=== PATIENT | female | born 1950 | race Caucasian/White ===

== ENCOUNTER 2017-04-27 08:47 | Day surgery (SDC) | payer MEDICARE, OTHER, SELFPAY ==
[2017-04-27 09:08] VITALS: BP 129/55; BP 145/68; BP 159/78; PULSE 62; PULSE 66; PULSE 69; RESP 18; RESP 20; TEMP 36.2; O2SAT 99
[2017-04-27 09:21] VITALS: BP 127/78; PULSE 70; RESP 20; TEMP 36.2; O2SAT 100
--- NOTE | 2017-04-27 10:10 | HMH.PMPROC ---
- Procedure Date: 04/27/17 Time: 10:10 Anesthesiologist:: Kvng Freed MD Complications:: None Pre-procedure Diagnosis:: Sacroiliitis Post-procedure Diagnosis:: Same Indications for Procedure:: This patient is a pleasant 66-year-old white female who we are treating for right hip pain. She is tender over her right SI joint. She does have a positive Randee's test. We will do a right SI joint injection under fluoroscopy today. Procedure Details:: Informed consent was obtained and the risk and benefits of the procedure was explained to the patient. Patient was taken to the procedure room. She was prepped in sterile fashion. C-arm fluoroscopy was used to view the lower right SI joint. The skin and subcutaneous tissues were anesthetized using lidocaine. A 22-gauge spinal needle was inserted and advanced into the inferior aspect of the right SI joint. Needle placement was confirmed with dye. After this we injected 5 mL bupivacaine 0.25% and Depo-Medrol 40 mg. Patient tolerated the procedure well without complications. Plan and Disposition:: We will follow-up with her in 2 weeks. We will reevaluate her symptoms at that time.
== END 2017-04-27 10:16 | disposition home or self-care (01) ==
LOC: SC.PAINP 08:50
PROVIDERS: Family Provider Internal Medicine Adolescent Medicine; PCP Internal Medicine Adolescent Medicine; Visit Provider Anesthesiology
DX: M46.1 Sacroiliitis, not elsewhere classified (principal)
CPT/HCPCS: G0260; 27096; J1040

== ENCOUNTER 2017-05-11 09:45 | Emergency (ER) | payer MEDICARE, OTHER, SELFPAY ==
[2017-05-11 09:46] VITALS: BP 147/98; PULSE 90; RESP 18; TEMP 36.9; O2SAT 97; BMI 26.2
--- NOTE | 2017-05-11 09:54 | XR_ITS ---
XR chest 2V HISTORY: ITS.REASON: heartburn going into lt neck and ear ORDERING PHYSICIAN: PATIENT AGE: 67 years COMPARISON: 03/20/2017 FINDINGS: Unremarkable heart size. Loop recorder device once again noted.. Chronic changes once again noted bilaterally with COPD. Vague opacity is once again noted in the left upper lobe and in the right mid upper lung zone similar to an older exam of 11/24/2010. The opacity however the right apex slightly more prominent than when compared to the previous exam. This could be related to progressive fibrotic changes. An active process however such as a scar carcinoma is an additional consideration. CT chest with contrast may be of further value. There are multiple old right-sided rib fractures. IMPRESSION: 1. COPD with chronic changes. 2. Increasing density right apex. Progressive fibrotic change or developing nodule is a consideration. Consider chest CT with contrast for further evaluation. Previous chest CT of 07/08/2016 also recommended follow-up chest CT in 6 months.
--- NOTE | 2017-05-11 10:01 | HMH.EDNVD ---
ED Disposition Clinical Impression: Nausea & vomiting Disposition: Home, Self-Care Condition on Discharge: Good Instructions: Nausea and Vomiting-Adult Additional Instructions: Commend that you eat foods foods that are rich in potassium such as orange juice and bananas as well as take Gatorade by mouth. Follow-up with Dr. Rivers in 1-3 days for recheck potassium and recheck general. Follow-up with hop sorter, call for appointment also in next few days. Prescriptions: Ondansetron [Zofran 4mg ODT] 4 mg PO TIDP PRN #10 tab.rapdis PRN Reason: nausea Referrals: Abdiel Angulo MD [Primary Care Provider] - - Critical Care Critical Care Time: No Attestation: On , the high probability of a clinically significant, sudden or life threatening deterioration of the following system(s) required my full and direct attention, intervention and personal management. The time I documented below is in addition to time spent performing reported procedures but includes the following listed in this critical care notation. Medical Decision Making Vital Signs: 05/11/17 09:46 Temperature 98.4 F Temperature Source Oral Pulse Rate [Right Brachial] 90 Respiratory Rate 18 Blood Pressure [Right Arm] 147/98 Blood Pressure Mean [Right Arm] 114 Blood Pressure Source [Right Arm] Automatic Cuff Blood Pressure Position [Right Arm] Sitting 02 Sat by Pulse Oximetry 97 Oxygen Delivery Method Room Air - Lab Data Lab Results 05/11/17 10:39: WBC 8.0, RBC 4.54, Hgb 13.5, Hct 41.3, MCV 90.9, MCH 29.7, MCHC 32.7, RDW 13.6, Plt Count 236, MPV 7.7, Neut % (Auto) 67.0, Lymph % (Auto) 27.3, [place] % (Auto) 4.3, Eos % (Auto) 1.1, Baso % (Auto) 0.2, Neut # (Auto) 5.4, Lymph # (Auto) 2.2, [place] # (Auto) 0.4, Eos # (Auto) 0.1, Baso # (Auto) 0.0 05/11/17 10:39: Sodium 139, Potassium 2.8 L*, Chloride 97 L, Carbon Dioxide 33 H, Anion Gap 11.8, BUN 15, Creatinine 0.95, Estimated Creat Clear 58, Estimated GFR 59, Est GFR ( Amer) 71, Glucose 91, Calcium 8.9, Total Bilirubin 0.5, AST 13 L, ALT 17, Alkaline Phosphatase 57, Total Creatine Kinase 46, CK-MB (CK-2) < 0.5, CK-MB (CK-2) Rel Index 1.1, Troponin I < 0.02, Total Protein 7.5, Albumin 3.7, Globulin 3.8 H, Albumin/Globulin Ratio 1.0 L Result diagrams: 05/11/17 10:39 05/11/17 10:39 Orders (Tests/Meds): ED MEDICATIONS Discontinued Medications Generic Name Dose Route Start Last Admin Trade Name Freq PRN Reason Stop Dose Admin Belladonna Alkaloids 60 ml 05/11/17 10:23 05/11/17 10:43 Gi Cocktail 60ml Udc PO 05/11/17 10:24 60 ml ONCE ONE Administration Ondansetron HCl 4 mg 05/11/17 10:23 05/11/17 10:43 Zofran 4mg/2ml Vial IV 05/11/17 10:24 4 mg ONCE ONE Administration Potassium Chloride 20 meq 05/11/17 11:15 05/11/17 11:18 Klor-Con 20meq Tablet PO 05/11/17 11:16 20 meq ONCE ONE Administration - Radiology Data #1 Image(s): Chest Image Reviewed: Yes I reviewed the patient's radiology results, Yes I have reviewed radiologist's interpretation Preliminary Findings: Abnormal, No Infiltrates Seen, Normal Lung Inflation Ramon, Normal Heart Size Possible nodule seen, with follow-up CT recommended. I have relayed this information to the patient and she agrees to do so. - ECG Data Tracing #1 Sinus rhythm. 10/27/2016. Old right bundle branch block, and old T-wave changes. Normal intervals and axis. No hypertrophy. No ectopy. - Tanner Inquiry Pt receiving controlled substance: No Medical Decision Making Narrative: Patient has had no discomfort since being given a GI cocktail and Zofran. Low potassium, PO given/ replaced prior to discharge. Nausea/Vomiting/Diarrhea HPI - General Chief complaint: Nausea/Vomiting/Diarrhea Stated complaint: heartburn,vomiting,lt ear burning Mode of Arrival: Wheelchair Limitations: No Limitations Description of Symptoms (Recalled from ER Triage Doc. by RN): c/o heartburn x1 week that is now going into
[2017-05-11 10:44] LABS: Basophils % 0.2 % (0.1-2.0); Eosinophils # 0.1 K/mm3 (0.0-0.4); Eosinophils % 1.1 % (0.1-12.0); Hematocrit 41.3 % (37.0-47.0); Hemoglobin 13.5 g/dL (12.2-16.2); Lymphocytes # 2.2 K/mm3 (0.7-4.5); Lymphocytes % 27.3 K/mm3 (10-50); Mean Corpuscular HGB Conc 32.7 g/dL (31.8-35.4); Mean Corpuscular Hemoglobin 29.7 pg (27.0-31.2); Mean Corpuscular Volume 90.9 fl (81-99); Mean Platelet Volume 7.7 fl (7.4-10.4); Monocytes # 0.4 K/mm3 (0.1-1.0); Monocytes % 4.3 % (1.7-9.3); Neutrophils # 5.4 K/mm3 (1.8-7.8); Platelet Count 236 K/mm3 (142-424); Red Blood Count 4.54 M/mm3 (4.20-5.40); Red Cell Distribution Width 13.6 % (11.5-17.5)
[2017-05-11 11:12] LABS: Alanine Aminotransferase 17 U/L (12-78); Albumin Level 3.7 gm/dL (3.4-5.0); Alkaline Phosphatase 57 U/L (46-116); Anion Gap 11.8 mEq/L (5-15); Aspartate Amino Transferase 13 U/L (15-37); Bilirubin,Total 0.5 mg/dL (0.2-1.0); Blood Urea Nitrogen 15 mg/dL (7-18); Calcium 8.9 mg/dL (8.5-10.1); Carbon Dioxide 33 mmol/L (21.0-32.0); Chloride 97 mmol/L (98-107); Creatine Kinase 46 U/L (26-192); Creatinine Clearance Estimated 58 mL/min (0-300); Creatinine,Serum 0.95 mg/dL (0.55-1.02); Estimated Glomerular Filt Rate 59 ml/min (>60); GFR (African American) 71 ML/MIN (>60); Globulin 3.8 gm/dl (1.3-3.2); Glucose 91 mg/dL (74-106); Sodium 139 mmol/L (136-145); Total Protein,Serum 7.5 gm/dL (6.4-8.2); Troponin I < 0.02 ng/ml (0.00-0.06)
[2017-05-11 11:13] LABS: CKMB Relative Index 1.1 U/L (0-4.0); Creatine Kinase MB < 0.5 mg/ml (0.0-3.6)
[2017-05-11 11:14] LABS: Potassium 2.8 mmoL/L (3.5-5.1)
--- NOTE | 2017-05-11 11:18 | PC.NURSE ---
LAB CALLED WITH CRITICALS POTTASSIUM OF 2.6 PER [facility] , DR MARCOS NOTIFIED
[2017-05-11 11:36] VITALS: BP 125/85; O2SAT 98
== END 2017-05-11 11:38 | disposition home or self-care (01) ==
PROVIDERS: Emergency Provider Emergency Medicine; Family Provider Internal Medicine Adolescent Medicine; PCP Internal Medicine Adolescent Medicine
DX: R11.2 Nausea with vomiting, unspecified (principal); I25.2 Old myocardial infarction; E78.5 Hyperlipidemia, unspecified; F17.210 Nicotine dependence, cigarettes, uncomplicated; Z87.11 Personal history of peptic ulcer disease; Z79.890 Hormone replacement therapy
CPT/HCPCS: 71046; 80053; 82550; 82553; 84484; 85025; 93005; 93041; 96374; 96375; 99284; J2405

== ENCOUNTER 2017-05-17 13:47 | Emergency (ER) | payer MEDICARE, OTHER, SELFPAY ==
[2017-05-17 13:48] VITALS: BP 160/85; PULSE 71; RESP 16; TEMP 36.9; O2SAT 100; BMI 28.3
--- NOTE | 2017-05-17 14:06 | CT_ITS ---
CT head/brain wo con HISTORY: ITS.REASON: Slurred speech, uncomprehensive sounds ORDERING PHYSICIAN: Henok Brunner MD PATIENT AGE: 67 years COMPARISON: 11/24/2010 TECHNIQUE: Axial images obtained without contrast. Brain and bone windows reviewed. FINDINGS: No midline shift, mass effect, intracranial hemorrhage, hydrocephalus, or extra-axial fluid collection is evident. There is some nonspecific areas of decreased attenuation in the periventricular and subcortical regions bilaterally microangiopathic gliotic changes. The calvarium has an unremarkable appearance. No mastoid effusion. No sinus air-fluid levels.. Mild mucosal thickening ethmoid sinuses. IMPRESSION: 1. No acute intracranial findings. 2. Subtle subcortical and periventricular decreased attenuation suggesting microangiopathic gliotic change. 3. There is no evidence of intracranial hemorrhage, focal mass, or acute territorial infarction. A negative CT does not exclude an acute CVA. A follow-up head CT or MRI is recommended if neurological symptoms persist .
--- NOTE | 2017-05-17 14:09 | XR_ITS ---
XR chest portable HISTORY: ITS.REASON: weakness, slurred speech ORDERING PHYSICIAN: Henok Brunner MD PATIENT AGE: 67 years COMPARISON: 05/11/2017 FINDINGS: Study is somewhat underpenetrated. Unremarkable heart size. No evidence of CHF. Right apical density once again noted. There is also increased density in the right suprahilar region which could reflect underlying atelectasis or infiltrate. There are multiple old right rib fractures. Left lung is clear. IMPRESSION: 1. New opacity in the right suprahilar region consistent with atelectasis or infiltrate. 2. Old right rib fractures with persistent opacity in the right apex
--- NOTE | 2017-05-17 14:14 | HMH.EDAMS ---
ED Disposition Clinical Impression: Generalized anxiety disorder Altered mental status Qualifiers: Altered mental status type: stupor Qualified Code(s): R40.1 - Stupor Disposition: Home, Self-Care Condition on Discharge: Fair Instructions: DI for Altered Mental Status Referrals: Abdiel Angulo MD [Primary Care Provider] - Time of Disposition: 18:38 - Critical Care Critical Care Time: No Attestation: On 05/17/17, the high probability of a clinically significant, sudden or life threatening deterioration of the following system(s) required my full and direct attention, intervention and personal management. The time I documented below is in addition to time spent performing reported procedures but includes the following listed in this critical care notation. Medical Decision Making - Medical Records Medical records reviewed: Yes: I reviewed the patient's medical records. Vital Signs: 05/17/17 13:48 Temperature 98.4 F Temperature Source Oral Pulse Rate [Right Brachial] 71 Respiratory Rate 16 Blood Pressure [Right Arm] 160/85 Blood Pressure Mean [Right Arm] 110 Blood Pressure Source [Right Arm] Automatic Cuff Blood Pressure Position [Right Arm] Supine 02 Sat by Pulse Oximetry 100 Oxygen Delivery Method Nasal Cannula Oxygen Flow Rate (LPM) 2 - Lab Data Lab results reviewed: Yes: I reviewed the patient's lab results. Lab Results 05/17/17 14:53: WBC 6.4, RBC 3.97 L, Hgb 12.0 L, Hct 37.3, MCV 93.9, MCH 30.3, MCHC 32.3, RDW 13.5, Plt Count 217, MPV 7.6, Neut % (Auto) 62.7, Lymph % (Auto) 31.7, [place] % (Auto) 3.4, Eos % (Auto) 1.9, Baso % (Auto) 0.2, Neut # (Auto) 4.0, Lymph # (Auto) 2.0, [place] # (Auto) 0.2, Eos # (Auto) 0.1, Baso # (Auto) 0.0 05/17/17 14:53: Sodium 140, Potassium 3.5, Chloride 102, Carbon Dioxide 30, Anion Gap 11.5, BUN 16, Creatinine 0.83, Estimated Creat Clear 65, Estimated GFR 69, Est GFR ( Amer) 83, Glucose 106, Calcium 8.8, Total Bilirubin 0.4, AST 13 L, ALT 18, Alkaline Phosphatase 49, Total Protein 6.7, Albumin 3.2 L, Globulin 3.5 H, Albumin/Globulin Ratio 0.9 L 05/17/17 14:53: Total Creatine Kinase 36, CK-MB (CK-2) < 0.5, CK-MB (CK-2) Rel Index 1.4, Troponin I < 0.02 05/17/17 15:45: Urine Color Yellow, Urine Appearance Clear, Urine pH 6.0, Ur Specific [place] 1.020, Urine Protein Negative, Urine Glucose (UA) Negative, Urine Ketones Negative, Urine Blood Negative, Urine Nitrate Negative, Urine Bilirubin Negative, Urine Urobilinogen 0.2, Ur Leukocyte Esterase Negative, Urine RBC Occasional, Urine WBC Occasional, Ur Squamous Epith Cells Occasional, Calcium Oxalate Crystal Trace, Amorphous Sediment 1+, Urine Bacteria Trace 05/17/17 15:45: Urine Opiates Screen Negative, Ur Barbituates Screen Positive H, Ur Phencyclidine Scrn Negative, Ur Amphetamines Screen Negative, U Methamphetamines Scrn Negative, U Benzodiazepines Scrn Negative, Urine Cocaine Screen Negative, U Marijuana (THC) Screen Negative Result diagrams: 05/17/17 14:53 05/17/17 14:53 Orders (Tests/Meds): ED MEDICATIONS Discontinued Medications Generic Name Dose Route Start Last Admin Trade Name Annabella PRN Reason Stop Dose Admin Iopamidol 75 ml 05/17/17 16:56 05/17/17 16:57 [id number]; 75ml Vial IV 05/17/17 16:57 75 ml ONCE ONE Administration Sodium Chloride 10 ml 05/17/17 16:56 05/17/17 16:57 Rad-Saline Flush 10ml Syringe IV 05/17/17 16:57 10 ml ONCE ONE Administration ORDERS Category Date Time Status CT chest w con Stat Cat Scan 05/17/17 16:[address] head/brain w con Stat Cat Scan 05/17/17 16:[address] soft tissue neck w con Stat Cat Scan 05/17/17 16:04 Taken - CT Data CT Scan: Head, C-Spine, Chest Time Received: 18:[address] Reviewed: Yes: I have reviewed the patient's CT results, I discussed the CT results w/the radiologist, I have viewed the radiologist's interpretation Preliminary Findings: Normal/NAD - Tanner Inquiry Pt receiving controlled substance: No Tanner
--- NOTE | 2017-05-17 14:19 | ED_ITS ---
ED Disposition Clinical Impression: Generalized anxiety disorder Altered mental status Qualifiers: Altered mental status type: stupor Qualified Code(s): R40.1 - Stupor Disposition: Home, Self-Care Condition on Discharge: Fair Instructions: DI for Altered Mental Status Referrals: Abdiel Angulo MD [Primary Care Provider] - Time of Disposition: 18:38 - Critical Care Critical Care Time: No Attestation: On 05/17/17, the high probability of a clinically significant, sudden or life threatening deterioration of the following system(s) required my full and direct attention, intervention and personal management. The time I documented below is in addition to time spent performing reported procedures but includes the following listed in this critical care notation. Medical Decision Making - Medical Records Medical records reviewed: Yes: I reviewed the patient's medical records. Vital Signs: 05/17/17 13:48 Temperature 98.4 F Temperature Source Oral Pulse Rate [Right Brachial] 71 Respiratory Rate 16 Blood Pressure [Right Arm] 160/85 Blood Pressure Mean [Right Arm] 110 Blood Pressure Source [Right Arm] Automatic Cuff Blood Pressure Position [Right Arm] Supine 02 Sat by Pulse Oximetry 100 Oxygen Delivery Method Nasal Cannula Oxygen Flow Rate (LPM) 2 - Lab Data Lab results reviewed: Yes: I reviewed the patient's lab results. Lab Results 05/17/17 14:53: WBC 6.4, RBC 3.97 L, Hgb 12.0 L, Hct 37.3, MCV 93.9, MCH 30.3, MCHC 32.3, RDW 13.5, Plt Count 217, MPV 7.6, Neut % (Auto) 62.7, Lymph % (Auto) 31.7, [place] % (Auto) 3.4, Eos % (Auto) 1.9, Baso % (Auto) 0.2, Neut # (Auto) 4.0 , Lymph # (Auto) 2.0, [place] # (Auto) 0.2, Eos # (Auto) 0.1, Baso # (Auto) 0.0 05/17/17 14:53: Sodium 140, Potassium 3.5, Chloride 102, Carbon Dioxide 30, Anion Gap 11.5, BUN 16, Creatinine 0.83, Estimated Creat Clear 65, Estimated GFR 69, Est GFR ( Amer) 83, Glucose 106, Calcium 8.8, Total Bilirubin 0.4 , AST 13 L, ALT 18, Alkaline Phosphatase 49, Total Protein 6.7, Albumin 3.2 L, Globulin 3.5 H, Albumin/Globulin Ratio 0.9 L 05/17/17 14:53: Total Creatine Kinase 36, CK-MB (CK-2) < 0.5, CK-MB (CK-2) Rel Index 1.4, Troponin I < 0.02 05/17/17 15:45: Urine Color Yellow, Urine Appearance Clear, Urine pH 6.0, Ur Specific Organ 1.020, Urine Protein Negative, Urine Glucose (UA) Negative, Urine Ketones Negative, Urine Blood Negative, Urine Nitrate Negative, Urine Bilirubin Negative, Urine Urobilinogen 0.2, Ur Leukocyte Esterase Negative, Urine RBC Occasional, Urine WBC Occasional, Ur Squamous Epith Cells Occasional, Calcium Oxalate Crystal Trace, Amorphous Sediment 1+, Urine Bacteria Trace 05/17/17 15:45: Urine Opiates Screen Negative, Ur Barbituates Screen Positive H , Ur Phencyclidine Scrn Negative, Ur Amphetamines Screen Negative, U Methamphetamines Scrn Negative, U Benzodiazepines Scrn Negative, Urine Cocaine Screen Negative, U Marijuana (THC) Screen Negative Result diagrams: 05/17/17 14:53 05/17/17 14:53 Orders (Tests/Meds): ED MEDICATIONS Discontinued Medications Generic Name Dose Route Start Last Admin Trade Name Annabella PRN Reason Stop Dose Admin Iopamidol 75 ml 05/17/17 16:56 05/17/17 16:57 [id number]; 75ml Vial IV 05/17/17 16:57 75 ml ONCE ONE Administration Sodium Chloride 10 ml 05/17/17 16:56 05/17/17 16:57 Rad-Saline Flush 10ml Syringe IV 05/17/17 16:57 10 ml ONCE ONE Administration
[2017-05-17 15:15] LABS: Basophils % 0.2 % (0.1-2.0); Eosinophils # 0.1 K/mm3 (0.0-0.4); Eosinophils % 1.9 % (0.1-12.0); Hematocrit 37.3 % (37.0-47.0); Lymphocytes % 31.7 K/mm3 (10-50); Mean Corpuscular HGB Conc 32.3 g/dL (31.8-35.4); Mean Corpuscular Hemoglobin 30.3 pg (27.0-31.2); Mean Corpuscular Volume 93.9 fl (81-99); Mean Platelet Volume 7.6 fl (7.4-10.4); Monocytes # 0.2 K/mm3 (0.1-1.0); Monocytes % 3.4 % (1.7-9.3); Neutrophils % 62.7 % (37.0-80.0); Platelet Count 217 K/mm3 (142-424); Red Blood Count 3.97 M/mm3 (4.20-5.40); Red Cell Distribution Width 13.5 % (11.5-17.5); White Blood Count 6.4 K/mm3 (4.8-10.8)
[2017-05-17 15:32] LABS: Alanine Aminotransferase 18 U/L (12-78); Albumin Level 3.2 gm/dL (3.4-5.0); Albumin/Globulin Ratio 0.9 (1.1-1.8); Alkaline Phosphatase 49 U/L (46-116); Anion Gap 11.5 mEq/L (5-15); Aspartate Amino Transferase 13 U/L (15-37); Bilirubin,Total 0.4 mg/dL (0.2-1.0); Blood Urea Nitrogen 16 mg/dL (7-18); Calcium 8.8 mg/dL (8.5-10.1); Carbon Dioxide 30 mmol/L (21.0-32.0); Chloride 102 mmol/L (98-107); Creatinine Clearance Estimated 65 mL/min (0-300); Creatinine,Serum 0.83 mg/dL (0.55-1.02); Estimated Glomerular Filt Rate 69 ml/min (>60); GFR (African American) 83 ML/MIN (>60); Globulin 3.5 gm/dl (1.3-3.2); Glucose 106 mg/dL (74-106); Potassium 3.5 mmoL/L (3.5-5.1); Sodium 140 mmol/L (136-145); Total Protein,Serum 6.7 gm/dL (6.4-8.2)
[2017-05-17 15:47] LABS: Creatine Kinase 36 U/L (26-192); Troponin I < 0.02 ng/ml (0.00-0.06)
[2017-05-17 15:48] LABS: CKMB Relative Index 1.4 U/L (0-4.0); Creatine Kinase MB < 0.5 mg/ml (0.0-3.6)
[2017-05-17 15:51] LABS: Microscopic, Urine URINE MICROSCOPIC (MICROSCOPIC)
[2017-05-17 15:54] LABS: Appearance,Urine CLEAR (Clear); Bilirubin,Urine Negative (Negative); Blood, Urine Negative (Negative); Color,Urine YELLOW (Yellow); Glucose,Urine (UA) Negative (Negative); Ketones,Urine Negative (Negative); Leukocyte Esterase,Urine Negative (Negative); Nitrate,Urine Negative (Negative); Protein,Urine Negative (Negative); Urobilinogen,Urine 0.2 EU/dl (0.2)
[2017-05-17 16:00] LABS: Amphetamine/Metha Screen,Urine Negative ng/mL (<1000); Barbiturates Screen,Urine Positive ng/mL (<200); Benzodiazepines Screen,Urine Negative ng/mL (200); Cannabinoid Screen,Urine Negative ng/mL (<50); Cocaine Screen,Urine Negative ng/g (<300); Methadone Screen,Urine Negative ng/mL (<300); Opiate Screen,Urine Negative ng/mL (<300); Phencyclidine Screen,Urine Negative ng/mL (<25)
--- NOTE | 2017-05-17 16:02 | CT_ITS ---
CT head/brain w con HISTORY: Unresponsive, slurred speech, noncomprehensive sound, strokelike symptoms ITS.REASON: ? Stroke like symptoms ORDERING PHYSICIAN: Henok Brunner MD PATIENT AGE: 67 years COMPARISON: Unenhanced exam from the same day TECHNIQUE: Axial images obtained with contrast. Brain and bone windows reviewed. FINDINGS: No midline shift, mass effect, intracranial hemorrhage, hydrocephalus, or extra-axial fluid collection is evident. No enhancing lesions evident. The calvarium has an unremarkable appearance. No mastoid effusion. No sinus air-fluid levels.. IMPRESSION: Negative CT head with contrast. No acute finding. Consider MRI for more thorough evaluation if symptoms persist
--- NOTE | 2017-05-17 16:03 | CT_ITS ---
CT chest w con HISTORY: Right upper lobe mass or infiltrate noted on chest x-ray. Unresponsive ITS.REASON: ? mass on CXR ORDERING PHYSICIAN: Henok Brunner MD PATIENT AGE: 67 years TECHNIQUE: Axial images obtained following the administration of 75 mL of Isovue 370 . Sagittal, and coronal reformatted images are also generated and reviewed. COMPARISON: Radiograph of the same day and previous CT of the chest of 07/08/2016 FINDINGS: No mediastinal mass or adenopathy. Small node is present in the right hilum 11 mm. There are coronary artery calcifications. No evidence of pericardial effusion. There are centrilobular emphysematous changes with biapical fibrosis. There is some minimal cavitation in the right apex age-indeterminate. The previous CT of the chest did not cover the apical region. Paraseptal emphysematous changes are also present. There is a subpleural 8 mm nodule right middle lobe laterally. Atelectatic or fibrotic changes are present in the lung bases. There are old right-sided rib fractures involving the right third through seventh ribs posterior laterally. There is a loop recorder device on the left. No evidence of aortic aneurysm or dissection. No evidence of central pulmonary embolus. Coronary artery calcifications are present. Upper abdominal images show some mild thickening of the splenic flexure of the colon nonspecific. IMPRESSION: 1. Centrilobular and paraseptal emphysematous changes with biapical fibrosis and mild cavitation in the right apex 2. Stable 8 mm nodule in the right middle lobe. 3. Coronary artery calcifications indicating coronary artery disease. 4. Multiple old right-sided rib fractures. 5. The radiographic abnormality likely corresponds to a combination of the fibrotic changes and overlying rib fractures PULMONARY ARTERIES:No pulmonary embolus evident. AORTA:No acute finding. No thoracic aortic aneurysm or dissection evident LUNGS:Unremarkable. No mass or consolidation. PLEURAL SPACES:No significant effusion. No evidence of pneumothorax. HEART:Unremarkable. Normal heart size. No significant pericardial effusion. MEDIASTINAL AND HILAR STRUCTURES:No mediastinal or hilar mass evident. No dominant adenopathy. BONY STRUCTURES:No acute bony abnormalities apparent LYMPH NODES:No enlarged lymph nodes evident UPPER ABDOMEN:Unremarkable IMPRESSION:
--- NOTE | 2017-05-17 16:04 | CT_ITS ---
CT soft tissue neck w con INDICATION: Unresponsive, altered mental status ITS.REASON: need CT of neck ORDERING PHYSICIAN: Henok Brunner MD PATIENT AGE: 67 years COMPARISON: None TECHNIQUE: Axial images are obtained with contrast. Sagittal and coronal reformatted images are reviewed as well. FINDINGS: No obvious nasopharyngeal mass. The parotid glands and submandibular glands are unremarkable. No mass, dominant adenopathy, or abscess. Right lobe of the thyroid gland is somewhat enlarged with a 6 mm hypodense nodule along the lower pole posteriorly. The epiglottis has an unremarkable appearance. IMPRESSION: 1. No acute finding. 2. Small right thyroid nodule
[2017-05-17 17:03] LABS: Amorphous Sediment,Urine 1+ /lpf; Bacteria,Urine Trace /lpf; Calcium Oxalate Crystals,Urine Trace /lpf; RBC,Urine Occasional #/hpf (0-3); Squamous Epithelial Cell,Urine Occasional #/hpf (0-5); WBC,Urine Occasional #/hpf (0-3)
[2017-05-17 19:30] VITALS: BP 135/83; PULSE 66; RESP 16; O2SAT 98
== END 2017-05-17 19:33 | disposition home or self-care (01) ==
PROVIDERS: Emergency Provider General Practice; Family Provider Internal Medicine Adolescent Medicine; PCP Internal Medicine Adolescent Medicine
DX: F41.1 Generalized anxiety disorder (principal); R40.1 Stupor; J44.9 Chronic obstructive pulmonary disease, unspecified; F17.210 Nicotine dependence, cigarettes, uncomplicated; Z86.73 Personal history of transient ischemic attack (TIA), and cerebral infarction without residual deficits; Z79.02 Long term (current) use of antithrombotics/antiplatelets; Z79.899 Other long term (current) drug therapy
CPT/HCPCS: 36415; 70450; 70460; 70491; 71045; 71260; 80053; 80305; 81001; 82550; 82553; 84484; 85025; 93005; 99283; Q9967

== ENCOUNTER 2017-05-31 08:31 | Day surgery (SDC) | payer MEDICARE, OTHER, SELFPAY ==
[2017-05-29 16:19] VITALS: BMI 25.8
[2017-05-31 08:49] VITALS: BP 118/66; PULSE 72; RESP 16; TEMP 36.3; O2SAT 97
--- NOTE | 2017-05-31 08:58 | P.PN_ITS ---
[facility] Anesthesia Checklist - Patient Identification Patient Identification: Arm Band, Verbal (Name & ) - Structural Data Admitted From: Home Planned Operative Procedure/s: egd, colon Consent for Planned Operative Procedure(s) Verified: Yes Verified Documents: Surgical Consent - NPO Status Verified Time NPO: 00:00 - Additional verifications Patient : No Anesthesia Reactions: No Hx Blood Transfusions: No Blood Transfusion Reaction: No Cephalosporin Allergy: No Previous Colonoscopy: No - Cardiovascular Assessment Heart Sounds: S1 & S2 Pulse Strength: Baseline Pulse Rhythm: Regular Peripheral Edema: Yes - Airway Assessment C-Spine Mobility Assessed: Yes TMJ Mobility Assessed: Yes Dentition: Edentulous - Neurological Assessment Level of Consciousness: Awake, Alert, Appropriate Hx Seizures: No Numbness or tingling in extremities: No - Anesthesia Plan Anesthesia Risk discussed: Yes Anesthesia Plan: Verified ASA Class: III Anesthesia Type: MAC [facility] Anesthesia HX I have reviewed the patient's past medical history: Yes Medical History: Reports:: Anxiety, Atherosclerotic Heart Disease, Congestive Heart Failure, Chronic Obstructive Pulmonary Disease (COPD), Coronary Artery Disease, Gastroesophageal Reflux Disease(GERD), Hyperlipidemia, Lung Disease ( COPD) Denies:: Cancer, Diabetes Mellitus Type 1, Diabetes Mellitus Type 2, Internal Pacemaker, MRSA, Seizures Other Medical History: Reports: Arthritis, Hormone Therapy, Other (Stroke,Heart Attack). Denies: Blood Transfusion Reaction Other Surgeries: Yes: Appendectomy, Colonoscopy, Coronary Stent (x1), EGD, Hysterectomy-Total, Tubal Ligation, Other (gallbladder,Loop Recorder,Heart Stent ). No: Pacemaker Amputation: No Fractures: No *Family Hx:: Coronary Artery Disease, Cancer, Hypertension
[2017-05-31 09:58] VITALS: O2SAT 99
--- NOTE | 2017-05-31 10:37 | HMH.SCOPE ---
- Procedure: Date: 05/31/17 Procedure Performed:: Esophagogastroduodenoscopy with biopsy Colonoscopy with polypectomy Indications:: This is a 67-year-old female with a history of colon polyps and with a history of fairly severe peptic ulcer disease leading to partial gastrectomy. Over the past few months she has had intermittent increased heartburn . Performing Provider:: Harsha Hawley MD Referring Provider:: Dr. Abdiel Angulo Sedation:: Monitored anesthesia care Procedure:: After informed consent was obtained, the patient was taken to the endoscopy suite. Monitored anesthesia care ensued after she was transferred to the left lateral decubitus position. The gastroscope was advanced. The gastroesophageal junction was at 40 cm. The stomach was entered. Moderate streaking gastritis was encountered. A biopsy of the distal gastric remnant was obtained. The duodenal mucosa appeared relatively normal. Retroflexion confirmed additional areas of inflammation, but no other significant abnormality. The gastroscope was carefully removed. Digital rectal exam revealed hemorrhoidal tags. The colonoscope was placed in position. The entire colon was evaluated. Bowel preparation was very poor and visualization was limited. Large volume irrigation and suctioning only slightly improved visualization. Scattered diverticulosis was noted. A splenic flexure polyp was excised way of snare. A lobulated sessile polyp at 40 cm was also excised by way of snare. No additional lesions were seen. The colonoscope was carefully removed and the patient was transferred to recovery. Findings:: Gastroesophageal junction at 40 cm Moderate streaking gastritis Mild hemorrhoidal tags Mild scattered diverticulosis Poor bowel preparation Splenic flexure polyp Lobulated sessile polyp at 40 cm Specimens:: Biopsy of distal gastric remnant Splenic flexure polyp Lobulated sessile polyp at 40 cm Recommendations:: Repeat colonoscopy is pending pathology but will likely be around 6-12 months secondary to limited bowel preparation. The patient possibly has bile reflux and discussions concerning medical therapy for this will be ongoing. Complications:: No immediate with the exception of poor bowel preparation for colonoscopy Estimated blood obtained (mL): 1
[2017-05-31 10:38] VITALS: BP 93/61; PULSE 64; RESP 18; TEMP 36.3; O2SAT 96
[2017-05-31 10:50] VITALS: BP 102/56; PULSE 67; RESP 18; O2SAT 95
[2017-05-31 13:37] VITALS: BP 104/60; PULSE 67; RESP 18; O2SAT 95
== END 2017-05-31 11:00 | disposition home or self-care (01) ==
PROVIDERS: Family Provider Internal Medicine Adolescent Medicine; PCP Internal Medicine Adolescent Medicine; Visit Provider Surgery
PROC: 0DJ08ZZ Inspection of Upper Intestinal Tract, Via Natural or Artificial Opening Endoscopic (ICD-10-PCS; CPT 43235; principal; 2017-05-31 09:30)
DX: Z86.010 Personal history of colon polyps (principal); K57.90 Diverticulosis of intestine, part unspecified, without perforation or abscess without bleeding; K63.5 Polyp of colon; K64.4 Residual hemorrhoidal skin tags; K29.70 Gastritis, unspecified, without bleeding
CPT/HCPCS: 43239; 45380; 88305

== ENCOUNTER → 2017-06-11 10:36 | Outpatient (POV) | payer MEDICARE, OTHER, SELFPAY ==
[2017-06-11 10:47] VITALS: BP 103/71; PULSE 67; RESP 16; O2SAT 99; BMI 25.8
--- NOTE | 2017-06-11 11:41 | HMH.PAINSOAP ---
[facility] Pain Management SOAP Note Subjective:: Patient is an extremely pleasant 67-year-old white female who presents today to discuss her lower back pain. She just recently had right sacroiliac joint injection. She has done really well after the injection and states that for up to 2 weeks she was essentially pain-free in this area. Today she is still having some improvement however her back pain is worsened. She is having axial back pain or lower back. Patient has had RFA of L3-L4 L4-L5 L5-S1 back in January with great relief. Patient rates her pain a 6 out of 10 today. Patient is unable to take anti-inflammatories due to cardiac conditions. Patient is taking Tylenol arthritis.. ROS General: no recent weight change, no fever, no sleep disturbances Respiratory: no cough, no shortness of air, no recurring pulmonary infections Cardiovascular/Peripheral Vascular: No chest pain, No palpitations, no edema, no shortness of breath. Gastrointestinal: no incontinence, normal bowel movements reported Genitourinary: no incontinence Musculoskeletal: Low back pain Psychiatric: normal mood/ affect Neurological: [denies weakness in extremities], [denies balance issues] Objective:: Physical Exam General: Alert and oriented x3, no acute distress, pleasant and cooperative, [on room air] Lungs: Resps E/U, Symmetrical chest expansion Musculoskeletal: Flexion and extension of lumbar spine somewhat guarded secondary to pain, deep tendon reflexes normal, strength in upper and lower extremities [5/5], normal gait noted Neurological: speech clear, surveillance dual rate officer equal, no gross sensory deficits Assessment:: Lumbar spondylosis, sacroiliitis, facet arthropathy Plan:: We will plan another bilateral medial branch of L3-L4 L4-L5 L5-S1. Patient has done well with RFA in the past and also doing very well with her medial branch blocks in the past. I believe that this will help with her functionality and her pain. Patient received 90% relief from her last medial branch blocks lasting 3-4 weeks. Patient is having difficulty standing and washing her dishes. Patient has tried and failed physical therapy. She is unable to take anti-inflammatories. We will seek approval for medial branch block of L3-S1. This note was dictated using voice recognition software may contain errors or omissions
--- NOTE | 2017-06-11 11:45 | P.CONS_ITS ---
[facility] Pain Management SOAP Note Subjective:: Patient is an extremely pleasant 67-year-old white female who presents today to discuss her lower back pain. She just recently had right sacroiliac joint injection. She has done really well after the injection and states that for up to 2 weeks she was essentially pain-free in this area. Today she is still having some improvement however her back pain is worsened. She is having axial back pain or lower back. Patient has had RFA of L3-L4 L4-L5 L5-S1 back in January with great relief. Patient rates her pain a 6 out of 10 today. Patient is unable to take anti-inflammatories due to cardiac conditions. Patient is taking Tylenol arthritis.. ROS General: no recent weight change, no fever, no sleep disturbances Respiratory: no cough, no shortness of air, no recurring pulmonary infections Cardiovascular/Peripheral Vascular: No chest pain, No palpitations, no edema, no shortness of breath. Gastrointestinal: no incontinence, normal bowel movements reported Genitourinary: no incontinence Musculoskeletal: Low back pain Psychiatric: normal mood/ affect Neurological: [denies weakness in extremities], [denies balance issues] Objective:: Physical Exam General: Alert and oriented x3, no acute distress, pleasant and cooperative, [ on room air] Lungs: Resps E/U, Symmetrical chest expansion Musculoskeletal: Flexion and extension of lumbar spine somewhat guarded secondary to pain, deep tendon reflexes normal, strength in upper and lower extremities [5/5], normal gait noted Neurological: speech clear, gang hemstitching machine operator equal, no gross sensory deficits Assessment:: Lumbar spondylosis, sacroiliitis, facet arthropathy Plan:: We will plan another bilateral medial branch of L3-L4 L4-L5 L5-S1. Patient has done well with RFA in the past and also doing very well with her medial branch blocks in the past. I believe that this will help with her functionality and her pain. Patient received 90% relief from her last medial branch blocks lasting 3-4 weeks. Patient is having difficulty standing and washing her dishes. Patient has tried and failed physical therapy. She is unable to take anti-inflammatories. We will seek approval for medial branch block of L3-S1. This note was dictated using voice recognition software may contain errors or omissions
== END ==
PROVIDERS: Family Provider Internal Medicine Adolescent Medicine; PCP Internal Medicine Adolescent Medicine; Visit Provider Clinical Nurse Specialist Family Health
DX: M47.9 Spondylosis, unspecified (principal)
CPT/HCPCS: 99212

== ENCOUNTER 2017-07-18 10:26 | Day surgery (SDC) | payer MEDICARE, OTHER, SELFPAY ==
[2017-07-18 12:57] VITALS: BP 144/83; PULSE 77; RESP 18; TEMP 36.7; O2SAT 97; BMI 26.0
[2017-07-18 13:05] VITALS: BP 188/99; PULSE 82; RESP 20
[2017-07-18 13:07] VITALS: BP 153/91; PULSE 77; RESP 20
--- NOTE | 2017-07-18 13:16 | P.PCN_ITS ---
- Procedure Date: 07/18/17 Time: 13:16 Anesthesiologist:: Kvng Freed MD Complications:: None Pre-procedure Diagnosis:: Degenerative disc disease of lumbar spine with facet arthropathy and lumbar spondylosis Post-procedure Diagnosis:: Same Indications for Procedure:: This patient is a pleasant 67-year-old white female who underwent RFA of L3-L4, L4-5 and L5-S1 in January with great relief of her pain symptoms. Her pain is just now starting to return. We will do repeat bilateral medial branch blocks of L3-L4, L4-5 and L5-S1 to see if this will give her additional relief. Most of her pain is in the low back increased with extension. She is tender over the facet joints bilaterally at L3-L4, L4-5 and L5-S1. Procedure Details:: Lumbar medial branch block Informed consent was obtained and the risks and benefits of the procedure was explained to the patient. The back was prepped using ChloraPrep. The skin and subcutaneous tissues were anesthetized using lidocaine. I placed 22-gauge spinal needles into the facet joint/medial branches of L3-L4, L4-L5 and L5-S1 bilaterally. Needle placement was confirmed with dye. After this we injected 3 mL bupivacaine 0.25% and Depo-Medrol 13 mg into each facet joint/medial branch of L3-L4, L5 and L5-S1 bilaterally. We used a total of 80 mg Depo- Medrol for all 3 levels bilaterally. The patient tolerated the procedure well with no complications. Plan and Disposition:: We will follow-up with her in 2 weeks. We will reevaluate her symptoms at that time.
[2017-07-18 17:00] VITALS: BP 112/71; PULSE 76; RESP 16; O2SAT 95
== END 2017-07-18 13:21 | disposition home or self-care (01) ==
LOC: SC.PAINP 10:28
PROVIDERS: Family Provider Internal Medicine Adolescent Medicine; PCP Internal Medicine Adolescent Medicine; Visit Provider Anesthesiology
DX: M51.36 Other intervertebral disc degeneration, lumbar region (principal); M47.896 Other spondylosis, lumbar region; M12.88 Other specific arthropathies, not elsewhere classified, other specified site
CPT/HCPCS: 64493; 64494; 64495; J1030; Q9966

== ENCOUNTER → 2017-07-19 14:26 | Outpatient (CLI) | payer MEDICARE, OTHER, SELFPAY ==
[2017-07-19 14:30] LABS: Microscopic, Urine URINE MICROSCOPIC (MICROSCOPIC)
[2017-07-19 14:51] LABS: Basophils % 0.2 % (0.1-2.0); Eosinophils # 0.1 K/mm3 (0.0-0.4); Eosinophils % 0.7 % (0.1-12.0); Hematocrit 38.9 % (37.0-47.0); Hemoglobin 12.4 g/dL (12.2-16.2); Lymphocytes # 1.7 K/mm3 (0.7-4.5); Lymphocytes % 19.6 K/mm3 (10-50); Mean Corpuscular HGB Conc 31.9 g/dL (31.8-35.4); Mean Corpuscular Hemoglobin 29.6 pg (27.0-31.2); Mean Corpuscular Volume 92.8 fl (81-99); Mean Platelet Volume 8.2 fl (7.4-10.4); Monocytes # 0.3 K/mm3 (0.1-1.0); Monocytes % 3.1 % (1.7-9.3); Neutrophils # 6.4 K/mm3 (1.8-7.8); Neutrophils % 76.4 % (37.0-80.0); Platelet Count 239 K/mm3 (142-424); Red Blood Count 4.19 M/mm3 (4.20-5.40); Red Cell Distribution Width 12.6 % (11.5-17.5); White Blood Count 8.4 K/mm3 (4.8-10.8)
[2017-07-19 14:55] LABS: Appearance,Urine SL CLOUDY (Clear); Bilirubin,Urine Negative (Negative); Blood, Urine Negative (Negative); Color,Urine YELLOW (Yellow); Glucose,Urine (UA) Negative (Negative); Ketones,Urine Negative (Negative); Leukocyte Esterase,Urine Negative (Negative); Nitrate,Urine Negative (Negative); PH,Urine 5.5 (5.0-8.5); Protein,Urine Negative (Negative); Specific Gravity, Urine 1.025 (1.005-1.030); Urobilinogen,Urine 0.2 EU/dl (0.2)
[2017-07-19 15:02] LABS: Bacteria,Urine Trace /lpf; Mucus,Urine 1+ /lpf
[2017-07-19 15:17] LABS: Alanine Aminotransferase 16 U/L (12-78); Albumin Level 3.5 gm/dL (3.4-5.0); Albumin/Globulin Ratio 0.9 (1.1-1.8); Alkaline Phosphatase 55 U/L (46-116); Amylase 53 U/L (25-125); Anion Gap 8.3 mEq/L (5-15); Aspartate Amino Transferase 13 U/L (15-37); Bilirubin,Total 0.3 mg/dL (0.2-1.0); Blood Urea Nitrogen 12 mg/dL (7-18); Calcium 9.3 mg/dL (8.5-10.1); Carbon Dioxide 32 mmol/L (21.0-32.0); Chloride 103 mmol/L (98-107); Creatinine,Serum 0.81 mg/dL (0.55-1.02); Estimated Glomerular Filt Rate 71 ml/min (>60); GFR (African American) 85 ML/MIN (>60); Globulin 3.7 gm/dl (1.3-3.2); Glucose 107 mg/dL (74-106); Lipase 188 u/L (73-393); Potassium 3.3 mmoL/L (3.5-5.1); Sodium 140 mmol/L (136-145); Total Protein,Serum 7.2 gm/dL (6.4-8.2)
== END ==
PROVIDERS: Visit Provider Surgery
DX: R10.9 Unspecified abdominal pain (principal)
CPT/HCPCS: 80053; 81001; 82150; 83690; 85025

== ENCOUNTER → 2017-07-23 10:29 | Outpatient (CLI) | payer MEDICARE, OTHER, SELFPAY ==
--- NOTE | 2017-07-23 10:44 | CT_ITS ---
CT abdomen pelvis w con COMPARISON: CT scan abdomen pelvis without and with IV contrast 11/21/2016 HISTORY: Abdominal pain nausea after eating previous history of gastric ulcer TECHNIQUE: Multiaxial scans obtained from hemidiaphragms to the pelvic floor and were performed with IV and oral contrast. Sagittal and coronal reformats were evaluated as well. FINDINGS: The lower lung burns are clear. There has been a previous cholecystectomy. The liver spleen stomach and pancreas appear grossly normal. There is a small ventral hernia upper abdomen couple centimeters above the umbilicus measuring 4.6 cm at its mouth containing some mesentery. And/or vascular structures but no bowel. The adrenal glands are normal. The kidneys are normal size and show symmetrical function both appearing normal. Small bowel is normal. There has been a previous appendectomy. There is a moderately large amount stool throughout the colon mixed with oral contrast. There is some elongation and redundancy of the sigmoid colon which contains a large amount stool. There is diffuse arteriosclerotic calcification of the abdominal aorta but is no aneurysm. There are stable moderate dextroscoliotic curvature of the thoracolumbar junction. IMPRESSION: 1. Small ventral hernia 2. No other acute abdominal or pelvic pathology identified
--- NOTE | 2017-07-23 12:40 | HMH.ITSHM ---
OMEGA 3 FATTY ACIDS, FISH OIL, SUCRALFATE, ATORVASTATIN, PANTOPRAZOLE, K Dur, escitalopram, losartan, hydroxyzine hydrochloride, fludrocortisone acetate, aspri, clopidogrel, buspirone hydrochloride
== END ==
PROVIDERS: Family Provider Internal Medicine Adolescent Medicine; PCP Internal Medicine Adolescent Medicine; Visit Provider Surgery
DX: R10.9 Unspecified abdominal pain (principal)
CPT/HCPCS: 74177; Q9967

== ENCOUNTER → 2017-08-07 08:49 | Outpatient (POV) | payer MEDICARE, OTHER, SELFPAY ==
[2017-08-07 09:35] VITALS: BP 113/66; PULSE 95; RESP 18; BMI 26.0
--- NOTE | 2017-08-07 12:56 | PC.PHONENOTE ---
called in RX for Gabapentin 300mg TID with 2 refills and cancelled pt's old RX for Gabapentin 100mg.
--- NOTE | 2017-08-07 12:57 | PC.PHONENOTE ---
called in Rx for Gabapentin 300mg TID with 2 refills to pt's pharmacy
--- NOTE | 2017-08-07 13:36 | HMH.PAINSOAP ---
[facility] Pain Management SOAP Note Subjective:: Patient is a pleasant 67-year-old white female who presents today for follow-up after medial branch block. Patient's back is doing well however her right SI joint pain has returned. Patient is having extreme point tenderness over her right SI she rates the pain a 7 out of 10. Patient is unable to take anti-inflammatories due to cardiac condition. Patient is taking Tylenol. Patient states that her back pain is 80% to 90% relieved after her injections but this is being overshadowed by the new pain in her right SI joint. ROS General: no recent weight change, no fever, no sleep disturbances Respiratory: no cough, no shortness of air, no recurring pulmonary infections Cardiovascular/Peripheral Vascular: No chest pain, No palpitations, no edema, no shortness of breath. Gastrointestinal: no incontinence, normal bowel movements reported Genitourinary: no incontinence Musculoskeletal: Low back pain, right SI joint pain Psychiatric: normal mood/ affect, [denies depression], [denies anxiety] Neurological: [denies weakness in extremities], [denies balance issues] Objective:: Physical Exam General: Alert and oriented x3, no acute distress, pleasant and cooperative, [on room air] Lungs: Resps E/U, Symmetrical chest expansion, Eyes: PERRL Musculoskeletal: Flexion and extension of lumbar spine somewhat guarded secondary to pain, deep tendon reflexes normal, strength in upper and lower extremities [5/5], [abnormal gait noted], positive Randee's test on the right side Neurological: speech clear, administrative personal assistant equal, no gross sensory deficits Assessment:: Sacroiliitis, lumbar spondylosis, lumbar facet arthropathy Plan:: We will schedule right SI joint injection for this patient. We will also start her on gabapentin 300 mg 1 p.o. 3 times daily. Patient will start by taking 1 tab at nighttime for a week and slowly titrating it to 3 times a day. I discussed possible side effects with the patient patient is to call the office if she experience any is any of these. Patient has tried and failed physical therapy, and is unable to take anti-inflammatories due to cardiac conditions, medications. I will follow-up with this patient after SI joint injection. Is on blood thinners however she does not have to come off of them for this procedure. This note was dictated using voice recognition software and may contain errors or omissions
--- NOTE | 2017-08-07 13:43 | P.CONS_ITS ---
[facility] Pain Management SOAP Note Subjective:: Patient is a pleasant 67-year-old white female who presents today for follow-up after medial branch block. Patient's back is doing well however her right SI joint pain has returned. Patient is having extreme point tenderness over her right SI she rates the pain a 7 out of 10. Patient is unable to take anti- inflammatories due to cardiac condition. Patient is taking Tylenol. Patient states that her back pain is 80% to 90% relieved after her injections but this is being overshadowed by the new pain in her right SI joint. ROS General: no recent weight change, no fever, no sleep disturbances Respiratory: no cough, no shortness of air, no recurring pulmonary infections Cardiovascular/Peripheral Vascular: No chest pain, No palpitations, no edema, no shortness of breath. Gastrointestinal: no incontinence, normal bowel movements reported Genitourinary: no incontinence Musculoskeletal: Low back pain, right SI joint pain Psychiatric: normal mood/ affect, [denies depression], [denies anxiety] Neurological: [denies weakness in extremities], [denies balance issues] Objective:: Physical Exam General: Alert and oriented x3, no acute distress, pleasant and cooperative, [ on room air] Lungs: Resps E/U, Symmetrical chest expansion, Eyes: PERRL Musculoskeletal: Flexion and extension of lumbar spine somewhat guarded secondary to pain, deep tendon reflexes normal, strength in upper and lower extremities [5/5], [abnormal gait noted], positive Randee's test on the right side Neurological: speech clear, supervisor vendor quality equal, no gross sensory deficits Assessment:: Sacroiliitis, lumbar spondylosis, lumbar facet arthropathy Plan:: We will schedule right SI joint injection for this patient. We will also start her on gabapentin 300 mg 1 p.o. 3 times daily. Patient will start by taking 1 tab at nighttime for a week and slowly titrating it to 3 times a day. I discussed possible side effects with the patient patient is to call the office if she experience any is any of these. Patient has tried and failed physical therapy, and is unable to take anti-inflammatories due to cardiac conditions, medications. I will follow-up with this patient after SI joint injection. Is on blood thinners however she does not have to come off of them for this procedure. This note was dictated using voice recognition software and may contain errors or omissions
== END ==
PROVIDERS: Family Provider Internal Medicine Adolescent Medicine; PCP Internal Medicine Adolescent Medicine; Visit Provider Clinical Nurse Specialist Family Health
DX: M46.1 Sacroiliitis, not elsewhere classified (principal); M47.816 Spondylosis without myelopathy or radiculopathy, lumbar region
CPT/HCPCS: 99212

== ENCOUNTER → 2017-08-23 12:08 | Outpatient (CLI) | payer MEDICARE, OTHER, SELFPAY ==
[2017-08-23 12:22] LABS: Microscopic, Urine URINE MICROSCOPIC (MICROSCOPIC)
[2017-08-23 12:41] LABS: Basophils % 0.3 % (0.1-2.0); Eosinophils # 0.1 K/mm3 (0.0-0.4); Eosinophils % 1.6 % (0.1-12.0); Hematocrit 37.7 % (37.0-47.0); Hemoglobin 12.5 g/dL (12.2-16.2); Lymphocytes % 33.5 K/mm3 (10-50); Mean Corpuscular HGB Conc 33.3 g/dL (31.8-35.4); Mean Corpuscular Hemoglobin 30.4 pg (27.0-31.2); Mean Corpuscular Volume 91.2 fl (81-99); Mean Platelet Volume 7.6 fl (7.4-10.4); Monocytes # 0.4 K/mm3 (0.1-1.0); Neutrophils # 5.5 K/mm3 (1.8-7.8); Neutrophils % 60.7 % (37.0-80.0); Platelet Count 268 K/mm3 (142-424); Red Blood Count 4.13 M/mm3 (4.20-5.40); Red Cell Distribution Width 12.6 % (11.5-17.5); White Blood Count 9.1 K/mm3 (4.8-10.8)
[2017-08-23 12:46] LABS: Appearance,Urine CLEAR (Clear); Bilirubin,Urine Negative (Negative); Blood, Urine Negative (Negative); Color,Urine YELLOW (Yellow); Glucose,Urine (UA) Negative (Negative); Ketones,Urine Negative (Negative); Leukocyte Esterase,Urine Negative (Negative); Nitrate,Urine Negative (Negative); PH,Urine 5.5 (5.0-8.5); Protein,Urine Negative (Negative); Urobilinogen,Urine 0.2 EU/dl (0.2)
[2017-08-23 13:16] LABS: Mucus,Urine Trace /lpf; Uric Acid Crystals,Urine 2+ /lpf
[2017-08-23 13:50] LABS: Anion Gap 13.4 mEq/L (5-15); Blood Urea Nitrogen 13 mg/dL (7-18); Carbon Dioxide 34 mmol/L (21.0-32.0); Chloride 100 mmol/L (98-107); Creatinine,Serum 1.15 mg/dL (0.55-1.02); Estimated Glomerular Filt Rate 47 ml/min (>60); GFR (African American) 57 ML/MIN (>60); Glucose 111 mg/dL (74-106); Potassium 3.4 mmoL/L (3.5-5.1); Sodium 144 mmol/L (136-145)
== END ==
PROVIDERS: Visit Provider Surgery
DX: Z01.818 Encounter for other preprocedural examination (principal); K46.9 Unspecified abdominal hernia without obstruction or gangrene
CPT/HCPCS: 36415; 80048; 81001; 85025

== ENCOUNTER → 2017-09-10 09:22 | Outpatient (POV) | payer MEDICARE, OTHER, SELFPAY ==
[2017-09-10 09:29] VITALS: BP 106/63; PULSE 90; RESP 18; O2SAT 98; BMI 26.4
--- NOTE | 2017-09-10 10:18 | HMH.PAINSOAP ---
[facility] Pain Management SOAP Note Subjective:: Patient is a pleasant 67-year-old white female who presents today with increase in pain. Patient had a right SI joint risotto me and did very well with it for 2 weeks. After that she underwent hernia surgery and had an increase in pain after this. I believe that this was due to laying on the surgical table for an extended period of time. Patient also had a fall postsurgically. Patient is unable to take oral steroids due to history of bleeding ulcers. Patient is unable to take anti-inflammatories for the same reason. I discussed with the patient potentially utilizing topical anti-inflammatories as well as potentially utilizing anti-inflammatories compounded with famotidine. Patient is going to return in 1 week to reassess her symptoms. Patient may need a intramuscular injection of steroids as well. ROS General: no recent weight change, no fever, no sleep disturbances Respiratory: no cough, no shortness of air, no recurring pulmonary infections Cardiovascular/Peripheral Vascular: No chest pain, No palpitations, no edema, no shortness of breath. Gastrointestinal: no incontinence, normal bowel movements reported Genitourinary: no incontinence Musculoskeletal: Right SI joint pain Psychiatric: normal mood/ affect Neurological: [denies weakness in extremities], [denies balance issues] Objective:: Physical Exam General: Alert and oriented x3, no acute distress, pleasant and cooperative, [on room air] Lungs: Resps E/U, Symmetrical chest expansion, Eyes: PERRL Musculoskeletal: Flexion and extension of lumbar spine somewhat guarded secondary to pain, deep tendon reflexes normal, strength in upper and lower extremities [5/5], slightly antalgic gait noted Neurological: speech clear, jewelry sales coordinator equal, no gross sensory deficits Assessment:: Sacroiliitis, facet arthropathy Plan:: I will see this patient back in 1 week. We will reassess her symptoms at that time. Patient might need intramuscular injection of steroids. Patient is to call us if her symptoms get worse. This note was dictated using voice recognition software and may contain errors or omissions
--- NOTE | 2017-09-10 10:22 | P.CONS_ITS ---
[facility] Pain Management SOAP Note Subjective:: Patient is a pleasant 67-year-old white female who presents today with increase in pain. Patient had a right SI joint risotto me and did very well with it for 2 weeks. After that she underwent hernia surgery and had an increase in pain after this. I believe that this was due to laying on the surgical table for an extended period of time. Patient also had a fall postsurgically. Patient is unable to take oral steroids due to history of bleeding ulcers. Patient is unable to take anti-inflammatories for the same reason. I discussed with the patient potentially utilizing topical anti-inflammatories as well as potentially utilizing anti-inflammatories compounded with famotidine. Patient is going to return in 1 week to reassess her symptoms. Patient may need a intramuscular injection of steroids as well. ROS General: no recent weight change, no fever, no sleep disturbances Respiratory: no cough, no shortness of air, no recurring pulmonary infections Cardiovascular/Peripheral Vascular: No chest pain, No palpitations, no edema, no shortness of breath. Gastrointestinal: no incontinence, normal bowel movements reported Genitourinary: no incontinence Musculoskeletal: Right SI joint pain Psychiatric: normal mood/ affect Neurological: [denies weakness in extremities], [denies balance issues] Objective:: Physical Exam General: Alert and oriented x3, no acute distress, pleasant and cooperative, [ on room air] Lungs: Resps E/U, Symmetrical chest expansion, Eyes: PERRL Musculoskeletal: Flexion and extension of lumbar spine somewhat guarded secondary to pain, deep tendon reflexes normal, strength in upper and lower extremities [5/5], slightly antalgic gait noted Neurological: speech clear, summer school coordinator equal, no gross sensory deficits Assessment:: Sacroiliitis, facet arthropathy Plan:: I will see this patient back in 1 week. We will reassess her symptoms at that time. Patient might need intramuscular injection of steroids. Patient is to call us if her symptoms get worse. This note was dictated using voice recognition software and may contain errors or omissions
== END ==
PROVIDERS: Family Provider Internal Medicine Adolescent Medicine; PCP Internal Medicine Adolescent Medicine; Visit Provider Clinical Nurse Specialist Family Health
DX: M46.1 Sacroiliitis, not elsewhere classified (principal)
CPT/HCPCS: 99212

== ENCOUNTER 2017-10-15 14:08 | Emergency (ER) | payer MEDICARE, OTHER, SELFPAY ==
[2017-10-15 14:19] VITALS: BP 137/89; PULSE 113; RESP 20; O2SAT 99; BMI 26.0
--- NOTE | 2017-10-15 14:26 | PC.NURSE ---
ANGLEDOZER OPERATOR CALLED REPORT TO ED RN AND , PT TAKEN TO ROOM 10 IN ED.
[2017-10-15 14:28] VITALS: BP 155/91; PULSE 108; RESP 20; TEMP 39.3; O2SAT 95; BMI 26.0
--- NOTE | 2017-10-15 14:32 | PC.NURSE ---
Addendum entered by Sherie Martin RN 10/15/17 14:37: Pt states she is unable to take motrin due to an ulcer Original Note: Pt states that she took tylenol at noon but unsure the strength
--- NOTE | 2017-10-15 14:36 | CT_ITS ---
CT abdomen pelvis wo con Ordering Physician: Jaycob Vann MD Patient Age: 67 years: Female HISTORY: ITS.REASON: Pain Ventral Hernia repair one month ago pain last 4 days TECHNIQUE: Helical CT scanning performed at of pelvis with no oral nor IV contrast utilized. Axial sagittal and coronal reconstructions performed on CT workstation. All CT scans at this facility used one or more dose reduction techniques , viz: automatic exposure control, ma/Kv adjustment per patient's size, (including targeted exam where dose matched to the indication; i.e. head); or iterative reconstruction technique COMPARISON : FINDINGS Lung bases clear. There is a small 5 mm pleural-based nodular density anterior aspect RML axial image 5. This is unchanged since previous studies dating back to July 2017. Can be followed Abdomen/pelvis. Lack of oral and IV contrast decreases sensitivity. The liver, spleen, pancreas, adrenals unremarkable. Kidneys no urinary tract calculi nor obstruction. When compared to 08/28/2017 there is been significant decreased inflammation at the midline of the upper abdomen, and the site of the previous ventral hernia repair and graft placement. Only some minimal linear scarring in the subcutaneous tissues remains here. The previously seen air in this region has resolved. The undulating mesh graft seen posteriorly at midline at the upper midline abdomen is a again observed and stable position. Old midline incision extending down from this area towards umbilicus again noted, and unchanged. No inflammation or new hernia I believe there are some postsurgical changes at the distal stomach Small bowel. Unremarkable. A large bowel. Minimal stool right colon.I suspect appendix is been removed as well noting postsurgical changes at the tip of cecum. Terminal ileum unremarkable.. Osseous. The dextroscoliosis lumbar spine with multiplanar degenerative disc changes IMPRESSION...... No acute findings abdomen or pelvis. No bowel dilatation or obstruction. No renal calculi. .Significant improvement at previous ventral hernia repair site. . Resolution of the inflammatory changes previously seen here associated with the ventral upper abdomen hernia repair. Only some linear scarring is seen here at this point. The mesh graft material appears stable. No significant nor new findings in this area.
[2017-10-15 14:43] LABS: Microscopic, Urine URINE MICROSCOPIC (MICROSCOPIC)
[2017-10-15 14:48] LABS: Appearance,Urine CLEAR (Clear); Bilirubin,Urine Negative (Negative); Blood, Urine TRACE-L (Negative); Color,Urine YELLOW (Yellow); Glucose,Urine (UA) Negative (Negative); Ketones,Urine Negative (Negative); Leukocyte Esterase,Urine Negative (Negative); Nitrate,Urine Negative (Negative); Protein,Urine Negative (Negative); Urobilinogen,Urine 0.2 EU/dl (0.2)
--- NOTE | 2017-10-15 14:55 | HMH.EDNVD ---
ED Disposition Clinical Impression: Hypokalemia, Vomiting, Viral syndrome, Peptic ulcer disease, History of peptic ulcer Disposition: Home, Self-Care Condition on Discharge: Fair Instructions: DI for Acute Abdomen Additional Instructions: 1- stop by [facility] tomorrow for BMP , Dr Angulo will fax the order. 2- zofran prn. 3- clear liquids and gotrade 16 oz q 4 4- observe 4-5 uop a day. 6- tylenol prn fever and body aches 7- to see Dr Angulo tomorrow in the [facility] offoce with prior labs at 2 PM. 8-continue potassium supplementation 40 mEq p.o. twice daily as instructed. 9- return if neede for any new sx or if not better. Prescriptions: Ondansetron [Zofran 4mg ODT] 4 mg PO Q8HP PRN #6 tab.rapdis PRN Reason: Nausea - Critical Care Critical Care Time: No Attestation: On , the high probability of a clinically significant, sudden or life threatening deterioration of the following system(s) required my full and direct attention, intervention and personal management. The time I documented below is in addition to time spent performing reported procedures but includes the following listed in this critical care notation. Medical Decision Making - Tanner Inquiry Pt receiving controlled substance: No Tanner was queried for this patient: No Vital Signs: 10/15/17 14:19 10/15/17 14:28 Temperature 102.8 F H Temperature Source Temporal Artery Scan Oral Pulse Rate [Brachial] 113 H 108 H Respiratory Rate 20 20 Blood Pressure [Right Arm] 137/89 155/91 Blood Pressure Mean [Right Arm] 105 112 Blood Pressure Source [Right Arm] Automatic Cuff Blood Pressure Position [Right Arm] Sitting Sitting 02 Sat by Pulse Oximetry 99 95 Oxygen Delivery Method Room Air Room Air - Lab Data Lab Results 10/15/17 14:40: Urine Color Yellow, Urine Appearance Clear, Urine pH 6.0, Ur Specific [place] 1.010, Urine Protein Negative, Urine Glucose (UA) Negative, Urine Ketones Negative, Urine Blood Trace-l, Urine Nitrate Negative, Urine Bilirubin Negative, Urine Urobilinogen 0.2, Ur Leukocyte Esterase Negative, Urine RBC Occasional, Urine WBC Occasional, Ur Squamous Epith Cells 5-10, Urine Bacteria Trace 10/15/17 14:45: Lactic Acid 0.9 10/15/17 14:45: Amylase 56, Lipase 235 10/15/17 14:45: WBC 8.9, RBC 4.44, Hgb 13.1, Hct 40.8, MCV 91.9, MCH 29.5, MCHC 32.1, RDW 13.1, Plt Count 251, MPV 7.8, Neut % (Auto) 84.7 H, Lymph % (Auto) 10.1, [place] % (Auto) 3.9, Eos % (Auto) 1.0, Baso % (Auto) 0.4, Neut # (Auto) 7.5, Lymph # (Auto) 0.9, [place] # (Auto) 0.4, Eos # (Auto) 0.1, Baso # (Auto) 0.0 10/15/17 14:45: Sodium 140, Potassium 2.8 L*, Chloride 99, Carbon Dioxide 32, Anion Gap 11.8, BUN 11, Creatinine 1.02, Estimated Creat Clear 56, Estimated GFR 54 L, Est GFR ( Amer) 65, Glucose 104, Calcium 9.1, Total Bilirubin 0.4, Direct Bilirubin 0.1, Indirect Bilirubin 0.3, AST 22, ALT 22, Alkaline Phosphatase 59, Total Protein 8.1, Albumin 3.8, Globulin 4.3 H, Albumin/Globulin Ratio 0.9 L 10/15/17 14:45: Troponin I < 0.02 Result diagrams: 10/15/17 14:45 10/15/17 14:45 Orders (Tests/Meds): ED MEDICATIONS Discontinued Medications Generic Name Dose Route Start Last Admin Trade Name Annabella PRN Reason Stop Dose Admin Acetaminophen 1,000 mg 10/15/17 15:06 10/15/17 15:17 Tylenol 500mg Tablet PO 10/15/17 15:07 1,000 mg ONCE ONE Administration Famotidine 20 mg 10/15/17 14:58 10/15/17 15:05 Pepcid 20mg/2ml Vial IV 10/15/17 14:59 20 mg ONCE ONE Administration Sodium Chloride 1,000 mls @ 999 mls/hr 10/15/17 15:00 10/15/17 15:05 Sod Chlor 0.9% 1000ml Bag IV 10/15/17 16:00 999 mls/hr .Q1H1M GABRIELA Administration Ondansetron HCl 4 mg 10/15/17 14:58 10/15/17 15:05 Zofran 4mg/2ml Vial IV 10/15/17 14:59 4 mg ONCE ONE Administration Potassium Chloride 40 meq 10/15/17 15:37 10/15/17 15:39
[2017-10-15 15:00] LABS: Basophils % 0.4 % (0.1-2.0); Eosinophils # 0.1 K/mm3 (0.0-0.4); Hematocrit 40.8 % (37.0-47.0); Hemoglobin 13.1 g/dL (12.2-16.2); Lymphocytes # 0.9 K/mm3 (0.7-4.5); Lymphocytes % 10.1 K/mm3 (10-50); Mean Corpuscular HGB Conc 32.1 g/dL (31.8-35.4); Mean Corpuscular Hemoglobin 29.5 pg (27.0-31.2); Mean Corpuscular Volume 91.9 fl (81-99); Mean Platelet Volume 7.8 fl (7.4-10.4); Monocytes # 0.4 K/mm3 (0.1-1.0); Monocytes % 3.9 % (1.7-9.3); Neutrophils # 7.5 K/mm3 (1.8-7.8); Neutrophils % 84.7 % (37.0-80.0); Platelet Count 251 K/mm3 (142-424); Red Blood Count 4.44 M/mm3 (4.20-5.40); Red Cell Distribution Width 13.1 % (11.5-17.5); White Blood Count 8.9 K/mm3 (4.8-10.8)
[2017-10-15 15:11] LABS: Amylase 56 U/L (25-125); Lipase 235 u/L (73-393)
[2017-10-15 15:15] LABS: Bacteria,Urine Trace /lpf; RBC,Urine Occasional #/hpf (0-3); WBC,Urine Occasional #/hpf (0-3)
[2017-10-15 15:16] LABS: Lactic Acid 0.9 mmol/L (0.4-2.0)
[2017-10-15 15:26] LABS: Alanine Aminotransferase 22 U/L (12-78); Albumin Level 3.8 gm/dL (3.4-5.0); Albumin/Globulin Ratio 0.9 (1.1-1.8); Alkaline Phosphatase 59 U/L (46-116); Anion Gap 11.8 mEq/L (5-15); Aspartate Amino Transferase 22 U/L (15-37); Bilirubin,Direct 0.1 mg/dL (0.0-0.2); Bilirubin,Indirect 0.3 mg/dL (0.0-0.9); Bilirubin,Total 0.4 mg/dL (0.2-1.0); Blood Urea Nitrogen 11 mg/dL (7-18); Calcium 9.1 mg/dL (8.5-10.1); Carbon Dioxide 32 mmol/L (21.0-32.0); Chloride 99 mmol/L (98-107); Creatinine Clearance Estimated 56 mL/min (0-300); Creatinine,Serum 1.02 mg/dL (0.55-1.02); Estimated Glomerular Filt Rate 54 ml/min (>60); GFR (African American) 65 ML/MIN (>60); Globulin 4.3 gm/dl (1.3-3.2); Glucose 104 mg/dL (74-106); Sodium 140 mmol/L (136-145); Total Protein,Serum 8.1 gm/dL (6.4-8.2)
[2017-10-15 15:33] LABS: Potassium 2.8 mmoL/L (3.5-5.1)
--- NOTE | 2017-10-15 15:33 | PC.NURSE ---
CRITICAL LAB VALUE RECEIVED FROM LAB. POTASSIUM 2.8. DR BACON INFORMED
[2017-10-15 15:34] LABS: Troponin I < 0.02 ng/ml (0.00-0.06)
[2017-10-15 16:09] VITALS: TEMP 37.6
[2017-10-15 16:42] VITALS: BP 106/69; PULSE 97; RESP 16; TEMP 37.5; O2SAT 97
== END 2017-10-15 16:42 | disposition home or self-care (01) ==
PROVIDERS: Emergency Provider Emergency Medicine; Family Provider Internal Medicine Adolescent Medicine; PCP Internal Medicine Adolescent Medicine
DX: B34.9 Viral infection, unspecified (principal); E87.6 Hypokalemia; K27.9 Peptic ulcer, site unspecified, unspecified as acute or chronic, without hemorrhage or perforation; K21.9 Gastro-esophageal reflux disease without esophagitis; E78.5 Hyperlipidemia, unspecified; F17.210 Nicotine dependence, cigarettes, uncomplicated
CPT/HCPCS: 74176; 80053; 80076; 81001; 82150; 83605; 83690; 84484; 85025; 87040; 96365; 96375; 99284; J2405

== ENCOUNTER → 2017-10-16 09:23 | Outpatient (CLI) | payer MEDICARE, OTHER, SELFPAY ==
[2017-10-16 14:16] LABS: Anion Gap 10.2 mEq/L (5-15); Blood Urea Nitrogen 10 mg/dL (7-18); Calcium 8.4 mg/dL (8.5-10.1); Carbon Dioxide 32 mmol/L (21.0-32.0); Chloride 101 mmol/L (98-107); Creatinine,Serum 1.08 mg/dL (0.55-1.02); Estimated Glomerular Filt Rate 51 ml/min (>60); GFR (African American) 61 ML/MIN (>60); Glucose 102 mg/dL (74-106); Potassium 3.2 mmoL/L (3.5-5.1); Sodium 140 mmol/L (136-145)
== END ==
PROVIDERS: Visit Provider Internal Medicine Adolescent Medicine
DX: E87.6 Hypokalemia (principal)
CPT/HCPCS: 36415; 80048

== ENCOUNTER → 2017-11-19 13:46 | Outpatient (POV) | payer MEDICARE, OTHER, SELFPAY ==
[2017-11-19 14:12] VITALS: BP 146/84; PULSE 87; RESP 18; O2SAT 98; BMI 26.2
--- NOTE | 2017-11-19 14:30 | HMH.PAINSOAP ---
[facility] Pain Management SOAP Note Subjective:: Patient is a pleasant 67-year-old white female who presents today for follow-up. Patient was seen back in August supposed to come for a one-week follow-up however she was unable to make her appointment. Patient states that she has been having increased back pain. Patient has had RFA's in the past along with injection she states that she is not getting the relief she is to get out of them. Patient rates her pain a 9 out of 10 today. Mostly in her low back and down her legs. Her left leg is worse than the right leg. Patient I had a discussion about neuro stimulation. She is interested in pursuing this. ROS General: no recent weight change, no fever, no sleep disturbances Respiratory: no cough, no shortness of air, no recurring pulmonary infections Cardiovascular/Peripheral Vascular: No chest pain, No palpitations, no edema, no shortness of breath. Gastrointestinal: no incontinence, normal bowel movements reported Genitourinary: no incontinence Musculoskeletal: Back pain, leg pain Psychiatric: normal mood/ affect Neurological: [denies weakness in extremities], [denies balance issues] Objective:: Physical Exam General: Alert and oriented x3, no acute distress, pleasant and cooperative, [on room air] Lungs: Resps E/U, Symmetrical chest expansion, Eyes: PERRL Musculoskeletal: Flexion and extension of lumbar spine somewhat guarded secondary to pain, deep tendon reflexes normal, strength in upper and lower extremities [5/5], [abnormal gait noted] Neurological: speech clear, shipping supervisor equal, no gross sensory deficits Assessment:: 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 Patient is on Plavix we will have to have permission for her to come off during the trial. Patient is requesting pain medication she states the gabapentin that she was on made her dizzy. We will give her a 2 week supply of tramadol to take as needed. 50 mg [address] Freed has reviewed this chart and agrees with this plan of care. This note was dictated using voice recognition software and may contain errors or omissions
--- NOTE | 2017-11-19 14:34 | P.CONS_ITS ---
[facility] Pain Management SOAP Note Subjective:: Patient is a pleasant 67-year-old white female who presents today for follow- up. Patient was seen back in August supposed to come for a one-week follow-up however she was unable to make her appointment. Patient states that she has been having increased back pain. Patient has had RFA's in the past along with injection she states that she is not getting the relief she is to get out of them. Patient rates her pain a 9 out of 10 today. Mostly in her low back and down her legs. Her left leg is worse than the right leg. Patient I had a discussion about neuro stimulation. She is interested in pursuing this. ROS General: no recent weight change, no fever, no sleep disturbances Respiratory: no cough, no shortness of air, no recurring pulmonary infections Cardiovascular/Peripheral Vascular: No chest pain, No palpitations, no edema, no shortness of breath. Gastrointestinal: no incontinence, normal bowel movements reported Genitourinary: no incontinence Musculoskeletal: Back pain, leg pain Psychiatric: normal mood/ affect Neurological: [denies weakness in extremities], [denies balance issues] Objective:: Physical Exam General: Alert and oriented x3, no acute distress, pleasant and cooperative, [ on room air] Lungs: Resps E/U, Symmetrical chest expansion, Eyes: PERRL Musculoskeletal: Flexion and extension of lumbar spine somewhat guarded secondary to pain, deep tendon reflexes normal, strength in upper and lower extremities [5/5], [abnormal gait noted] Neurological: speech clear, rear admiral equal, no gross sensory deficits Assessment:: 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 Patient is on Plavix we will have to have permission for her to come off during the trial. Patient is requesting pain medication she states the gabapentin that she was on made her dizzy. We will give her a 2 week supply of tramadol to take as needed. 50 mg [address] Freed has reviewed this chart and agrees with this plan of care. This note was dictated using voice recognition software and may contain errors or omissions
--- NOTE | 2017-11-20 09:50 | PC.NURSE ---
Approval obtained for pt to discontinue plavix 12 days prior to stimulator trial. Per Dr Angulo.
== END ==
PROVIDERS: Family Provider Internal Medicine Adolescent Medicine; PCP Internal Medicine Adolescent Medicine; Visit Provider Clinical Nurse Specialist Family Health
DX: M51.16 Intervertebral disc disorders with radiculopathy, lumbar region (principal); M47.896 Other spondylosis, lumbar region
CPT/HCPCS: 99212

== ENCOUNTER → 2018-01-04 10:03 | Outpatient (POV) | payer MEDICARE, OTHER, SELFPAY ==
--- NOTE | 2018-01-04 10:33 | PC.NURSE ---
patient to procedure waiting room 2. patient awaiting arrival of rep to pull leads, patient updated on delay in .
--- NOTE | 2018-01-04 12:38 | HMH.PAINSOAP ---
[facility] Pain Management SOAP Note Subjective:: This patient is a pleasant 67-year-old white female who underwent spinal cord stimulator trial for degenerative disease of lumbar spine with lumbar spondylosis and lumbar radiculopathy symptoms. 100% relief in her pain symptoms. She was much more functional. She did very well with significant pain reduction and increased function. This was a successful spinal cord stimulator trial. She wants to proceed with permanent placement. Objective:: Alert and oriented ?3 in no acute distress. Patient does have an antalgic gait. Motor strength of the lower extremities is 5/5. There is no gross sensory deficit. Leads were pulled intact without any signs of infection or complication. Assessment:: Degenerative disc disease of lumbar spine with lumbar radiculopathy symptoms with successful spinal cord stimulator trial. Plan:: We will plan on permanent placement of spinal cord stimulator with a InStitchut[employer] system. Lead placement will be at T7-T8-T9 on permanent placement.
== END ==
PROVIDERS: Family Provider Internal Medicine Adolescent Medicine; PCP Internal Medicine Adolescent Medicine; Visit Provider Anesthesiology
DX: M51.16 Intervertebral disc disorders with radiculopathy, lumbar region (principal)
CPT/HCPCS: 99212

== ENCOUNTER → 2018-02-04 12:19 | Outpatient (POV) | payer MEDICARE, OTHER, SELFPAY ==
[2018-02-04 13:25] VITALS: BP 128/78; PULSE 78; RESP 18; O2SAT 98; BMI 26.2
--- NOTE | 2018-02-04 13:41 | HMH.PAINSOAP ---
[facility] Pain Management SOAP Note Subjective:: Patient is a pleasant 67-year-old white female who presents today after her neurostimulator was implanted. Patient is doing extremely well. She rates her pain a 0 out of 10 she states she is able to walk for longer distances. Patient's stitches have been removed and the sites are clean dry and intact. Patient is healing well. ROS General: no recent weight change, no fever, no sleep disturbances Respiratory: no cough, no shortness of air, no recurring pulmonary infections Cardiovascular/Peripheral Vascular: No chest pain, No palpitations, no edema, no shortness of breath. Gastrointestinal: no incontinence, normal bowel movements reported Genitourinary: no incontinence Musculoskeletal: Back pain, leg pain at times Psychiatric: normal mood/ affect Neurological: [denies weakness in extremities], [denies balance issues] Objective:: Physical Exam General: Alert and oriented x3, no acute distress, pleasant and cooperative, [on room air] Lungs: Resps E/U, Symmetrical chest expansion, Eyes: PERRL Musculoskeletal: Flexion and extension of lumbar spine somewhat guarded secondary to pain, deep tendon reflexes normal, strength in upper and lower extremities [5/5], slightly antalgic gait noted Neurological: speech clear, information technology officer equal, no gross sensory deficits Assessment:: Degenerative disc disease lumbar spine with lumbar scoliosis and postlaminectomy syndrome of the lumbar spine. Plan:: We will follow-up with the patient in 1 month patient's been instructed to call the office she has any issues prior to her next appointment. This note was dictated using voice recognition software and may contain errors or omissions
--- NOTE | 2018-02-04 13:47 | P.CONS_ITS ---
[facility] Pain Management SOAP Note Subjective:: Patient is a pleasant 67-year-old white female who presents today after her neurostimulator was implanted. Patient is doing extremely well. She rates her pain a 0 out of 10 she states she is able to walk for longer distances. Patient's stitches have been removed and the sites are clean dry and intact. Patient is healing well. ROS General: no recent weight change, no fever, no sleep disturbances Respiratory: no cough, no shortness of air, no recurring pulmonary infections Cardiovascular/Peripheral Vascular: No chest pain, No palpitations, no edema, no shortness of breath. Gastrointestinal: no incontinence, normal bowel movements reported Genitourinary: no incontinence Musculoskeletal: Back pain, leg pain at times Psychiatric: normal mood/ affect Neurological: [denies weakness in extremities], [denies balance issues] Objective:: Physical Exam General: Alert and oriented x3, no acute distress, pleasant and cooperative, [on room air] Lungs: Resps E/U, Symmetrical chest expansion, Eyes: PERRL Musculoskeletal: Flexion and extension of lumbar spine somewhat guarded secondary to pain, deep tendon reflexes normal, strength in upper and lower extremities [5/5], slightly antalgic gait noted Neurological: speech clear, inventory control planner equal, no gross sensory deficits Assessment:: Degenerative disc disease lumbar spine with lumbar scoliosis and postlaminectomy syndrome of the lumbar spine. Plan:: We will follow-up with the patient in 1 month patient's been instructed to call the office she has any issues prior to her next appointment. This note was dictated using voice recognition software and may contain errors or omissions
== END ==
PROVIDERS: Family Provider Internal Medicine Adolescent Medicine; PCP Internal Medicine Adolescent Medicine; Visit Provider Clinical Nurse Specialist Family Health
DX: M51.36 Other intervertebral disc degeneration, lumbar region (principal); M96.1 Postlaminectomy syndrome, not elsewhere classified; M41.86 Other forms of scoliosis, lumbar region
CPT/HCPCS: 99213

== ENCOUNTER 2018-02-09 18:27 | Observation (INO) ==
[2018-02-09 18:59] LABS: Basophils % 0.3 % (0.1-2.0); Eosinophils # 0.1 K/mm3 (0.0-0.4); Hematocrit 37.3 % (37.0-47.0); Hemoglobin 12.5 g/dL (12.2-16.2); Lymphocytes # 2.7 K/mm3 (0.7-4.5); Lymphocytes % 41.8 K/mm3 (10-50); Mean Corpuscular HGB Conc 33.6 g/dL (31.8-35.4); Mean Corpuscular Hemoglobin 30.3 pg (27.0-31.2); Mean Corpuscular Volume 90.3 fl (81-99); Monocytes # 0.2 K/mm3 (0.1-1.0); Monocytes % 3.4 % (1.7-9.3); Neutrophils # 3.3 K/mm3 (1.8-7.8); Neutrophils % 52.5 % (37.0-80.0); Platelet Count 226 K/mm3 (142-424); Red Blood Count 4.12 M/mm3 (4.20-5.40); Red Cell Distribution Width 14.3 % (11.5-17.5); White Blood Count 6.4 K/mm3 (4.8-10.8)
[2018-02-09 19:15] LABS: Anion Gap 14.1 mEq/L (5-15); Blood Urea Nitrogen 18 mg/dL (7-18); Calcium 9.6 mg/dL (8.5-10.1); Carbon Dioxide 29 mmol/L (21.0-32.0); Chloride 99 mmol/L (98-107); Glucose 122 mg/dL (74-106); Potassium 3.1 mmoL/L (3.5-5.1); Sodium 139 mmol/L (136-145)
--- NOTE | 2018-02-09 20:20 | Emergency Department Note ---
ED Disposition Clinical Impression: Chest pain, Acute renal failure Disposition: Admitted as Observation Condition on Discharge: Fair - Critical Care Critical Care Time: No Attestation: On 02/09/18, the high probability of a clinically significant, sudden or life threatening deterioration of the following system(s) required my full and direct attention, intervention and personal management. The time I documented below is in addition to time spent performing reported procedures but includes the following listed in this critical care notation. Medical Decision Making - Medical Records Medical records reviewed: Yes: I reviewed the patient's medical records. MR Comment: Discussed case with her admitting physician phone triage specialist (Dr. Thompson). Patient admitted to his care for farther management and monitoring. Patient remained stable during her ED care. - Tanner Inquiry Pt receiving controlled substance: Yes Tanner was queried for this patient: No Reason not queried -: Emergent pt cond-no time Risks and benefits of using a controlled substance: were discussed with pt by me Vital Signs: 02/09/18 18:30 02/09/18 18:38 02/09/18 19:26 Temperature 99.1 F Temperature Source Oral Pulse Rate [Right Radial] 98 H 135 H 88 Respiratory Rate 20 18 Blood Pressure [Right Arm] 134/84 162/119 H 131/98 H Blood Pressure Mean [Right Arm] 100 133 109 Blood Pressure Source [Right Arm] Automatic Cuff Automatic Cuff Automatic Cuff Blood Pressure Position [Right Arm] Sitting Sitting Sitting 02 Sat by Pulse Oximetry 98 100 97 Oxygen Delivery Method Room Air Room Air - Lab Data Lab results reviewed: Yes: I reviewed the patient's lab results. Lab Results 02/09/18 18:36: WBC 6.4, RBC 4.12 L, Hgb 12.5, Hct 37.3, MCV 90.3, MCH 30.3, MCHC 33.6, RDW 14.3, Plt Count 226, MPV 7.0 L, Neut % (Auto) 52.5, Lymph % (Auto) 41.8, [place] % (Auto) 3.4, Eos % (Auto) 2.0, Baso % (Auto) 0.3, Neut # (Auto) 3.3, Lymph # (Auto) 2.7, [place] # (Auto) 0.2, Eos # (Auto) 0.1, Baso # (Auto) 0.0 02/09/18 18:36: Sodium 139, Potassium 3.1 L, Chloride 99, Carbon Dioxide 29, Anion Gap 14.1, BUN 18, Creatinine 1.46 H, Estimated Creat Clear 40, Estimated GFR 36 L, Est GFR ( Amer) 43 L, Glucose 122 H, Calcium 9.6, Troponin I < 0.02 Result diagrams: 02/09/18 18:36 02/09/18 18:36 Orders (Tests/Meds): ED MEDICATIONS Generic Name Dose Route Start Last Admin Trade Name Freq PRN Reason Stop Dose Admin Sodium Chloride 1,000 mls @ 125 mls/hr 02/09/18 19:45 02/09/18 20:00 Sod Chlor 0.9% 1000ml Bag IV 03/11/18 19:44 125 mls/hr .Q8H GABRIELA Administration Discontinued Medications Generic Name Dose Route Start Last Admin Trade Name Freq PRN Reason Stop Dose Admin Hydrocodone Bitart/Acetaminophen 1 tab 02/09/18 19:59 02/09/18 20:00 Arbon 5/325mg Tablet PO 02/09/18 20:00 1 tab ONCE ONE Administration Aspirin 243 mg 02/09/18 18:34 02/09/18 18:37 Aspirin 81mg Chewable Tablet PO 02/09/18 18:35 243 mg ONCE ONE Administration Potassium Chloride 40 meq 02/09/18 19:38 02/09/18 20:00 Klor-Con 10meq Tablet PO 02/09/18 19:39 40 meq ONCE ONE Administration ORDERS Category Date Time Status XR chest 2V Stat Exams 02/09/18 18:34 Taken ECG Request by [address]/Nse Stat Y 02/09/18 18:34 Ordered - Radiology Data #1 Image(s): Chest Image Reviewed: Yes I reviewed the patient's radiology results Preliminary Findings: Normal/NAD Chest Pain HPI - General Chief Complaint: Chest Pain Stated Complaint: Chest tightness and l arm pain Time Seen by Provider: 02/09/18 18:33 Mode of Arrival: Ambulatory Limitations: No Limitations Description of Symptoms (Recalled from ER Triage Doc. by RN): Pt states that two days ago she felt back pain and today she started with chest pain and left arm pain. - History of Present Illness HPI narrative: Comes to the ED with complain of intermittent chest central chest pain since last night. Describes her pain as pressure like pain. Releived by NTG taken prio r to presentation. Denies fever, chills, cough. Denies any other associated complains at this time. Reports chronic low back pain and GERD. Reports negative heart cath last year. Onset (ago): day(s) (1) Duration: intermittent Activity at onset: during rest Pain location: substernal Severity: mild Severity scale (1-10): 4 Quality: tightness Relieving factors: nitroglycerin Exacerbating factors: nothing Context: recent illness Risk Factors for CAD: Smoking - Related Data Home Medications Medication Instructions Recorded Confirmed calcium carbonate 600 mg calcium 500 mg PO BID tab 05/16/17 02/09/18 (1,500 mg) tablet escitalopram 20 mg tablet 10 mg PO QDAY 05/16/17 02/09/18 omega-3 fatty acids 1,000 mg 1,000 mg PO QDAY 05/16/17 02/09/[address] 40 mg granules 40 mg PO QAM 05/16/17 02/09/18 delayed-release for susp in packet potassium chloride ER 8 mEq 8 meq PO QDAY 05/16/17 02/09/18 capsule,extended release aspirin 81 mg tablet,delayed 81 mg PO DAILY tab 10/30/17 02/09/18 release clopidogrel 75 mg tablet 75 mg PO DAILY tab 10/30/17 02/09/18 Previous Rx's Medication Instructions Recorded Ondansetron [Zofran 4mg ODT] 4 mg PO Q8HP PRN #6 tab.rapdis 10/15/17 Allergies Allergy/AdvReac Type Severity Reaction Status Date / Time No Known Allergies Allergy Verified 01/16/18 08:30 [facility] History I have reviewed the patient's past medical history: Yes Medical History: Reports:: Anxiety, Chronic Obstructive Pulmonary Disease (COPD), Coronary Artery Disease, Gastroesophageal Reflux Disease(GERD), Hyperlipidemia, Lung Disease (COPD), Myocardial Infarction Denies:: Cancer, Diabetes Mellitus Type 1, Diabetes Mellitus Type 2, Internal Pacemaker, MRSA, Seizures Other Medical History: Reports: Arthritis, Hormone Therapy, Other (PUD, hx TIA x2, Hx hepatitis at age 12). Denies: Blood Transfusion Reaction Comment: Illnesses-depression, hyperlipidemia, GERD, hypertension, coronary artery disease, history of TIAs, COPD, history of hepatitis as a child, cigarette usage Other Surgeries: Yes: Appendectomy, Cardiac Catheterization, Colonoscopy, Coronary Stent, EGD, Hernia Repair (09/2017), Hysterectomy-Total, Tubal Ligation, Other (gallbladder,Loop Recorder,Heart Stent). No: Pacemaker Amputation: No Fractures: No Comment: Operations-partial gastrectomy for peptic ulcer disease, hysterectomy, bladder surgery, angioplasty with stents-off of her anticoagulants for 10 days - Social History Smoking Status: Current every day smoker Tobacco Type: cigarettes # Packs/Day (cigarettes): 3 #Yrs smoked (if former smoker): 30 Alcohol Intake: never Alcohol Intake Frequency:: other Substance Use Type: denies use Occupational Status: retired Housing: house Household Members: spouse - Psychiatric History Expresses thoughts of harming self/others: None Suicide Plan Description: No Plan Pschychiatric History:: Reports:: Anxiety Family Hx:: Cancer, Coronary Artery Disease, Heart Attack, Hypertension ROS Obtained: Yes All systems reviewed & no additional complaints - Cardiovascular Cardiovascular: Reports as per HPI Physical Exam - General General appearance: alert, in no apparent distress - Head Head exam: atraumatic, normocephalic, normal inspection - Eye Eye exam: Present: normal appearance, PERRL, EOMI - ENT ENT exam: Present: normal exam, normal oropharynx, mucous membranes moist, TM's normal bilaterally, normal external ear exam - Neck Neck exam: Present: normal inspection, full ROM, trachea midline. Absent: meningismus, lymphadenopathy - Chest Chest inspection: Present: normal inspection, symmetric chest wall rise. Absent: tenderness - Respiratory Respiratory exam: Present: normal lung sounds bilaterally. Absent: respiratory distress - Cardiovascular Cardiovascular exam: Present: regular rate, normal rhythm. Absent: JVD - Abdominal Exam Abdominal exam: Present: soft, normal bowel sounds. Absent: distention, tenderness, guarding - Extremities Exam Extremities exam: Present: normal inspection, full ROM, normal capillary refill. Absent: calf tenderness - Back Exam Back exam: Present: normal inspection. Absent: tenderness - Neurological Exam Neurological exam: Present: alert, oriented X3 - Psychiatric Psychiatric exam: Present: normal affect, normal mood - Skin Skin exam: Present: warm, dry, intact, normal color - Lymphatic Lymphatic Findings: no adenopathy
[2018-02-10 04:50] LABS: Microscopic, Urine URINE MICROSCOPIC (MICROSCOPIC)
[2018-02-10 04:53] LABS: Appearance,Urine CLEAR (Clear); Bilirubin,Urine Negative (Negative); Blood, Urine Negative (Negative); Color,Urine YELLOW (Yellow); Glucose,Urine (UA) Negative (Negative); Ketones,Urine Negative (Negative); Leukocyte Esterase,Urine Negative (Negative); PH,Urine 5.5 (5.0-8.5); Protein,Urine Negative (Negative); Specific Gravity, Urine >= 1.030 (1.005-1.030); Urobilinogen,Urine 0.2 EU/dl (0.2)
[2018-02-10 06:28] LABS: Basophils % 0.6 % (0.1-2.0); Eosinophils # 0.1 K/mm3 (0.0-0.4); Eosinophils % 3.1 % (0.1-12.0); Hematocrit 30.9 % (37.0-47.0); Lymphocytes # 1.6 K/mm3 (0.7-4.5); Lymphocytes % 47.5 K/mm3 (10-50); Mean Corpuscular HGB Conc 32.3 g/dL (31.8-35.4); Mean Corpuscular Hemoglobin 29.5 pg (27.0-31.2); Mean Corpuscular Volume 91.5 fl (81-99); Mean Platelet Volume 7.5 fl (7.4-10.4); Monocytes # 0.1 K/mm3 (0.1-1.0); Monocytes % 4.2 % (1.7-9.3); Neutrophils # 1.5 K/mm3 (1.8-7.8); Neutrophils % 44.6 % (37.0-80.0); Platelet Count 179 K/mm3 (142-424); Red Blood Count 3.37 M/mm3 (4.20-5.40); Red Cell Distribution Width 14.1 % (11.5-17.5); White Blood Count 3.4 K/mm3 (4.8-10.8)
[2018-02-10 06:41] LABS: Anion Gap 10.7 mEq/L (5-15); Potassium 3.7 mmoL/L (3.5-5.1)
[2018-02-10 06:46] LABS: Calcium 8.5 mg/dL (8.5-10.1)
--- NOTE | 2018-02-10 09:22 | Pharmacy Consult Notes ---
[facility] Pharmacy VTE Monitoring - Patient Demographics Admission date: 02/10/18 Report Date: 02/10/18 Time: 09:22 Allergies/Adverse Reactions: Patient Allergies No Known Allergies Allergy (Verified 01/16/18 08:30) Height: 1.6 m Weight: 69.309 kg Patient Problems: Current Active Problems Chest pain (Acute) Acute renal failure (Acute) - VTE Risk Labs: VTE Related Lab Results Hgb 10.0 g/dL (12.2-16.2) L D 02/10/18 06:26 Hct 30.9 % (37.0-47.0) L 02/10/18 06:26 Plt Count 179 K/mm3 (142-424) 02/10/18 06:26 BUN 17 mg/dL (7-18) 02/10/18 06:26 Creatinine 0.94 mg/dL (0.55-1.02) D 02/10/18 06:26 Estimated Creat Clear 58 mL/min (0-300) 02/10/18 06:26 Was VTE Risk Assessment Performed: Yes VTE Score: 8 VTE Risk Level: Moderate Risk - Prophylaxis Types of VTE Prophylaxis: Pharmacological Location of Applied Device: Refused Pharmacologic Type: Warfarin (WARFARIN WAS RESTARTED. INR WAS >2 ON ADMISSION)
--- NOTE | 2018-02-10 09:34 | History & Physical Report ---
*Admission Date: 02/10/18 *Chief complaint: Chest tightness *History of present illness: Ms. Jha is a 67-year-old female with history of coronary artery disease status post stent placement 9 years ago, chronic back pain, GERD, who presents with 2-3 days of back pain between her shoulder blades and onset of chest and left arm pain yesterday. She initially presented to the ER due to this chest pain after taking nitroglycerin 3 times with minimal benefit. EKG was obtained with no abnormalities and troponins were found to be negative. Patient admitted to medicine for further observation and possible cardiology consult. On reexamination this morning and further history, patient had a pain stimulator placed [address] Freed with the battery pack in her lumbar region. Review of chest x-ray shows that leads run all the way up to upper thoracic spine. Patient continues to report of back pain between her shoulder blades and some mild chest tightness but no left arm pain today. Nitroglycerin overnight had minimal benefit however she responded well to hydrocodone given in the ER with resolution of her pain for a period of time. She denies any shortness of breath, dyspnea on exertion, orthopnea, lower extremity edema, vomiting, diarrhea, constipation, fever, chills, cough she does have abdominal pain today with concern for peritoneal signs. Back pain and chest pain reproducible on exam. [facility] History I have reviewed the patient's past medical history: Yes Medical History: Reports:: Anxiety, Congestive Heart Failure, Chronic Obstructive Pulmonary Disease (COPD), Coronary Artery Disease, Gastroesophageal Reflux Disease(GERD), Hyperlipidemia, Lung Disease (COPD), Myocardial Infarction Denies:: Cancer, Diabetes Mellitus Type 1, Diabetes Mellitus Type 2, Internal Pacemaker, MRSA, Seizures Other Medical History: Reports: Arthritis, Cataracts, Hormone Therapy, Liver Disease, Other (PUD, hx TIA x2, Hx hepatitis at age 12). Denies: Blood Transfusion Reaction Other Surgeries: Yes: Appendectomy, Cardiac Catheterization, Cholecystectomy, Colonoscopy, Coronary Stent, EGD, Hernia Repair (09/2017), Hysterectomy-Total, Tubal Ligation, Other (gallbladder,Loop Recorder,Heart Stent). No: Pacemaker Amputation: No Fractures: No - *Social History Educational Level: Attended High School Smoking Status: Current every day smoker Tobacco Type: cigarettes # Packs/Day (cigarettes): 1 #Yrs smoked (if former smoker): 30 Alcohol Intake: never Alcohol Intake Frequency:: other Substance Use Type: denies use Occupational Status: retired Housing: house Household Members: spouse - Psychiatric History Expresses thoughts of harming self/others: None Suicide Plan Description: No Plan Pschychiatric History:: Reports:: Anxiety *Family Hx:: Anemia, Cancer, Coronary Artery Disease, Diabetes, Heart Attack, Hyperlipidemia, Hypertension, Kidney Disease, Stroke Review of Systems - Review of Systems Review of systems:: pertinent systems reviewed and negative unless documented below Meds Home Medications Medication Instructions Recorded Confirmed Type escitalopram 20 mg tablet 10 mg PO DAILY 05/16/17 02/10/18 History omega-3 fatty acids 1,000 mg 1,000 mg PO BID 05/16/17 02/09/18 History capsule aspirin 81 mg tablet,delayed 81 mg PO DAILY tab 10/30/17 02/09/18 History release clopidogrel 75 mg tablet 75 mg PO DAILY tab 10/30/17 02/09/18 History Pantoprazole Sodium [Protonix 40mg 40 mg PO HS 02/10/18 02/10/18 History tablet] Potassium Chloride [Klor-con 20 20 meq PO DAILY 02/10/18 02/10/18 History mEq tablet] Allergies Allergy/AdvReac Type Severity Reaction Status Date / Time No Known Allergies Allergy Verified 01/16/18 08:30 Exam Vital signs and Labs for Last 24 Hours: Temp Pulse Resp BP Pulse Ox 97.8 F 72 18 125/74 98 02/10/18 07:53 02/10/18 07:53 02/10/18 07:53 02/10/18 07:53 02/10/18 07:53 Laboratory Results - last 24 hr 02/09/18 18:36: WBC 6.4, RBC 4.12 L, Hgb 12.5, Hct 37.3, MCV 90.3, MCH 30.3, MCHC 33.6, RDW 14.3, Plt Count 226, MPV 7.0 L, Neut % (Auto) 52.5, Lymph % (Auto) 41.8, [place] % (Auto) 3.4, Eos % (Auto) 2.0, Baso % (Auto) 0.3, Neut # (Auto) 3.3, Lymph # (Auto) 2.7, [place] # (Auto) 0.2, Eos # (Auto) 0.1, Baso # (Auto) 0.0 02/09/18 18:36: Sodium 139, Potassium 3.1 L, Chloride 99, Carbon Dioxide 29, Anion Gap 14.1, BUN 18, Creatinine 1.46 H, Estimated Creat Clear 40, Estimated GFR 36 L, Est GFR ( Amer) 43 L, Glucose 122 H, Calcium 9.6, Troponin I < 0.02 02/09/18 23:00: Troponin I < 0.02 02/10/18 02:50: Troponin I < 0.02 02/10/18 04:40: Urine Color Yellow, Urine Appearance Clear, Urine pH 5.5, Ur Specific [place] >= 1.030, Urine Protein Negative, Urine Glucose (UA) Negative, Urine Ketones Negative, Urine Blood Negative, Urine Nitrate Negative, Urine Bilirubin Negative, Urine Urobilinogen 0.2, Ur Leukocyte Esterase Negative, Urine WBC 3-5, Ur Squamous Epith Cells 3-5 02/10/18 06:26: WBC 3.4 L D, RBC 3.37 L, Hgb 10.0 L D, Hct 30.9 L, MCV 91.5, MCH 29.5, MCHC 32.3, RDW 14.1, Plt Count 179, MPV 7.5, Neut % (Auto) 44.6, Lymph % (Auto) 47.5, [place] % (Auto) 4.2, Eos % (Auto) 3.1, Baso % (Auto) 0.6, Neut # (Auto) 1.5 L, Lymph # (Auto) 1.6, [place] # (Auto) 0.1, Eos # (Auto) 0.1, Baso # (Auto) 0.0 02/10/18 06:26: Sodium 140, Potassium 3.7, Chloride 107, Carbon Dioxide 26, Anion Gap 10.7, BUN 17, Creatinine 0.94 D, Estimated Creat Clear 58, Estimated GFR 59, Est GFR ( Amer) 72 D, Glucose 91 D, Calcium 8.5 D, Phosphorus 4.0, Magnesium 1.8, Triglycerides 182, Cholesterol 175, LDL Cholesterol 104, VLDL Cholesterol 36, HDL Cholesterol 35, Cholesterol/HDL Ratio 5.0 H I & O for Last 24 hours: Intake & Output 02/07/18 02/08/18 02/09/18/21/18 23:59 23:59 23:59 23:59 Intake Total 1280 / 1280 Output Total 300 / 300 Balance 980 / 980 Weight 67.642 kg 69.309 kg - *Routine HEENT Exam Head: Present: normocephalic, atraumatic Eye: Present: EOMI, PERRL ENT: Present: mucous membranes moist - *Routine Neck Exam Present: supple, full ROM. Absent: JVD - Routine Chest/Breast/Axilla Exam Chest wall: Present: tenderness Comments: TTP along sternum - *Routine Respiratory Exam Present: CTA bilaterally. Absent: prolonged expiratory phase, wheezes, crackles - *Routine Cardiovascular Exam Present: RRR, Normal S1, Normal S2. Absent: murmur - *Routine Abdominal Exam Present: soft, normoactive bowel sounds, tenderness (Diffuse and non focal, guarding present) - *Routine Rectal Exam Patient deferred: visual exam - *Routine Exam Patient deferred: external exam - *Routine Extremities Exam Absent: cyanosis, clubbing, edema - Routine Back/Spine/Pelvis Exam Comments: TTP along left Trap distribution - *Routine Skin Exam Present: intact. Absent: cyanosis, erythema - *Routine Neurological Exam Present: alert, oriented X3, CN II-XII intact. Absent: altered mental status Assessment and Plan (1) Abdominal pain Current visit: Yes Status: Acute Category: Medical Code(s): R10.9 - Unspecified abdominal pain CT abdomen due to concern for peritonitis - No intra-abdominal pathology found, however significant stool burden - INitiate bowel regimen - hold on Surgical Consult at this time. - has been chronic due to opioid use in past (2) Constipation Current visit: Yes Status: Chronic Qualifiers: Constipation type: drug induced constipation Qualified Code(s): K59.03 - Drug induced constipation Category: Medical Code(s): K59.00 - Constipation, unspecified likely due to opioid use - initiate aggressive bowel regimen - Senna, Miralax, Enema (3) Acute renal failure Current visit: Yes Status: Resolved Category: Medical Code(s): N17.9 - Acute kidney failure, unspecified Noted on admission, resolved with FLuid resuscitation. - monitor with AM labs (4) Chest pain Current visit: Yes Status: Acute Category: Medical Code(s): R07.9 - Chest pain, unspecified Musculoskeletal in origin, negative troponins and EKG. - no concern for cardiac in etiology at this time - reproducible on exam. - relieved by Hydrocodone (5) HTN (hypertension) Current visit: No Status: Chronic Qualifiers: Hypertension type: essential hypertension Qualified Code(s): I10 - Essential (primary) hypertension Category: Medical Code(s): I10 - Essential (primary) hypertension continue home regimen - Assessment and plan all Dx Assessment and Plan for all problems:: If improvement in abdominal pain in AM , plan for DC tomorrow.
--- NOTE | 2018-02-11 08:43 | Discharge Summary ---
General - General Admission date:: 02/09/18 Discharge date: 02/11/18 HPI HPI: Ms. Jha is a 67-year-old female with history of coronary artery disease status post stent placement 9 years ago, chronic back pain, GERD, who presents with 2-3 days of back pain between her shoulder blades and onset of chest and left arm pain yesterday. She initially presented to the ER due to this chest pain after taking nitroglycerin 3 times with minimal benefit. EKG was obtained with no abnormalities and troponins were found to be negative. Patient admitted to medicine for further observation and possible cardiology consult. On reexamination this morning and further history, patient had a pain stimulator placed [address] Freed with the battery pack in her lumbar region. Review of chest x-ray shows that leads run all the way up to upper thoracic sp ine. Patient continues to report of back pain between her shoulder blades and some mild chest tightness but no left arm pain today. Nitroglycerin overnight had minimal benefit however she responded well to hydrocodone given in the ER with resolution of her pain for a period of time. She denies any shortness of breath, dyspnea on exertion, orthopnea, lower extremity edema, vomiting, diarrhea, constipation, fever, chills, cough she does have abdominal pain today with concern for peritoneal signs. Back pain and chest pain reproducible on exam. Hospital Course Hospital Course: Patient was admitted, ruled out for myocardial infarction, and physical exam revealed that the source of her pain with some trapezius pain. Her abdominal pain was found to be significant constipation with fecal penetration into the small bowel. This was relieved by cathartics, and she felt much for. This morning she had improved. Had mild nausea but had good, soft bowel movements, and her abdominal exam had improved nicely. She will be discharged home with the cessation of her tramadol, continuing Tylenol as needed for pain, and Linzess daily for ongoing chronic constipation issues. We will follow her up in 2 days for exam in the [place] office. Objective Vital signs: Temp Pulse Resp BP Pulse Ox 98.3 F 70 20 153/80 H 97 02/11/18 08:00 02/11/18 08:00 02/11/18 08:00 02/11/18 08:00 02/11/18 08:00 Narrative: Patient is pleasant, alert, oriented to place and person. A little fuzzy about the date. Lungs clear, heart rate regular. Oropharynx clear, no JVD. Abdomen is soft, nondistended, no tenderness. Vastly improved exam. No peripheral edema. DS: Diagnosis - Discharge Diagnosis (1) Abdominal pain Status: Resolved (2) Constipation Status: Chronic (3) Acute renal failure Status: Resolved (4) Chest pain Status: Resolved (5) HTN (hypertension) Status: Chronic Discharge Plan - Patient Discharge Instructions ACTIVITY: Continue current activity DIET: continue same diet - Follow up Plan Follow up with: Doreen Hong APRN [Nurse Practitioner] - 2 days Disposition: Home, Self-Skilled Nursing Medications: Home Medications Medication Instructions Recorded Confirmed Type escitalopram 20 mg tablet 10 mg PO DAILY 05/16/17 02/10/18 History omega-3 fatty acids 1,000 mg 1,000 mg PO BID 05/16/17 02/09/18 History capsule aspirin 81 mg tablet,delayed 81 mg PO DAILY tab 10/30/17 02/09/18 History release clopidogrel 75 mg tablet 75 mg PO DAILY tab 10/30/17 02/09/18 History Pantoprazole Sodium [Protonix 40mg 40 mg PO HS 02/10/18 02/10/18 History tablet] Potassium Chloride [Klor-con 20 20 meq PO DAILY 02/10/18 02/10/18 History mEq tablet] Prescriptions/Medication Reconciliation: New Linaclotide [Linzess] 145 mcg PO DAILY #30 capsule Continue omega-3 fatty acids 1,000 mg capsule 1,000 mg PO BID escitalopram 20 mg tablet 10 mg PO DAILY clopidogrel 75 mg tablet 75 mg PO DAILY tab aspirin 81 mg tablet,delayed release 81 mg PO DAILY tab Potassium Chloride [Klor-con 20 mEq tablet] 20 meq PO DAILY Ondansetron [Zofran 4mg ODT] 4 mg PO Q8HP PRN #6 tab.rapdis PRN Reason: Nausea Pantoprazole Sodium [Protonix 40mg tablet] 40 mg PO HS
== END 2018-02-11 10:30 | disposition home or self-care (01) ==
LOC: ER 18:27 → 2ND 18:27
PROVIDERS: ADMIT Internal Medicine Adolescent Medicine; ATTEND Internal Medicine Adolescent Medicine

== ENCOUNTER → 2018-03-11 09:05 | Outpatient (POV) | payer SELFPAY ==
[2018-03-11 09:32] VITALS: BP 109/83; PULSE 107; RESP 18; O2SAT 98; BMI 25.8
--- NOTE | 2018-03-11 09:37 | HMH.PAINSOAP ---
[facility] Pain Management SOAP Note Subjective:: Patient is a pleasant 67-year-old white female who presents today for follow-up after her neurostimulator implant. Patient states she is doing extremely well and rates her pain a 0 out of 10. Patient states that spent the whole day [place] shopping and had no pain. Patient states she is much more functional. Patient is completely healed. ROS General: no recent weight change, no fever, no sleep disturbances Respiratory: no cough, no shortness of air, no recurring pulmonary infections Cardiovascular/Peripheral Vascular: No chest pain, No palpitations, no edema, no shortness of breath. Gastrointestinal: no incontinence, normal bowel movements reported Genitourinary: no incontinence Musculoskeletal: Back pain, leg pain at times Psychiatric: normal mood/ affect Neurological: [denies weakness in extremities], [denies balance issues] Objective:: Physical Exam General: Alert and oriented x3, no acute distress, pleasant and cooperative, [on room air] Lungs: Resps E/U, Symmetrical chest expansion, Eyes: PERRL Musculoskeletal: Flexion and extension of lumbar spine somewhat guarded secondary to pain, deep tendon reflexes normal, strength in upper and lower extremities [5/5], normal gait noted Neurological: speech clear, jigmaker equal, no gross sensory deficits Assessment:: Degenerative disc disease lumbar spine with lumbar scoliosis and post laminectomy syndrome of the lumbar spine Plan:: We will follow-up with the patient in 6 months. Patient has been instructed to call the office if she has any issues prior to her next appointment. This note was dictated using voice recognition software and may contain errors or omissions
== END ==
PROVIDERS: PCP Internal Medicine Adolescent Medicine; Visit Provider Clinical Nurse Specialist Family Health
DX: M51.36 Other intervertebral disc degeneration, lumbar region (principal); M96.1 Postlaminectomy syndrome, not elsewhere classified; M41.86 Other forms of scoliosis, lumbar region
CPT/HCPCS: 99213

== ENCOUNTER → 2018-06-06 12:40 | Outpatient (CLI) | payer MEDICARE, OTHER, SELFPAY ==
--- NOTE | 2018-06-06 14:30 | MM_ITS ---
MM Dig mamm BI DX w/CAD, US breast LT complete INDICATION: Breast pain ORDERING PHYSICIAN: Stephan Burch MD PATIENT AGE: 68 years COMPARISON: 12/15/2016, 09/07/2015 TECHNIQUE: Standard images performed along with spot compression views of the right breast and left breast ultrasound FINDINGS: There is average retroareolar fibroglandular tissue. No malignant appearing mass or malignant appearing microcalcification is evident. There is some asymmetric density in the right retroareolar region. Spot compression view showed this area of asymmetric density appears to compress out as fibroglandular tissue. There is a 4 mm nodular opacity overlying the inferior aspect of the left breast seen on the MLO view only. This may be due to a skin lesion. Suggest that the patient return for additional images and markers placed on the skin lesions. No other significant anomalies are evident. Left breast ultrasound: No cystic or solid mass is evident within the left breast. Small nodes are present in the axillae IMPRESSION: 4 mm nodule in the lower inner aspect of the left breast possibly due to skin lesion. Suggest patient return at no additional charge and additional images performed with markers placed on any skin lesions. The right breast is an unremarkable appearance. BI-RADS Category: 0 Need Additional Imaging Evaluation RECOMMENDED FOLLOW-UP: IMM - IMMEDIATE FOLLOW-UP RECOMMENDED (A letter has been sent to the patient regarding results of the study.)
== END ==
PROVIDERS: PCP Internal Medicine Adolescent Medicine; Visit Provider Internal Medicine Adolescent Medicine
DX: N64.4 Mastodynia (principal)
CPT/HCPCS: 76641; 77066

== ENCOUNTER → 2018-06-24 12:24 | Outpatient (CLI) | payer MEDICARE, OTHER, SELFPAY | PROVIDERS: PCP Internal Medicine Adolescent Medicine; Visit Provider Internal Medicine Adolescent Medicine | DX: N63.24 Unspecified lump in the left breast, lower inner quadrant ==

== ENCOUNTER 2018-07-28 15:09 | Observation (INO) ==
--- NOTE | 2018-07-28 15:28 | Emergency Department Note ---
ED Disposition Clinical Impression: Chest pain, precordial Disposition: Admitted as Observation Condition on Discharge: Good Referrals: Abdiel Angulo MD [Primary Care Provider] - - Critical Care Critical Care Time: No Attestation: On 07/28/18, the high probability of a clinically significant, sudden or life threatening deterioration of the following system(s) required my full and direct attention, intervention and personal management. The time I documented below is in addition to time spent performing reported procedures but includes the following listed in this critical care notation. Medical Decision Making - Medical Records Medical records reviewed: Yes: I reviewed the patient's medical records. - [place] Inquiry Pt receiving controlled substance: No Vital Signs: 07/28/18 15:18 07/28/18 15:40 07/28/18 16:10 Temperature 97.8 F Temperature Source Temporal Artery Scan Pulse Rate [Right Brachial] 96 H 84 67 Respiratory Rate 15 16 18 Blood Pressure [Right Arm] 123/77 100/60 L 103/61 L Blood Pressure Mean [Right Arm] 92 73 75 Blood Pressure Source [Right Arm] Automatic Cuff Automatic Cuff Manual Cuff/ Auscultation Blood Pressure Position [Right Arm] Sitting 02 Sat by Pulse Oximetry 97 93 L 97 Oxygen Delivery Method Room Air Room Air Room Air 07/28/18 16:30 07/28/18 17:00 07/28/18 18:00 Temperature 98.1 F Temperature Source Temporal Artery Scan Pulse Rate [Right Brachial] 74 77 69 Respiratory Rate 15 Blood Pressure [Right Arm] 115/62 107/71 L 120/74 Blood Pressure Mean [Right Arm] 79 83 89 Blood Pressure Source [Right Arm] Automatic Cuff Blood Pressure Position [Right Arm] Sitting 02 Sat by Pulse Oximetry 95 99 94 L Oxygen Delivery Method Room Air 07/28/18 18:30 Temperature Temperature Source Pulse Rate [Right Brachial] 69 Respiratory Rate Blood Pressure [Right Arm] 128/77 Blood Pressure Mean [Right Arm] 94 Blood Pressure Source [Right Arm] Blood Pressure Position [Right Arm] 02 Sat by Pulse Oximetry 95 Oxygen Delivery Method - Lab Data Lab results reviewed: Yes: I reviewed the patient's lab results. Lab Results 07/28/18 15:25: WBC 9.6, RBC 4.19 L, Hgb 12.2, Hct 36.0 L, MCV 85.9, MCH 29.1, MCHC 33.8, RDW 13.4, Plt Count 258, MPV 7.6, Neut % (Auto) 74.2, Lymph % (Auto) 20.7, [place] % (Auto) 3.6, Eos % (Auto) 1.2, Baso % (Auto) 0.2, Neut # (Auto) 7.1, Lymph # (Auto) 2.0, [place] # (Auto) 0.4, Eos # (Auto) 0.1, Baso # (Auto) 0.0 07/28/18 15:25: Sodium 141, Potassium 3.4 L, Chloride 101, Carbon Dioxide 29, Anion Gap 14.4, BUN 17, Creatinine 1.42 H, Estimated Creat Clear 40, Estimated GFR 37 L, Est GFR ( Amer) 45 L, Glucose 102, Calcium 9.0, Total Bilirubin 0.4, AST 16, ALT 17, Alkaline Phosphatase 51, Troponin I < 0.02, Total Protein 7.4, Albumin 3.5, Globulin 3.9 H, Albumin/Globulin Ratio 0.9 L, Lipase 233 07/28/18 15:25: D-Dimer 214 07/28/18 18:15: Troponin I < 0.02 Result diagrams: 07/28/18 15:25 07/28/18 15:25 Orders (Tests/Meds): ED MEDICATIONS Generic Name Dose Route Start Last Admin Trade Name Freq PRN Reason Stop Dose Admin Sodium Chloride 1,000 mls @ 999 mls/hr 07/28/18 16:00 07/28/18 16:03 Sod Chlor 0.9% 1000ml Bag IV 07/28/18 17:00 999 mls/hr .Q1H1M GABRIELA Administration Discontinued Medications Generic Name Dose Route Start Last Admin Trade Name Freq PRN Reason Stop Dose Admin Aspirin 324 mg 07/28/18 15:25 07/28/18 15:29 Aspirin 81mg Chewable Tablet PO 07/28/18 15:26 243 mg ONCE ONE Administration Ondansetron HCl 4 mg 07/28/18 16:02 07/28/18 16:03 Zofran 4mg/2ml Vial IV 07/28/18 16:03 4 mg ONCE ONE Administration ORDERS Category Date Time Status ECG Request by /Cass Stat Y 07/28/18 15:24 Ordered - Radiology Data #1 Image(s): Chest Image Reviewed: Yes I have reviewed radiologist's interpretation - ECG Data Tracing #1 I reviewed this ECG and interpreted as documented below: Normal Sinus Rhythm: Yes (rbbb, no stemi, similar to 01/2018) Medical Decision Narrative: treatment and disposition d/w Dr Tellez regarding pt risk factors for cad and 2017 cardiac cath report, admit d/w Dr Osuna General Adult HPI - General Stated complaint: SOA, irregular heart beat Time Seen by Provider: 07/28/18 15:26 Source of Information: Patient - History of Present Illness HPI narrative: mild to mod palpitations and anterior chest pain tight constant for 2 days, worse today, +short of breath, no fever, no injury, hx cardiac stent - Related Data Home Medications Medication Instructions Recorded Confirmed escitalopram 20 mg tablet 10 mg PO DAILY 05/16/17 06/18/18 omega-3 fatty acids 1,000 mg 1,000 mg PO BID 05/16/17 06/18/18 capsule aspirin 81 mg tablet,delayed 81 mg PO DAILY tab 10/30/17 06/18/18 release clopidogrel 75 mg tablet 75 mg PO DAILY tab 10/30/17 06/18/18 Pantoprazole Sodium [Protonix 40mg 40 mg PO HS 02/10/18 06/18/18 tablet] Potassium Chloride [Klor-con 20 20 meq PO DAILY 02/10/18 06/18/18 mEq tablet] Previous Rx's Medication Instructions Recorded Ondansetron [Zofran 4mg ODT] 4 mg PO Q8HP PRN #6 tab.rapdis 10/15/17 Linaclotide [Linzess] 145 mcg PO DAILY #30 cap 02/11/18 metoprolol succinate ER 25 mg 25 mg PO DAILY #30 tab 06/18/18 tablet,extended release 24 hr Allergies Allergy/AdvReac Type Severity Reaction Status Date / Time No Known Allergies Allergy Verified 06/18/18 11:[address] [facility] History - Hepatitis A Screen Attestation statement:: This patient has been screened for Hepatitis A risk factors. Medical History: Reports:: Anxiety, Congestive Heart Failure, Chronic Obstructive Pulmonary Disease (COPD), Coronary Artery Disease, Gastroesophageal Reflux Disease(GERD), Hyperlipidemia, Lung Disease, Myocardial Infarction Denies:: Cancer, Diabetes Mellitus Type 1, Diabetes Mellitus Type 2, Internal Pacemaker, MRSA, Seizures Other Medical History: Reports: Arthritis, Cataracts, Hormone Therapy, Liver Disease, Other. Denies: Blood Transfusion Reaction Comment: Illnesses-depression, hyperlipidemia, GERD, hypertension, coronary artery disease, history of TIAs, COPD, history of hepatitis as a child, cigarette usage Other Surgeries: Yes: Appendectomy, Cardiac Catheterization, Cholecystectomy, Colonoscopy, Coronary Stent, EGD, Hernia Repair (09/2017), Hysterectomy-Total, Tubal Ligation, Other (gallbladder,Loop Recorder,Heart Stent). No: Pacemaker Amputation: No Fractures: No Comment: Operations-partial gastrectomy for peptic ulcer disease, hysterectomy, bladder surgery, angioplasty with stents-off of her anticoagulants for 10 days - Social History Smoking Status: Current every day smoker Tobacco Type: cigarettes # Packs/Day (cigarettes): 1 #Yrs smoked (if former smoker): 30 Alcohol Intake: never Alcohol Intake Frequency:: other Substance Use Type: denies use Occupational Status: retired Housing: house Household Members: spouse - Psychiatric History Pschychiatric History:: Reports:: Anxiety Family Hx:: Anemia, Cancer, Coronary Artery Disease, Diabetes, Heart Attack, Hyperlipidemia, Hypertension, Kidney Disease, Stroke ROS Obtained: Yes Systems reviewed as appropriate & no additional complaints - Constitutional Constitutional: Denies fever(s) - Eyes Eyes: Denies change in vision - ENT Ears, Nose, Mouth, and Throat: Denies hoarseness - Cardiovascular Cardiovascular: Reports chest pain, Reports palpitations - Respiratory Respiratory: Yes dyspnea - Gastrointestinal Gastrointestingal: Denies: abdominal pain - Musculoskeletal Musculoskeletal: Denies neck pain - Integumentary/Breasts Skin/Breast: Denies rash - Neurologic Neurologic: Denies dizziness Physical Exam - General General appearance: alert, in no apparent distress - Head Head exam: atraumatic - Eye Eye exam: Present: normal appearance - ENT ENT exam: Present: normal exam - Neck Neck exam: Present: normal inspection - Chest Chest inspection: Present: normal inspection - Respiratory Respiratory exam: Present: normal lung sounds bilaterally. Absent: respiratory distress - Cardiovascular Cardiovascular exam: Present: regular rate, normal rhythm - Abdominal Exam Abdominal exam: Present: soft. Absent: tenderness - Extremities Exam Extremities exam: Present: full ROM. Absent: tenderness, pedal edema - Back Exam Back exam: Present: normal inspection - Neurological Exam Neurological exam: Present: alert, oriented X3 - Psychiatric Psychiatric exam: Present: normal affect, normal mood - Skin Skin exam: Present: warm, dry
[2018-07-28 15:36] LABS: Basophils % 0.2 % (0.1-2.0); Eosinophils # 0.1 K/mm3 (0.0-0.4); Eosinophils % 1.2 % (0.1-12.0); Hemoglobin 12.2 g/dL (12.2-16.2); Lymphocytes % 20.7 % (10-50); Mean Corpuscular HGB Conc 33.8 g/dL (31.8-35.4); Mean Corpuscular Hemoglobin 29.1 pg (27.0-31.2); Mean Corpuscular Volume 85.9 fl (81-99); Mean Platelet Volume 7.6 fl (7.4-10.4); Monocytes # 0.4 K/mm3 (0.1-1.0); Monocytes % 3.6 % (1.7-9.3); Neutrophils # 7.1 K/mm3 (1.8-7.8); Neutrophils % 74.2 % (37.0-80.0); Platelet Count 258 K/mm3 (142-424); Red Blood Count 4.19 M/mm3 (4.20-5.40); Red Cell Distribution Width 13.4 % (11.5-17.5); White Blood Count 9.6 K/mm3 (4.8-10.8)
[2018-07-28 15:49] LABS: Alanine Aminotransferase 17 U/L (12-78); Albumin Level 3.5 gm/dL (3.4-5.0); Albumin/Globulin Ratio 0.9 (1.1-1.8); Alkaline Phosphatase 51 U/L (46-116); Anion Gap 14.4 mEq/L (5-15); Aspartate Amino Transferase 16 U/L (15-37); Bilirubin,Total 0.4 mg/dL (0.2-1.0); Blood Urea Nitrogen 17 mg/dL (7-18); Carbon Dioxide 29 mmol/L (21.0-32.0); Chloride 101 mmol/L (98-107); Globulin 3.9 gm/dl (1.3-3.2); Glucose 102 mg/dL (74-106); Lipase 233 u/L (73-393); Potassium 3.4 mmoL/L (3.5-5.1); Sodium 141 mmol/L (136-145); Total Protein,Serum 7.4 gm/dL (6.4-8.2)
--- NOTE | 2018-07-29 07:22 | Pharmacy Consult Notes ---
[facility] Pharmacy VTE Monitoring - Patient Demographics Admission date: 07/28/18 Report Date: 07/29/18 Time: 07:22 Allergies/Adverse Reactions: Patient Allergies No Known Allergies Allergy (Verified 06/18/18 11:11) Height: 1.6 m Weight: 68.719 kg Patient Problems: Current Active Problems Chest pain, precordial (Acute) - VTE Risk Labs: VTE Related Lab Results Hgb 12.2 g/dL (12.2-16.2) 07/28/18 15:25 Hct 36.0 % (37.0-47.0) L 07/28/18 15:25 Plt Count 258 K/mm3 (142-424) 07/28/18 15:25 BUN 17 mg/dL (7-18) 07/28/18 15:25 Creatinine 1.42 mg/dL (0.55-1.02) H 07/28/18 15:25 Estimated Creat Clear 40 mL/min (50-200) 07/28/18 15:25 VTE Score: 10 VTE Risk Level: Moderate Risk - Prophylaxis VTE Prophylaxis Ordered?: Yes Types of VTE Prophylaxis: TEDS Knee High Location of Applied Device: Bilateral Lower Extremeties - VTE Diagnosis Confirmed Treatment or plan recommended: Continue Current Treatment
--- NOTE | 2018-07-29 08:34 | H&P/Discharge Summary ---
General - General Admission date:: 07/28/18 Discharge date: 07/29/18 *Admission Date: 07/28/18 *Chief complaint: Shortness of air/palpitations *History of present illness: 68-year-old white female with history of coronary disease and recurrent palpitations of uncertain etiology, currently with implanted loop recorder and with very close cardiology follow-up who came to the emergency department with a chief complaint of shortness of air and somewhat faster heart rates when she exercised. To me this morning she denied any type of chest pains. ER admitted overnight for rule out IA and further diagnostic testing as needed. [facility] History I have reviewed the patient's past medical history: Yes Medical History: Reports:: Anxiety, Congestive Heart Failure, Chronic Obstructive Pulmonary Disease (COPD), Coronary Artery Disease, Gastroesophageal Reflux Disease(GERD), Hyperlipidemia, Lung Disease, Myocardial Infarction Denies:: Cancer, Diabetes Mellitus Type 1, Diabetes Mellitus Type 2, Internal Pacemaker, MRSA, Seizures *Have you ever received a pneumonia vaccine?: Yes *Have you received a flu vaccine this season?: Yes Other Medical History: Reports: Arthritis, Cataracts, Hormone Therapy, Liver Disease, Other. Denies: Blood Transfusion Reaction Laterality Cases: Bilateral: Tonsillectomy Other Surgeries: Yes: Appendectomy, Cardiac Catheterization, Cholecystectomy, Colonoscopy, Coronary Stent, EGD, Hernia Repair (09/2017), Hysterectomy-Total, Tubal Ligation, Other (gallbladder,Loop Recorder,Heart Stent). No: Pacemaker Amputation: No Fractures: No - *Social History Educational Level: Attended High School Smoking Status: Current every day smoker Tobacco Type: cigarettes # Packs/Day (cigarettes): 1 #Yrs smoked (if former smoker): 30 Alcohol Intake: never Alcohol Intake Frequency:: other Substance Use Type: denies use *Occupational Status:: retired Housing: house Household Members: spouse *Travel in the last 8 weeks: None - Psychiatric History Expresses thoughts of harming self/others: None Suicide Plan Description: No Plan Pschychiatric History:: Reports:: Anxiety Family Hx:: Anemia, Cancer, Coronary Artery Disease, Diabetes, Heart Attack, Hyperlipidemia, Hypertension, Kidney Disease, Stroke Review of Systems - Review of Systems Review of systems:: pertinent systems reviewed and negative unless documented below - Constitutional Denies anorexia, Denies body ache(s), Denies chills - Eyes Denies blind spots, Denies blurry vision - ENT Denies abnormal hearing, Denies bleeding gums - *Respiratory Reports shortness of breath with activity, Denies change in phlegm color, Denies chest congestion, Denies cough, Denies shortness of breath - *Gastrointestinal Denies abdominal pain, Denies belching, Denies bloating - *Musculoskeletal Denies abnormal walking, Denies joint pain, Denies decreased muscle mass - Integumentary/Breasts Denies acne, Denies hair loss, Denies bleeding lesions - *Neurologic Denies abnormal walking, Denies abnormal hearing, Denies dizziness - Endocrine Denies cold intolerance, Denies excessive sweating Exam Vital signs and Labs for Last 24 Hours: Temp Pulse Resp BP Pulse Ox 97.9 F 68 18 114/65 97 07/29/18 08:00 07/29/18 08:00 07/29/18 08:00 07/29/18 08:00 07/29/18 08:00 Laboratory Results - last 24 hr 07/28/18 15:25: WBC 9.6, RBC 4.19 L, Hgb 12.2, Hct 36.0 L, MCV 85.9, MCH 29.1, MCHC 33.8, RDW 13.4, Plt Count 258, MPV 7.6, Neut % (Auto) 74.2, Lymph % (Auto) 20.7, [place] % (Auto) 3.6, Eos % (Auto) 1.2, Baso % (Auto) 0.2, Neut # (Auto) 7.1, Lymph # (Auto) 2.0, [place] # (Auto) 0.4, Eos # (Auto) 0.1, Baso # (Auto) 0.0 07/28/18 15:25: Sodium 141, Potassium 3.4 L, Chloride 101, Carbon Dioxide 29, Anion Gap 14.4, BUN 17, Creatinine 1.42 H, Estimated Creat Clear 40, Estimated GFR 37 L, Est GFR ( Amer) 45 L, Glucose 102, Calcium 9.0, Total Bilirubin 0.4, AST 16, ALT 17, Alkaline Phosphatase 51, Troponin I < 0.02, Total Protein 7.4, Albumin 3.5, Globulin 3.9 H, Albumin/Globulin Ratio 0.9 L, Lipase 233 07/28/18 15:25: D-Dimer 214 07/28/18 18:15: Troponin I < 0.02 07/28/18 22:15: Troponin I < 0.02 07/29/18 04:30: Troponin I < 0.02 I & O for Last 24 hours: Intake & Output 07/26/18 07/27/18 07/28/18 07/29/18 11:59 11:59 11:59 11:59 Intake Total 1822 / 1822 Output Total 300 / 300 Balance 1522 / 1522 Weight 151 lb 8 oz - Constitutional no acute distress, average body habitus - *Routine HEENT Exam Head: Present: normocephalic, atraumatic Eye: Present: EOMI, PERRL, normal accommodation - *Routine Neck Exam Present: supple, full ROM. Absent: JVD, carotid bruit - Routine Chest/Breast/Axilla Exam Chest wall: Absent: tenderness Breast: Absent: tenderness - *Routine Respiratory Exam Present: CTA bilaterally. Absent: accessory muscle use, rales, respiratory distress, rhonchi - *Routine Cardiovascular Exam Present: RRR, Normal S1, Normal S2. Absent: murmur - *Routine Abdominal Exam Present: soft, normoactive bowel sounds - *Routine Extremities Exam Present: cyanosis, clubbing, edema Hospital Course Hospital Course: Patient was admitted, ruled out for IA with for serial negative troponins. This morning she feels fine except for mild nausea. I reviewed her records showing recent cardiac catheterization showing nonsignificant coronary disease and her loop recorder download in May which is unremarkable. Plan will be to touch base with cardiology, she has an appointment next month, and I feel comfortable sending her home with implantable loop recorder and follow-up in our office and with cardiology. Results Labs on day of discharge: Labs from last 24 hours 07/29/18 07/28/18 07/28/18 04:30 22:15 18:15 WBC RBC Hgb Hct MCV MCH MCHC RDW Plt Count MPV Neut % (Auto) Lymph % (Auto) [place] % (Auto) Eos % (Auto) Baso % (Auto) Neut # (Auto) Lymph # (Auto) [place] # (Auto) Eos # (Auto) Baso # (Auto) D-Dimer Sodium Potassium Chloride Carbon Dioxide Anion Gap BUN Creatinine Estimated Creat Clear Estimated GFR Est GFR ( Amer) Glucose Calcium Total Bilirubin AST ALT Alkaline Phosphatase Troponin I < 0.02 < 0.02 < 0.02 Total Protein Albumin Globulin Albumin/Globulin Ratio Lipase 07/28/18 07/28/18 07/28/18 15:25 15:25 15:25 WBC 9.6 RBC 4.19 L Hgb 12.2 Hct 36.0 L MCV 85.9 MCH 29.1 MCHC 33.8 RDW 13.4 Plt Count 258 MPV 7.6 Neut % (Auto) 74.2 Lymph % (Auto) 20.7 [place] % (Auto) 3.6 Eos % (Auto) 1.2 Baso % (Auto) 0.2 Neut # (Auto) 7.1 Lymph # (Auto) 2.0 [place] # (Auto) 0.4 Eos # (Auto) 0.1 Baso # (Auto) 0.0 D-Dimer 214 Sodium 141 Potassium 3.4 L Chloride 101 Carbon Dioxide 29 Anion Gap 14.4 BUN 17 Creatinine 1.42 H Estimated Creat Clear 40 Estimated GFR 37 L Est GFR ( Amer) 45 L Glucose 102 Calcium 9.0 Total Bilirubin 0.4 AST 16 ALT 17 Alkaline Phosphatase 51 Troponin I < 0.02 Total Protein 7.4 Albumin 3.5 Globulin 3.9 H Albumin/Globulin Ratio 0.9 L Lipase 233 DS: Diagnosis - Discharge Diagnosis (1) Palpitations Status: Chronic (2) Dyspnea Status: Chronic Discharge Medications - Medications for Discharge Home Medication List at Discharge: No Action omega-3 fatty acids 1,000 mg capsule 1,000 mg PO BID escitalopram 20 mg tablet 10 mg PO DAILY clopidogrel 75 mg tablet 75 mg PO DAILY tab aspirin 81 mg tablet,delayed release 81 mg PO DAILY tab Potassium Chloride [Klor-con 20 mEq tablet] 20 meq PO DAILY Ondansetron [Zofran 4mg ODT] 4 mg PO Q8HP PRN #6 tab.rapdis PRN Reason: Nausea Pantoprazole Sodium [Protonix 40mg tablet] 40 mg PO HS Metoprolol Succinate 25 mg PO DAILY
== END 2018-07-29 09:13 | disposition home or self-care (01) ==
LOC: 2ND 15:09 → ER 15:09 → 2ND 20:40
PROVIDERS: ADMIT Family Medicine; ATTEND Internal Medicine Adolescent Medicine
CPT/HCPCS: 36415; 71010; 71045; 80053; 83690; 84484; 85025; 85378; 93005; 96365; 96375; 99285; G0378; J2405; S0119

== ENCOUNTER 2018-08-06 15:07 | Observation (INO) ==
[2018-08-06 17:42] LABS: Anion Gap 11.9 mEq/L (5-15); Calcium 8.7 mg/dL (8.5-10.1); Potassium 3.9 mmoL/L (3.5-5.1)
[2018-08-06 19:22] LABS: Basophils % 0.3 % (0.1-2.0); Eosinophils # 0.1 K/mm3 (0.0-0.4); Eosinophils % 1.8 % (0.1-12.0); Hematocrit 35.4 % (37.0-47.0); Hemoglobin 11.4 g/dL (12.2-16.2); Lymphocytes # 2.1 K/mm3 (0.7-4.5); Lymphocytes % 26.3 % (10-50); Mean Corpuscular HGB Conc 32.2 g/dL (31.8-35.4); Mean Corpuscular Hemoglobin 28.7 pg (27.0-31.2); Mean Corpuscular Volume 89.2 fl (81-99); Mean Platelet Volume 7.3 fl (7.4-10.4); Monocytes # 0.2 K/mm3 (0.1-1.0); Neutrophils # 5.5 K/mm3 (1.8-7.8); Neutrophils % 68.7 % (37.0-80.0); Platelet Count 248 K/mm3 (142-424); Red Blood Count 3.97 M/mm3 (4.20-5.40); Red Cell Distribution Width 13.7 % (11.5-17.5)
--- NOTE | 2018-08-07 07:36 | Pharmacy Consult Notes ---
[facility] Pharmacy VTE Monitoring - Patient Demographics Admission date: 08/06/18 Report Date: 08/07/18 Time: 07:35 Allergies/Adverse Reactions: Patient Allergies No Known Allergies Allergy (Verified 08/05/18 09:46) Height: 1.6 m Weight: 69.882 kg - VTE Risk Labs: VTE Related Lab Results Hgb 11.4 g/dL (12.2-16.2) L 08/06/18 17:09 Hct 35.4 % (37.0-47.0) L 08/06/18 17:09 Plt Count 248 K/mm3 (142-424) 08/06/18 17:09 BUN 21 mg/dL (7-18) H 08/06/18 17:09 Creatinine 1.24 mg/dL (0.55-1.02) H 08/06/18 17:09 Estimated Creat Clear 47 mL/min (50-200) 08/06/18 17:09 Was VTE Risk Assessment Performed: Yes VTE Score: 1 VTE Risk Level: Very Low Risk - Prophylaxis VTE Prophylaxis Ordered?: Yes Types of VTE Prophylaxis: TEDS Knee High Location of Applied Device: Bilateral Lower Extremeties - VTE Diagnosis Confirmed Treatment or plan recommended: Continue Current Treatment
--- NOTE | 2018-08-07 08:23 | H&P/Discharge Summary ---
General - General Admission date:: 08/06/18 Discharge date: 08/07/18 *Admission Date: 08/06/18 *Chief complaint: Dizziness and weakness *History of present illness: 68-year-old white female with long history of hypertension, currently on no treatment but also with significant episodes of orthostatic hypotension in the past that it responded to IV fluids. These have been evaluated with laboratory studies, cardiac studies, etc. and no significant/clear etiology has been found. She came to my office on 08/06/2018 with dizziness and weakness, although this was actually a post hospitalization visit from her visit for chest pain a week ago. In the office she was found to have blood pressure of 70/40, verified by me personally on a manual cuff of the appropriate size. Her symptoms went along with this and she was brought to the hospital for observation admission. [facility] History I have reviewed the patient's past medical history: Yes Medical History: Reports:: Anxiety, Congestive Heart Failure, Chronic Obstructive Pulmonary Disease (COPD), Coronary Artery Disease, Gastroesophageal Reflux Disease(GERD), Hyperlipidemia, Lung Disease, Myocardial Infarction Denies:: Cancer, Diabetes Mellitus Type 1, Diabetes Mellitus Type 2, Internal Pacemaker, MRSA, Seizures *Have you ever received a pneumonia vaccine?: Yes *Have you received a flu vaccine this season?: Yes Other Medical History: Reports: Arthritis, Cataracts, Hormone Therapy, Liver Disease, Other. Denies: Blood Transfusion Reaction Laterality Cases: Bilateral: Tonsillectomy Other Surgeries: Yes: Appendectomy, Cardiac Catheterization, Cholecystectomy, Colonoscopy, Coronary Stent, EGD, Hernia Repair (09/2017), Hysterectomy-Total, Tubal Ligation, Other (gallbladder,Loop Recorder,Heart Stent). No: Pacemaker Amputation: No Fractures: No - *Social History Educational Level: Attended High School Smoking Status: Current every day smoker Tobacco Type: cigarettes # Packs/Day (cigarettes): 1 #Yrs smoked (if former smoker): 30 Alcohol Intake: never Alcohol Intake Frequency:: other Substance Use Type: denies use *Occupational Status:: retired Housing: house Household Members: spouse *Travel in the last 8 weeks: None - Psychiatric History Expresses thoughts of harming self/others: None Suicide Plan Description: No Plan Pschychiatric History:: Reports:: Anxiety Family Hx:: Anemia, Cancer, Coronary Artery Disease, Diabetes, Heart Attack, Hyperlipidemia, Hypertension, Kidney Disease, Stroke Review of Systems - Review of Systems Review of systems:: pertinent systems reviewed and negative unless documented below - Constitutional Denies anorexia, Denies body ache(s) - Eyes Denies blind spots - ENT Denies abnormal hearing, Denies bleeding gums - *Cardiovascular Denies chest pain, Denies chest pain at rest, Denies generalized swelling - *Respiratory Denies change in phlegm color, Denies chest congestion - *Gastrointestinal Denies abdominal pain, Denies incontinent of stools, Denies heartburn, Denies vomiting blood - *Musculoskeletal Reports abnormal walking - *Neurologic Reports abnormal walking, Reports unsteadiness, Reports dizziness - Psychiatric Denies abnormal sleep pattern Exam Vital signs and Labs for Last 24 Hours: Temp Pulse Resp BP Pulse Ox 97.5 F L 74 20 142/88 H 96 08/07/18 08:00 08/07/18 08:00 08/07/18 08:00 08/07/18 08:00 08/07/18 08:00 Laboratory Results - last 24 hr 08/06/18 17:09: WBC 8.0, RBC 3.97 L, Hgb 11.4 L, Hct 35.4 L, MCV 89.2, MCH 28.7, MCHC 32.2, RDW 13.7, Plt Count 248, MPV 7.3 L, Neut % (Auto) 68.7, Lymph % (Auto) 26.3, [place] % (Auto) 3.0, Eos % (Auto) 1.8, Baso % (Auto) 0.3, Neut # (Auto) 5.5, Lymph # (Auto) 2.1, [place] # (Auto) 0.2, Eos # (Auto) 0.1, Baso # (Auto) 0.0 08/06/18 17:09: Sodium 143, Potassium 3.9, Chloride 105, Carbon Dioxide 30, Anion Gap 11.9, BUN 21 H, Creatinine 1.24 H, Estimated Creat Clear 47, Estimated GFR 43 L, Est GFR ( Amer) 52 L, Glucose 109 H, Calcium 8.7 08/06/18 20:01: Troponin I < 0.02 08/06/18 23:17: Troponin I < 0.02 I & O for Last 24 hours: Intake & Output 08/04/18 08/05/18 08/06/18 08/07/18 11:59 11:59 11:59 11:59 Intake Total 2480 / 2480 Output Total 400 / 400 Balance 2079 / 2079 Weight 154 lb 1 oz Narrative: Patient's exam admission showed a regular heart rate, blood pressure of 70/40, pulse oximetry unremarkable. Patient was alert but very dizzy and weak. Lungs clear, heart rate regular. Abdomen soft, no edema or clubbing. Cranial nerves intact, good strength in all 4 extremities Hospital Course Hospital Course: Patient was admitted overnight, given IV fluids and her blood pressure responded nicely. Labs were nondiagnostic. She felt much better this morning and was able to get up out of bed without dizziness. Plan will be to discharge home today. She has follow-up with cardiology next week for stress testing and echocardiogram. I continue to advise her to drink salt-containing beverages such as Gatorade instead of water to help her intrava scular volume. In the office she informed me that she was not taking blood pressure medicine. The hospital reconciliation list shows metoprolol. I have asked her to completely stop this. I will schedule an appointment for her on Sunday to recheck blood pressure Results Labs on day of discharge: Labs from last 24 hours 08/06/18 08/06/18 08/06/18 23:17 20:01 17:09 WBC RBC Hgb Hct MCV MCH MCHC RDW Plt Count MPV Neut % (Auto) Lymph % (Auto) [place] % (Auto) Eos % (Auto) Baso % (Auto) Neut # (Auto) Lymph # (Auto) [place] # (Auto) Eos # (Auto) Baso # (Auto) Sodium 143 Potassium 3.9 Chloride 105 Carbon Dioxide 30 Anion Gap 11.9 BUN 21 H Creatinine 1.24 H Estimated Creat Clear 47 Estimated GFR 43 L Est GFR ( Amer) 52 L Glucose 109 H Calcium 8.7 Troponin I < 0.02 < 0.02 08/06/18 17:09 WBC 8.0 RBC 3.97 L Hgb 11.4 L Hct 35.4 L MCV 89.2 MCH 28.7 MCHC 32.2 RDW 13.7 Plt Count 248 MPV 7.3 L Neut % (Auto) 68.7 Lymph % (Auto) 26.3 [place] % (Auto) 3.0 Eos % (Auto) 1.8 Baso % (Auto) 0.3 Neut # (Auto) 5.5 Lymph # (Auto) 2.1 [place] # (Auto) 0.2 Eos # (Auto) 0.1 Baso # (Auto) 0.0 Sodium Potassium Chloride Carbon Dioxide Anion Gap BUN Creatinine Estimated Creat Clear Estimated GFR Est GFR ( Amer) Glucose Calcium Troponin I DS: Diagnosis - Discharge Diagnosis (1) Orthostatic hypotension Status: Resolved Discharge Medications - Medications for Discharge Home Medication List at Discharge: Continue omega-3 fatty acids 1,000 mg capsule 1,000 mg PO BID escitalopram 20 mg tablet 10 mg PO DAILY clopidogrel 75 mg tablet 75 mg PO DAILY tab aspirin 81 mg tablet,delayed release 81 mg PO DAILY tab Potassium Chloride [Klor-con 20 mEq tablet] 20 meq PO DAILY Ondansetron [Zofran 4mg ODT] 4 mg PO Q8HP PRN #6 tab.rapdis PRN Reason: Nausea Pantoprazole Sodium [Protonix 40mg tablet] 40 mg PO HS Discontinued Metoprolol Succinate 25 mg PO DAILY Disposition Disposition: Home, Self-Care
[2018-08-07 09:19] LABS: Anion Gap 10.6 mEq/L (5-15); Calcium 8.1 mg/dL (8.5-10.1); Potassium 3.6 mmoL/L (3.5-5.1)
== END 2018-08-07 09:09 | disposition home or self-care (01) ==
LOC: 2ND
PROVIDERS: ADMIT Internal Medicine Adolescent Medicine; ATTEND Internal Medicine Adolescent Medicine
CPT/HCPCS: 36415; 80048; 84484; 85025; 93005; G0378

== ENCOUNTER 2018-08-09 11:30 | Outpatient (CLI) | payer MEDICARE, OTHER, SELFPAY ==
[2018-08-09] VITALS (7 sets, daily range): BP systolic 87–115; BP diastolic 55–73; PULSE 63–70; RESP 16–18; O2SAT 95; BMI 26.4
[2018-08-09 12:40] LABS: Microscopic, Urine URINE MICROSCOPIC (MICROSCOPIC)
[2018-08-09 12:44] LABS: Basophils % 0.4 % (0.1-2.0); Eosinophils # 0.2 K/mm3 (0.0-0.4); Eosinophils % 1.6 % (0.1-12.0); Hematocrit 36.9 % (37.0-47.0); Hemoglobin 12.2 g/dL (12.2-16.2); Lymphocytes # 2.2 K/mm3 (0.7-4.5); Mean Corpuscular Hemoglobin 28.8 pg (27.0-31.2); Mean Corpuscular Volume 87.2 fl (81-99); Mean Platelet Volume 7.4 fl (7.4-10.4); Monocytes # 0.3 K/mm3 (0.1-1.0); Monocytes % 3.3 % (1.7-9.3); Neutrophils # 7.3 K/mm3 (1.8-7.8); Neutrophils % 72.7 % (37.0-80.0); Platelet Count 302 K/mm3 (142-424); Red Blood Count 4.23 M/mm3 (4.20-5.40); Red Cell Distribution Width 13.5 % (11.5-17.5)
[2018-08-09 12:47] LABS: Appearance,Urine CLEAR (Clear); Bilirubin,Urine Negative (Negative); Blood, Urine Negative (Negative); Color,Urine YELLOW (Yellow); Glucose,Urine (UA) Negative (Negative); Ketones,Urine Negative (Negative); Leukocyte Esterase,Urine Negative (Negative); Nitrate,Urine Negative (Negative); Protein,Urine Negative (Negative); Urobilinogen,Urine 0.2 EU/dl (0.2)
[2018-08-09 12:53] LABS: Blood Urea Nitrogen 21 mg/dL (7-18); Carbon Dioxide 31 mmol/L (21.0-32.0); Chloride 100 mmol/L (98-107); Creatinine Clearance Estimated 42 mL/min (50-200); Creatinine,Serum 1.36 mg/dL (0.55-1.02); Estimated Glomerular Filt Rate 39 ml/min (>60); GFR (African American) 47 ML/MIN (>60); Glucose 99 mg/dL (74-106); Sodium 139 mmol/L (136-145)
[2018-08-09 12:56] LABS: Bacteria,Urine 1+ /lpf; RBC,Urine Occasional #/hpf (0-3); WBC,Urine Occasional #/hpf (0-3)
[2018-08-09 13:11] LABS: Calcium 9.4 mg/dL (8.5-10.1)
[2018-08-10 19:10] LABS: Sodium, Urine 38 mmol/L (Not Estab.)
== END 2018-08-09 15:30 | disposition home or self-care (01) ==
PROVIDERS: PCP Internal Medicine Adolescent Medicine; Visit Provider Nurse Practitioner Family
DX: I95.1 Orthostatic hypotension (principal)
CPT/HCPCS: 80048; 81001; 84300; 85025; 96360; 96361

== ENCOUNTER → 2018-08-13 06:10 | Outpatient (CLI) | payer MEDICARE, OTHER, SELFPAY ==
--- NOTE | 2018-08-13 06:12 | CA_ITS ---
PROCEDURE: 2-D M-mode and color Doppler study INDICATIONS FOR THE TEST: Chest painX COPDX Heart Murmur Tobacco SmokingX PalpitationsX Fatigue Syncope Edema HypertensionXDiabetes Mellitus Rheumatic Fever SOB DOEXObesity HyperlipidemiaX Family History HD Additional History CAD,CHF PATIENT INFORMATION HEIGHT: 63 WEIGHT:148 GENDER: Female B/P:113/80 2-D/M-MODE INTERPRETATION: 2-D MEASUREMENTS OBSERVED VALUES IN CMS Right Ventricular Dimension (RVDd) 2.3 Interventricular Septum (Thickness)(IVsd) 1.2 Left Ventricular Internal Dimensions(LVIDd) 4.9 Left Ventricular Posterior Wall (Thickness)(LVPWd) .8 Aortic Root 3.4 Aortic Cusp Separation 2.0 Left Atrial Dimensions (LAD) 2.7 2D 1. Left atrium is mildly enlarged, left ventricle is normal size, mild concentric left ventricular hypertrophy, visually estimated ejection fraction 55% with no regional wall motion abnormality. 2. The right atrium and right ventricle are mildly enlarged with normal contractility. 3. The aortic valve is minimally thickened and fibrosed. 4. The mitral and tricuspid valve is grossly normal. 5. The pulmonic valve is poorly present. 6. No significant pericardial effusion noted. DOPPLER INTERROGATION: Doppler interrogation of the aortic, mitral and tricuspid presence of mild aortic, mild mitral and tricuspid regurgitation, calculated right ventricular systolic pressure is 33 mmHg, grade 1 diastolic dysfunction seen with tissue Doppler evidence of raised left atrial pressure, inferior vena cava is normal size with normal inspiratory collapse. CONCLUSION: 1. Mildly enlarged left atrium, normal left ventricular size, mild concentric left ventricular hypertrophy, visually estimated ejection fraction 55% with no regional wall motion abnormality, grade 1 diastolic dysfunction seen with tissue Doppler evidence of raised left atrial pressure. 2. Mildly enlarged right ventricle with normal contractility. 3. Mild aortic, mild mitral and tricuspid regurgitation, calculated right ventricular systolic pressure is 33 mmHg consistent with mild pulmonary hypertension. Inferior vena cava is normal size with normal is likely collapse. 4. No significant pericardial effusion noted.
--- NOTE | 2018-08-13 06:16 | NM_ITS ---
CARDIOLITE SPECT MYOCARDIAL PERFUSION LEXISCAN, REST AND STRESS: [facility] REVIEW QGS EF AND WALL MOTION EVALUATION: QPS - PERFUSION EVALUATION HISTORY: Chest pain, SOB, CAD, Hx of CT, Syncope, Fatigue, Tobacco use, Family History DOSE: 10.06 mCi technetium 99m mibi intravenously at rest followed by 32.0 mCi technetium 99m mibi following the intravenous ministration of 0.4 mg of Lexiscan. Resting blood pressure is 119/73. Stress blood pressure 111/53. FINDINGS: Ejection fraction is calculated to be 77%. Stress images reveal mildly decreased activity in the apex while rest images reveal worsening activity in the apex and anterior wall IMPRESSION: Clinical correlation is advised. This test suggests the possibility of reverse redistribution along the mid anterior apical wall. Normal ejection fraction normal wall motion
--- NOTE | 2018-08-13 07:18 | HMH.ITSHM ---
Current Home Medications as stated by this patient Maggie Jha or technical sales representatives. []OMEGA 3 FISH OIL SUCRALFATE ATORVASTATIN PANTOPRAZOLE FLUDROCORTISONE ESCITALOPRAM ASA CLOPIDOGREL PROBIOTIC ONDANSETRON
== END ==
PROVIDERS: PCP Internal Medicine Adolescent Medicine; Visit Provider Urology
DX: I10 Essential (primary) hypertension; I25.10 Atherosclerotic heart disease of native coronary artery without angina pectoris; J44.9 Chronic obstructive pulmonary disease, unspecified; R06.09 Other forms of dyspnea; R07.89 Other chest pain; R42 Dizziness and giddiness; E78.49 Other hyperlipidemia
CPT/HCPCS: 78452; 93017; 93306; A9502; J2785

== ENCOUNTER → 2018-09-09 07:20 | Day surgery (SDC) | payer MEDICARE, OTHER, SELFPAY ==
[2018-09-09 07:58] VITALS: BMI 26.7
[2018-09-09 08:15] VITALS: BP 117/77; PULSE 69; PULSE 70; RESP 20; O2SAT 98
[2018-09-09 08:19] LABS: Basophils % 0.4 % (0.1-2.0); Eosinophils # 0.1 K/mm3 (0.0-0.4); Eosinophils % 1.5 % (0.1-12.0); Hematocrit 33.8 % (37.0-47.0); Hemoglobin 11.2 g/dL (12.2-16.2); Lymphocytes # 1.3 K/mm3 (0.7-4.5); Lymphocytes % 16.6 % (10-50); Mean Corpuscular HGB Conc 33.3 g/dL (31.8-35.4); Mean Corpuscular Hemoglobin 28.6 pg (27.0-31.2); Mean Platelet Volume 7.8 fl (7.4-10.4); Monocytes # 0.3 K/mm3 (0.1-1.0); Monocytes % 3.9 % (1.7-9.3); Neutrophils # 5.8 K/mm3 (1.8-7.8); Neutrophils % 77.6 % (37.0-80.0); Platelet Count 225 K/mm3 (142-424); Red Blood Count 3.93 M/mm3 (4.20-5.40); Red Cell Distribution Width 13.8 % (11.5-17.5); White Blood Count 7.5 K/mm3 (4.8-10.8)
[2018-09-09 08:26] LABS: Anion Gap 13.8 mEq/L (5-15); Blood Urea Nitrogen 22 mg/dL (7-18); Calcium 8.9 mg/dL (8.5-10.1); Carbon Dioxide 29 mmol/L (21.0-32.0); Chloride 98 mmol/L (98-107); Creatinine Clearance Estimated 20 mL/min (50-200); Creatinine,Serum 2.85 mg/dL (0.55-1.02); Estimated Glomerular Filt Rate 16 ml/min (>60); GFR (African American) 20 ML/MIN (>60); Glucose 95 mg/dL (74-106); Sodium 138 mmol/L (136-145)
[2018-09-09 08:29] LABS: Potassium 2.8 mmoL/L (3.5-5.1)
[2018-09-09] MEDS: POTASSIUM CHLORIDE 20MEQ TAB 40 MEQ PO (09:08)
--- NOTE | 2018-09-09 09:49 | SUR.PREOP ---
due to abnormal labwork requests for pt procedure to be canceled at this time, and for pt to be seen in cardiology office after receiving 1000 ns ivfs. pt understands all information and agrees.
[2018-09-12 12:33] LABS: Renin Activity, Plasma 2.387 ng/mL/hr (0.167-5.380)
== END ==
LOC: RT 07:24 → CATHLAB 07:29
PROVIDERS: Internal Medicine; PCP Internal Medicine Adolescent Medicine; Visit Provider Urology
DX: I73.9 Peripheral vascular disease, unspecified (principal); M79.604 Pain in right leg; M79.605 Pain in left leg
CPT/HCPCS: 36415; 80048; 82088; 84244; 85025

== ENCOUNTER 2018-09-09 12:27 | Observation (INO) | payer MEDICARE, OTHER, SELFPAY ==
[2018-09-09] VITALS (8 sets, daily range): BP systolic 100–152; BP diastolic 58–80; PULSE 60–70; RESP 16–20; TEMP 36.4–37; O2SAT 97–100; BMI 26.9; BMI 27.3
--- NOTE | 2018-09-09 12:46 | XR_ITS ---
XR chest portable HISTORY: ITS.REASON: syncope ORDERING PHYSICIAN: Denver Chase MD PATIENT AGE: 68 years COMPARISON: Portable upright chest 07/28/2018 FINDINGS: The cardiomediastinal silhouette and pulmonary vascularity are within normal limits. The lungs are clear without infiltrates, suspicious nodules, or pleural effusions. Again noted is the loop recorder device projecting over the left heart border. There is an epidural electrodes seen in the mid and upper thoracic spinal canal. Again noted are old healed rib fractures right side. No acute bony abnormalities. IMPRESSION: Negative chest, no acute finding
[2018-09-09 12:59] LABS: Basophils % 0.4 % (0.1-2.0); Eosinophils # 0.1 K/mm3 (0.0-0.4); Eosinophils % 1.3 % (0.1-12.0); Hematocrit 32.7 % (37.0-47.0); Hemoglobin 10.9 g/dL (12.2-16.2); Lymphocytes # 2.3 K/mm3 (0.7-4.5); Lymphocytes % 27.9 % (10-50); Mean Corpuscular HGB Conc 33.3 g/dL (31.8-35.4); Mean Corpuscular Hemoglobin 28.9 pg (27.0-31.2); Mean Corpuscular Volume 86.8 fl (81-99); Mean Platelet Volume 7.1 fl (7.4-10.4); Monocytes # 0.3 K/mm3 (0.1-1.0); Monocytes % 3.9 % (1.7-9.3); Neutrophils # 5.5 K/mm3 (1.8-7.8); Neutrophils % 66.4 % (37.0-80.0); Platelet Count 230 K/mm3 (142-424); Red Blood Count 3.77 M/mm3 (4.20-5.40); Red Cell Distribution Width 13.8 % (11.5-17.5); White Blood Count 8.3 K/mm3 (4.8-10.8)
--- NOTE | 2018-09-09 13:03 | HMH.EDSYNC ---
ED Disposition Clinical Impression: Syncope and collapse, CAD (coronary artery disease) of artery bypass graft Disposition: Admitted as Observation Condition on Discharge: Good Instructions: DI for Syncope in Adults (Fainting), DI for Syncope in Children (Fainting) Referrals: Abdiel Dai MD [Primary Care Provider] - Time of Disposition: 13:47 - Critical Care Critical Care Time: No Attestation: On 09/09/18, the high probability of a clinically significant, sudden or life threatening deterioration of the following system(s) required my full and direct attention, intervention and personal management. The time I documented below is in addition to time spent performing reported procedures but includes the following listed in this critical care notation. Medical Decision Making - Medical Records Medical records reviewed: Yes: I reviewed the patient's medical records. - Tanner Inquiry Pt receiving controlled substance: No Tanner was queried for this patient: No Vital Signs: 09/09/18 12:29 09/09/18 13:02 Pulse Rate [Left Radial] 65 65 Respiratory Rate 16 Blood Pressure [Right Arm] 152/80 H 145/70 H Blood Pressure Mean [Right Arm] 104 95 Blood Pressure Source [Right Arm] Automatic Cuff Automatic Cuff Blood Pressure Position [Right Arm] Sitting Sitting 02 Sat by Pulse Oximetry 98 Oxygen Delivery Method Room Air - Lab Data Lab results reviewed: Yes: I reviewed the patient's lab results. Lab Results 09/09/18 12:30: WBC 8.3, RBC 3.77 L, Hgb 10.9 L, Hct 32.7 L, MCV 86.8, MCH 28.9, MCHC 33.3, RDW 13.8, Plt Count 230, MPV 7.1 L, Neut % (Auto) 66.4, Lymph % (Auto) 27.9, [place] % (Auto) 3.9, Eos % (Auto) 1.3, Baso % (Auto) 0.4, Neut # (Auto) 5.5, Lymph # (Auto) 2.3, [place] # (Auto) 0.3, Eos # (Auto) 0.1, Baso # (Auto) 0.0 09/09/18 12:30: Sodium 140, Potassium 2.9 L*, Chloride 101, Carbon Dioxide 29, Anion Gap 12.9, BUN 23 H, Creatinine 3.18 H, Estimated Creat Clear 18, Estimated GFR 15 L*, Est GFR ( Amer) 18 L*, Glucose 110 H, Calcium 8.5, Troponin I < 0.02 Result diagrams: 09/09/18 12:30 09/09/18 12:30 Orders (Tests/Meds): ED MEDICATIONS Generic Name Dose Route Start Last Admin Trade Name Freq PRN Reason Stop Dose Admin Sodium Chloride 1,000 mls @ 75 mls/hr 09/09/18 12:45 09/09/18 13:46 Sod Chlor 0.9% 1000ml Bag IV 10/09/18 12:44 75 mls/hr .[id number] GABRIELA Administration Discontinued Medications Generic Name Dose Route Start Last Admin Trade Name Freq PRN Reason Stop Dose Admin Ondansetron HCl 4 mg 09/09/18 13:34 09/09/18 13:46 Zofran 4mg/2ml Vial IV 09/09/18 13:35 4 mg ONCE ONE Administration Potassium Chloride 40 meq 09/09/18 13:29 09/09/18 13:46 Klor-Con 20meq Tablet PO 09/09/18 13:30 40 meq ONCE ONE Administration ORDERS Category Date Time Status Chest XR -- portable [XR chest portable] Stat Exams 09/09/18 12:46 Taken Syncope HPI - General Chief Complaint: Syncope Stated Complaint: syncope Time Seen by Provider: 09/09/18 13:03 Mode of Arrival: Wheelchair Source of Information: Patient Limitations: No Limitations Description of Symptoms (Recalled from ER Triage Doc. by RN): pt sent from dr buchanan office due to syncopal episode. pt was to have a cardiac cath to day but KFTs elevated so procedure was cancelled. pt admits alert and oriented x 4 dr henriquez at bedside states she had a vasovagal episode states pt to be admitted to dr dai. - History of Present Illness HPI narrative: syncope without injuries, witnessed, Dr. Henriquez's office. Cath cancelled secondary to renal failure. One prior stent per Dr. Mckeon of [facility]. - Related Data Home Medications Medication Instructions Recorded Confirmed escitalopram 20 mg tablet 10 mg PO DAILY 05/16/17 09/09/18 omega-3 fatty acids 1,000 mg 1,000 mg PO BID 05/16/17 09/09/18 capsule aspirin 81 mg tablet,delayed 81 mg PO DAILY tab 10/30/17 09/09/18 release clopidogre
[2018-09-09 13:16] LABS: Anion Gap 12.9 mEq/L (5-15); Blood Urea Nitrogen 23 mg/dL (7-18); Calcium 8.5 mg/dL (8.5-10.1); Carbon Dioxide 29 mmol/L (21.0-32.0); Chloride 101 mmol/L (98-107); Creatinine Clearance Estimated 18 mL/min (50-200); Creatinine,Serum 3.18 mg/dL (0.55-1.02); Estimated Glomerular Filt Rate 15 ml/min (>60); GFR (African American) 18 ML/MIN (>60); Glucose 110 mg/dL (74-106); Sodium 140 mmol/L (136-145); Troponin I < 0.02 ng/ml (0.00-0.06)
--- NOTE | 2018-09-09 13:17 | PC.NURSE ---
notified ER of potassium 2.9 called by lab at this time
[2018-09-09 13:18] LABS: Potassium 2.9 mmoL/L (3.5-5.1)
--- NOTE | 2018-09-09 13:40 | PC.NURSE ---
EVELINA MIJARES spoke with Dr. Angulo
--- NOTE | 2018-09-09 13:57 | PC.NURSE ---
family at bedside
--- NOTE | 2018-09-09 14:06 | PC.NURSE ---
report called to ayo lin
--- NOTE | 2018-09-09 17:52 | HMH.HP ---
*Admission Date: 09/09/18 *Chief complaint: Acute renal insufficiency/kidney injury *History of present illness: 68-year-old white female with recent diagnosis of recurrent syncope/hypokalemia and dehydration with multiple episodes of prerenal azotemia. She has been followed by cardiology closely and was scheduled to have heart cath today because of her abnormal stress test and recurrent syncope but preoperative labs revealed that her creatinine had increased above 3 and the procedure was canceled. She has been noticed to have increasing creatinine and low potassium levels over the past couple of months. Interestingly last month she had a similar episode of hypokalemia, dehydration and hypotension, we had ordered a urine diuretic screen which returned to 3 days ago positive for furosemide. The patient was told last summer to go off her furosemide, but pharmacy records record that the [place] mail order pharmacy has filled a 3-month prescription for her in December 2017 and a local drugstore in [place] had also filled a prescription for Lasix for her in November 2017. Also of note, her takes Lasix on a daily basis. [place] medicines from [place]. The patient is adamant that she does not take Lasix and that she understands that I told her to stop it. When I discussed with her the possibility that her and her 's medication could be confused at home she does note that he has severe Alzheimer's disease and I do not know sometimes when he is doing. [facility] History I have reviewed the patient's past medical history: Yes Medical History: Reports:: Anxiety, Atherosclerotic Heart Disease, Congestive Heart Failure, Chronic Obstructive Pulmonary Disease (COPD), Coronary Artery Disease, Gastroesophageal Reflux Disease(GERD), Hyperlipidemia, Hypertension, Lung Disease, Myocardial Infarction Denies:: Cancer, Diabetes Mellitus Type 1, Diabetes Mellitus Type 2, Internal Pacemaker, MRSA, Seizures *Have you ever received a pneumonia vaccine?: Yes *Have you received a flu vaccine this season?: Yes Other Medical History: Reports: Arthritis, Cataracts, Hormone Therapy, Liver Disease, Other. Denies: Blood Transfusion Reaction Laterality Cases: Bilateral: Tonsillectomy Other Surgeries: Yes: Appendectomy, Cardiac Catheterization, Cholecystectomy, Colonoscopy, Coronary Stent, EGD, Hernia Repair (09/2017), Hysterectomy-Total, Tubal Ligation, Other (gallbladder,Loop Recorder,Heart Stent). No: Pacemaker Amputation: No Fractures: No - *Social History Educational Level: Attended Grade School Smoking Status: Current every day smoker Tobacco Type: cigarettes # Packs/Day (cigarettes): 1 #Yrs smoked (if former smoker): 30 Alcohol Intake: never Alcohol Intake Frequency:: other Substance Use Type: denies use *Occupational Status:: retired Housing: house Household Members: spouse *Travel in the last 8 weeks: None - Psychiatric History Expresses thoughts of harming self/others: None Suicide Plan Description: No Plan Pschychiatric History:: Reports:: Anxiety Family Hx:: Anemia, Cancer, Coronary Artery Disease, Diabetes, Heart Attack, Hyperlipidemia, Hypertension, Kidney Disease, Stroke Review of Systems - Review of Systems Review of systems:: pertinent systems reviewed and negative unless documented below - Constitutional Reports anorexia, Reports body ache(s), Reports fatigue, Denies fever(s), Denies headache(s) - Eyes Denies blind spots, Denies blurry vision, Denies change in vision - ENT Denies abnormal hearing, Denies bleeding gums - *Cardiovascular Denies chest pain, Denies chest pain at rest, Denies excessive sweating, Denies shortness of breath - *Respiratory Denies change in phlegm color, Denies chest congestion - *Gastrointestinal Denies abdominal pain, Denies belching - *Musculoskeletal Denies abnormal walking, Denies joint pain - Integumentary/Breasts Denies hair loss, Denies bleeding lesions - *Neurologic Reports dizziness, Re
--- NOTE | 2018-09-09 17:55 | P.HP_ITS ---
*Admission Date: 09/09/18 *Chief complaint: Acute renal insufficiency/kidney injury *History of present illness: 68-year-old white female with recent diagnosis of recurrent syncope/hypokalemia and dehydration with multiple episodes of prerenal azotemia. She has been followed by cardiology closely and was scheduled to have heart cath today because of her abnormal stress test and recurrent syncope but preoperative labs revealed that her creatinine had increased above 3 and the procedure was canceled. She has been noticed to have increasing creatinine and low potassium levels over the past couple of months. Interestingly last month she had a similar episode of hypokalemia, dehydration and hypotension, we had ordered a urine diuretic screen which returned to 3 days ago positive for furosemide. The patient was told last summer to go off her furosemide, but pharmacy records record that the [place] mail order pharmacy has filled a 3-month prescription for her in December 2017 and a local drugstore in [place] had also filled a prescription for Lasix for her in November 2017. Also of note, her takes Lasix on a daily basis. He receives these medicines from the [place]. The patient is adamant that she does not take Lasix and that she understands that I told her to stop it. When I discussed with her the possibility that her and her 's medication could be confused at home she does note that he has severe Alzheimer's disease and I do not know sometimes when he is doing. [facility] History I have reviewed the patient's past medical history: Yes Medical History: Reports:: Anxiety, Atherosclerotic Heart Disease, Congestive Heart Failure, Chronic Obstructive Pulmonary Disease (COPD), Coronary Artery Disease, Gastroesophageal Reflux Disease(GERD), Hyperlipidemia, Hypertension, Lung Disease, Myocardial Infarction Denies:: Cancer, Diabetes Mellitus Type 1, Diabetes Mellitus Type 2, Internal Pacemaker, MRSA, Seizures *Have you ever received a pneumonia vaccine?: Yes *Have you received a flu vaccine this season?: Yes Other Medical History: Reports: Arthritis, Cataracts, Hormone Therapy, Liver Disease, Other. Denies: Blood Transfusion Reaction Laterality Cases: Bilateral: Tonsillectomy Other Surgeries: Yes: Appendectomy, Cardiac Catheterization, Cholecystectomy, Colonoscopy, Coronary Stent, EGD, Hernia Repair (09/2017), Hysterectomy-Total, Tubal Ligation, Other (gallbladder,Loop Recorder,Heart Stent). No: Pacemaker Amputation: No Fractures: No - *Social History Educational Level: Attended Grade School Smoking Status: Current every day smoker Tobacco Type: cigarettes # Packs/Day (cigarettes): 1 #Yrs smoked (if former smoker): 30 Alcohol Intake: never Alcohol Intake Frequency:: other Substance Use Type: denies use *Occupational Status:: retired Housing: house Household Members: spouse *Travel in the last 8 weeks: None - Psychiatric History Expresses thoughts of harming self/others: None Suicide Plan Description: No Plan Pschychiatric History:: Reports:: Anxiety Family Hx:: Anemia, Cancer, Coronary Artery Disease, Diabetes, Heart Attack, Hyperlipidemia, Hypertension, Kidney Disease, Stroke Review of Systems - Review of Systems Review of systems:: pertinent systems reviewed and negative unless documented below - Constitutional Reports anorexia, Reports body ache(s), Reports fatigue, Denies fever(s), Denies headache(s) - Eyes Denies blind spots, Denies blurry vision, Denies change in vision - ENT Denies abnormal hearing, Denies bleeding gums - *Cardiovascular Denies chest pain, Denies chest pain at rest, Denies excessiv
[2018-09-09 18:05] LABS: Troponin I < 0.02 ng/ml (0.00-0.06)
--- NOTE | 2018-09-09 19:20 | PC.NURSE ---
report given to denita
[2018-09-09 20:27] LABS: Troponin I < 0.02 ng/ml (0.00-0.06)
[2018-09-10] VITALS (14 sets, daily range): BP systolic 112–148; BP diastolic 57–91; PULSE 62–80; RESP 17–20; TEMP 36.5–37.2; O2SAT 92–100; BMI 27.3
[2018-09-10 00:16] LABS: Microscopic, Urine URINE MICROSCOPIC (MICROSCOPIC)
[2018-09-10 00:27] LABS: Appearance,Urine Clear (Clear); Bilirubin,Urine Negative (Negative); Blood, Urine Negative (Negative); Color,Urine Yellow (Yellow); Glucose,Urine (UA) Negative (Negative); Ketones,Urine Negative (Negative); Leukocyte Esterase,Urine Negative (Negative); Nitrate,Urine Negative (Negative); PH,Urine 6.5 (5.0-8.5); Protein,Urine Negative (Negative); Specific Gravity, Urine 1.015 (1.005-1.030); Urobilinogen,Urine 0.2 EU/dl (0.2)
[2018-09-10 00:29] LABS: WBC,Urine Occasional #/hpf (0-3)
[2018-09-10 00:30] LABS: Bacteria,Urine Trace /lpf; Squamous Epithelial Cell,Urine Occasional #/hpf (0-5)
--- NOTE | 2018-09-10 05:16 | PC.NURSE ---
Pt awake most of shift. No complaints voiced. Remains on room air. NSR on teley w/ HR 70's. Ambulates independently in room w/ no safety concerns. Refuses SCDS. #20 RAC w/ NS @ 200 mls/hr. VSS. Will continue to monitor.
--- NOTE | 2018-09-10 06:00 | PC.NURSE ---
0600 courtesy check; pt up to bathroom, no other needs voiced
--- NOTE | 2018-09-10 07:09 | HMH.ACPN2 ---
Internal Medicine - PN: Subj *Date: 09/10/18 *Time: 08:48 Interval history: Patient upright in bed this morning on interview. Denies any fever, nausea vomiting, shortness of breath. Ambulating independently to bathroom. Tolerating regular diet. No complaints this morning aside from some chest wall pain. Exam Vital signs and Labs for Last 24 Hours: Temp Pulse Resp BP Pulse Ox 97.7 F 69 18 125/65 96 09/10/18 04:00 09/10/18 04:00 09/10/18 04:00 09/10/18 04:00 09/10/18 04:00 Laboratory Results - last 24 hr 09/09/18 00:00: Urine Color Yellow, Urine Appearance Clear, Urine pH 6.5, Ur Specific [place] 1.015, Urine Protein Negative, Urine Glucose (UA) Negative, Urine Ketones Negative, Urine Blood Negative, Urine Nitrate Negative, Urine Bilirubin Negative, Urine Urobilinogen 0.2, Ur Leukocyte Esterase Negative, Urine WBC Occasional, Ur Squamous Epith Cells Occasional, Urine Bacteria Trace 09/09/18 12:30: WBC 8.3, RBC 3.77 L, Hgb 10.9 L, Hct 32.7 L, MCV 86.8, MCH 28.9, MCHC 33.3, RDW 13.8, Plt Count 230, MPV 7.1 L, Neut % (Auto) 66.4, Lymph % (Auto) 27.9, [place] % (Auto) 3.9, Eos % (Auto) 1.3, Baso % (Auto) 0.4, Neut # (Auto) 5.5, Lymph # (Auto) 2.3, [place] # (Auto) 0.3, Eos # (Auto) 0.1, Baso # (Auto) 0.0 09/09/18 12:30: Sodium 140, Potassium 2.9 L*, Chloride 101, Carbon Dioxide 29, Anion Gap 12.9, BUN 23 H, Creatinine 3.18 H, Estimated Creat Clear 18, Estimated GFR 15 L*, Est GFR ( Amer) 18 L*, Glucose 110 H, Calcium 8.5, Troponin I < 0.02 09/09/18 17:39: Troponin I < 0.02 09/09/18 20:01: Troponin I < 0.02 I & O for Last 24 hours: Intake & Output 09/07/18 09/08/18 09/09/18 09/10/18 23:59 23:59 23:59 23:59 Intake Total 360 / 360 2506 / 2506 Output Total 400 / 400 800 / 800 Balance -40 / -40 1706 / 1706 Weight 69.853 kg 69.853 kg Narrative: Patient is pleasant, alert. Oriented x3. Oral mucosa moist, no JVD, otherwise ENT exam clear. Lungs clear, heart rate regular. Abdomen soft. No edema or clubbing. No evidence of trauma. No evidence of skin rash. Chest wall tender to palpation parasternal border bilaterally. Assessment and Plan (1) Hypokalemia Current visit: Yes Status: Acute Category: Medical Code(s): E87.6 - Hypokalemia (2) CAD (coronary artery disease) of artery bypass graft Current visit: Yes Status: Acute Category: Medical Code(s): I25.810 - Atherosclerosis of coronary artery bypass graft(s) without angina pectoris (3) Acute renal failure Current visit: No Status: Acute Qualifiers: Acute renal failure type: unspecified Qualified Code(s): N17.9 - Acute kidney failure, unspecified Category: Medical Code(s): N17.9 - Acute kidney failure, unspecified - Assessment and plan all Dx Assessment and Plan for all problems:: Ms. Jha continues to deny surreptitious diuretic use. Pending diuretic labs to confirm or refute as patient's lab work suggestive of loop diuretic abuse. Continues to require IV fluid resuscitation. Improving on labs this morning. Continues to require inpatient management.
[2018-09-10 07:24] LABS: Anion Gap 13.3 mEq/L (5-15); Blood Urea Nitrogen 24 mg/dL (7-18); Carbon Dioxide 25 mmol/L (21.0-32.0); Chloride 108 mmol/L (98-107); Creatinine Clearance Estimated 24 mL/min (50-200); Creatinine,Serum 2.52 mg/dL (0.55-1.02); Estimated Glomerular Filt Rate 19 ml/min (>60); GFR (African American) 23 ML/MIN (>60); Glucose 92 mg/dL (74-106); Potassium 3.3 mmoL/L (3.5-5.1); Sodium 143 mmol/L (136-145)
--- NOTE | 2018-09-10 07:30 | P.CONPHA_ITS ---
[facility] Pharmacy VTE Monitoring - Patient Demographics Admission date: 09/10/18 Report Date: 09/10/18 Time: 07:29 Allergies/Adverse Reactions: Patient Allergies No Known Allergies Allergy (Verified 09/09/18 10:32) Height: 1.6 m Weight: 69.853 kg Patient Problems: Current Active Problems (Updated 09/09/18 @ 17:57 by Abdiel Angulo MD) CAD (coronary artery disease) of artery bypass graft (Acute) Syncope and collapse (Acute) Hypokalemia (Acute) - VTE Risk Labs: VTE Related Lab Results Hgb 10.9 g/dL (12.2-16.2) L 09/09/18 12:30 Hct 32.7 % (37.0-47.0) L 09/09/18 12:30 Plt Count 230 K/mm3 (142-424) 09/09/18 12:30 BUN 24 mg/dL (7-18) H 09/10/18 06:34 Creatinine 2.52 mg/dL (0.55-1.02) H D 09/10/18 06:34 Estimated Creat Clear 24 mL/min (50-200) 09/10/18 06:34 Was VTE Risk Assessment Performed: Yes VTE Score: 7 VTE Risk Level: Moderate Risk Clinical Trial Participant: No - Prophylaxis VTE Prophylaxis Ordered?: Yes Types of VTE Prophylaxis: TEDS Knee High
[2018-09-10 07:32] LABS: Basophils % 0.7 % (0.1-2.0); Eosinophils # 0.1 K/mm3 (0.0-0.4); Eosinophils % 2.5 % (0.1-12.0); Hematocrit 29.5 % (37.0-47.0); Hemoglobin 9.9 g/dL (12.2-16.2); Lymphocytes # 1.5 K/mm3 (0.7-4.5); Lymphocytes % 32.2 % (10-50); Mean Corpuscular HGB Conc 33.6 g/dL (31.8-35.4); Mean Corpuscular Hemoglobin 29.4 pg (27.0-31.2); Mean Corpuscular Volume 87.4 fl (81-99); Mean Platelet Volume 7.2 fl (7.4-10.4); Monocytes # 0.2 K/mm3 (0.1-1.0); Monocytes % 4.5 % (1.7-9.3); Neutrophils # 2.7 K/mm3 (1.8-7.8); Neutrophils % 60.1 % (37.0-80.0); Platelet Count 182 K/mm3 (142-424); Red Blood Count 3.37 M/mm3 (4.20-5.40); Red Cell Distribution Width 13.8 % (11.5-17.5); White Blood Count 4.6 K/mm3 (4.8-10.8)
[2018-09-10 08:09] LABS: Calcium 7.5 mg/dL (8.5-10.1)
--- NOTE | 2018-09-10 08:28 | HMH.PHAINT ---
MED REC--PATIENT HOME MEDICATION LIST AND RX BOTTLES COMPARED AND CORRECTED.
--- NOTE | 2018-09-10 17:28 | PC.NURSE ---
PATIENT A&OX4, LUNGS CLEAR, PULSES EQUAL, ROSTER CLERK EQUAL, PATIENT AMBULATES IN ROOM, GAIT STEADY. PATIENT LEFT ARM HAS LARGE BRUISING ALONG WITH EDEMA, PATIENT STATED IT IS FROM LAB TAKING HER BLOOD. PATIENT HAS HAD TO HAVE 3 NEW IVS DURING THIS SHIFT. EACH IV HAS INFILTRATED, 3RD ONE WAS PLACED IN HER RIGHT FOOT, NO ISSUES THUS FAR. PATIENT TOLERATED IV INSERTION WELL. NO OTHER NEEDS OR CONCERNS AT THIS TIME.
--- NOTE | 2018-09-10 17:57 | US_ITS ---
US Kidney CLINICAL INDICATION: Acute renal failure ITS.REASON: EMERALD ORDERING PHYSICIAN: Abdiel Angulo MD PATIENT AGE: 68 years Comparison: None FINDINGS: Kidneys are of normal size shape and position. No hydronephrosis cortical thinning or renal mass evident IMPRESSION: Negative bilateral renal ultrasound
--- NOTE | 2018-09-10 20:25 | PC.NURSE ---
nurse is aware of BP of 140/91.
[2018-09-10 20:35] LABS: Troponin I < 0.02 ng/ml (0.00-0.06)
--- NOTE | 2018-09-10 21:28 | PC.NURSE ---
2100 courtesy check, pt supine awake, no needs voiced
[2018-09-10 23:30] LABS: Troponin I < 0.02 ng/ml (0.00-0.06)
[2018-09-11] VITALS (11 sets, daily range): BP systolic 110–153; BP diastolic 60–98; PULSE 60–73; RESP 16–20; TEMP 36.5–36.8; O2SAT 93–96; BMI 27.3
--- NOTE | 2018-09-11 04:54 | PC.NURSE ---
At bedside report pt was found to be experiencing l anterior chest pain under left breast and radiating to her back. Pt stated she started to have a small amount of pain shortly before this RN & Mario Alberto Lugo RN., then became acutely nauseous and vomited 1x. Pt states is was ylw/grn bile contents. Pt rates pain 8/10 on PUBLIC BATH ATTENDANT, VS obtained & BP noted to be elevated, NSR is noted on heart monitor. Pt then stated she was SOB. Chest pain protocol started. EKG obtained, pt placed on 2L NC, Dr. Angulo was paged and this RN took EKG down to ER to be read. There was not another EKG in pt's chart to compare this EKG to, Dr. Vann reviewed and stated no acute findings. Pt medicated per JUN for nausea with zofran. Dr. Angulo requested EKG to be transferred to heart station by RT so that he may view it, SL Nitro, and troponin mary. Post nitro, VS reassessed and BP decreased slightly and pt states pain decreased to 6 or 7 out of 10 on PUBLIC BATH ATTENDANT, pt given 2nd dose of SL Nitro. Dr. Angulo paged again, alerted that pt was still having CP, and to verify MD had reviewed EKG. MD noted BBB on EKG which pt has a history of per MD. New order for Tylenol PO, continue SL nitro protocol, 2nd troponin in 3 hr (2314), and NPO after midnight for possibly proceeding with heart cath. Pt medicated per JUN. Pt reassessed & VS obtained, BP continues to slowly decrease, pt rates pain 4/10 on PUBLIC BATH ATTENDANT. @ 2214 pt was reassessed again and stated CP was increasing again, rates 7/10, BP also stating to increase, 138/84. Dr. Angulo paged again, new order for Metoprolo tartrate 25mg 1x dose and Nitro paste 1 topically 1x dose now. Pt medicated per JUN. On next reassessment pt found to be asleep but easily arousable and states pain is much better, rates 4/10, BP is 126/68 & HR 63. Both troponin levels were <0.02. Pt was able to sleep t/o most of the night wo further complaint of CP. Lungs CTA. 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 Pt was removed from supplemental o2 and sat's were 93-100%. VSS, call light within reach, will continue to monitor.
--- NOTE | 2018-09-11 06:35 | PC.NURSE ---
0600 courtesy check, pt on left side asleep
--- NOTE | 2018-09-11 07:20 | PC.NURSE ---
REPORT GIVEN TO Gio WANG
[2018-09-11 08:30] LABS: Basophils % 0.2 % (0.1-2.0); Eosinophils # 0.1 K/mm3 (0.0-0.4); Eosinophils % 1.8 % (0.1-12.0); Hematocrit 28.4 % (37.0-47.0); Hemoglobin 9.1 g/dL (12.2-16.2); Lymphocytes # 1.1 K/mm3 (0.7-4.5); Lymphocytes % 21.5 % (10-50); Mean Corpuscular Hemoglobin 28.4 pg (27.0-31.2); Mean Corpuscular Volume 88.8 fl (81-99); Mean Platelet Volume 8.8 fl (7.4-10.4); Monocytes # 0.2 K/mm3 (0.1-1.0); Monocytes % 3.6 % (1.7-9.3); Neutrophils # 3.7 K/mm3 (1.8-7.8); Neutrophils % 72.9 % (37.0-80.0); Platelet Count 169 K/mm3 (142-424); Red Cell Distribution Width 13.9 % (11.5-17.5); White Blood Count 5.1 K/mm3 (4.8-10.8)
[2018-09-11 08:38] LABS: Blood Urea Nitrogen 16 mg/dL (7-18); Calcium 7.6 mg/dL (8.5-10.1); Carbon Dioxide 24 mmol/L (21.0-32.0); Chloride 111 mmol/L (98-107); Creatinine Clearance Estimated 44 mL/min (50-200); Creatinine,Serum 1.35 mg/dL (0.55-1.02); Estimated Glomerular Filt Rate 39 ml/min (>60); GFR (African American) 47 ML/MIN (>60); Glucose 92 mg/dL (74-106); Sodium 143 mmol/L (136-145)
--- NOTE | 2018-09-11 08:39 | HMH.ACPN2 ---
Internal Medicine - PN: Subj *Date: 09/11/18 *Time: 08:39 Interval history: Patient had some significant chest pain through the night last night. Relieved with nitroglycerin and then 1 inch of Nitropaste. This morning she feels good, serial troponin levels were unremarkable. Other labs this morning are pending. She has had good urine output and does not feel orthostatic when she gets up and walks around. Exam Vital signs and Labs for Last 24 Hours: Temp Pulse Resp BP Pulse Ox 97.7 F 73 18 112/63 94 L 09/11/18 07:50 09/11/18 07:50 09/11/18 07:50 09/11/18 07:50 09/11/18 07:50 Laboratory Results - last 24 hr 09/10/18 20:14: Troponin I < 0.02 09/10/18 23:09: Troponin I < 0.02 09/11/18 08:23: WBC 5.1, RBC 3.20 L, Hgb 9.1 L, Hct 28.4 L, MCV 88.8, MCH 28.4, MCHC 32.0, RDW 13.9, Plt Count 169, MPV 8.8, Neut % (Auto) 72.9, Lymph % (Auto) 21.5, [place] % (Auto) 3.6, Eos % (Auto) 1.8, Baso % (Auto) 0.2, Neut # (Auto) 3.7, Lymph # (Auto) 1.1, [place] # (Auto) 0.2, Eos # (Auto) 0.1, Baso # (Auto) 0.0 I & O for Last 24 hours: Intake & Output 09/08/18 09/09/18 09/10/18 09/11/18 11:59 11:59 11:59 11:59 Intake Total 3346 / 3346 6266 / 6266 Output Total 1200 / 1200 700 / 700 Balance 2146 / 2146 5566 / 5566 Weight 153 lb 15.992 oz 154 lb 4 oz Narrative: Patient is awake, alert. Oriented x3. Lungs are clear, heart rate regular. No JVD. Hydration status seems vastly improved. Assessment and Plan (1) Hypokalemia Current visit: Yes Status: Acute Category: Medical Code(s): E87.6 - Hypokalemia Improving. Continue current IV infusions. Check labs tomorrow (2) CAD (coronary artery disease) of artery bypass graft Current visit: Yes Status: Acute Category: Medical Code(s): I25.810 - Atherosclerosis of coronary artery bypass graft(s) without angina pectoris Given chest pain through the night patient does need left heart cath. Given the fact she presented for outpatient left heart cath before admission it would be prudent to do this before discharge. (3) Acute renal failure Current visit: No Status: Acute Qualifiers: Acute renal failure type: unspecified Qualified Code(s): N17.9 - Acute kidney failure, unspecified Category: Medical Code(s): N17.9 - Acute kidney failure, unspecified Improving. See prior notes about surreptitious/inadvertent Lasix dosing. Urine screen for diuretics is pending. This will take a couple of weeks. Pharmacy service has gone through her medications and confirmed that none of the pills in her home bottles are Lasix but I think there is a high likelihood that her -who suffers from dementia and psychiatric disease and [facility]-is somehow getting medications mixed up.
--- NOTE | 2018-09-11 08:53 | HMH.CNCARD ---
History of Present Illness Consult date: 09/11/18 Requesting physician: Abdiel Angulo Consult reason: chest pain Chief complaint: chest pain Additional Medical History:: 1. Coronary artery disease A. History of myocardial infarction with subsequent coronary artery stenting to the -maker per patient approximately 2009 at [facility] by Dr. Collin Lorenz [facility], 01/2017, Non-flow limiting CAD by cardiac cath with widely patent stent in RCA. Elevated LVEDP at 20 mm Hg. C. Abnormal stress test, 07/2018, Ejection fraction is calculated to be 77%. Stress images reveal mildly decreased activity in the apex while rest images reveal worsening activity in the apex and anterior wall D. Recurrent chest pain, 08/2018 2. Hypertension A. Echo, 07/2018, 1. Mildly enlarged left atrium, normal left ventricular size, mild concentric left ventricular hypertrophy, visually estimated ejection fraction 55% with no regional wall motion abnormality, grade 1 diastolic dysfunction seen with tissue Doppler evidence of raised left atrial pressure. 2. Mildly enlarged right ventricle with normal contractility. 3. Mild aortic, mild mitral and tricuspid regurgitation, calculated right ventricular systolic pressure is 33 mmHg consistent with mild pulmonary hypertension. Inferior vena cava is normal size with normal is likely collapse. 4. No significant pericardial effusion noted 3. Hyperlipidemia 4. Tobacco use, one pack per day ?35 years A. Chronic obstructive pulmonary disease 5. History of CVA with residual left-sided weakness, 2014 6. CKD, acute on chronic A. Cr 3.18 down to 1.3 in 08/2018 History of present illness: 68-year-old white female with recent diagnosis of recurrent syncope/hypokalemia and dehydration with multiple episodes of prerenal azotemia. She has been followed by cardiology closely and was scheduled to have heart cath today because of her abnormal stress test and recurrent syncope but preoperative labs revealed that her creatinine had increased above 3 and the procedure was canceled. She has been noticed to have increasing creatinine and low potassium levels over the past couple of months. Interestingly last month she had a similar episode of hypokalemia, dehydration and hypotension, we had ordered a urine diuretic screen which returned to 3 days ago positive for furosemide. The patient was told last summer to go off her furosemide, but pharmacy records record that the [place] mail order pharmacy has filled a 3-month prescription for her in December 2017 and a local drugstore in [place] had also filled a prescription for Lasix for her in November 2017. Also of note, her takes Lasix on a daily basis. [facility] The patient is adamant that she does not take Lasix and that she understands that I told her to stop it. When I discussed with her the possibility that her and her 's medication could be confused at home she does note that he has severe Alzheimer's disease and I do not know sometimes when he is doing. The above per Dr. Angulo Cardiology consulted for recurrent chest pain (left sided pressure and heaviness at rest last night) and consideration of cardiac cath. Creatinine has improved since admission and monitoring of meds, including exclusion of lasix. [facility] History Medical History: Reports:: Anxiety, Atherosclerotic Heart Disease, Congestive Heart Failure, Chronic Obstructive Pulmonary Disease (COPD), Coronary Artery Disease, Gastroesophageal Reflux Disease(GERD), Hyperlipidemia, Hypertension, Lung Disease, Myocardial Infarction Denies:: Cancer, Diabetes Mellitus Type 1, Diabetes Mellitus Type 2, Internal Pacemaker, MRSA, Seizures *Have you ever received a pneumonia vaccine?: Yes *Have you received a flu vaccine this season?: Yes Other Medical History: Reports: Arthritis, Cataracts, Hormone Therapy, Liver Disease, Other. Denies: Blood Transfusion Reaction Laterality Cases: Bilateral: Ton
--- NOTE | 2018-09-11 09:45 | IR_ITS ---
CARDIAC CATHETERIZATION DATE OF CATHETERIZATION:09/11/2018 1:01 PM PROCEDURES: 1. Left heart catheterization 2. Left ventriculogram 3. Selective coronary angiogram INDICATION FOR TEST: 1. Abnormal Myoview 2. Known coronary artery disease 3. Acceleration in anginal symptoms Informed consent was obtained prior to the procedure. COMPLICATIONS: None ESTIMATED BLOOD LOSS: Less than 10 ml. TECHNIQUE: One percent lidocaine was used to anesthetize the right groin. The right femoral artery was accessed via the Seldinger technique. A 4-German sheath was placed in the right femoral artery. The JL-4 and JR-4 catheter was also used to perform left heart catheterization left ventriculogram and selective coronary angiogram. At the end of the procedure the patient was transferred to the post-op holding area in stable condition for arterial sheath removal. ANGIOGRAPHIC RESULTS: 1. The left main artery normal 2. The left anterior descending artery has proximal tendon 20% stenoses and mid vessel tendon 20% stenoses 3. The circumflex artery nondominant with mid vessel tendon 20% stenoses 4. The right coronary artery is a large dominant vessel with a stent in the proximal segment followed by mid vessel 30-40% nonflow limiting concentric stenosis 5. The MANUEL ventriculogram reveals hyperdynamic 70-75% 6. The left ventricular end-diastolic pressure is severely elevated at 25 to 30 mmHg IMPRESSION: 1. Widely patent stent in the proximal dominant right coronary artery with mild to moderate nonflow limiting coronary artery disease 2. Hyperdynamic ventricle with severely elevated end-diastolic pressure consistent with severe diastolic dysfunction PLAN: 1. Patient will require diuretics in order to decrease LVEDP. She does have early advanced diastolic dysfunction and her symptoms are almost certainly functional due to this elevated pressure 2. Standard therapy for ischemic heart disease
--- NOTE | 2018-09-11 10:45 | PC.NURSE ---
Patient off floor for heart cath.
--- NOTE | 2018-09-11 13:58 | PC.NURSE ---
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 Patient transferred to bed by staff. Patient currently lying flat, right groin drsg c/d/i. Will continue to monitor.
--- NOTE | 2018-09-11 14:53 | PC.NURSE ---
Patient has tolerated well since arrival back to room from procedure. Pt continues to lye flat, drsg remains c/d/i. Hand off report given to BRENNEN Ding
--- NOTE | 2018-09-11 15:52 | HMH.DCSUM ---
General - General Admission date:: 09/09/18 Discharge date: 09/11/18 HPI HPI: 68-year-old white female with recent diagnosis of recurrent syncope/hypokalemia and dehydration with multiple episodes of prerenal azotemia. She has been followed by cardiology closely and was scheduled to have heart cath today because of her abnormal stress test and recurrent syncope but preoperative labs revealed that her creatinine had increased above 3 and the procedure was canceled. She has been noticed to have increasing creatinine and low potassium levels over the past couple of months. Interestingly last month she had a similar episode of hypokalemia, dehydration and hypotension, we had ordered a urine diuretic screen which returned to 3 days ago positive for furosemide. The patient was told last summer to go off her furosemide, but pharmacy records record that the [place] mail order pharmacy has filled a 3-month prescription for her in December 2017 and a local drugstore in [place] had also filled a prescription for Lasix for her in November 2017. Also of note, her takes Lasix on a daily basis. He receives these medicines from the [place]. The patient is adamant that she does not take Lasix and that she understands that I told her to stop it. When I discussed with her the possibility that her and her 's medication could be confused at home she does note that he has severe Alzheimer's disease and I do not know sometimes when he is doing. Hospital Course Hospital Course: Patient was admitted, hydrated over the next 48 hours with resulting improvement in her prerenal azotemia/acute kidney injury and essential normalization of her creatinine. At that point she was subjected to left heart catheterization with the results as noted below: ANGIOGRAPHIC RESULTS: 1. The left main artery normal 2. The left anterior descending artery has proximal tendon 20% stenoses and mid vessel tendon 20% stenoses 3. The circumflex artery nondominant with mid vessel tendon 20% stenoses 4. The right coronary artery is a large dominant vessel with a stent in the proximal segment followed by mid vessel 30-40% nonflow limiting concentric stenosis 5. The MANUEL ventriculogram reveals hyperdynamic 70-75% 6. The left ventricular end-diastolic pressure is severely elevated at 25 to 30 mmHg IMPRESSION: 1. Widely patent stent in the proximal dominant right coronary artery with mild to moderate nonflow limiting coronary artery disease 2. Hyperdynamic ventricle with severely elevated end-diastolic pressure consistent with severe diastolic dysfunction PLAN: 1. Patient will require diuretics in order to decrease LVEDP. She does have early advanced diastolic dysfunction and her symptoms are almost certainly functional due to this elevated pressure 2. Standard therapy for ischemic heart disease Dictated By: Robert Tellez MD Signed By: <Electronically signed by Robert Tellez MD in [place]> After these results returned patient was able to be discharged home. Obviously, there is a treatment dilemma and the fact that she would benefit from diuretics for her elevated LVEDP, but her recent recurrent acute kidney injury mitigates against ongoing furosemide therapy. Therefore, my plan is to continue aggressive blood pressure control and not add diuretics. We will discharge her home today. She was instructed on fluid administration orally at home, we will redo her labs on 09/17/2018, and follow her up in our office in [place] the next morning. Objective Vital signs: Temp Pulse Resp BP Pulse Ox 97.9 F 69 16 141/79 H 94 L 09/11/18 14:25 09/11/18 14:25 09/11/18 14:25 09/11/18 14:25 09/11/18 14:25 Narrative: Pleasant, alert, heart catheterization site looks good. Lungs clear, heart rate regular. Abdomen soft and nontender. No edema. No clubbing. Neurologically intact. Results Labs on day of discharge: L
--- NOTE | 2018-09-11 15:57 | P.DS_ITS ---
General - General Admission date:: 09/09/18 Discharge date: 09/11/18 HPI HPI: 68-year-old white female with recent diagnosis of recurrent syncope/hypokalemia and dehydration with multiple episodes of prerenal azotemia. She has been followed by cardiology closely and was scheduled to have heart cath today because of her abnormal stress test and recurrent syncope but preoperative labs revealed that her creatinine had increased above 3 and the procedure was canceled. She has been noticed to have increasing creatinine and low potassium levels over the past couple of months. Interestingly last month she had a similar episode of hypokalemia, dehydration and hypotension, we had ordered a urine diuretic screen which returned to 3 days ago positive for furosemide. The patient was told last summer to go off her furosemide, but pharmacy records record that the [place] mail order pharmacy has filled a 3-month prescription for her in December 2017 and a local drugstore in [place] had also filled a prescription for Lasix for her in November 2017. Also of note, her takes Lasix on a daily basis. He receives these medicines from the [place]. The patient is adamant that she does not take Lasix and that she understands that I told her to stop it. When I discussed with her the possibility that her and her 's medication could be confused at home she does note that he has severe Alzheimer's disease and I do not know sometimes when he is doing. Hospital Course Hospital Course: Patient was admitted, hydrated over the next 48 hours with resulting improvement in her prerenal azotemia/acute kidney injury and essential normalization of her creatinine. At that point she was subjected to left heart catheterization with the results as noted below: ANGIOGRAPHIC RESULTS: 1. The left main artery normal 2. The left anterior descending artery has proximal tendon 20% stenoses and mid vessel tendon 20% stenoses 3. The circumflex artery nondominant with mid vessel tendon 20% stenoses 4. The right coronary artery is a large dominant vessel with a stent in the proximal segment followed by mid vessel 30-40% nonflow limiting concentric stenosis 5. The MANUEL ventriculogram reveals hyperdynamic 70-75% 6. The left ventricular end-diastolic pressure is severely elevated at 25 to 30 mmHg IMPRESSION: 1. Widely patent stent in the proximal dominant right coronary artery with mild to moderate nonflow limiting coronary artery disease 2. Hyperdynamic ventricle with severely elevated end-diastolic pressure consistent with severe diastolic dysfunction PLAN: 1. Patient will require diuretics in order to decrease LVEDP. She does have early advanced diastolic dysfunction and her symptoms are almost certainly functional due to this elevated pressure 2. Standard therapy for ischemic heart disease Dictated By: Robert Tellez MD Signed By: <Electronically signed by Robert Tellez MD in [place]> After these results returned patient was able to be discharged home. Obviously, there is a treatment dilemma and the fact that she would benefit from diuretics for her elevated LVEDP, but her recent recurrent acute kidney injury mitigates against ongoing furosemide therapy. Therefore, my plan is to continue aggressive blood pressure control and not add diuretics. We will discharge her home today. She was instructed on fluid administration orally at home, we will redo her labs on 09/17/2018, and follow her up in our office in [place] the next morn
== END 2018-09-11 16:30 | disposition home or self-care (01) ==
LOC: ER 13:49 → 2ND 13:59
PROVIDERS: Internal Medicine; Admitting Provider Internal Medicine Adolescent Medicine; Emergency Provider Emergency Medicine; PCP Internal Medicine Adolescent Medicine; Visit Provider Internal Medicine Adolescent Medicine
DX: E87.6 Hypokalemia (principal); I25.810 Atherosclerosis of coronary artery bypass graft(s) without angina pectoris; N17.9 Acute kidney failure, unspecified; I20.0 Unstable angina; R39.2 Extrarenal uremia; R94.39 Abnormal result of other cardiovascular function study; E78.5 Hyperlipidemia, unspecified; R55 Syncope and collapse; E86.0 Dehydration; R79.89 Other specified abnormal findings of blood chemistry; Z72.0 Tobacco use; R07.9 Chest pain, unspecified; Z79.82 Long term (current) use of aspirin; Z79.899 Other long term (current) drug therapy; Z86.79 Personal history of other diseases of the circulatory system; I25.2 Old myocardial infarction; I10 Essential (primary) hypertension; K21.9 Gastro-esophageal reflux disease without esophagitis; J44.9 Chronic obstructive pulmonary disease, unspecified
CPT/HCPCS: 36415; 71045; 76770; 80048; 81001; 82088; 84244; 84484; 85025; 93005; 93458; 96365; 96375; 99152; 99284; C1725; C1769; G0378; J1644; J2405; Q9967

== ENCOUNTER → 2018-09-17 07:57 | Outpatient (CLI) | payer MEDICARE, OTHER, SELFPAY ==
[2018-09-17 14:24] LABS: Anion Gap 13.4 mEq/L (5-15); Blood Urea Nitrogen 12 mg/dL (7-18); Calcium 8.6 mg/dL (8.5-10.1); Carbon Dioxide 27 mmol/L (21.0-32.0); Chloride 106 mmol/L (98-107); Creatinine,Serum 0.92 mg/dL (0.55-1.02); Estimated Glomerular Filt Rate 61 ml/min (>60); GFR (African American) 73 ML/MIN (>60); Glucose 100 mg/dL (74-106); Potassium 3.4 mmoL/L (3.5-5.1); Sodium 143 mmol/L (136-145)
== END ==
PROVIDERS: PCP Internal Medicine Adolescent Medicine; Visit Provider Internal Medicine Adolescent Medicine
DX: E78.5 Hyperlipidemia, unspecified (principal); R07.2 Precordial pain
CPT/HCPCS: 36415; 80048

== ENCOUNTER → 2018-10-18 09:51 | Outpatient (CLI) | payer MEDICARE, OTHER, SELFPAY ==
--- NOTE | 2018-10-18 09:57 | US_ITS ---
US thyroid HISTORY: ITS.REASON: THYROID NODULE ORDERING PHYSICIAN: Doreen Hong APRN PATIENT AGE: 68 years Comparison: 10/19/2016. FINDINGS: The thickness of the isthmus is 2.0 mm. Right lobe is 1.2 x 3.9 x 1.8 cm. Left lobe is 1.3 x 3.4 x 1.9 cm. The echogenic appearance of the thyroid parenchyma is normal. When considering some difference in measuring technique the small left thyroid lobe hypoechoic nodules are stable. The anterior right upper lobe nodule which is hypoechoic is 7.6 mm which is stable. There is another smaller upper lobe hypoechoic focus measuring 2.9 mm. There is another hypoechoic upper lobe nodule measuring 4.8 mm. The largest right lobe nodule which is at the mid posterior aspect is also hypoechoic measuring 1.4 cm in the sagittal plane. The measurement in the sagittal plane on the prior study was 1.29 cm. Impression: Bilateral hypoechoic nodules which are probably stable in the left side. The largest on the right side posteriorly is slightly larger measuring 1.47 cm compared to 1.29 cm on the prior study. Therefore considering the mild interval change, I would consider another follow-up of the right lobe nodule at 6 months to one year.
== END ==
PROVIDERS: PCP Internal Medicine Adolescent Medicine; Visit Provider Nurse Practitioner Family
DX: E04.1 Nontoxic single thyroid nodule (principal)
CPT/HCPCS: 76536

== ENCOUNTER → 2018-11-21 13:26 | Outpatient (CLI) | payer MEDICARE, OTHER, SELFPAY ==
[2018-11-21 14:35] LABS: Basophils % 0.4 % (0.1-2.0); Eosinophils # 0.2 K/mm3 (0.0-0.4); Eosinophils % 1.6 % (0.1-12.0); Hematocrit 37.3 % (37.0-47.0); Hemoglobin 11.4 g/dL (12.2-16.2); Lymphocytes # 2.5 K/mm3 (0.7-4.5); Mean Corpuscular HGB Conc 30.6 g/dL (31.8-35.4); Mean Corpuscular Volume 91.5 fl (81-99); Monocytes # 0.3 K/mm3 (0.1-1.0); Monocytes % 3.5 % (1.7-9.3); Neutrophils # 5.9 K/mm3 (1.8-7.8); Neutrophils % 66.3 % (37.0-80.0); Platelet Count 260 K/mm3 (142-424); Red Blood Count 4.08 M/mm3 (4.20-5.40)
== END ==
PROVIDERS: Visit Provider Surgery
DX: R55 Syncope and collapse (principal)
CPT/HCPCS: 36415; 85025

== ENCOUNTER → 2018-11-26 08:59 | Outpatient (POV) | payer MEDICARE, OTHER, SELFPAY | PROVIDERS: Visit Provider Otolaryngology | DX: Z00.00 Encounter for general adult medical examination without abnormal findings (principal) ==

== ENCOUNTER → 2019-02-03 08:51 | Outpatient (CLI) | payer MEDICARE, OTHER, SELFPAY ==
--- NOTE | 2019-02-03 08:52 | FL_ITS ---
PROCEDURE: FL UPPER GI SMALL BOWEL CLINICAL INDICATION: anemia COMPARISON: ABDPELW CT abdomen pelvis w con from 02/10/2018 TECHNIQUE: FLUOROSCOPY TIME : 1 minutes 55 seconds FINDINGS: There is an epidural stimulator device present overlying the mid and upper thoracic spine. There appears to been a prior partial gastric resection.There is no evidence of hiatal hernia. No ulcer or mass evident. No mucosal abnormalities apparent. There is normal peristalsis. The duodenal C-loop is nondisplaced. The small bowel has an unremarkable appearance. No dilatation mass or mucosal abnormalities evident. Spot views of the terminal ileum are unremarkable. IMPRESSION: Status post prior partial gastric resection otherwise negative upper GI and small-bowel follow-through Dictated by: Albino Rider MD 02/03/2019 13:16 Electronically signed by Albino Rider MD in [place] 02/03/2019 13:16
== END ==
PROVIDERS: PCP Internal Medicine Adolescent Medicine; Visit Provider Surgery
DX: R13.10 Dysphagia, unspecified (principal)
CPT/HCPCS: 74245

== ENCOUNTER → 2019-02-07 13:38 | Outpatient (CLI) | payer MEDICARE, OTHER, SELFPAY ==
--- NOTE | 2019-02-07 13:41 | MM_ITS ---
PROCEDURE: MM DIG MAMM DX UNILAT LT CAD CLINICAL INDICATION: LT BREAST LUMP COMPARISON: DXBI MM Dig mamm BI DX w/CAD from 06/06/2018 US BREAST LT COMPLETE from 02/07/2019 TECHNIQUE: Standard images performed along with spot compression views and left breast ultrasound FINDINGS: Patient reports a palpable nodule in the upper central aspect of the left breast. A marker is placed at this region. There is average fibroglandular tissue. No discrete mass is evident. There is a loop recorder device in the lower inner aspect of the left breast. No malignant appearing mass or malignant-appearing microcalcification. Left breast ultrasound: No discrete mass evident. No cystic or solid lesions apparent. Small nodes are present in the axilla. IMPRESSION: Negative left mammogram and ultrasound. A negative mammogram and negative ultrasound does not exclude the possibility of malignancy. Any palpable nodule should be managed on a clinical basis. Negative mammogram and negative ultrasound should not deter performing a biopsy is if there is indeed a palpable nodule. Recommend resume screening mammogram May 2019 BI-RAD Category: 1 Negative FOLLOW-UP: 6M 6Month Follow-up (A letter has been sent to the patient regarding results of the study.) Dictated by: Albino Rider MD 02/14/2019 10:13 Electronically signed by Albino Ridre MD in [place] 02/14/2019 10:13
== END ==
PROVIDERS: PCP Internal Medicine Adolescent Medicine; Visit Provider Nurse Practitioner Family
DX: N63.22 Unspecified lump in the left breast, upper inner quadrant; R92.8 Other abnormal and inconclusive findings on diagnostic imaging of breast
CPT/HCPCS: 76641; 77065

== ENCOUNTER → 2019-03-03 08:39 | Outpatient (POV) | payer MEDICARE, OTHER, SELFPAY ==
[2019-03-03 09:18] VITALS: BP 102/66; PULSE 68; RESP 18; O2SAT 98; BMI 25.8
--- NOTE | 2019-03-03 09:28 | HMH.PAINSOAP ---
[facility] Pain Management SOAP Note Subjective:: Patient is a pleasant 68-year-old white female who presents today for follow-up. Patient had a successful neurostimulator implant and is doing extremely well with this. She is having no back pain her only pain is in her right buttock and down her leg. She has extreme tenderness on the right piriformis muscle. Patient states she is had this pain for about 3 months since getting aggressively worse. It starting to affect her ADLs. ROS General: no recent weight change, no fever, no sleep disturbances Respiratory: no cough, no shortness of air, no recurring pulmonary infections Cardiovascular/Peripheral Vascular: No chest pain, No palpitations, no edema, no shortness of breath. Gastrointestinal: no new onset incontinence, normal bowel movements reported Genitourinary: no new onset incontinence Musculoskeletal: Right piriformis pain Psychiatric: normal mood/ affect Neurological: [denies new onset weakness in extremities], [denies new onset balance issues] Objective:: Physical Exam General: Alert and oriented x3, no acute distress, pleasant and cooperative, [on room air] Lungs: Resps E/U, Symmetrical chest expansion, Eyes: PERRL Musculoskeletal: Flexion and extension of lumbar spine somewhat guarded secondary to pain, deep tendon reflexes normal, strength in upper and lower extremities [5/5], [abnormal gait noted] Neurological: speech clear, learning and development officer equal, no gross sensory deficits Assessment:: Myofascial pain syndrome, piriformis pain Plan:: We will set her up for right piriformis injection given her symptomology I believe it would be beneficial. I will follow-up with the patient after reassess her symptoms at that time she is been instructed to call the office if she has any issues prior to her next appointment. Dr. Freed has reviewed this note and agrees with this plan of care. This note was dictated using voice recognition software and may contain errors or omissions [facility] History I have reviewed the patient's past medical history: Yes Medical History: Reports:: Anxiety, Atherosclerotic Heart Disease, Congestive Heart Failure, Chronic Obstructive Pulmonary Disease (COPD), Coronary Artery Disease, Gastroesophageal Reflux Disease(GERD), Hyperlipidemia, Hypertension, Lung Disease, Myocardial Infarction Denies:: Cancer, Diabetes Mellitus Type 1, Diabetes Mellitus Type 2, Internal Pacemaker, MRSA, Seizures *Have you ever received a pneumonia vaccine?: No *Have you received a flu vaccine this season?: No Other Medical History: Reports: Arthritis, Cataracts, Hormone Therapy, Liver Disease, Other. Denies: Blood Transfusion Reaction Laterality Cases: Other Surgeries: Yes: Appendectomy, Cardiac Catheterization, Cholecystectomy, Colonoscopy, Coronary Stent, EGD, Hernia Repair (09/2017), Hysterectomy-Total, Tubal Ligation, Other. No: Pacemaker Amputation: No Fractures: No - *Social History Smoking Status: Current every day smoker Tobacco Type: cigarettes # Packs/Day (cigarettes): 1 #Yrs smoked (if former smoker): 30 Alcohol Intake: never Alcohol Intake Frequency:: other Substance Use Type: denies use *Occupational Status:: retired Housing: house Household Members: spouse *Travel in the last 8 weeks: None - Psychiatric History Pschychiatric History:: Reports:: Anxiety Family Hx:: Anemia, Cancer, Coronary Artery Disease, Diabetes, Heart Attack, Hyperlipidemia, Hypertension, Kidney Disease, Stroke
== END ==
PROVIDERS: PCP Internal Medicine Adolescent Medicine; Visit Provider Clinical Nurse Specialist Family Health
DX: M79.18 Myalgia, other site (principal); G57.00 Lesion of sciatic nerve, unspecified lower limb
CPT/HCPCS: 99212

== ENCOUNTER → 2019-03-13 10:19 | Outpatient (CLI) | payer MEDICARE, OTHER, SELFPAY ==
--- NOTE | 2019-03-13 11:32 | XR_ITS ---
PROCEDURE: XR KUB CLINICAL INDICATION: TORTUOUS AND SPASTIC COLON COMPARISON: No exams were available for comparison FINDINGS: Patient was scheduled for barium enema. Radio Script Writer exam however showed a moderate amount of residual feces within the right colon. Lumbar scoliosis convex right with epidural stimulator device present. Facet arthritic changes are present on the right at L4-5 IMPRESSION: Residual colonic feces pre clipping the performance of an adequate barium enema. Patient is asked to repeat the prep and return at additional date for the exam Dictated by: Albino Rider MD 03/13/2019 14:59 Electronically signed by Albino Rider MD in [place] 03/13/2019 14:59
== END ==
PROVIDERS: PCP Internal Medicine Adolescent Medicine; Visit Provider Surgery
DX: Q43.8 Other specified congenital malformations of intestine (principal)
CPT/HCPCS: 74018

== ENCOUNTER → 2019-03-18 10:19 | Outpatient (CLI) | payer MEDICARE, OTHER, SELFPAY ==
--- NOTE | 2019-03-18 10:20 | FL_ITS ---
PROCEDURE: FL BARIUM ENEMA W AIR CONTRAST CLINICAL INDICATION: repeat BE due to cleanout Tortuous spastic colon COMPARISON: No exams were available for comparison FINDINGS: Fluoroscopy time: 4 minutes and 9 seconds Drawing Hand exam shows lumbar scoliosis convex right with an epidural stimulator device present. The colon is visualized from rectum to cecum. There was residual fecal a material adherent to the wall of the colon. Feces was present despite the fact that this was the 2nd attempt for this exam following a 2nd bowel cleansing prep. This makes diagnosis seen small polyps extremely difficult. No annular constricting lesion or large fixed polypoid filling defects are evident. There are few diverticula. IMPRESSION: No annular constricting lesions. Moderate amount of residual colonic feces. Small polyps cannot be excluded based on this exam. There are scattered diverticula. Please correlate with recent colonoscopy. Consider short-term follow-up Dictated by: Albino Rider MD 03/18/2019 15:59 Electronically signed by Albino Rider MD in [place] 03/19/2019 05:47
== END ==
PROVIDERS: PCP Internal Medicine Adolescent Medicine; Visit Provider Surgery
DX: Q43.8 Other specified congenital malformations of intestine (principal); K58.9 Irritable bowel syndrome, unspecified
CPT/HCPCS: 74280

== ENCOUNTER → 2019-04-01 08:34 | Outpatient (POV) | payer MEDICARE, OTHER, SELFPAY ==
--- NOTE | 2019-04-01 09:04 | HMH.PAINSOAP ---
[facility] Pain Management SOAP Note Subjective:: Patient is a very pleasant 68-year-old white female who presents today for follow-up after piriformis injection. Patient is pain-free at this time she is 0 out of 10 pain. Patient does have a neurostimulator and is doing well with this. Patient would like to follow-up on as-needed basis. ROS General: no recent weight change, no fever, no sleep disturbances Respiratory: no cough, no shortness of air, no recurring pulmonary infections Cardiovascular/Peripheral Vascular: No chest pain, No palpitations, no edema, no shortness of breath. Gastrointestinal: no new onset incontinence, normal bowel movements reported Genitourinary: no new onset incontinence Musculoskeletal: Piriformis pain at times Psychiatric: normal mood/ affect Neurological: [denies new onset weakness in extremities], [denies new onset balance issues] Objective:: Physical Exam General: Alert and oriented x3, no acute distress, pleasant and cooperative, [on room air] Lungs: Resps E/U, Symmetrical chest expansion, Eyes: PERRL Musculoskeletal: Flexion and extension of lumbar spine somewhat guarded secondary to pain, deep tendon reflexes normal, strength in upper and lower extremities [5/5], normal gait noted Neurological: speech clear, senior benefits manager equal, no gross sensory deficits Assessment:: Myofascial pain syndrome Plan:: Patient can follow-up on an as-needed basis. She has been instructed to call the office if she has any issues prior to her next appointment. Dr. Freed has reviewed this note and agrees with this plan of care. This note was dictated using voice recognition software and may contain errors or omissions [facility] History I have reviewed the patient's past medical history: Yes Medical History: Reports:: Anxiety, Atherosclerotic Heart Disease, Congestive Heart Failure, Chronic Obstructive Pulmonary Disease (COPD), Coronary Artery Disease, Gastroesophageal Reflux Disease(GERD), Hyperlipidemia, Hypertension, Lung Disease, Myocardial Infarction Denies:: Cancer, Diabetes Mellitus Type 1, Diabetes Mellitus Type 2, Internal Pacemaker, MRSA, Seizures *Have you ever received a pneumonia vaccine?: No *Have you received a flu vaccine this season?: No Other Medical History: Reports: Arthritis, Cataracts, Hormone Therapy, Liver Disease, Other. Denies: Blood Transfusion Reaction Laterality Cases: Bilateral: Tonsillectomy Other Surgeries: Yes: Appendectomy, Cardiac Catheterization, Cholecystectomy, Colonoscopy, Coronary Stent, EGD, Hernia Repair (09/2017), Hysterectomy-Total, Tubal Ligation, Other. No: Pacemaker Amputation: No Fractures: No - *Social History Smoking Status: Current every day smoker Tobacco Type: cigarettes # Packs/Day (cigarettes): 1 #Yrs smoked (if former smoker): 30 Alcohol Intake: never Alcohol Intake Frequency:: other Substance Use Type: denies use *Occupational Status:: other Housing: house Household Members: spouse *Travel in the last 8 weeks: None - Psychiatric History Pschychiatric History:: Reports:: Anxiety Family Hx:: Anemia, Cancer, Coronary Artery Disease, Diabetes, Heart Attack, Hyperlipidemia, Hypertension, Kidney Disease, Stroke
[2019-04-01 10:09] VITALS: BP 163/85; PULSE 72; RESP 18; O2SAT 99; BMI 26.2
== END ==
PROVIDERS: PCP Internal Medicine Adolescent Medicine; Visit Provider Clinical Nurse Specialist Family Health
DX: M79.18 Myalgia, other site (principal)
CPT/HCPCS: 99212

== ENCOUNTER → 2019-06-16 09:52 | Outpatient (POV) | payer MEDICARE, OTHER, SELFPAY ==
--- NOTE | 2019-06-16 10:17 | HMH.PAINSOAP ---
[facility] Pain Management SOAP Note Subjective:: Patient is a pleasant 69-year-old white female who presents today for follow-up. Patient had a piriformis injection back in early March and her pain is begun to return bilaterally. She has extreme point tenderness over bilateral piriformis muscles. She rates her pain today a 6 out of 10. ROS General: no recent weight change, no fever, no sleep disturbances Respiratory: no cough, no shortness of air, no recurring pulmonary infections Cardiovascular/Peripheral Vascular: No chest pain, No palpitations, no edema, no shortness of breath. Gastrointestinal: no new onset incontinence, normal bowel movements reported Genitourinary: no new onset incontinence Musculoskeletal: Bilateral piriformis pain Psychiatric: normal mood/ affect Neurological: [denies new onset weakness in extremities], [denies new onset balance issues] Objective:: Physical Exam General: Alert and oriented x3, no acute distress, pleasant and cooperative, [on room air] Lungs: Resps E/U, Symmetrical chest expansion Eyes: PERRL Musculoskeletal: deep tendon reflexes normal, strength in upper and lower extremities [5/5], slightly antalgic gait noted Neurological: speech clear, consultant dietitian equal, no gross sensory deficits Assessment:: Piriformis syndrome, myofascial pain syndrome Plan:: We will schedule patient for bilateral piriformis injections patient's been instructed call the office if he has any issues prior to her next appointment. Dr. Freed has reviewed this note and agrees with this plan of care. This note was dictated using voice recognition software and may contain errors or omissions [facility] History I have reviewed the patient's past medical history: Yes Medical History: Reports:: Anxiety, Atherosclerotic Heart Disease, Congestive Heart Failure, Chronic Obstructive Pulmonary Disease (COPD), Coronary Artery Disease, Gastroesophageal Reflux Disease(GERD), Hyperlipidemia, Hypertension, Lung Disease, Myocardial Infarction, Transient Ischemic Attacks (TIA) Denies:: Cancer, Diabetes Mellitus Type 1, Diabetes Mellitus Type 2, Internal Pacemaker, MRSA, Seizures *Have you ever received a pneumonia vaccine?: No *Have you received a flu vaccine this season?: Yes Other Medical History: Reports: Arthritis, Cataracts, Hormone Therapy, Liver Disease, Other. Denies: Blood Transfusion Reaction Laterality Cases: Bilateral: Tonsillectomy Other Surgeries: Yes: Appendectomy, Cardiac Catheterization, Cholecystectomy, Colonoscopy, Coronary Stent, EGD, Hernia Repair (09/2017), Hysterectomy-Total, Tubal Ligation, Other. No: Pacemaker Amputation: No Fractures: No - *Social History Smoking Status: Current every day smoker Tobacco Type: cigarettes # Packs/Day (cigarettes): 1 #Yrs smoked (if former smoker): 30 Alcohol Intake: never Alcohol Intake Frequency:: other Substance Use Type: denies use *Occupational Status:: other Housing: house Household Members: spouse *Travel in the last 8 weeks: None - Psychiatric History Pschychiatric History:: Reports:: Anxiety Family Hx:: Anemia, Cancer, Coronary Artery Disease, Diabetes, Heart Attack, Hyperlipidemia, Hypertension, Kidney Disease, Stroke
[2019-06-16 10:41] VITALS: BP 91/85; PULSE 66; RESP 18; O2SAT 99; BMI 26.2
== END ==
PROVIDERS: PCP Internal Medicine Adolescent Medicine; Visit Provider Clinical Nurse Specialist Family Health
DX: G57.03 Lesion of sciatic nerve, bilateral lower limbs; M79.18 Myalgia, other site
CPT/HCPCS: 99212

== ENCOUNTER → 2019-07-14 09:09 | Outpatient (POV) | payer MEDICARE, OTHER, SELFPAY ==
[2019-07-14 09:15] VITALS: BP 165/97; PULSE 96; RESP 18; O2SAT 99; BMI 26.2
--- NOTE | 2019-07-14 09:25 | P.CONS_ITS ---
[facility] Pain Management SOAP Note Subjective:: Patient is a pleasant 69-year-old white female who presents today for follow-up after bilateral piriformis injections and she is doing extremely well. Overall she rates her pain a 5 out of 10. Mostly in her flank. We discussed potential kidney stone. Patient will follow-up on an as-needed basis. ROS General: no recent weight change, no fever, no sleep disturbances Respiratory: no cough, no shortness of air, no recurring pulmonary infections Cardiovascular/Peripheral Vascular: No chest pain, No palpitations, no edema, no shortness of breath. Gastrointestinal: no new onset incontinence, normal bowel movements reported Genitourinary: no new onset incontinence Musculoskeletal: Back pain intermittently Psychiatric: normal mood/ affect Neurological: [denies new onset weakness in extremities], [denies new onset balance issues] Objective:: Physical Exam General: Alert and oriented x3, no acute distress, pleasant and cooperative, [on room air] Lungs: Resps E/U, Symmetrical chest expansion, Eyes: PERRL Musculoskeletal: Flexion and extension of lumbar spine somewhat guarded secondary to pain, deep tendon reflexes normal, strength in upper and lower extremities [5/5], normal gait noted Neurological: speech clear, sap bpc developer equal, no gross sensory deficits Assessment:: Degenerative disc disease lumbar spine lumbar radiculopathy bilateral sciatica and piriformis syndrome Plan:: We will follow-up with the patient on an as-needed basis. She is been instructed to call the office if any other issues arise. Dr. Freed has reviewed this note and agrees with this plan of care. This note was dictated using voice recognition software and may contain errors or omissions [facility] History I have reviewed the patient's past medical history: Yes Medical History: Reports:: Anxiety, Atherosclerotic Heart Disease, Congestive Heart Failure, Chronic Obstructive Pulmonary Disease (COPD), Coronary Artery Disease, Gastroesophageal Reflux Disease(GERD), Hyperlipidemia, Hypertension, Lung Disease, Myocardial Infarction, Transient Ischemic Attacks (TIA) Denies:: Cancer, Diabetes Mellitus Type 1, Diabetes Mellitus Type 2, Internal Pacemaker, MRSA, Seizures *Have you ever received a pneumonia vaccine?: No *Have you received a flu vaccine this season?: No Other Medical History: Reports: Arthritis, Cataracts, Hormone Therapy, Liver Disease, Other. Denies: Blood Transfusion Reaction Laterality Cases: Bilateral: Tonsillectomy Other Surgeries: Yes: Appendectomy, Cardiac Catheterization, Cholecystectomy, Colonoscopy, Coronary Stent, EGD, Hernia Repair (09/2017), Hysterectomy-Total, Tubal Ligation, Other. No: Pacemaker Amputation: No Fractures: No - *Social History Smoking Status: Current every day smoker Tobacco Type: cigarettes # Packs/Day (cigarettes): 1 #Yrs smoked (if former smoker): 30 Alcohol Intake: never Alcohol Intake Frequency:: other Substance Use Type: denies use *Occupational Status:: retired Housing: house Household Members: spouse *Travel in the last 8 weeks: None - Psychiatric History Pschychiatric History:: Reports:: Anxiety Family Hx:: Anemia, Cancer, Coronary Artery Disease, Diabetes, Heart Attack, Hyperlipidemia, Hypertension, Kidney Disease, Stroke
== END ==
PROVIDERS: PCP Internal Medicine Adolescent Medicine; Visit Provider Clinical Nurse Specialist Family Health
DX: M51.16 Intervertebral disc disorders with radiculopathy, lumbar region (principal); M51.17 Intervertebral disc disorders with radiculopathy, lumbosacral region; G57.00 Lesion of sciatic nerve, unspecified lower limb
CPT/HCPCS: 99212

== ENCOUNTER → 2019-08-25 14:24 | Outpatient (POV) | payer MEDICARE, OTHER, SELFPAY ==
[2019-08-25 14:46] VITALS: BP 104/62; PULSE 78; RESP 18; TEMP 36.4; O2SAT 98; BMI 21.8
--- NOTE | 2019-08-26 08:10 | HMH.PAINSOAP ---
[facility] Pain Management SOAP Note Subjective:: Patient is a pleasant 69-year-old white female who presents today for follow-up. She is having extreme low back and right leg pain. She rates it a 9 out of 10. This is not her typical pain. Patient deny discussed multiple potential causes for this pain. Patient has an MRI showing degenerative changes in her low back along with bulging disks. Patient may need a new MRI however I would like to get her out of pain. We discussed a diagnostic epidural steroid injection and she would like to move forward with this. She is on Plavix however she can come off of it for injective therapy. Patient does have a neurostimulator which she states is beneficial however it is not covering this current pain. Patient is visibly uncomfortable ROS General: no recent weight change, no fever, no sleep disturbances Respiratory: no cough, no shortness of air, no recurring pulmonary infections Cardiovascular/Peripheral Vascular: No chest pain, No palpitations, no edema, no shortness of breath. Gastrointestinal: no new onset incontinence, normal bowel movements reported Genitourinary: no new onset incontinence Musculoskeletal: Back pain, leg pain Psychiatric: normal mood/ affect Neurological: [denies new onset weakness in extremities], [denies new onset balance issues] Objective:: Physical Exam General: Alert and oriented x3, no acute distress, pleasant and cooperative, [on room air] Lungs: Resps E/U, Symmetrical chest expansion, Eyes: PERRL Musculoskeletal: Flexion and extension of lumbar spine somewhat guarded secondary to pain, deep tendon reflexes normal, strength in upper and lower extremities [5/5], antalgic gait noted Neurological: speech clear, parquetry layer equal, no gross sensory deficits Assessment:: Degenerative disc disease lumbar spine with lumbar radiculopathy Plan:: We will move forward with an L4-L5 lumbar epidural steroid injection given her symptomology. If she does not have improvement with this we will move forward with a updated MRI. Patient is on Plavix however she is able to come off of it prior to injective therapy. I will follow-up with the patient after her injection reassess her symptoms at that time she has been instructed to call the office if she has any issues prior to her next appointment. Dr. Freed has reviewed this note and agrees with this plan of care. This note was dictated using voice recognition software and may contain errors or omissions [facility] History I have reviewed the patient's past medical history: Yes Medical History: Reports:: Anxiety, Atherosclerotic Heart Disease, Congestive Heart Failure, Chronic Obstructive Pulmonary Disease (COPD), Coronary Artery Disease, Gastroesophageal Reflux Disease(GERD), Hyperlipidemia, Hypertension, Lung Disease, Myocardial Infarction, Transient Ischemic Attacks (TIA) Denies:: Cancer, Diabetes Mellitus Type 1, Diabetes Mellitus Type 2, Internal Pacemaker, MRSA, Seizures *Have you ever received a pneumonia vaccine?: Yes *Have you received a flu vaccine this season?: Yes Other Medical History: Reports: Arthritis, Cataracts, Hormone Therapy, Liver Disease, Other. Denies: Blood Transfusion Reaction Laterality Cases: Bilateral: Tonsillectomy Other Surgeries: Yes: Appendectomy, Cardiac Catheterization, Cholecystectomy, Colonoscopy, Coronary Stent, EGD, Hernia Repair (09/2017), Hysterectomy-Total, Tubal Ligation, Other. No: Pacemaker Amputation: No Fractures: No - *Social History Smoking Status: Current every day smoker Tobacco Type: cigarettes # Packs/Day (cigarettes): 1 #Yrs smoked (if former smoker): 30 Alcohol Intake: never Alcohol Intake Frequency:: other Substance Use Type: denies use *Occupational Status:: other Housing: house Household Members: spouse *Travel in the last 8 weeks: None - Psychiatric History Pschychiatric History:: Reports:: Anxiety Family Hx:: Anemia, Cancer, Coronary Artery Disease, Diabetes, Hear
== END ==
PROVIDERS: PCP Internal Medicine Adolescent Medicine; Visit Provider Clinical Nurse Specialist Family Health
DX: M51.16 Intervertebral disc disorders with radiculopathy, lumbar region (principal)
CPT/HCPCS: 99212

== ENCOUNTER 2019-09-12 09:25 | Day surgery (SDC) | payer MEDICARE, OTHER, SELFPAY ==
[2019-09-12 09:33] VITALS: BP 138/85; PULSE 72; RESP 18; TEMP 36.6; O2SAT 99; BMI 26.2
[2019-09-12 10:25] VITALS: BP 154/82; BP 154/83; PULSE 72; RESP 18; TEMP 36.6; O2SAT 99
--- NOTE | 2019-09-12 10:35 | HMH.PMPROC ---
- Procedure Date: 09/12/19 Time: 10:35 Anesthesiologist:: Kvng Freed MD Complications:: None Pre-procedure Diagnosis:: Degenerative disc disease of lumbar spine with lumbar radiculopathy symptoms Post-procedure Diagnosis:: Same Indications for Procedure:: This patient is a pleasant 69-year-old white female who we are treating for low back pain and right leg pain. She does have an MRI showed and degenerative disc disease of lumbar spine with bulging disc. She has been off her Plavix for 7 days. We will do a lumbar epidural steroid injection today to see if this will help with her pain symptoms. Procedure Details:: Lumbar epidural steroid injection under fluoroscopy Informed consent was obtained and the risk and benefits of the procedure was explained to the patient. The patient was taken to the procedure room. The patient was placed prone on the procedure table. The patient was prepped and draped in sterile fashion. C-arm fluoroscopy was used to view the lumbar spine. Skin and subcutaneous tissues were anesthetized using lidocaine. I placed an 18-gauge epidural needle and advanced into the L4-L5 interspace using fluoroscopic guidance and [id number] to air. After confirmation of needle placement in the epidural space with dye I injected 2 mL of lidocaine 1.5% with Depo-Medrol 80 mg. Patient tolerated the procedure well with no complications. Plan and Disposition:: We will follow-up with her in 2 weeks. Will reevaluate symptoms at that time.
[2019-09-12 10:40] VITALS: BP 166/87; PULSE 68; RESP 20; O2SAT 99
== END 2019-09-12 10:40 | disposition home or self-care (01) ==
LOC: SC.PAINP 09:26
PROVIDERS: PCP Internal Medicine Adolescent Medicine; Visit Provider Anesthesiology
DX: M51.16 Intervertebral disc disorders with radiculopathy, lumbar region (principal); I10 Essential (primary) hypertension; I25.10 Atherosclerotic heart disease of native coronary artery without angina pectoris; E78.5 Hyperlipidemia, unspecified; J44.9 Chronic obstructive pulmonary disease, unspecified; Z86.79 Personal history of other diseases of the circulatory system; Z87.11 Personal history of peptic ulcer disease
CPT/HCPCS: 62323; J1040; Q9966

== ENCOUNTER → 2019-09-29 10:40 | Outpatient (POV) | payer MEDICARE, OTHER, SELFPAY ==
[2019-09-29 10:55] VITALS: BP 105/74; PULSE 86; RESP 18; TEMP 36.8; O2SAT 99; BMI 25.1
--- NOTE | 2019-09-29 12:48 | PC.NURSE ---
gabapentin 300mg po bid with 2 refills called into clinic pharmacy per provider order
--- NOTE | 2019-09-29 12:51 | HMH.PAINSOAP ---
[facility] Pain Management SOAP Note Subjective:: Patient is a pleasant 69-year-old white female who we are treating for low back pain. Patient is not having back pain only right leg pain down her right leg and into her foot. She has numbness and tingling. We discussed a transforaminal epidural steroid injection. She had a standard lumbar epidural steroid injection with not much relief. Patient has not had any new imaging of her lower back. We will get a CT scan of her lumbar spine. She has a new Vect[employer] stimulator and is unable to have an MRI at this time. ROS General: no recent weight change, no fever, no sleep disturbances Respiratory: no cough, no shortness of air, no recurring pulmonary infections Cardiovascular/Peripheral Vascular: No chest pain, No palpitations, no edema, no shortness of breath. Gastrointestinal: no new onset incontinence, normal bowel movements reported Genitourinary: no new onset incontinence Musculoskeletal: Back pain, leg right leg pain Psychiatric: normal mood/ affect, Neurological: [denies new onset weakness in extremities], [denies new onset balance issues] Objective:: Physical Exam General: Alert and oriented x3, no acute distress, pleasant and cooperative, [on room air] Lungs: Resps E/U, Symmetrical chest expansion, Eyes: PERRL Musculoskeletal: Flexion and extension of lumbar spine somewhat guarded secondary to pain, deep tendon reflexes normal, strength in upper and lower extremities [5/5], [abnormal gait noted] Neurological: speech clear, starch cooker equal, no gross sensory deficits Assessment:: Degenerative disc disease lumbar spine with lumbar radiculopathy Plan:: We will schedule the patient for right transforaminal epidural steroid injection at L4-L5. We will also continue her gabapentin 300 mg 1 p.o. twice daily. And will also get a CT scan of her lumbar spine to determine pathology. Dr. Freed has reviewed this note and agrees with this plan of care. This note was dictated using voice recognition software and may contain errors or omissions [facility] History I have reviewed the patient's past medical history: Yes Medical History: Reports:: Anxiety, Atherosclerotic Heart Disease, Congestive Heart Failure, Chronic Obstructive Pulmonary Disease (COPD), Coronary Artery Disease, Gastroesophageal Reflux Disease(GERD), Hyperlipidemia, Hypertension, Lung Disease, Myocardial Infarction, Transient Ischemic Attacks (TIA) Denies:: Cancer, Diabetes Mellitus Type 1, Diabetes Mellitus Type 2, Internal Pacemaker, MRSA, Seizures *Have you ever received a pneumonia vaccine?: Yes *Have you received a flu vaccine this season?: Yes Other Medical History: Reports: Arthritis, Cataracts, Hormone Therapy, Liver Disease, Other. Denies: Blood Transfusion Reaction Laterality Cases: Bilateral: Tonsillectomy Other Surgeries: Yes: Appendectomy, Cardiac Catheterization, Cholecystectomy, Colonoscopy, Coronary Stent, EGD, Hernia Repair (09/2017), Hysterectomy-Total, Tubal Ligation, Other. No: Pacemaker Amputation: No Fractures: No - *Social History Smoking Status: Current every day smoker Tobacco Type: cigarettes # Packs/Day (cigarettes): 1 #Yrs smoked (if former smoker): 30 Alcohol Intake: never Alcohol Intake Frequency:: other Substance Use Type: denies use *Occupational Status:: other Housing: house Household Members: spouse *Travel in the last 8 weeks: None - Psychiatric History Pschychiatric History:: Reports:: Anxiety Family Hx:: Anemia, Cancer, Coronary Artery Disease, Diabetes, Heart Attack, Hyperlipidemia, Hypertension, Kidney Disease, Stroke
== END ==
PROVIDERS: PCP Internal Medicine Adolescent Medicine; Visit Provider Clinical Nurse Specialist Family Health
DX: M51.16 Intervertebral disc disorders with radiculopathy, lumbar region (principal)
CPT/HCPCS: 99212

== ENCOUNTER → 2019-10-10 12:00 | Outpatient (CLI) | payer MEDICARE, OTHER, SELFPAY ==
--- NOTE | 2019-10-10 12:09 | CT_ITS ---
PROCEDURE: CT LUMBAR SPINE WO CON CLINICAL HISTORY: LOW BACK PAIN, no injury COMPARISON: [id number] CT abdomen pelvis w con from 02/10/2018 TECHNIQUE: Axial images obtained with sagittal and coronal reformats. All CT scans at the facility use one or more dose reduction, viz: automated exposure control, ma/kV adjustment per patient size (including targeted exams where dose is matched to indication, i.e. head), or iterative reconstruction technique. FINDINGS: There is prominent generalized osteopenia. There is mild diffuse dextroscoliotic curvature of the lower thoracic and upper lumbar spine. The apex of the curvature is at the L1-2 level with prominent osteophytic spurring left side at this level. There is mild disc space narrowing at the L1-2 and L2-3 levels. There is more prominent disc space narrowing at the L4-5 level with a vacuum phenomenon of the disc and sclerosis of the inferior endplate of L4 and superior endplate of L5 with anterior and posterior osteophytic spurring. There are moderate hypertrophic facet changes at the L4-5 level. A neurostimulator electrode enters the spinal canal at the T11-12 level. There is a vacuum phenomena of the L4-5 disc with a small central disc protrusion. The remaining disc appear normal. There is sclerosis of the sacral side right inferior SI joint. There is prominent arteriosclerotic calcification of the abdominal aorta there is no aneurysm. IMPRESSION: Generalized osteopenia, multilevel degenerate disc disease most pronounced at the L4-5 level with small central disc protrusion L4-5. and hypertrophic facet changes Dictated by: Dr. Bakari Khan MD 10/10/2019 13:[address] Bakari Khan MD in [place] 10/10/2019 13:34
== END ==
PROVIDERS: PCP Internal Medicine Adolescent Medicine; Visit Provider Clinical Nurse Specialist Family Health
DX: M54.5 Low back pain (principal)
CPT/HCPCS: 72131

== ENCOUNTER → 2019-10-17 09:51 | Day surgery (SDC) | payer MEDICARE, OTHER, SELFPAY ==
[2019-10-17 10:35] VITALS: BP 100/52; PULSE 62; RESP 16; TEMP 36.3; O2SAT 98; BMI 26.2
[2019-10-17 11:09] VITALS: BP 118/62; PULSE 60; RESP 18
[2019-10-17 11:10] VITALS: BP 120/65; PULSE 62; RESP 18; O2SAT 98
[2019-10-17 11:15] VITALS: BP 100/52; PULSE 62; RESP 16; TEMP 36.3; O2SAT 98
--- NOTE | 2019-10-17 11:20 | HMH.PMPROC ---
- Procedure Date: 10/17/19 Time: 11:20 Anesthesiologist:: Kvng Freed MD Complications:: None Pre-procedure Diagnosis:: Disease of lumbar spine with lumbar radiculopathy symptoms with increasing right leg pain Post-procedure Diagnosis:: Same Indications for Procedure:: Patient is a pleasant 69-year-old white female who we are treating for low back pain and right leg pain. She did have a lumbar epidural steroid injection without much relief of her pain symptoms. Most of her pain is down her right leg. She does have a [employer] SL core stimulator in place. She is doing well with her stimulator. This company has final chapter 11 bankruptcy so we cannot reprogram the stimulator. We will do a right transforaminal epidural steroid injection of L4-5 and L5-S1 today to help her with her right leg symptomology. Procedure Details:: Transforaminal epidural steroid injection under fluoroscopy Form consent was obtained risk and benefits of the procedure were explained to the patient. Patient was taken the procedure room. Back was prepped using ChloraPrep. A 22-gauge spinal needle was inserted into the intervertebral foramen of L4-5 and L5-S1 on the right side. Needle placement was confirmed with dye. After this we injected 5 mL bupivacaine 0.25% and Depo-Medrol 20 mg into the right transforaminal epidural space of L4-L5 and L5-S1. We used a total of 40 mg Depo-Medrol for both levels. The patient tolerated the procedure well with no complications. Plan and Disposition:: We will follow-up with her in 2 weeks. Will reevaluate symptoms at that time. If she does not get any long-term significant relief from this injection she may be candidate for right SI joint injection under fluoroscopy. This may also be the etiology of her pain symptoms.
== END ==
PROVIDERS: PCP Internal Medicine Adolescent Medicine; Visit Provider Anesthesiology
DX: M51.16 Intervertebral disc disorders with radiculopathy, lumbar region (principal); I11.0 Hypertensive heart disease with heart failure; F41.9 Anxiety disorder, unspecified; I25.10 Atherosclerotic heart disease of native coronary artery without angina pectoris; J44.9 Chronic obstructive pulmonary disease, unspecified; K21.9 Gastro-esophageal reflux disease without esophagitis; E78.5 Hyperlipidemia, unspecified; I25.2 Old myocardial infarction; M19.90 Unspecified osteoarthritis, unspecified site; Z72.0 Tobacco use; Z79.890 Hormone replacement therapy; Z79.899 Other long term (current) drug therapy
CPT/HCPCS: 64483; 64484; J1040; Q9966

== ENCOUNTER → 2019-11-26 10:57 | Outpatient (CLI) | payer MEDICARE, OTHER, SELFPAY ==
--- NOTE | 2019-11-26 | XR_ITS ---
PROCEDURE: XR KNEE RT 3V CLINICAL INDICATION: Pain COMPARISON: No exams were available for comparison FINDINGS: No fracture or dislocation. No lytic or blastic change. There is normal mineralization. The joint spaces are well-preserved. No significant degenerative/arthritic changes. No erosive changes evident. Other findings:There is mild chondrocalcinosis of the medial and lateral meniscus. Small area of sclerosis is present at the head of the fibula and in the proximal tibia and distal femur nonspecific. IMPRESSION: Chondrocalcinosis of the menisci, no acute finding Dictated b Albino Rider MD 11/26/2019 13:55 Albino Rider MD in [facility] 11/26/2019 13:55
--- NOTE | 2019-11-26 | XR_ITS ---
PROCEDURE: XR HIP RT 2-3V W/PELVIS CLINICAL INDICATION: R HIP AND KNEE PAIN COMPARISON: CR PEL1V XR pelvis 1-2V from 08/28/2017 FINDINGS: AP view of the pelvis shows mild osteoarthritic changes of both hips with decrease in the joint space and osteophyte formation. This is slightly more prominent on the right compared to the left. No obvious fracture or dislocation. No lytic or blastic change. There is some capsular calcification along the inferior aspect of the hip joint on both sides. There are degenerative changes in the lower lumbar spine. Degenerative changes also noted in the SI joints. IMPRESSION: Osteoarthritic changes of the hips, SI joints, and degenerative changes lumbar spine. Dictated b Albino Rider MD 11/26/2019 13:49 Albino Rider MD in [place] 11/26/2019 13:49
== END ==
PROVIDERS: PCP Internal Medicine Adolescent Medicine; Visit Provider Internal Medicine Adolescent Medicine
DX: M25.551 Pain in right hip (principal); M25.561 Pain in right knee
CPT/HCPCS: 73502; 73562

== ENCOUNTER 2019-11-28 08:27 | Day surgery (SDC) | payer MEDICARE, OTHER, SELFPAY ==
[2019-11-28] VITALS (17 sets, daily range): BP systolic 110–150; BP diastolic 74–92; PULSE 67–83; RESP 16; TEMP 36.5; O2SAT 92–97; BMI 25.8
--- NOTE | 2019-11-28 | IR_ITS ---
APPROVED REPORT Patient Location: Outpatient PROCEDURES Left heart catheterization Left ventriculogram Selective coronary angiogram INDICATION Abnormal Myoview, Angina pectoris Informed consent was obtained prior to the procedure. COMPLICATIONS none Estimated Blood Loss: less than 10 mls TECHNIQUE One percent lidocaine used to anesthetize the right anterior aspect of the wrist. The right radial artery was accessed via the Seldinger technique. A 6 Palau[place] sheath was placed in the right radial artery. 2.5 mg of verapamil, 800 mcg of nitroglycerin, 1mg Lidocaine and 5000 U Heparin were given through the arterial sheath. The trap catheter was also used to perform left heart catheterization, left ventriculogram and selective coronary angiogram. At the end of the procedure the sheath was removed good hemostasis was achieved using Traclet band, patient was transferred to the postop holding area in stable condition. ANGIOGRAPHIC RESULTS The left main artery Normal The left anterior descending artery Has proximal and mid vessel 10 to 20% stenoses The circumflex artery Nondominant normal The right coronary artery Is a dominant vessel and has a stent in the ostial proximal segment which is widely patent with minimal in-stent restenosis. Distally the vessel is widely patent The MANUEL ventriculogram reveals Normal 65% The left ventricular end-diastolic pressure 10 mmHg IMPRESSION Patent stents with coronary artery disease as described above Normal ejection fraction Normal left ventricular end-diastolic pressure PLAN 1. Medical management Electronically signed by : Robert Tellez, 11/28/2019 15:02:00
[2019-11-28 08:50] LABS: Basophils % 0.4 % (0.1-2.0); Eosinophils # 0.1 K/mm3 (0.0-0.4); Eosinophils % 2.2 % (0.1-12.0); Hematocrit 35.8 % (37.0-47.0); Hemoglobin 12.1 g/dL (12.2-16.2); Lymphocytes # 1.6 K/mm3 (0.7-4.5); Lymphocytes % 24.8 % (10-50); Mean Corpuscular HGB Conc 33.7 g/dL (31.8-35.4); Mean Corpuscular Hemoglobin 31.7 pg (27.0-31.2); Mean Platelet Volume 7.7 fl (7.4-10.4); Monocytes # 0.2 K/mm3 (0.1-1.0); Monocytes % 3.5 % (1.7-9.3); Neutrophils # 4.5 K/mm3 (1.8-7.8); Neutrophils % 69.1 % (37.0-80.0); Platelet Count 208 K/mm3 (142-424); Red Blood Count 3.81 M/mm3 (4.20-5.40); Red Cell Distribution Width 13.8 % (11.5-17.5); White Blood Count 6.5 K/mm3 (4.8-10.8)
[2019-11-28 08:53] LABS: Chloride 101 mmol/L (98-107); Sodium 141 mmol/L (136-145)
[2019-11-28 08:56] LABS: Blood Urea Nitrogen 9 mg/dl (7-17); Calcium 9.6 mg/dl (8.4-10.2); Carbon Dioxide 33 mmol/L (22.0-30.0); Creatinine Clearance Estimated 56 mL/min (50-200); Estimated Glomerular Filt Rate 71 ml/min (>60); GFR (African American) 86 ML/MIN (>60); Glucose 89 mg/dl (74-100)
== END 2019-11-28 14:25 | disposition home or self-care (01) ==
LOC: CATHLAB 08:28
PROVIDERS: PCP Internal Medicine Adolescent Medicine; Visit Provider Internal Medicine
DX: I25.118 Atherosclerotic heart disease of native coronary artery with other forms of angina pectoris (principal); I11.0 Hypertensive heart disease with heart failure; I50.30 Unspecified diastolic (congestive) heart failure; I45.10 Unspecified right bundle-branch block; J44.9 Chronic obstructive pulmonary disease, unspecified; T82.855A Stenosis of coronary artery stent, initial encounter; Z79.02 Long term (current) use of antithrombotics/antiplatelets; Z72.0 Tobacco use; Z79.82 Long term (current) use of aspirin; Z79.899 Other long term (current) drug therapy
CPT/HCPCS: 80048; 85025; 93458; 99152; C1725; C1769; J1644; Q9967

== ENCOUNTER → 2019-12-15 11:54 | Outpatient (CLI) | payer MEDICARE, OTHER, SELFPAY ==
--- NOTE | 2019-12-15 11:59 | XR_ITS ---
PROCEDURE: XR HIP LT 2-3V W/PELVIS CLINICAL INDICATION: left hip pain COMPARISON: CR XR HIP RT 2-3V W/PELVIS from 11/26/2019 FINDINGS: There are mild osteoarthritic changes of both hips as seen on the AP view of the pelvis with degenerative disc disease at L4-5. Mild osteoarthritic changes are also present at the SI joints with minimal hypertrophic change. No fracture or dislocation. No lytic or blastic change. IMPRESSION: Mild osteoarthritis otherwise negative with no significant change Dictated by: Albino Rider MD 12/15/2019 13:04 Albino Rider MD in [place] 12/15/2019 13:04
== END ==
PROVIDERS: PCP Internal Medicine Adolescent Medicine; Visit Provider Orthopaedic Surgery
DX: M25.551 Pain in right hip (principal); M25.552 Pain in left hip
CPT/HCPCS: 73502

== ENCOUNTER → 2019-12-24 08:24 | Outpatient (CLI) | payer MEDICARE, OTHER, SELFPAY ==
--- NOTE | 2019-12-24 08:32 | IR_ITS ---
PROCEDURE: IR FLUORO GUIDED NEEDLE PLACE CLINICAL INDICATION: hip pain COMPARISON: No exams were available for comparison FINDINGS: Fluoroscopy time: 7 seconds. The procedure is performed by Dr. Shelton. A single image submitted shows a needle in place overlying the lower aspect of the femoral neck with contrast injection some of which infiltrates within the soft tissues around the femoral neck and some of which appears to be in the joint space. Please correlate with fluoroscopic findings and with operative note. IMPRESSION: Status post joint injection as described above Dictated by: Albino Rider MD 12/24/2019 17:59 Albino Rider MD in [place] 12/24/2019 17:59
--- NOTE | 2019-12-24 14:01 | HMH.PROC ---
[facility] Procedure Note Procedure Note:: Date of Procedure: December 24, 2019 Pre-procedure diagnosis: degenerative joint disease R hip Post-procedure diagnosis: same Procedure: intraarticular corticosteroid injection R hip Performed by: Chika Shelton MD Adult High School Instructor/s: none Anesthesia: local; 5cc 1% lidocaine w/o epinephrine Estimated Blood Loss: none Procedure Note: The patient presented to the radiology department and changed into a gown, exposing the affected R hip. Consent was reviewed and signed by both myself and the patient, all questions were answered. The patient was placed supine on the fluoroscopy table and the R hip exposed. The anterior groin/hip and proximal thigh were prepped with chlorhexidine. Timeout was performed. Next, the fluoro machine was brought in over the patient?s hip and a picture taken to confirm adequate visualization of the joint. I donned a pair of sterile surgical gloves; the remainder of the procedure was performed in a sterile fashion. A 20G spinal needle was held over the hip to approximate my desired entry point on the skin. Once this was established, a 25G needle was used to infiltrate injection site and estimated needle track with 5cc 1% lidocaine w/o epinephrine. Once the injection site was anesthetized, the spinal needle was advanced through the same puncture site and deeper towards the hip joint. Using fluoro, it was confirmed that the needle was advanced until it was at the level of the femoral neck. The stylus was removed from the spinal needle and 2cc of iodinated contrast solution was injected through the spinal needle. Fluoro was taken again, and the dye confirmed intra-capsular placement of the spinal needle, indicating a successful intraarticular injection. The syringe with contrast was removed, keeping the spinal needle in place, and 40mg Kenalog with 2cc 1% lidocaine w/o epinephrine was injected through the needle into the hip joint. A final fluoro picture was taken, confirming successful intraarticular injection. The spinal needle was removed from the hip and a band-aid was placed over the injection site. Specimens: none Condition/Disposition: good / home Complications: none Triamcinolone Acetonide 40mg/1mL Lot #[id number] Exp: 06/2021
== END ==
PROVIDERS: PCP Internal Medicine Adolescent Medicine; Visit Provider Orthopaedic Surgery
DX: M25.551 Pain in right hip; M16.11 Unilateral primary osteoarthritis, right hip
CPT/HCPCS: 20610; 77002; Q9967

== ENCOUNTER 2020-02-21 15:03 | Emergency (ER) | payer MEDICARE, OTHER, SELFPAY ==
[2020-02-21 15:15] VITALS: BP 143/87; PULSE 92; RESP 17; TEMP 36.6; O2SAT 98; BMI 25.8
--- NOTE | 2020-02-21 15:31 | HMH.EDUTC ---
[facility] [place] Clinical Impression: URI (upper respiratory infection) Qualifiers: URI type: unspecified URI Qualified Code(s): J06.9 - Acute upper respiratory infection, unspecified Disposition: Home, Self-Care Condition on Discharge: Good Instructions: Sinusitis, DI for Sinusitis, Preventing the Spread of Coronavirus Discharge Instructions Additional Instructions: *Monitor Temp, Over the counter Motrin or Tylenol as directed/as needed Tylenol every 4 hours and Motrin every 6 hours (as long as your family doctor has told you that you can take it) for fever or pain. and straight to ER if unable to lower temp less than 101.0 after medication given *Warm salt water gargles may help to soothe the throat *Throat Lozenges *Warm fluids like tea with honey may help to soothe the throat *Sleep elevated *Humidifier/Vaporizer *Flonase 2 sprays in each nostril daily but be aware that it may take 2-3 days before you notice improvement Follow up IMMEDIATELY for new or worsening symptoms or no Noticeable improvement over the next 48-72 hours. 911 for difficulty breathing or swallowing Continue antibiotics and steroids as prescribed by your Family Doctor You was tested for today for COVID19 your test result should be back later this evening, you may call back later this evening to see if your test results are back and the result You was given a handout with instructions for Self Quarantine and Self isolation for while you wait on test results and what to do if they are positive Referrals: Abdiel Angulo MD [Primary Care Provider] - As needed Time of Disposition: 15:48 Medical Decision Making - Tanner Inquiry Pt receiving controlled substance: No Tanner was queried for this patient: No Vital Signs: 02/21/20 15:15 02/21/20 16:00 Temperature 97.8 F 97.8 F Temperature Source Oral Oral Pulse Rate 92 H Pulse Rate [Radial] 92 H Respiratory Rate 17 17 Blood Pressure 143/87 H Blood Pressure [Right Arm] 143/87 H Blood Pressure Mean [Right Arm] 105 Blood Pressure Source Automatic Cuff Blood Pressure Source [Right Arm] Automatic Cuff Blood Pressure Position Sitting Blood Pressure Position [Right Arm] Sitting 02 Sat by Pulse Oximetry 98 Oxygen Delivery Method Room Air Room Air - Lab Data Lab Results 02/21/20 15:14: Influenza Type A Ag Negative, Influenza Type B Ag Negative 02/21/20 15:14: Strep Scn Rapid Clinic Negative Orders (Tests/Meds): ED MEDICATIONS Discontinued Medications Generic Name Dose Route Start Last Admin Trade Name Annabella PRN Reason Stop Dose Admin Ceftriaxone Sodium 1 gm 02/21/20 15:45 02/21/20 15:52 Ceftriaxone 1gm Vial IM 02/21/20 15:46 1 gm ONCE ONE Administration Protocol Lidocaine HCl 0 ml 02/21/20 15:45 02/21/20 15:52 Lidocaine 1% 5ml Pf Vial IM 02/21/20 15:46 2.1 ml ONCE ONE Administration ORDERS Category Date Time Status Strep Screen Confirmation Stat Micro 02/21/20 15:14 Received Medical Decision Narrative: Discussed with patient that COVID test would be back later this evening or tomorrow morning discussed Rocephin injection with patient to help with sinusitis and she agreed to take injection. and continue prescribed medication from her PCP and call back later this evening or in the morning for test results [facility] [place] - General Stated complaint: body aches, fever, sore throat Time Seen by Provider: 02/21/20 15:32 Mode of Arrival: Ambulatory Source of Information: Patient Limitations: No Limitations Description of Symptoms (Recalled from Triage Doc. by RN): was treated for sinus infection sunday at Dr. Angulo's office and is now feeling worse. HEENT Symptoms (Recalled from RN notes): Yes Resp Symptoms (Recalled from RN notes): No Skin Symptoms (Recalled from RN notes): No MS Symptoms (Recalled from RN notes): No Functional Status (Recalled from RN notes): wnl - History of Present Illness Provider Complaint: Patient states that she was
[2020-02-21 15:32] LABS: UTC Influenza A Antigen Negative (Negative); UTC Influenza B Antigen Negative (Negative); UTC Strep Screen (Rapid) Negative (Negative)
[2020-02-21 16:00] VITALS: BP 143/87; PULSE 92; RESP 17; TEMP 36.6; O2SAT 98
== END 2020-02-21 16:02 | disposition home or self-care (01) ==
PROVIDERS: Emergency Provider Nurse Practitioner; PCP Internal Medicine Adolescent Medicine
DX: J06.9 Acute upper respiratory infection, unspecified (principal); J44.9 Chronic obstructive pulmonary disease, unspecified; K21.9 Gastro-esophageal reflux disease without esophagitis; I25.10 Atherosclerotic heart disease of native coronary artery without angina pectoris; E78.5 Hyperlipidemia, unspecified; I10 Essential (primary) hypertension; I25.2 Old myocardial infarction
CPT/HCPCS: G0463; 87804; 87880; 96372; 99202

== ENCOUNTER 2020-04-16 13:57 | Emergency (ER) | payer MEDICARE, OTHER, SELFPAY ==
--- NOTE | 2020-04-16 14:02 | HMH.EDUPEXT ---
ED Disposition Clinical Impression: Wrist pain, right Fall Qualifiers: Encounter type: initial encounter Qualified Code(s): W19.XXXA - Unspecified fall, initial encounter Disposition: Home, Self-Care Condition on Discharge: Good Referrals: Abdiel Angulo MD [Primary Care Provider] - 3 days - Critical Care Critical Care Time: No Attestation: On 04/16/20, the high probability of a clinically significant, sudden or life threatening deterioration of the following system(s) required my full and direct attention, intervention and personal management. The time I documented below is in addition to time spent performing reported procedures but includes the following listed in this critical care notation. Medical Decision Making - Tanner Inquiry Pt receiving controlled substance: No Vital Signs: 04/16/20 14:03 Pulse Rate [Radial] 99 H Respiratory Rate 18 Blood Pressure [Right Arm] 173/84 H Blood Pressure Mean [Right Arm] 113 Blood Pressure Source [Right Arm] Automatic Cuff Blood Pressure Position [Right Arm] Sitting 02 Sat by Pulse Oximetry 97 Oxygen Delivery Method Room Air Orders (Tests/Meds): ORDERS Category Date Time Status Wrist XR right 2 views [XR wrist RT 2V] Stat Exams 04/16/20 14:07 Taken - Radiology Data #1 Image(s): Wrist Image Reviewed: Yes I reviewed the patient's radiology image Preliminary Findings: Normal/NAD Cute distal radius fracture, scaphoid fracture. Possible ulnar styloid fracture. Medical Decision Narrative: 69yo F evaluated after FOOSH with injury to the right wrist. Physical exam is otherwise unremarkable. X-rays have been ordered of the wrist. No clear fracture visualized on x-ray per my wet read. Patient placed in a wrist splint for comfort. Encouraged to wear the splint at all time. Encouraged to follow-up with her PCP middle of next week. Informed the patient that fractures do not always appear immediately after the injury and repeat imaging may be warranted. Upper Extremity HPI - General Stated Complaint: Ao 04/16/20 fall, rt wrist pain Time Seen by Provider: 04/16/20 14:02 Mode of Arrival: Ambulatory Source of Information: Patient - History of Present Illness HPI narrative: 69yo F evaluated emergency department secondary to FOOSH with pain to right wrist. Patient denies other injury. Patient denies loss of consciousness or head strike. She has pain with range of motion of her right wrist and pain with right hand ii cutter. complaint: injury to: right - Related Data Home Medications Medication Instructions Recorded Confirmed escitalopram oxalate 20 mg tablet 20 mg PO DAILY 05/16/17 12/15/19 omega-3 fatty acids 1,000 mg 1,000 mg PO BID 05/16/17 12/15/19 capsule clopidogrel 75 mg tablet 75 mg PO DAILY tab 10/30/17 12/15/19 Potassium Chloride [Klor-con 20 20 meq PO DAILY 02/10/18 12/15/19 mEq tablet] Calcium Carbonate/Vitamin D3 1 each PO DAILY 09/09/18 12/15/19 [Calcium 600 + Vit D Tablet] Multivit-Min/Folic Acid/Biotin 1 each PO DAILY 09/09/18 12/15/19 [Women Multivit W-Biotin Gummy] Pantoprazole Sodium [Pantoprazole 40 mg PO BID 09/09/18 12/15/19 20mg Tab] Aspirin [Aspirin 81mg chewable 81 mg PO DAILY 09/10/18 12/15/19 tab] Atorvastatin Calcium [Lipitor 80mg 80 mg PO HS 09/10/18 12/15/19 Tab] Losartan Potassium 50 mg PO DAILY 10/31/18 12/15/19 Metoprolol Succinate 50 mg PO DAILY 10/31/18 12/15/19 Sucralfate [Sucralfate 1gm 1 g PO QACHS 10/31/18 12/15/19 Tab] methocarbamol 750 mg tablet 1,500 mg PO DAILY tab 05/14/19 12/15/19 gabapentin 300 mg capsule 300 mg PO BID cap 11/14/19 12/15/19 linaclotide 145 mcg capsule 145 mcg PO DAILY cap 11/14/19 12/15/19 Previous Rx's Medication Instructions Recorded Ondansetron [Zofran 4mg ODT] 4 mg PO Q8HP PRN #6 tab.rapdis 10/15/17 ranolazine 500 mg tablet,extended 500 mg PO BID #60 tab 11/14/19 release,12 hr Allergies Allergy/AdvReac Type Severity
[2020-04-16 14:03] VITALS: BP 173/84; PULSE 99; RESP 18; O2SAT 97; BMI 25.7
--- NOTE | 2020-04-16 14:07 | XR_ITS ---
PROCEDURE: XR WRIST RT 2V CLINICAL INDICATION: fall COMPARISON: No exams were available for comparison FINDINGS: There is a radiolucent fracture line seen through the ulnar styloid. This likely is an acute nondisplaced fracture. An old incompletely fused fracture is a possibility as well and suggest clinical correlation for tenderness at this site. The distal radius and radial styloid appear intact. There may be faint calcification of the triangular cartilage in the wrist joint. The carpal bones appear intact. There is slight blurring of the pronator quadratus fat pad suggesting at this could represent an acute fracture with soft tissue swelling and or possibly some some fluid within the wrist joint. IMPRESSION: Probable acute nondisplaced chip fracture ulnar styloid Dictated by: Dr. Bakari Khan MD 04/17/2020 07:44 Dr. Bakari Khan MD in [place] 04/17/2020 07:44
[2020-04-16 14:42] VITALS: BP 173/84; PULSE 99; RESP 18; TEMP 36.6; O2SAT 97
== END 2020-04-16 14:44 | disposition home or self-care (01) ==
PROVIDERS: Emergency Provider Family Medicine; PCP Internal Medicine Adolescent Medicine
DX: S52.614A Nondisplaced fracture of right ulna styloid process, initial encounter for closed fracture (principal); W01.0XXA Fall on same level from slipping, tripping and stumbling without subsequent striking against object, initial encounter; Y92.89 Other specified places as the place of occurrence of the external cause; J44.9 Chronic obstructive pulmonary disease, unspecified; K21.9 Gastro-esophageal reflux disease without esophagitis; E78.5 Hyperlipidemia, unspecified; I10 Essential (primary) hypertension; I25.2 Old myocardial infarction; F41.9 Anxiety disorder, unspecified; F17.210 Nicotine dependence, cigarettes, uncomplicated
CPT/HCPCS: 29125; 73100; 99283

== ENCOUNTER → 2020-05-14 12:15 | Outpatient (CLI) | payer MEDICARE, OTHER, SELFPAY ==
--- NOTE | 2020-05-14 12:24 | XR_ITS ---
PROCEDURE: XR WRIST RT MIN 3V CLINICAL INDICATION: s/p fall R ulnar styloid fracture COMPARISON: CR XR WRIST RT 2V from 04/16/2020 FINDINGS: Nondisplaced fracture noted involving the tip of the ulnar styloid overall not significantly changed. There is chondrocalcinosis of the triangular fibrocartilage and there are mild osteoarthritic changes of the radiocarpal joint. There is now a faint area of sclerosis involving the distal shaft of the radius suggesting a healing fracture with suggestion of minimal cortical disruption involving the medial aspect of the distal radius. IMPRESSION: 1. No change nondisplaced ulnar styloid process fracture. 2. There is now area of sclerosis transverse in nature involving the distal radius at the metaphyseal diaphyseal junction suggesting a healing fracture Dictated by: Albino Rider MD 05/14/2020 13:45 Albino Rider MD in [place] 05/14/2020 13:45
== END ==
PROVIDERS: PCP Internal Medicine Adolescent Medicine; Visit Provider Orthopaedic Surgery
DX: S52.611A Displaced fracture of right ulna styloid process, initial encounter for closed fracture (principal)
CPT/HCPCS: 73110

== ENCOUNTER → 2020-05-21 10:30 | Outpatient (CLI) | payer MEDICARE, OTHER, SELFPAY ==
--- NOTE | 2020-05-21 10:31 | IR_ITS ---
PROCEDURE: IR FLUORO GUIDED NEEDLE PLACE CLINICAL INDICATION: RT hip injection COMPARISON: No exams were available for comparison FINDINGS: Fluoroscopy time: 4 seconds Two images are submitted 1 with a needle in place and 1 without needle both showing contrast injected into the right hip joint. . IMPRESSION: Fluoroscopic guided intra-articular right hip injection Dictated by: Albino Rider MD 05/21/2020 17:17 Albino Rider MD in [place] 05/21/2020 17:17
--- NOTE | 2020-05-23 14:34 | HMH.PROC ---
[facility] Procedure Note Procedure Note:: Procedure Note: Date of Procedure: May 21, 2020 Pre-procedure diagnosis: degenerative joint disease R hip Post-procedure diagnosis: same Procedure: intraarticular corticosteroid injection R hip Performed by: Chika Shelton MD Direct Marketing Representative/s: none Anesthesia: local; 5cc 1% lidocaine w/o epinephrine Estimated Blood Loss: none History of present illness: 70yo F with R hip DJD, who wishes to avoid arthroplasty in this hip if possible. She underwent intraarticular corticosteroid injection in December 2019, which significantly decreased her pain for several months. She would like to have another injection if possible. I discussed the risks of the procedure with her, including bleeding, neurovascular damage, bruising or swelling at the injection site, injection site infection, failure to alleviate her pain, increased pain, and possible allergic reactions to the medications. The patient vocalized understanding and provided informed consent for the procedure. Procedure Note: The patient presented to the radiology department and changed into a gown, exposing the affected R hip. Consent was reviewed and signed by both myself and the patient, all questions were answered. The patient was placed supine on the fluoroscopy table and the R hip exposed. The anterior groin/hip and proximal thigh were prepped with chlorhexidine. Timeout was performed. Next, the fluoro machine was brought in over the patient?s hip and a picture taken to confirm adequate visualization of the joint. I donned a pair of sterile surgical gloves; the remainder of the procedure was performed in a sterile fashion. A 20G spinal needle was held over the hip to approximate my desired entry point on the skin, on a line between the ASIS and the greater trochanter. Once this was established, a 25G needle was used to infiltrate injection site and estimated needle track with 5cc 1% lidocaine w/o epinephrine. Once the injection site was anesthetized, the spinal needle was advanced through the same puncture site and deeper towards the hip joint, aimed medially at a 30 degree angle. Using fluoro, it was confirmed that the needle was advanced until it was at the level of the femoral neck. The stylus was removed from the spinal needle and 2cc of iodinated contrast solution was injected through the spinal needle. Fluoro was taken again, and the dye confirmed intra-capsular placement of the spinal needle, indicating a successful intraarticular injection. The syringe with contrast was removed, keeping the spinal needle in place, and 40mg Kenalog with 2cc 1% lidocaine w/o epinephrine was injected through the needle into the hip joint. A final fluoro picture was taken, confirming successful intraarticular injection. The spinal needle was removed from the hip and a band-aid was placed over the injection site. Specimens: none Condition/Disposition: good / home Complications: none
== END ==
PROVIDERS: PCP Internal Medicine Adolescent Medicine; Visit Provider Orthopaedic Surgery
DX: M25.551 Pain in right hip (principal); M16.11 Unilateral primary osteoarthritis, right hip
CPT/HCPCS: 20610; 77002; Q9967

== ENCOUNTER 2020-06-21 12:43 | Inpatient (IN) | payer MEDICARE, OTHER, SELFPAY ==
[2020-06-21] VITALS (11 sets, daily range): BP systolic 102–140; BP diastolic 65–82; PULSE 71–93; RESP 14–18; TEMP 36.6–36.8; O2SAT 96–98; BMI 25.8
--- NOTE | 2020-06-21 13:32 | XR_ITS ---
PROCEDURE: XR WRIST LT 2V CLINICAL INDICATION: FALL Pain and swelling COMPARISON: CR XR WRIST RT 2V from 04/16/2020 CR XR WRIST RT MIN 3V from 05/14/2020 FINDINGS: There is a nondisplaced transverse fracture involving the distal aspect of the radius with minimal impaction and minimal dorsal angulation of the distal fracture fragment. Also noted is a nondisplaced avulsion involving the tip of the ulnar styloid. Chondrocalcinosis is present at the radiocarpal joint IMPRESSION: Mildly impacted nondisplaced fracture distal radius with associated ulnar styloid avulsion Dictated by: Albino Rider MD 06/21/2020 14:25 Albino Rider MD in [place] 06/21/2020 14:25
--- NOTE | 2020-06-21 13:38 | CT_ITS ---
PROCEDURE: CT HEAD/BRAIN WO CON CLINICAL INDICATION: FALL Head injury with headache/pain, contusion, abrasion or hematoma, loss of consciousness COMPARISON: CT HEADWO CT head/brain wo con from 11/24/2017 TECHNIQUE: Axial images obtained. All CT scans at the facility use one or more dose reduction, viz: automated exposure control, ma/kV adjustment per patient size (including targeted exams where dose is matched to indication, i.e. head), or iterative reconstruction technique. FINDINGS: No midline shift, mass effect, intracranial hemorrhage, hydrocephalus, or extra-axial fluid collection is evident. There is generalized atrophy with hypoattenuation of the periventricular white matter consistent with microangiopathic changes. The calvarium has an unremarkable appearance. No mastoid effusion. Mild mucosal thickening involves the ethmoid sinuses. IMPRESSION: No acute intracranial finding Dictated by: Albino Rider MD 06/21/2020 14:19 Albino Rider MD in [place] 06/21/2020 14:19
--- NOTE | 2020-06-21 13:42 | PC.NURSE ---
PATIENT SOILED UPON ARRIVAL TO ED . PT CLEANED AND PLACED IN CLEAN GOWN
[2020-06-21 14:04] LABS: Chloride 90 mmol/L (98-107)
[2020-06-21 14:05] LABS: Sodium 135 mmol/L (136-145)
[2020-06-21 14:07] LABS: Alanine Aminotransferase 22 U/L (12-78); Alkaline Phosphatase 58 U/L (38-126); Anion Gap 18.1 mEq/L (5-15); Aspartate Amino Transferase 34 U/L (14-36); Bilirubin,Total 0.9 mg/dl (0.2-1.3); Blood Urea Nitrogen 18 mg/dl (7-17); Carbon Dioxide 29 mmol/L (22.0-30.0); Creatinine Clearance Estimated 39 mL/min (50-200); Estimated Glomerular Filt Rate 37 ml/min (>60); GFR (African American) 45 ML/MIN (>60)
[2020-06-21 14:08] LABS: Albumin Level 4.3 g/dl (3.5-5.0); Albumin/Globulin Ratio 1.4 (1.1-1.8); Calcium 9.4 mg/dl (8.4-10.2); Glucose 169 mg/dl (74-100); Total Protein,Serum 7.3 g/dl (6.3-8.2)
[2020-06-21 14:16] LABS: Potassium 2.1 mmoL/L (3.5-5.1)
[2020-06-21 14:18] LABS: Basophils % 0.2 % (0.1-2.0); Eosinophils # 0.1 K/mm3 (0.0-0.4); Eosinophils % 0.4 % (0.1-12.0); Hematocrit 40.7 % (37.0-47.0); Hemoglobin 13.7 g/dL (12.2-16.2); Lymphocytes # 2.5 K/mm3 (0.7-4.5); Lymphocytes % 17.3 % (10-50); Mean Corpuscular HGB Conc 33.5 g/dL (31.8-35.4); Mean Corpuscular Hemoglobin 31.1 pg (27.0-31.2); Mean Corpuscular Volume 92.6 fl (81-99); Mean Platelet Volume 7.5 fl (7.4-10.4); Monocytes # 0.5 K/mm3 (0.1-1.0); Monocytes % 3.5 % (1.7-9.3); Neutrophils # 11.1 K/mm3 (1.8-7.8); Neutrophils % 78.6 % (37.0-80.0); Platelet Count 287 K/mm3 (142-424); Red Cell Distribution Width 13.7 % (11.5-17.5); White Blood Count 14.1 K/mm3 (4.8-10.8)
--- NOTE | 2020-06-21 14:20 | PC.NURSE ---
NOTIFIED MD OF CRITICAL POTASSIUM
--- NOTE | 2020-06-21 14:42 | PC.NURSE ---
MARIA ALEJANDRA RN ASKED PATIENT FOR MEDICATION LIST. PATIENT STATED, NOTHING IS DIFFERENT FROM THE LAST TIME I WAS HERE. I DO NOT HAVE A MASK.
--- NOTE | 2020-06-21 14:50 | XR_ITS ---
PROCEDURE: XR CHEST PORTABLE CLINICAL HISTORY: leukocytosis Chilling COMPARISON: CT CHESTW CT chest w con from 05/17/2017 CR CXR2V XR chest 2V from 02/09/2018 CR CXR1VP XR chest portable from 07/28/2018 CR XR CHEST 2V from 03/31/2019 FINDINGS: Unremarkable cardiovascular. A loop recorder device present the heart. Epidural stimulator devices are 1 of which ends superiorly at the thoracic region 1 in the midthoracic region. COPD changes. No lobar consolidation or collapse. There old rib fractures. IMPRESSION: COPD. No change with no acute finding. Dictated by: Albino Rider MD 06/21/2020 15:24 Albino Rider MD in [place] 06/21/2020 15:24
[2020-06-21 15:19] LABS: Microscopic, Urine URINE MICROSCOPIC (MICROSCOPIC)
[2020-06-21 15:25] LABS: Appearance,Urine CLEAR (Clear); Bilirubin,Urine Negative (Negative); Blood, Urine 2+ (Negative); Color,Urine YELLOW (Yellow); Glucose,Urine (UA) Negative (Negative); Ketones,Urine Negative (Negative); Leukocyte Esterase,Urine Negative (Negative); Nitrate,Urine Negative (Negative); Protein,Urine Negative (Negative); Specific Gravity, Urine 1.025 (1.005-1.030); Urobilinogen,Urine 0.2 EU/dl (0.2)
[2020-06-21 15:57] LABS: Bacteria,Urine 3+ /lpf; RBC,Urine Occasional #/hpf (0-3)
--- NOTE | 2020-06-21 16:17 | ECG_ITS ---
APPROVED REPORT Exam: Resting ECG HR:84 bpm ECG Measurements Heart Rate 84 AXES NM 198 P 69 QRSd 120 QRS 21 QT 466 T 9 QTc 550 Conclusion Normal sinus rhythm Low voltage QRS Right bundle branch block T wave abnormality, consider inferior ischemia Abnormal ECG Electronically signed by : Abdiel Angulo, 06/22/2020 17:19:46
--- NOTE | 2020-06-21 16:44 | HMH.EDGENADL ---
ED Disposition Clinical Impression: Syncope Qualifiers: Syncope type: unspecified Qualified Code(s): R55 - Syncope and collapse Wrist fracture, closed Qualifiers: Encounter type: initial encounter Laterality: left Qualified Code(s): S62.102A - Fracture of unspecified carpal bone, left wrist, initial encounter for closed fracture Disposition: Admitted As Inpatient Condition on Discharge: Good Instructions: DI for Syncope in Adults (Fainting), DI for Syncope in Children (Fainting) Referrals: Abdiel Angulo MD [Primary Care Provider] - Time of Disposition: 16:54 - Critical Care Critical Care Time: No Attestation: On 06/21/20, the high probability of a clinically significant, sudden or life threatening deterioration of the following system(s) required my full and direct attention, intervention and personal management. The time I documented below is in addition to time spent performing reported procedures but includes the following listed in this critical care notation. Medical Decision Making - Medical Records Medical records reviewed: Yes: I reviewed the patient's medical records. - [place]anner Inquiry Pt receiving controlled substance: No Vital Signs: 06/21/20 12:44 06/21/20 13:44 06/21/20 14:00 Temperature 98.3 F Temperature Source Oral Pulse Rate [Orthostatic Lying Right] Pulse Rate [Right Radial] 93 H 92 H 77 Respiratory Rate 18 16 Blood Pressure [Orthostatic Lying Right Arm] Blood Pressure [Orthostatic Sitting Right Arm] Blood Pressure [Orthostatic Standing Right Arm] Blood Pressure [Right Arm] 109/69 L 109/74 L 116/71 Blood Pressure Mean [Right Arm] 82 85 86 Blood Pressure Source [Right Arm] Automatic Cuff Automatic Cuff Automatic Cuff Blood Pressure Position [Right Arm] Supine Sitting Supine 02 Sat by Pulse Oximetry 97 96 98 Oxygen Delivery Method Room Air Room Air Room Air 06/21/20 14:30 06/21/20 14:38 06/21/20 15:03 Temperature 97.8 F Temperature Source Oral Pulse Rate [Orthostatic Lying Right] 89 Pulse Rate [Right Radial] 90 77 Respiratory Rate 16 Blood Pressure [Orthostatic Lying Right Arm] 123/71 Blood Pressure [Orthostatic Sitting Right Arm] 110/67 Blood Pressure [Orthostatic Standing Right Arm] 102/65 L Blood Pressure [Right Arm] 102/65 L 109/66 L Blood Pressure Mean [Right Arm] 77 80 Blood Pressure Source [Right Arm] Automatic Cuff Automatic Cuff Blood Pressure Position [Right Arm] Standing Sitting 02 Sat by Pulse Oximetry 97 Oxygen Delivery Method Room Air 06/21/20 15:30 Temperature Temperature Source Pulse Rate [Orthostatic Lying Right] Pulse Rate [Right Radial] 71 Respiratory Rate 18 Blood Pressure [Orthostatic Lying Right Arm] Blood Pressure [Orthostatic Sitting Right Arm] Blood Pressure [Orthostatic Standing Right Arm] Blood Pressure [Right Arm] 118/71 Blood Pressure Mean [Right Arm] 86 Blood Pressure Source [Right Arm] Automatic Cuff Blood Pressure Position [Right Arm] Supine 02 Sat by Pulse Oximetry 98 Oxygen Delivery Method Room Air - Lab Data Lab results reviewed: Yes: I reviewed the patient's lab results. Lab Results 06/21/20 13:30: WBC 14.1 H, RBC 4.40, Hgb 13.7, Hct 40.7, MCV 92.6, MCH 31.1, MCHC 33.5, RDW 13.7, Plt Count 287, MPV 7.5, Neut % (Auto) 78.6, Lymph % (Auto) 17.3, Power % (Auto) 3.5, Eos % (Auto) 0.4, Baso % (Auto) 0.2, Neut # (Auto) 11.1 H, Lymph # (Auto) 2.5, Power # (Auto) 0.5, Eos # (Auto) 0.1, Baso # (Auto) 0.0 06/21/20 13:30: Sodium 135 L, Potassium 2.1 L*, Chloride 90 L, Carbon Dioxide 29, Anion Gap 18.1 H, BUN 18 H, Creatinine 1.40 H, Estimated Creat Clear 39, Estimated GFR 37 L, Est GFR ( Amer) 45 L, Glucose 169 H, Calcium 9.4, Total Bilirubin 0.9, AST 34, ALT 22, Alkaline Phosphatase 58, Total Protein 7.3, Albumin 4.3, Globulin 3.0, Albumin/Globulin Ratio 1.4 06/21/20 15:10: Urine Color Yellow, Urine Appearance Clear, Urine pH 6.0, Ur Specific [place] 1.025, Urine Protein Negative, Urine Glucose (
--- NOTE | 2020-06-21 16:44 | PC.NURSE ---
speaking with Dr Tellez
--- NOTE | 2020-06-21 17:01 | PC.NURSE ---
EVELINA MIJARES speaking with Dr. Andrew
--- NOTE | 2020-06-21 17:10 | PC.NURSE ---
orthoglass splint applied to LUE per ER MD order, ER evaluated splint after placement.
--- NOTE | 2020-06-21 17:14 | PC.NURSE ---
pt sitting up on side of bed eating supper tray
--- NOTE | 2020-06-21 17:50 | PC.NURSE ---
CALLED ABOUT COVID TEST , SWAB HAS NOT GONE ON YET WILL STILL BE 3+ HOURS
--- NOTE | 2020-06-21 20:29 | PC.NURSE ---
call placed to lab to check on covid test per delia oropeza. was informed per mauro that nothing was running at this time and that it was gonna be 2 more hours. informed her that we were told it had been put on at 6. she denied. notified feed house supervisor and nurse manager casino of ed.
--- NOTE | 2020-06-21 20:43 | PC.NURSE ---
2031 WAS NOTIFIED THAT COVID SWAB FOR THIS PT HAD NOT BEEN RAN EARLIER WAS THOUGHT. I SPOKE WITH AMBROCIO IN LAB AND SHE STATED THAT SHE WAS NOT MADE AWARE OF SWABS WAITING TO BE RAN DUE TO HER BEING IN DIFFERENT PART OF LAB AND WAS NOT MADE AWARE OF THE SWABS UNTIL FEW MINUTES AGO.SHE WAS STARTING TO RUN SWABS WE SPOKE
--- NOTE | 2020-06-21 20:49 | PC.NURSE ---
pt medicated for pain. pt placed in recliner with lt arm elevated. pt's family brought in pt supper. pt vocied no complaints at this time. call light within reach
--- NOTE | 2020-06-21 21:49 | PC.NURSE ---
pt resting in recliner voiced no complaints at this time. call light within reach
--- NOTE | 2020-06-21 22:54 | PC.NURSE ---
patient up floor via wheelchair
[2020-06-22] VITALS (21 sets, daily range): BP systolic 85–136; BP diastolic 48–86; PULSE 62–81; RESP 16–20; TEMP 36.4–36.8; O2SAT 90–100; BMI 27.0; BMI 26.9
--- NOTE | 2020-06-22 | IR_ITS ---
APPROVED REPORT Patient Location: Inpatient [facility] Attendant: MAGALY Beebe RT (R) PROCEDURES Left heart catheterization Left ventriculogram Selective coronary angiogram INDICATION Known coronary disease, Admission for unstable angina, Informed consent was obtained prior to the procedure. COMPLICATIONS None Estimated Blood Loss: Less than 10 mls TECHNIQUE One percent lidocaine was used to anesthetize the right groin. The right femoral artery was accessed via the Seldinger technique. A 4-Chilean sheath was placed in the right femoral artery. The JL-4 and JR-4 catheter was also used to perform left heart catheterization left ventriculogram and selective coronary angiogram. At the end of the procedure the patient was transferred to the post-op holding area in stable condition for arterial sheath removal. ANGIOGRAPHIC RESULTS The left main artery Normal The left anterior descending artery Has an ostial smooth 10 to 20% stenosis with mild mid vessel 10 to 20% stenosis The circumflex artery Nondominant normal The right coronary artery Is a large dominant vessel with a stent from the ostial proximal mid segment. The ostial proximal segment is widely patent with mid vessel concentric 30% in-stent restenosis The MANUEL ventriculogram reveals Preserved at 55 to 60% The left ventricular end-diastolic pressure 10 mmHg IMPRESSION Coronary artery disease as described above Preserved ejection fraction Normal left ventricular end-diastolic pressure PLAN 1. Continue medical management Electronically signed by : Robert Tellez, 06/22/2020 11:42:04
--- NOTE | 2020-06-22 01:59 | PC.WOUNDNOTE ---
Wound Location: r side of forehead and bridge of nose Length: R side of forehead (3 cm in length); bridge of nose (4 cm in length) Dried blood; no active bleeding or drainage Surrounding redness noted Color: Red Amount: None
--- NOTE | 2020-06-22 04:14 | PC.NURSE ---
A&ox 4. Pt. c/o dizziness upon getting up. No episodes of vomiting this shift. LUE elevated on pillows, pt. has movement and feeling in fingers.
--- NOTE | 2020-06-22 06:49 | HMH.HP ---
*Admission Date: 06/21/20 *Chief complaint: syncope, dizziness *History of present illness: Mrs. Jha is a 70yo F presents to the emergency department after a syncopal event yesterday. Patient reports she was dizzy yesterday morning and was feeling okay until she got up, felt a little dizzy, next thing she knows she is on the floor and her son is assisting her. She does not recall passing out, falling, or how she ended up on the floor. Had pain in her face as well as pain in her left wrist. She recalls feeling her heartbeat elevate, it was going to jump out of my chest , prior to the event. On presentation to the ER noticed to have abrasion to her face, left wrist fracture, acute kidney injury, electrolyte disturbances. Admitted for syncopal event and further management. On interview this morning, she still feels tired and nauseous. Denies any confusion, chest pain, shortness of breath. Is n.p.o. due to cardiology consult. Of note was due for stress test today. Hemodynamically stable overnight. Still has some mild electrolyte disturbances on labs this morning. Cardiac history significant for the following: CAD-Medical mgt NOV 2019. Medical management 08/2018 HX of JABIER. DAPT Plavix and Aspirin. We have recorder in place, last interrogation in April it revealed no events [facility] History I have reviewed the patient's past medical history: Yes Medical History: Reports:: Anxiety, Atherosclerotic Heart Disease, Congestive Heart Failure, Chronic Obstructive Pulmonary Disease (COPD), Coronary Artery Disease, Gastroesophageal Reflux Disease(GERD), Hyperlipidemia, Hypertension, Lung Disease, Myocardial Infarction, Transient Ischemic Attacks (TIA) Denies:: Cancer, Diabetes Mellitus Type 1, Diabetes Mellitus Type 2, Internal Pacemaker, MRSA, Seizures *Have you ever received a pneumonia vaccine?: Yes *Have you received a flu vaccine this season?: Yes Other Medical History: Reports: Arthritis, Cataracts, Hormone Therapy, Liver Disease, Other. Denies: Blood Transfusion Reaction Laterality Cases: Bilateral: Tonsillectomy Other Surgeries: Yes: Appendectomy, Cardiac Catheterization, Cholecystectomy, Colonoscopy, Coronary Stent, EGD, Hernia Repair (09/2017), Hysterectomy-Total, Tubal Ligation, Other. No: Pacemaker Amputation: No Fractures: Yes - *Social History Last grade of school completed: 9th or 10th Smoking Status: Current every day smoker Tobacco Type: cigarettes # Packs/Day (cigarettes): 1 #Yrs smoked (if former smoker): 30 Alcohol Intake: never Alcohol Intake Frequency:: other Substance Use Type: denies use *Occupational Status:: retired Housing: house Household Members: spouse, children *Travel in the last 8 weeks: None - Psychiatric History Pschychiatric History:: Reports:: Anxiety Family Hx:: Cancer, Heart Attack, Thyroid Disorder Review of Systems - Review of Systems Review of systems:: pertinent systems reviewed and negative unless documented below (14 point review of systems performed, pertinent positives and negatives as per HPI) Meds Home Medications Medication Instructions Recorded Confirmed Type omega-3 fatty acids 1,000 mg 1,000 mg PO DAILY 05/16/17 06/22/20 History capsule clopidogrel 75 mg tablet 75 mg PO DAILY tab 10/30/17 06/21/20 History Multivit-Min/Folic Acid/Biotin 1 each PO DAILY 09/09/18 06/21/20 History [Women Multivit W-Biotin Gummy] Aspirin [Aspirin 81mg chewable 81 mg PO DAILY 09/10/18 06/21/20 History tab] Atorvastatin Calcium [Lipitor 80mg 80 mg PO HS 09/10/18 06/21/20 History Tab] Losartan Potassium 50 mg PO DAILY 10/31/18 06/21/20 History Sucralfate [Sucralfate 1gm 1 g PO ACHS 10/31/18 06/22/20 History Tab] gabapentin 300 mg capsule 300 mg PO BID cap 11/14/19 06/21/20 History linaclotide 145 mcg capsule 145 mcg PO DAILY cap 11/14/19 06/21/20 History Nitroglycerin 0.4 mg SUBLINGUAL Q5MINP PRN 06/21/20 06/22/20 History Calcium Carbonate/Vitamin D3 1 each PO DAILY 03
--- NOTE | 2020-06-22 07:31 | HMH.PHAVTE ---
[facility] Pharmacy VTE Monitoring - Patient Demographics Admission date: 06/21/20 Report Date: 06/22/20 Time: 07:31 Allergies/Adverse Reactions: Patient Allergies No Known Allergies Allergy (Verified 06/14/20 10:25) Height: 1.6 m Weight: 68.946 kg Patient Problems: Current Active Problems Wrist fracture, closed (Acute) Syncope (Acute) - VTE Risk Labs: VTE Related Lab Results Hgb 13.7 g/dL (12.2-16.2) 06/21/20 13:30 Hct 40.7 % (37.0-47.0) 06/21/20 13:30 Plt Count 287 K/mm3 (142-424) 06/21/20 13:30 BUN 18 mg/dl (7-17) H 06/21/20 13:30 Creatinine 1.40 mg/dl (0.52-1.04) H 06/21/20 13:30 Estimated Creat Clear 39 mL/min (50-200) 06/21/20 13:30 Was VTE Risk Assessment Performed: Yes VTE Score: 4 VTE Risk Level: Low Risk Clinical Trial Participant: No - Prophylaxis VTE Prophylaxis Ordered?: Yes Types of VTE Prophylaxis: IPCS Knee High, Pharmacological Pharmacologic Type: Enoxaparin
[2020-06-22 07:40] LABS: Anion Gap 3.6 mEq/L (5-15); Blood Urea Nitrogen 14 mg/dl (7-17); Carbon Dioxide 38 mmol/L (22.0-30.0); Chloride 96 mmol/L (98-107); Creatinine Clearance Estimated 52 mL/min (50-200); Estimated Glomerular Filt Rate 49 ml/min (>60); GFR (African American) 59 ML/MIN (>60); Glucose 102 mg/dl (74-100); Magnesium 1.5 mg/dl (1.6-2.3); Phosphorous 3.1 mg/dl (2.5-4.5); Sodium 135 mmol/L (136-145)
[2020-06-22 07:51] LABS: Eosinophils # 0.1 K/mm3 (0.0-0.4); Lymphocytes # 1.7 K/mm3 (0.7-4.5); Mean Corpuscular Hemoglobin 31.7 pg (27.0-31.2)
[2020-06-22 08:03] LABS: Basophils % 0.3 % (0.1-2.0); Eosinophils % 0.8 % (0.1-12.0); Hematocrit 33.4 % (37.0-47.0); Lymphocytes % 24.9 % (10-50); Mean Corpuscular Volume 93.3 fl (81-99); Monocytes # 0.3 K/mm3 (0.1-1.0); Monocytes % 4.9 % (1.7-9.3); Neutrophils # 4.6 K/mm3 (1.8-7.8); Neutrophils % 69.2 % (37.0-80.0); Platelet Count 198 K/mm3 (142-424); Red Blood Count 3.58 M/mm3 (4.20-5.40); Red Cell Distribution Width 13.7 % (11.5-17.5); White Blood Count 6.7 K/mm3 (4.8-10.8)
[2020-06-22 08:06] LABS: Hemoglobin 11.3 g/dL (12.2-16.2)
[2020-06-22 08:23] LABS: Potassium 2.6 mmoL/L (3.5-5.1)
--- NOTE | 2020-06-22 09:12 | HMH.PHAINT ---
MEDICATION RECONCILIATION COMPLETED ON PATIENT USING EXTERNAL FILL HISTORY FROM PHARMACY, LIST FROM [facility], AND LIST FROM CARDIOLOGY. -ROCK HAWLEYD
--- NOTE | 2020-06-22 09:19 | HMH.CNCARD ---
History of Present Illness Consult date: 06/22/20 Requesting physician: Stephan Burch Chief complaint: Syncope Additional Medical History:: 1. Syncopal episode (06/22/20) a. Loop recorder in place. Interrogation revealed no events noted. 2. Fracture of the left wrist (06/22/20) a. Management of Ortho. 3. Coronary artery disease a. Hx of JABIER in 2019. b. Medical management 12/10 4. Atypical chest pain (06/22/20) a. Worsening chest pain 5. Mild pulmonary hypertension 6. Hyperlipidemia a. Statin therapy 7. Essential hypertension 8. Diastolic dysfunction History of present illness: 78-year-old female presented to [facility] after syncopal episode. Patient states while walking into her bedroom she became dizzy and then blacked out. Patient states unknown how long she was passed out. Patient stated when she woke up she had arrived at the emergency room. Patient has in the past had episodes of syncopal experiences. Patient does have a loop recorder in place. Loop recorder was interrogated which revealed no events were noted. Patient states she has been having some midsternal nonradiating chest pain. States this midsternal chest pain has been occurring for the past month and is becoming worse. Patient does complain of shortness of breath with minimal exertion. Patient is a non-smoker. Patient was due to have Myoview stress test and echocardiogram performed on an outpatient basis. Due to the status of a syncopal episode and midsternal chest pain, will proceed with left heart catheterization today. Patient does have history of coronary artery disease. Medical management was noted in 11/2019. Last echocardiogram revealed EF 55% with no wall motion abnormality grade 1 diastolic dysfunction with mild AR and mild MR and TR. Pulmonary hypertension was also noted. During the syncopal episode, patient hit her head and nose on a counter. Abrasions noted on forehead and nose. Patient did fracture her right wrist. Right wrist is noted in cast. This is managed by Ortho. Patient denies dizziness or palpitations at this time. Initial EKG revealed normal sinus with right bundle branch block, T wave abnormality and abnormal EKG with a heart rate of 84 bpm. No troponins were obtained. Discussed plan of care with Dr. Tellez. Patient will be set up for left heart catheterization today due to syncopal episode. Loop recorder was interrogated which revealed no events. Patient noted to be hypokalemia. This is referred to PCP. Discussed benefits and risk of undergoing left heart catheterization. Patient verbalized understanding and is agreeable to procedure. Echocardiogram will also be obtained today to evaluate LV function and assess valve status. Pending on the results of the echocardiogram and left heart catheterization, medication and therapy changes may be recommended. Thank you for allowing cardiology to participate in the care of this patient. [facility] History I have reviewed the patient's past medical history: Yes Medical History: Reports:: Anxiety, Atherosclerotic Heart Disease, Congestive Heart Failure, Chronic Obstructive Pulmonary Disease (COPD), Coronary Artery Disease, Gastroesophageal Reflux Disease(GERD), Hyperlipidemia, Hypertension, Lung Disease, Myocardial Infarction, Transient Ischemic Attacks (TIA) Denies:: Cancer, Diabetes Mellitus Type 1, Diabetes Mellitus Type 2, Internal Pacemaker, MRSA, Seizures *Have you ever received a pneumonia vaccine?: Yes *Have you received a flu vaccine this season?: Yes Other Medical History: Reports: Arthritis, Cataracts, Hormone Therapy, Liver Disease, Other. Denies: Blood Transfusion Reaction Laterality Cases: Bilateral: Tonsillectomy Other Surgeries: Yes: Appendectomy, Cardiac Catheterization, Cholecystectomy, Colonoscopy, Coronary Stent, EGD, Hernia Repair (09/2017), Hysterectomy-Total, Tubal Ligation, Other. No: Pacemaker Amputation: No Fr
--- NOTE | 2020-06-22 15:08 | HMH.ORTHOCON ---
*Admission Date: 06/21/20 *Reason for consult:: L distal radius fracture *History of present illness: Mrs. Jha is a 70yo F known to me, whom I've had the pleasure of treating recently for both hip arthritis and a recent fracture to the R wrist. The wrist has been healing well and has not been recently immobilized. She was admitted overnight after a syncopal episode at home. She recalls dizziness, after which she woke up on the floor with her family over her. She does not recall passing out or falling. Afterwards she had L wrist pain and several abrasions to the face. A left distal radius/ulna fracture was identified in the ER and splinted. This morning she underwent echocardiogram and cardiac catheterization, which has been reported to be largely within normal limits. She is currently hypotensive and receiving a 1L crystalloid bolus. She reports soreness in the L wrist but no open wounds around the wrist, no numbness or tingling in the fingers. [facility] History I have reviewed the patient's past medical history: Yes Medical History: Reports:: Anxiety, Atherosclerotic Heart Disease, Congestive Heart Failure, Chronic Obstructive Pulmonary Disease (COPD), Coronary Artery Disease, Gastroesophageal Reflux Disease(GERD), Hyperlipidemia, Hypertension, Lung Disease, Myocardial Infarction, Transient Ischemic Attacks (TIA) Denies:: Cancer, Diabetes Mellitus Type 1, Diabetes Mellitus Type 2, Internal Pacemaker, MRSA, Seizures *Have you ever received a pneumonia vaccine?: Yes *Have you received a flu vaccine this season?: Yes Other Medical History: Reports: Arthritis, Cataracts, Hormone Therapy, Liver Disease, Other. Denies: Blood Transfusion Reaction Laterality Cases: Bilateral: Tonsillectomy Other Surgeries: Yes: Appendectomy, Cardiac Catheterization, Cholecystectomy, Colonoscopy, Coronary Stent, EGD, Hernia Repair (09/2017), Hysterectomy-Total, Tubal Ligation, Other. No: Pacemaker Amputation: No Fractures: Yes - *Social History Last grade of school completed: 9th or 10th Smoking Status: Current every day smoker Tobacco Type: cigarettes # Packs/Day (cigarettes): 1 #Yrs smoked (if former smoker): 30 Alcohol Intake: never Alcohol Intake Frequency:: other Substance Use Type: denies use *Occupational Status:: retired Housing: house Household Members: spouse, children *Travel in the last 8 weeks: None - Psychiatric History Pschychiatric History:: Reports:: Anxiety Family Hx:: Cancer, Heart Attack, Thyroid Disorder Review of Systems - Review of Systems Review of systems:: pertinent systems reviewed and negative unless documented below - *Neurologic Reports abnormal walking, Reports frequent falls, Reports dizziness Meds Home Medications Medication Instructions Recorded Confirmed Type omega-3 fatty acids 1,000 mg 1,000 mg PO DAILY 05/16/17 06/22/20 History capsule clopidogrel 75 mg tablet 75 mg PO DAILY tab 10/30/17 06/21/20 History Multivit-Min/Folic Acid/Biotin 1 each PO DAILY 09/09/18 06/21/20 History [Women Multivit W-Biotin Gummy] Aspirin [Aspirin 81mg chewable 81 mg PO DAILY 09/10/18 06/21/20 History tab] Atorvastatin Calcium [Lipitor 80mg 80 mg PO HS 09/10/18 06/21/20 History Tab] Losartan Potassium 50 mg PO DAILY 10/31/18 06/21/20 History Sucralfate [Sucralfate 1gm 1 g PO ACHS 10/31/18 06/22/20 History Tab] gabapentin 300 mg capsule 300 mg PO BID cap 11/14/19 06/21/20 History linaclotide 145 mcg capsule 145 mcg PO DAILY cap 11/14/19 06/21/20 History Nitroglycerin 0.4 mg SUBLINGUAL Q5MINP PRN 06/21/20 06/22/20 History Calcium Carbonate/Vitamin D3 1 each PO DAILY 06/22/20 06/22/20 History [Calcium 600+D Softgel] Escitalopram Oxalate 20 mg PO DAILY 06/22/20 06/22/20 History Metoprolol Succinate [Metoprolol 50 mg PO DAILY 06/22/20 06/22/20 History Succinate 50mg Tablet*] Pantoprazole Sodium [Protonix 40mg 40 mg PO BID 06/22/20 06/22/20 History tablet] Ranolazine [Ranexa] 500 mg PO BID 06/22/20 0
--- NOTE | 2020-06-22 20:14 | PC.NURSE ---
pt has rested well since returning from heart cath. dsg cdi. bp has remained low, but pt is asymptomatic.florence pérez
--- NOTE | 2020-06-22 22:55 | PC.NURSE ---
report received from javier antonio rn
--- NOTE | 2020-06-22 22:58 | PC.NURSE ---
pt transferred to room 279 per wheelchair at this time, pt oriented to staff and room. no needs at this time
[2020-06-23 04:00] VITALS: BP 94/56; PULSE 70; RESP 18; TEMP 36.9; O2SAT 95
--- NOTE | 2020-06-23 05:05 | PC.NURSE ---
PT HAS RESTED WELL THIS SHIFT. A&O X 4. VITAL SIGNS STABLE, HYPOTENSTIVE, ASYMPTOMATIC. NO DIZZINESS UPON STANDING. IV PATENT. LUE ELEVATED. PT ABLE TO FEEL AND MOVE ALL FINGERS. NO PAIN REPORTED. CALL LIGHT WITHIN REACH. WILL CONTINUE TO MONITOR.
[2020-06-23 07:14] LABS: Anion Gap 4.9 mEq/L (5-15); Basophils % 0.2 % (0.1-2.0); Blood Urea Nitrogen 9 mg/dl (7-17); Calcium 8.1 mg/dl (8.4-10.2); Carbon Dioxide 33 mmol/L (22.0-30.0); Chloride 102 mmol/L (98-107); Creatinine Clearance Estimated 57 mL/min (50-200); Eosinophils % 0.5 % (0.1-12.0); Estimated Glomerular Filt Rate 71 ml/min (>60); GFR (African American) 86 ML/MIN (>60); Glucose 101 mg/dl (74-100); Hematocrit 34.6 % (37.0-47.0); Hemoglobin 11.4 g/dL (12.2-16.2); Lymphocytes # 1.5 K/mm3 (0.7-4.5); Mean Corpuscular Hemoglobin 31.6 pg (27.0-31.2); Mean Corpuscular Volume 95.7 fl (81-99); Mean Platelet Volume 7.4 fl (7.4-10.4); Monocytes # 0.4 K/mm3 (0.1-1.0); Neutrophils # 5.4 K/mm3 (1.8-7.8); Neutrophils % 74.3 % (37.0-80.0); Platelet Count 179 K/mm3 (142-424); Red Blood Count 3.62 M/mm3 (4.20-5.40); Red Cell Distribution Width 13.8 % (11.5-17.5); Sodium 137 mmol/L (136-145); White Blood Count 7.3 K/mm3 (4.8-10.8)
[2020-06-23 07:21] LABS: Potassium 2.9 mmoL/L (3.5-5.1)
--- NOTE | 2020-06-23 07:25 | PC.NURSE ---
07:22 Notified by Renate (LAB) K+ = 2.9
[2020-06-23 07:39] VITALS: BP 98/58; PULSE 70; RESP 17; TEMP 37; O2SAT 95
[2020-06-23 07:41] VITALS: O2SAT 95
--- NOTE | 2020-06-23 08:10 | PC.NURSE ---
IV saline locked in #20 rt AC, flushes well. IV #20 rt wrist infusing normal saline at 75m/hr.
--- NOTE | 2020-06-23 08:30 | PC.NURSE ---
DR. Angulo here for morning rounds.
--- NOTE | 2020-06-23 08:39 | HMH.DCSUM ---
General - General Admission date:: 06/21/20 Discharge date: 06/23/20 HPI HPI: Mrs. Jha is a 70yo F presents to the emergency department after a syncopal event yesterday. Patient reports she was dizzy yesterday morning and was feeling okay until she got up, felt a little dizzy, next thing she knows she is on the floor and her son is assisting her. She does not recall passing out, falling, or how she ended up on the floor. Had pain in her face as well as pain in her left wrist. She recalls feeling her heartbeat elevate, it was going to jump out of my chest , prior to the event. On presentation to the ER noticed to have abrasion to her face, left wrist fracture, acute kidney injury, electrolyte disturbances. Admitted for syncopal event and further management. On interview this morning, she still feels tired and nauseous. Denies any confusion, chest pain, shortness of breath. Is n.p.o. due to cardiology consult. Of note was due for stress test today. Hemodynamically stable overnight. Still has some mild electrolyte disturbances on labs this morning. Cardiac history significant for the following: CAD-Medical mgt NOV 2019. Medical management 08/2018 HX of JABIER. DAPT Plavix and Aspirin. We have recorder in place, last interrogation in April it revealed no events Hospital Course Hospital Course: Patient was admitted overnight, ruled out for AK, pacemaker was interrogated, showed no evidence of arrhythmias. Patient was noted to be mildly hypokalemic, this was replaced cautiously, increased to acceptable levels this morning. Patient did confide with the cardiology service that she had been drinking some flavored whiskey over the past couple of days, and thinks that this might of caused her syncope. However she did not confide in me this information but it is noted. This morning she is doing much better, feels good, orthopedics has seen her for wrist fracture, they have arranged follow-up, cardiology will see her in a week and I will see her in my office is in 2 days for reevaluation of blood pressure and potassium. I recommended that she cut her metoprolol in half given her bradycardia episodes. Objective Vital signs: Temp Pulse Resp BP Pulse Ox 98.6 F 70 17 98/58 L 95 06/23/20 07:39 06/23/20 07:39 06/23/20 07:39 06/23/20 07:39 06/23/20 07:41 no acute distress - *Routine HEENT Exam Head: Present: abrasion Eye: Present: EOMI, PERRL ENT: Present: mucous membranes moist Comments: Abrasion to the middle of the forehead and to the left suborbital area. Well-healing - *Routine Neck Exam Present: supple - *Routine Respiratory Exam Present: CTA bilaterally - *Routine Cardiovascular Exam Present: RRR - *Routine Abdominal Exam Present: soft, normoactive bowel sounds. Absent: tenderness - *Routine Extremities Exam Absent: cyanosis, clubbing, edema Comments: Left wrist and rigid splint. Good distal perfusion - *Routine Skin Exam Present: warm. Absent: rash - Detailed Eye Exam Eyelids: Bilateral normal inspection Results Labs on day of discharge: Labs from last 24 hours 06/23/20 06/23/20 06/21/20 06:44 06:44 15:10 WBC 7.3 RBC 3.62 L Hgb 11.4 L Hct 34.6 L MCV 95.7 MCH 31.6 H MCHC 33.0 RDW 13.8 Plt Count 179 MPV 7.4 Neut % (Auto) 74.3 Lymph % (Auto) 20.0 Becker % (Auto) 5.0 Eos % (Auto) 0.5 Baso % (Auto) 0.2 Neut # (Auto) 5.4 Lymph # (Auto) 1.5 Becker # (Auto) 0.4 Eos # (Auto) 0.0 Baso # (Auto) 0.0 Sodium 137 Potassium 2.9 L* Chloride 102 Carbon Dioxide 33 H Anion Gap 4.9 L BUN 9 D Creatinine 0.80 D Estimated Creat Clear 57 Estimated GFR 71 Est GFR ( Amer) 86 D Glucose 101 H Calcium 8.1 L Urine Color Yellow Urine Appearance Clear Urine pH 6.0 Ur Specific [place] 1.025 Urine Protein Negative Urine Glucose (UA) Negative U
--- NOTE | 2020-06-23 09:45 | PC.NURSE ---
Both IV sites discontinued at this time with catheters intact. Tolerated well. 2x2 gauze and coban applied to both sites.
== END 2020-06-23 10:10 | disposition home or self-care (01) | DRG 287 ==
LOC: ER 16:54 → 2ND 17:14 → OB 06-22 22:56
PROVIDERS: Internal Medicine; Admitting Provider Family Medicine; Emergency Provider Family Medicine; PCP Internal Medicine Adolescent Medicine; Visit Provider Internal Medicine Adolescent Medicine
PROC: 4A023N7 Measurement of Cardiac Sampling and Pressure, Left Heart, Percutaneous Approach (ICD-10-PCS; principal; 2020-06-22 09:00)
DX: I25.110 Atherosclerotic heart disease of native coronary artery with unstable angina pectoris (principal); S52.502A Unspecified fracture of the lower end of left radius, initial encounter for closed fracture; S52.612A Displaced fracture of left ulna styloid process, initial encounter for closed fracture; N17.9 Acute kidney failure, unspecified; Z79.890 Hormone replacement therapy; Z79.899 Other long term (current) drug therapy; Z95.5 Presence of coronary angioplasty implant and graft; I11.0 Hypertensive heart disease with heart failure; I50.9 Heart failure, unspecified; I25.2 Old myocardial infarction; Z72.0 Tobacco use; E87.6 Hypokalemia; I27.20 Pulmonary hypertension, unspecified; Z91.81 History of falling; R29.6 Repeated falls; W01.0XXA Fall on same level from slipping, tripping and stumbling without subsequent striking against object, initial encounter; Y92.013 Bedroom of single-family (private) house as the place of occurrence of the external cause
CPT/HCPCS: 29125; 70450; 71045; 73100; 80048; 80053; 81001; 83735; 84100; 85025; 87086; 87088; 87186; 93005; 93306; 93458; 96375; 99152; 99285; C1725; C1769; J1644; J2405; Q9967; U0003

== ENCOUNTER → 2020-06-28 11:10 | Outpatient (CLI) | payer MEDICARE, OTHER, SELFPAY ==
[2020-06-28 12:23] LABS: Chloride 93 mmol/L (98-107); Sodium 140 mmol/L (136-145)
[2020-06-28 12:24] LABS: Potassium 3.2 mmoL/L (3.5-5.1)
[2020-06-28 12:26] LABS: Anion Gap 13.2 mEq/L (5-15); Blood Urea Nitrogen 17 mg/dl (7-17); Carbon Dioxide 37 mmol/L (22.0-30.0); Estimated Glomerular Filt Rate 30 ml/min (>60); GFR (African American) 36 ML/MIN (>60)
[2020-06-28 12:27] LABS: Calcium 9.5 mg/dl (8.4-10.2); Glucose 110 mg/dl (74-100)
== END ==
PROVIDERS: Visit Provider Nurse Practitioner Family
DX: E87.6 Hypokalemia (principal)
CPT/HCPCS: 36415; 80048

== ENCOUNTER → 2020-06-28 13:02 | Outpatient (POV) | payer MEDICARE, OTHER, SELFPAY | PROVIDERS: Visit Provider Nurse Practitioner Family | DX: Z00.00 Encounter for general adult medical examination without abnormal findings (principal) ==

== ENCOUNTER → 2020-07-02 11:22 | Outpatient (CLI) | payer MEDICARE, OTHER, SELFPAY ==
--- NOTE | 2020-07-02 11:29 | XR_ITS ---
PROCEDURE: XR WRIST LT MIN 3V CLINICAL INDICATION: LT wrist fracture Follow-up fracture COMPARISON: CR XR WRIST RT 2V from 04/16/2020 CR XR WRIST RT MIN 3V from 05/14/2020 CR XR WRIST LT 2V from 06/21/2020 FINDINGS: Mildly impacted distal radial fracture once again noted with minimal dorsal angulation of the distal fracture fragment. One small dorsal fragment is displaced posteriorly approximately 4 mm. Nondisplaced avulsion of the ulnar styloid also noted. There is some minimal chondrocalcinosis of the wrist other findings:None. IMPRESSION: No change minimally impacted distal radial fracture with ulnar avulsion Dictated by: Albino Rider MD 07/02/2020 14:44 Albino Rider MD in [place] 07/02/2020 14:44
== END ==
PROVIDERS: PCP Internal Medicine Adolescent Medicine; Visit Provider Orthopaedic Surgery
DX: M25.532 Pain in left wrist (principal); W19.XXXA Unspecified fall, initial encounter
CPT/HCPCS: 73110

== ENCOUNTER → 2020-07-08 10:50 | Outpatient (CLI) | payer MEDICARE, OTHER, SELFPAY ==
[2020-07-08 11:50] LABS: Blood Urea Nitrogen 11 mg/dl (7-17); Estimated Glomerular Filt Rate 62 ml/min (>60); GFR (African American) 75 ML/MIN (>60)
[2020-07-08 12:41] LABS: Anion Gap 14.8 mEq/L (5-15); Calcium 9.8 mg/dl (8.4-10.2); Carbon Dioxide 30 mmol/L (22.0-30.0); Chloride 97 mmol/L (98-107); Glucose 117 mg/dl (74-100); Sodium 139 mmol/L (136-145)
[2020-07-08 13:03] LABS: Potassium 2.8 mmoL/L (3.5-5.1)
== END ==
PROVIDERS: Nurse Practitioner Family; Visit Provider Urology
DX: I10 Essential (primary) hypertension (principal); I25.10 Atherosclerotic heart disease of native coronary artery without angina pectoris
CPT/HCPCS: 36415; 80048

== ENCOUNTER → 2020-07-15 10:04 | Outpatient (CLI) | payer MEDICARE, OTHER, SELFPAY ==
--- NOTE | 2020-07-15 10:05 | CA_ITS ---
APPROVED REPORT Senior Marketing Manager: CT Laterality: Bilateral Risk Factors Hypertension: TIA/CVA History Hyperlipidemia Doppler Spectral Velocity Analysis ECA (R) 65.80/15.50 cm/s ECA (L) 66.80/22.50 cm/s dICA (R) 134.70/48.50 cm/s dICA (L) 99.30/41.60 cm/s Sangeetha (R) 87.80/39.40 cm/s Sangeetha (L) 111.70/46.20 cm/s pICA (R) 75.90/34.20 cm/s pICA (L) 96.30/37.90 cm/s dCCA (R) 77.50/29.90 cm/s dCCA (L) 82.90/34.80 cm/s pCCA (R) 67.40/20.90 cm/s pCCA (L) 66.20/23.10 cm/s Vert (R) 45.40/16.00 cm/s Vert (L) 46.00/17.60 cm/s ICA/CCA 1.70 ICA/CCA 1.40 Findings Duplex evaluation demonstrates stenosis of the right proximal internal carotid artery <20% with PSV <140 cm/sec, EDV <100 cm/sec, and IC/CC Ratio <4.0. Duplex evaluation demonstrates stenosis of the left proximal internal carotid artery in the range of 20-49% with PSV <140 cm/sec, EDV <100 cm/sec, and IC/CC Ratio <4.0. Duplex evaluation demonstrates antegrade flow of the bilateral Vertebral Arteries. Thyroid cysts noted Electronically signed by : Albino Rider MD 07/15/2020 15:54:07
== END ==
PROVIDERS: PCP Internal Medicine Adolescent Medicine; Visit Provider Nurse Practitioner Family
DX: R55 Syncope and collapse (principal)
CPT/HCPCS: 93880

== ENCOUNTER → 2020-07-23 08:25 | Outpatient (CLI) | payer MEDICARE, OTHER, SELFPAY ==
--- NOTE | 2020-07-23 08:29 | XR_ITS ---
PROCEDURE: XR WRIST LT MIN 3V CLINICAL INDICATION: left wrist fracture COMPARISON: CR XR WRIST RT 2V from 04/16/2020 CR XR WRIST RT MIN 3V from 05/14/2020 CR XR WRIST LT 2V from 06/21/2020 CR XR WRIST LT MIN 3V from 07/02/2020 FINDINGS: Healing fracture of the left distal radius is noted with mild dorsal angulation. No evidence of intra-articular extension. Bone density is within normal limits. Radiocarpal alignment is unremarkable. Minor degenerative changes of the 1st CMC joint. Minor soft tissue swelling adjacent to the wrist joint. IMPRESSION: Healing left distal radial fracture with mild dorsal angulation. Dictated by: Ivelisse Hong 07/23/2020 09:32 Ivelisse Hong in [place] 07/23/2020 09:32
== END ==
PROVIDERS: PCP Internal Medicine Adolescent Medicine; Visit Provider Orthopaedic Surgery
DX: S52.502A Unspecified fracture of the lower end of left radius, initial encounter for closed fracture (principal)
CPT/HCPCS: 73110

== ENCOUNTER → 2020-08-09 08:32 | Outpatient (CLI) | payer MEDICARE, OTHER, SELFPAY ==
--- NOTE | 2020-08-09 08:36 | XR_ITS ---
PROCEDURE: XR WRIST LT MIN 3V CLINICAL INDICATION: LT wrist fracture Follow-up fracture COMPARISON: CR XR WRIST RT MIN 3V from 05/14/2020 CR XR WRIST LT 2V from 06/21/2020 CR XR WRIST LT MIN 3V from 07/02/2020 CR XR WRIST LT MIN 3V from 07/23/2020 FINDINGS: Nondisplaced fracture once again noted involving the distal radius. There is mild dorsal angulation of the distal fracture fragment which may be slightly increased.. There is some sclerosis at the fracture site with dorsal callus formation with persistent lucency also noted. Nondisplaced ulnar styloid fracture noted unchanged. IMPRESSION: Nondisplaced distal radial fracture is incompletely healed. There is slightly greater dorsal angulation of the distal fracture fragment. There appears to be increased callus formation dorsally Dictated by: Albino Rider MD 08/09/2020 17:59 Albino Rider MD in [place] 08/09/2020 17:59
== END ==
PROVIDERS: PCP Internal Medicine Adolescent Medicine; Visit Provider Orthopaedic Surgery
DX: S52.502A Unspecified fracture of the lower end of left radius, initial encounter for closed fracture (principal)
CPT/HCPCS: 73110

== ENCOUNTER 2020-08-09 09:20 | Outpatient (RCR) | payer MEDICARE, OTHER, SELFPAY | END 2020-08-09 10:00 | disposition home or self-care (01) | LOC: OT 09:20 | PROVIDERS: Visit Provider Orthopaedic Surgery | DX: S52.502A Unspecified fracture of the lower end of left radius, initial encounter for closed fracture (principal) | CPT/HCPCS: 97763 ==

== ENCOUNTER → 2020-09-06 07:56 | Outpatient (POV) | payer MEDICARE, OTHER, SELFPAY ==
--- NOTE | 2020-09-06 08:02 | XR_ITS ---
PROCEDURE: XR WRIST LT MIN 3V CLINICAL INDICATION: non-displaced L distal radius fracture Follow-up fracture COMPARISON: 08/09/2020 FINDINGS: Healing distal radial fracture is once again noted. Sclerosis is developing at the fracture site consistent with healing with the fracture line less visible. There remains a dorsally displaced fragment as before with mild dorsal angulation of the distal fracture fragment and no significant displacement of the main distal fracture fragment. IMPRESSION: Healing distal radial fracture as above Dictated by: Albino Rider MD 09/06/2020 08:32 Albino Rider MD in [place] 09/06/2020 08:32
== END ==
PROVIDERS: PCP Internal Medicine Adolescent Medicine; Visit Provider Nurse Practitioner Family
DX: S52.502A Unspecified fracture of the lower end of left radius, initial encounter for closed fracture (principal)
CPT/HCPCS: 73110

== ENCOUNTER 2020-09-19 07:51 | Emergency (ER) | payer MEDICARE, OTHER, SELFPAY ==
[2020-09-19] VITALS (13 sets, daily range): BP systolic 122–155; BP diastolic 60–95; PULSE 60–83; RESP 18–30; TEMP 36.6; O2SAT 94–98; BMI 26.5
--- NOTE | 2020-09-19 08:03 | XR_ITS ---
PROCEDURE INFORMATION: Exam: XR Chest Exam date and time: 09/19/2020 8:03 AM Age: 70 years old Clinical indication: Injury or trauma; Blunt trauma (contusions or hematomas); Prior surgery; Surgery type: Loop recorder; Patient HX: Fall , syncope this morning TECHNIQUE: Imaging protocol: XR of the chest. Views: 1 view. COMPARISON: CR XR CHEST PORTABLE 06/21/2020 3:00 PM FINDINGS: Tubes, catheters and devices: Spinal stimulator wires are seen. There are several EKG leads overlying the chest. A loop recorder overlies the left hemithorax. Lungs: Unremarkable. No consolidation. Pleural spaces: Unremarkable. No pleural effusion. No pneumothorax. Heart/Mediastinum: Unremarkable. No cardiomegaly. Bones/joints: There are old bilateral rib fractures. IMPRESSION: No acute findings.
--- NOTE | 2020-09-19 08:04 | XR_ITS ---
PROCEDURE INFORMATION: Exam: XR Right Ankle Exam date and time: 09/19/2020 8:04 AM Age: 70 years old Clinical indication: Injury or trauma; Blunt trauma; Patient HX: Fall right ankle pain; Additional info: Fall, pain TECHNIQUE: Imaging protocol: XR Right ankle. Views: 3 or more views. COMPARISON: US Lower Arterial 09/09/2018 7:36 AM FINDINGS: Bones/joints: Normal. Soft tissues: Normal. IMPRESSION: No acute findings.
--- NOTE | 2020-09-19 08:04 | CT_ITS ---
PROCEDURE INFORMATION: Exam: CT Head Without Contrast Exam date and time: 09/19/2020 8:04 AM Age: 70 years old Clinical indication: Injury or trauma; Fall; Blunt trauma (contusions or hematomas); Additional info: Fall, head injury TECHNIQUE: Imaging protocol: Computed tomography of the head without contrast. Radiation optimization: All CT scans at this facility use at least one of these dose optimization techniques: automated exposure control; mA and/or kV adjustment per patient size (includes targeted exams where dose is matched to clinical indication); or iterative reconstruction. COMPARISON: CT HEAD/BRAIN WO CON 06/21/2020 2:07 PM FINDINGS: Brain: Normal. No hemorrhage. Unremarkable white matter. No mass effect. Cerebral ventricles: No ventriculomegaly. Paranasal sinuses: There is mild sinus disease. Mastoid air cells: Visualized mastoid air cells are well aerated. Bones/joints: Unremarkable. No acute fracture. Soft tissues: Unremarkable. IMPRESSION: No acute intracranial abnormality.
--- NOTE | 2020-09-19 08:05 | XR_ITS ---
PROCEDURE INFORMATION: Exam: XR Right Tibia and Fibula Exam date and time: 09/19/2020 8:05 AM Age: 70 years old Clinical indication: Injury or trauma; Blunt trauma; Patient HX: Fall right lower leg pain TECHNIQUE: Imaging protocol: XR Right tibia and fibula. Views: 2 views. COMPARISON: CR XR KNEE RT 3V 11/26/2019 11:03 AM FINDINGS: Bones/joints: Normal. Soft tissues: Normal. IMPRESSION: No acute findings.
--- NOTE | 2020-09-19 08:05 | ECG_ITS ---
APPROVED REPORT Exam: Resting ECG HR:79 bpm ECG Measurements Heart Rate 79 AXES NH 150 P 52 QRSd 142 QRS 6 QT 462 T 11 QTc 529 Conclusion Normal sinus rhythm Right bundle branch block Abnormal ECG Electronically signed by : Abdiel Angulo, 09/20/2020 07:12:14
[2020-09-19 08:20] LABS: Basophils % 0.3 % (0.1-2.0); Eosinophils # 0.1 K/mm3 (0.0-0.4); Eosinophils % 0.9 % (0.1-12.0); Hematocrit 38.4 % (37.0-47.0); Hemoglobin 13.2 g/dL (12.2-16.2); Lymphocytes # 1.7 K/mm3 (0.7-4.5); Lymphocytes % 16.2 % (10-50); Mean Corpuscular HGB Conc 34.5 g/dL (31.8-35.4); Mean Corpuscular Hemoglobin 32.2 pg (27.0-31.2); Mean Corpuscular Volume 93.5 fl (81-99); Mean Platelet Volume 8.7 fl (7.4-10.4); Monocytes # 0.4 K/mm3 (0.1-1.0); Monocytes % 3.3 % (1.7-9.3); Neutrophils # 8.4 K/mm3 (1.8-7.8); Neutrophils % 79.2 % (37.0-80.0); Platelet Count 241 K/mm3 (142-424); White Blood Count 10.6 K/mm3 (4.8-10.8)
--- NOTE | 2020-09-19 08:20 | PC.NURSE ---
aware of potassium
--- NOTE | 2020-09-19 08:26 | PC.NURSE ---
Pt to rad.
[2020-09-19 08:27] LABS: Alanine Aminotransferase 36 U/L (12-78); Albumin Level 3.9 g/dl (3.5-5.0); Albumin/Globulin Ratio 1.3 (1.1-1.8); Alkaline Phosphatase 57 U/L (38-126); Anion Gap 10.8 mEq/L (5-15); Aspartate Amino Transferase 47 U/L (14-36); Bilirubin,Total 0.6 mg/dl (0.2-1.3); Blood Urea Nitrogen 9 mg/dl (7-17); Carbon Dioxide 31 mmol/L (22.0-30.0); Chloride 97 mmol/L (98-107); Creatinine Clearance Estimated 56 mL/min (50-200); Estimated Glomerular Filt Rate 62 ml/min (>60); GFR (African American) 75 ML/MIN (>60); Globulin 2.9 g/dL (1.3-3.2); Glucose 110 mg/dl (74-100); Sodium 136 mmol/L (136-145); Total Protein,Serum 6.8 g/dl (6.3-8.2)
[2020-09-19 08:30] LABS: Potassium 2.8 mmoL/L (3.5-5.1)
[2020-09-19 08:40] LABS: Troponin I < 0.01 ng/ml (0.00-0.034)
--- NOTE | 2020-09-19 08:45 | HMH.EDGENADL ---
ED Disposition Clinical Impression: Hypokalemia Ankle sprain Qualifiers: Encounter type: initial encounter Involved ligament of ankle: other ligament Laterality: right Qualified Code(s): S93.491A - Sprain of other ligament of right ankle, initial encounter Fall Qualifiers: Encounter type: initial encounter Qualified Code(s): W19.XXXA - Unspecified fall, initial encounter Disposition: Home, Self-Care Condition on Discharge: Fair Instructions: DI for Hypokalemia, DI for Ankle Sprain Additional Instructions: You have been evaluated for fall, right ankle sprain. Please wear Steve bandage for comfort. You also were found to have hypokalemia, low potassium. Please continue taking potassium repletion, 40 mEq daily. Follow-up with Dr. Rivers for repeat lab work. Return to the emergency department for any new or worsening symptoms. Referrals: Abdiel Angulo MD [Primary Care Provider] - Time of Disposition: 12:37 - Critical Care Critical Care Time: No Attestation: On 09/19/20, the high probability of a clinically significant, sudden or life threatening deterioration of the following system(s) required my full and direct attention, intervention and personal management. The time I documented below is in addition to time spent performing reported procedures but includes the following listed in this critical care notation. Medical Decision Making - Medical Records Medical records reviewed: Yes: I reviewed the patient's medical records. - Tanner Inquiry Pt receiving controlled substance: No Vital Signs: 09/19/20 07:52 09/19/20 07:59 09/19/20 08:00 Temperature 97.8 F Temperature Source Oral Pulse Rate 78 81 Pulse Rate [Left Radial] 79 Respiratory Rate 18 25 H 21 Blood Pressure 155/84 H 154/73 H Blood Pressure [Right Arm] 154/84 H Blood Pressure Mean 124 123 Blood Pressure Mean [Right Arm] 107 Blood Pressure Source [Right Arm] Automatic Cuff Blood Pressure Position [Right Arm] Sitting 02 Sat by Pulse Oximetry 97 97 97 Oxygen Delivery Method Room Air 09/19/20 08:02 09/19/20 08:22 09/19/20 08:43 Temperature Temperature Source Pulse Rate 81 79 83 Pulse Rate [Left Radial] Respiratory Rate 21 22 28 H Blood Pressure 133/80 123/95 H 130/79 Blood Pressure [Right Arm] Blood Pressure Mean 102 102 Blood Pressure Mean [Right Arm] Blood Pressure Source [Right Arm] Blood Pressure Position [Right Arm] 02 Sat by Pulse Oximetry 98 98 96 Oxygen Delivery Method 09/19/20 09:00 09/19/20 09:30 09/19/20 10:00 Temperature Temperature Source Pulse Rate 78 78 75 Pulse Rate [Left Radial] Respiratory Rate 26 H 24 27 H Blood Pressure 138/72 151/84 H 125/78 Blood Pressure [Right Arm] Blood Pressure Mean 94 Blood Pressure Mean [Right Arm] Blood Pressure Source [Right Arm] Blood Pressure Position [Right Arm] 02 Sat by Pulse Oximetry 98 95 94 L Oxygen Delivery Method 09/19/20 10:45 09/19/20 11:01 09/19/20 11:31 Temperature Temperature Source Pulse Rate Pulse Rate [Left Radial] Respiratory Rate 30 H 22 18 Blood Pressure 132/66 122/60 137/78 Blood Pressure [Right Arm] Blood Pressure Mean 93 Blood Pressure Mean [Right Arm] Blood Pressure Source [Right Arm] Blood Pressure Position [Right Arm] 02 Sat by Pulse Oximetry Oxygen Delivery Method - Lab Data Lab Results 09/19/20 08:13: WBC 10.6, RBC 4.10 L, Hgb 13.2, Hct 38.4, MCV 93.5, MCH 32.2 H, MCHC 34.5, RDW 14.0, Plt Count 241, MPV 8.7, Neut % (Auto) 79.2, Lymph % (Auto) 16.2, Payne % (Auto) 3.3, Eos % (Auto) 0.9, Baso % (Auto) 0.3, Neut # (Auto) 8.4 H, Lymph # (Auto) 1.7, Payne # (Auto) 0.4, Eos # (Auto) 0.1, Baso # (Auto) 0.0 09/19/20 08:13: Sodium 136, Potassium 2.8 L*, Chloride 97 L, Carbon Dioxide 31 H, Anion Gap 10.8, BUN 9, Creatinine 0.90, Estimated Creat Clear 56, Estimated GFR 62, Est GFR ( Amer) 75, Glucose 110 H, Calcium 8.0 L, Total Bilirubin 0.6, AST
--- NOTE | 2020-09-19 08:53 | PC.NURSE ---
COVID swab sent
--- NOTE | 2020-09-19 08:58 | PC.NURSE ---
Potassium stopped, flushed, tordol given, flushed, potassium restarted.
--- NOTE | 2020-09-19 11:53 | PC.NURSE ---
NO INFILTRATION NOTED AT THE IV SITE. POTASSIUM DISCONTINUED PER MD VERBAL ORDER.
--- NOTE | 2020-09-19 11:53 | PC.NURSE ---
PT COMPLAINING OF PAIN AT IV SITE. AWARE AND WANTS A REPEAT POTASSIUM STRAIGHT STICK. MARIA ALEJANDRA HUTTON APPLIED WARM COMPRESS TO IV SITE AFTER DISCONTINUING IV.
--- NOTE | 2020-09-19 12:06 | ECG_ITS ---
APPROVED REPORT Exam: Resting ECG HR:72 bpm ECG Measurements Heart Rate 72 AXES [place] 154 P 57 QRSd 130 QRS 20 QT 476 T 22 QTc 521 Conclusion Normal sinus rhythm Right bundle branch block Abnormal ECG Electronically signed by : Abdiel Angulo, 09/20/2020 07:11:58
[2020-09-19 12:25] LABS: Anion Gap 8.3 mEq/L (5-15); Blood Urea Nitrogen 11 mg/dl (7-17); Calcium 7.6 mg/dl (8.4-10.2); Carbon Dioxide 32 mmol/L (22.0-30.0); Chloride 98 mmol/L (98-107); Creatinine Clearance Estimated 56 mL/min (50-200); Estimated Glomerular Filt Rate 55 ml/min (>60); GFR (African American) 66 ML/MIN (>60); Glucose 102 mg/dl (74-100); Potassium 3.3 mmoL/L (3.5-5.1); Sodium 135 mmol/L (136-145)
[2020-09-19 12:38] LABS: Troponin I < 0.01 ng/ml (0.00-0.034)
== END 2020-09-19 13:03 | disposition home or self-care (01) ==
PROVIDERS: Emergency Provider Emergency Medicine; PCP Internal Medicine Adolescent Medicine
DX: E87.6 Hypokalemia (principal); S93.491A Sprain of other ligament of right ankle, initial encounter; W01.0XXA Fall on same level from slipping, tripping and stumbling without subsequent striking against object, initial encounter; Y92.012 Bathroom of single-family (private) house as the place of occurrence of the external cause; I25.2 Old myocardial infarction; I10 Essential (primary) hypertension; E78.5 Hyperlipidemia, unspecified; K21.9 Gastro-esophageal reflux disease without esophagitis; Z87.891 Personal history of nicotine dependence; J44.9 Chronic obstructive pulmonary disease, unspecified; I25.10 Atherosclerotic heart disease of native coronary artery without angina pectoris; Z20.822 Contact with and (suspected) exposure to COVID-19
CPT/HCPCS: 70450; 71045; 73590; 73610; 80048; 80053; 84484; 85025; 93005; 96365; 96366; 96375; 99283; U0003

== ENCOUNTER → 2020-09-27 10:46 | Outpatient (CLI) | payer MEDICARE, OTHER, SELFPAY ==
[2020-09-27 12:10] LABS: Alanine Aminotransferase 23 U/L (12-78); Albumin Level 3.6 g/dl (3.5-5.0); Alkaline Phosphatase 74 U/L (38-126); Aspartate Amino Transferase 35 U/L (14-36); Bilirubin,Direct 0.3 mg/dl (0.0-0.4); Bilirubin,Indirect 0.6 mg/dL (0.0-0.9); Bilirubin,Total 0.9 mg/dl (0.2-1.3); Bilirubin,Unconjugated 0.5 mg/dL (0.0-1.1); Chol/HDL Ratio 6.1 (1-3.5); Cholesterol 194 mg/dl (140-200); HDL Cholesterol 32 mg/dl (40-60); Total Protein,Serum 6.2 g/dl (6.3-8.2)
[2020-09-27 12:18] LABS: Triglycerides 769 mg/dl (30-150)
[2020-09-27 12:21] LABS: Direct LDL Cholesterol 34.29 mg/dL (100-129)
== END ==
PROVIDERS: Visit Provider Nurse Practitioner Family
DX: E78.2 Mixed hyperlipidemia (principal); I10 Essential (primary) hypertension; I25.708 Atherosclerosis of coronary artery bypass graft(s), unspecified, with other forms of angina pectoris; I51.89 Other ill-defined heart diseases
CPT/HCPCS: 36415; 80061; 80076

== ENCOUNTER → 2020-10-05 10:49 | Outpatient (CLI) | payer MEDICARE, OTHER, SELFPAY ==
[2020-10-05 18:02] LABS: Basophils # 0.1 K/mm3 (0-0.2); Basophils % 0.7 % (0.1-2.0); Eosinophils # 0.1 K/mm3 (0.0-0.4); Eosinophils % 1.1 % (0.1-12.0); Hemoglobin 12.2 g/dL (12.2-16.2); Lymphocytes # 1.5 K/mm3 (0.7-4.5); Mean Corpuscular HGB Conc 33.9 g/dL (31.8-35.4); Mean Corpuscular Hemoglobin 32.8 pg (27.0-31.2); Mean Corpuscular Volume 96.7 fl (81-99); Mean Platelet Volume 8.4 fl (7.4-10.4); Monocytes # 0.3 K/mm3 (0.1-1.0); Monocytes % 4.9 % (1.7-9.3); Neutrophils # 4.7 K/mm3 (1.8-7.8); Neutrophils % 70.4 % (37.0-80.0); Platelet Count 221 K/mm3 (142-424); Red Blood Count 3.73 M/mm3 (4.20-5.40); White Blood Count 6.7 K/mm3 (4.8-10.8)
[2020-10-05 18:35] LABS: Chloride 100 mmol/L (98-107); Sodium 140 mmol/L (136-145)
[2020-10-05 18:36] LABS: Potassium 3.1 mmoL/L (3.5-5.1)
[2020-10-05 18:38] LABS: Alanine Aminotransferase 26 U/L (12-78); Albumin Level 3.3 g/dl (3.5-5.0); Albumin/Globulin Ratio 1.3 (1.1-1.8); Alkaline Phosphatase 61 U/L (38-126); Aspartate Amino Transferase 53 U/L (14-36); Bilirubin,Total 0.4 mg/dl (0.2-1.3); Blood Urea Nitrogen 12 mg/dl (7-17); Estimated Glomerular Filt Rate 83 ml/min (>60); GFR (African American) 100 ML/MIN (>60); Globulin 2.6 g/dL (1.3-3.2); Total Protein,Serum 5.9 g/dl (6.3-8.2)
[2020-10-05 18:39] LABS: Anion Gap 12.1 mEq/L (5-15); Calcium 7.8 mg/dl (8.4-10.2); Carbon Dioxide 31 mmol/L (22.0-30.0); Glucose 74 mg/dl (74-100)
== END ==
PROVIDERS: PCP Internal Medicine Adolescent Medicine; Visit Provider Nurse Practitioner Family
DX: R55 Syncope and collapse (principal); R42 Dizziness and giddiness
CPT/HCPCS: 80053; 85025; 93270

== ENCOUNTER → 2020-10-21 09:04 | Outpatient (CLI) | payer MEDICARE, OTHER, SELFPAY ==
[2020-10-21 14:06] LABS: Anion Gap 12.3 mEq/L (5-15); Blood Urea Nitrogen 11 mg/dl (7-17); Calcium 7.4 mg/dl (8.4-10.2); Carbon Dioxide 24 mmol/L (22.0-30.0); Chloride 105 mmol/L (98-107); Estimated Glomerular Filt Rate 83 ml/min (>60); GFR (African American) 100 ML/MIN (>60); Glucose 100 mg/dl (74-100); Potassium 3.3 mmoL/L (3.5-5.1); Sodium 138 mmol/L (136-145)
== END ==
PROVIDERS: Visit Provider Nurse Practitioner Family
DX: E87.6 Hypokalemia (principal)
CPT/HCPCS: 36415; 80048

== ENCOUNTER 2020-11-04 08:36 | Day surgery (SDC) | payer MEDICARE, OTHER, SELFPAY ==
[2020-11-04 08:50] VITALS: BMI 26.2
[2020-11-04 09:13] VITALS: PULSE 76
[2020-11-04 09:16] VITALS: BP 119/83; PULSE 74; RESP 17; TEMP 36.7; O2SAT 95
[2020-11-04 09:17] LABS: Coronavirus 19, PCR Not Detected (NotDetected); Influenza A, PCR Not Detected (NotDetected); Influenza B, PCR Not Detected (NotDetected)
[2020-11-04 09:40] VITALS: BP 127/69; PULSE 79; RESP 17; O2SAT 96
[2020-11-04 09:51] VITALS: BP 114/71; PULSE 80; RESP 17; O2SAT 98
--- NOTE | 2020-11-04 10:08 | P.PCN_ITS ---
[facility] Loop Recorder Date: 11/04/20 Time: 09:30 Procedure Performed:: Removal of existing loop recorder and replacement with new loop recorder Indication:: Recurrent syncope Technique:: Patient was brought to the cardiac Financial Management Consultant. After informed consent obtained, 1% lidocaine with epinephrine was used to anesthetize the site along the left anterior aspect of the chest near the sternal border and over the existing loop recorder. Using a scalpel, an incision was made and using hemostats the existing loop recorder was removed without complications. Using the supplied preloaded apparatus, the new loop recorder was placed subcutaneously without difficulty. Following the deployment of the loop recorder interrogation of the device was performed to ensure appropriate voltage was being detected (0.12 mV but with excellent EKG tracing). Once this was verified, Steri-Strips were placed over the incision and the patient was prepped to discharge home. Patient tolerated the procedure well with minimal discomfort. Impression:: Successful removal of existing loop recorder and implantation of new loop recorder Serial Number:: NaturVention DX model M301 serial #[id number] Plan:: Routine postop care
== END 2020-11-04 09:58 | disposition home or self-care (01) ==
LOC: CATHLAB 08:38
PROVIDERS: Physician Assistant; PCP Internal Medicine Adolescent Medicine; Visit Provider Internal Medicine
DX: Z45.09 Encounter for adjustment and management of other cardiac device (principal); I45.10 Unspecified right bundle-branch block; Z20.822 Contact with and (suspected) exposure to COVID-19
CPT/HCPCS: 33285; U0003

== ENCOUNTER 2020-11-08 10:59 | Day surgery (SDC) | payer MEDICARE, OTHER, SELFPAY ==
[2020-11-08 10:56] LABS: Coronavirus 19, PCR Not Detected (NotDetected); Influenza A, PCR Not Detected (NotDetected); Influenza B, PCR Not Detected (NotDetected)
[2020-11-08 12:57] VITALS: BP 140/94; PULSE 90; RESP 18; TEMP 36.1; O2SAT 99; BMI 26.2
--- NOTE | 2020-11-08 13:23 | P.PN_ITS ---
[facility] Anesthesia Checklist - Patient Identification Patient Identification: Arm Band - Structural Data Admitted From: Home Planned Operative Procedure/s: EGD/Colonoscopy Consent for Planned Operative Procedure(s) Verified: Yes - NPO Status Verified Time NPO: 00:00 - Additional verifications Anesthesia Reactions: No Hx Blood Transfusions: No Blood Transfusion Reaction: No - Airway Assessment C-Spine Mobility Assessed: Yes TMJ Mobility Assessed: Yes Dentition: Good Dentition - Neurological Assessment Level of Consciousness: Awake Hx Seizures: No Numbness or tingling in extremities: No - Anesthesia Plan Anesthesia Risk discussed: Yes Anesthesia Plan: Verified ASA Class: III Anesthesia Type: MAC [facility] History I have reviewed the patient's past medical history: Yes Medical History: Reports:: Anxiety, Atherosclerotic Heart Disease, Congestive Heart Failure, Chronic Obstructive Pulmonary Disease (COPD), Coronary Artery Disease, Gastroesophageal Reflux Disease(GERD), Hyperlipidemia, Hypertension, Lung Disease, Myocardial Infarction, Transient Ischemic Attacks (TIA) Denies:: Cancer, Diabetes Mellitus Type 1, Diabetes Mellitus Type 2, Internal Pacemaker, MRSA, Seizures *Have you ever received a pneumonia vaccine?: Yes *Have you received a flu vaccine this season?: Yes Other Medical History: Reports: Arthritis, Cataracts, Hormone Therapy, Liver Disease, Other. Denies: Blood Transfusion Reaction Anesthesia experience/problems:: None Laterality Cases: Bilateral: Tonsillectomy Other Surgeries: Yes: Appendectomy, Cardiac Catheterization, Cholecystectomy, Colonoscopy, Coronary Stent, EGD, Hernia Repair (09/2017), Hysterectomy-Total, Tubal Ligation, Other. No: Pacemaker Amputation: No Fractures: Yes - *Social History Last grade of school completed: 9th or 10th Smoking Status: Former smoker Tobacco Type: cigarettes # Packs/Day (cigarettes): 1 #Yrs smoked (if former smoker): 30 Alcohol Intake: never Alcohol Intake Frequency:: other Substance Use Type: denies use *Occupational Status:: retired Housing: house Household Members: spouse *Travel in the last 8 weeks: None - Psychiatric History Pschychiatric History:: Reports:: Anxiety Family Hx:: Cancer, Heart Attack
--- NOTE | 2020-11-08 14:06 | HMH.PROC ---
[facility] Procedure Note Procedure Note:: Upper Endoscopy Procedure Report: Esophagogastroduodenoscopy with cold biopsies Endoscopost: Sandeep Enamorado II, MD Referring Physician: Abdiel Angulo M.D. Date of Procedure: November 08, 2020 Equipment: Olympus GIF 190 standard upper endoscope Sedation: MAC sedation Indications: Mrs. Jha is a 70-year-old female with prior history of Billroth I gastroduodenostomy (Dr. Chad Ro) in 2016 secondary to a nonhealing gastric ulcer. The patient continues to have epigastric abdominal pain and some generalized abdominal discomfort with bloating, gassiness, belching and foamy reflux. The patient did have an EGD with Dr. Harsha Hawley M.D. in May 2017 and had streaky gastropathy. The patient also has had upper GI series with small bowel follow-through and barium enema. She does have chronic constipation. She reports bloating, nausea and some regurgitation. She does have a positive family history of gastrointestinal cancer (mother with rectal cancer and sister with pancreatic cancer). She does have some intermittent dark or black stools. She is on anticoagulation (clopidogrel). She does take pantoprazole and Zofran and sucralfate. Procedure: Prior to the procedure, a history and physical exam was performed, and patient's medications and allergies were reviewed. The risks, benefits and alternatives of the sedation and procedure were discussed with the patient. All questions were answered and informed consent was obtained. The patient was brought to the procedure room. Patient identification and proposed procedure were verified by the physician and the nurse. The patient was placed in a left lateral decubitus position and the scope was passed under direct vision. Throughout the procedure, the patient's blood pressure, pulse, and oxygen saturations were monitored continuously. The upper GI endoscopy was accomplished without difficulty. The patient tolerated the procedure well. Findings: The scope was passed directly into the upper esophagus and advanced to the third portion of the duodenum. The post bulbar duodenum was normal. There was a gastroduodenal anastomosis. There was marked bile reflux with moderate linear reactive gastropathy of the remaining antrum and body of the stomach. Cold biopsies were obtained. Upon retroflexion there was a very small sliding hiatal hernia. The scope was then withdrawn into the esophagus. There was a serrated Z-line. Cold biopsies were obtained. There were tertiary contractions and evidence of moderate esophageal dysmotility. The remainder of the esophageal mucosa was normal. Impression: 1. Nonerosive GERD with moderate esophageal dysmotility and very small sliding hiatal hernia 2. Bile reflux with moderate linear reactive gastropathy 3. Gastroduodenostomy (Billroth I surgical anatomy) Plan: I will follow-up the biopsies. The patient does have functional dyspepsia and functional GERD. We will discuss additional treatment options. I will proceed with diagnostic colonoscopy.
--- NOTE | 2020-11-08 14:30 | HMH.PROC ---
[facility] Procedure Note Procedure Note:: Colonoscopy Procedure Report: Colonoscopy with cold snare polypectomy Endoscopist: Sandeep Enamorado II, MD Referring physician: Abdiel Angulo M.D. Date of Procedure: November 08, 2020 Equipment: Olympus 190 variable stiffness pediatric colonoscope Sedation: MAC sedation Indication: Mrs. Jha is a 70-year-old female with a history of multiple adenomatous polyps in the past. She did have a colonoscopy with Dr. Harsha Hawley M.D. in May 2017 and had 11 polyps (tubular adenomas) removed. She has had chronic constipation and bloating with lower abdominal discomfort. She reports no bright red rectal bleeding or weight loss. She reports that her mother had rectal cancer. She also had a sister with pancreatic cancer. Procedure: Prior to the procedure, a history and physical exam was performed, and patient's medications and allergies were reviewed. The risks, benefits and alternatives of the sedation and procedure were discussed with the patient. All questions were answered and informed consent was obtained. The patient was brought to the procedure room. Patient identification and proposed procedure were verified by the physician and the nurse. The patient was placed in a left lateral decubitus position and the scope was passed under direct vision. Throughout the procedure, the patient's blood pressure, pulse, and oxygen saturations were monitored continuously. The colonoscopy was accomplished without difficulty. The patient tolerated the procedure well. Findings: On digital rectal examination there was normal rectal tone. There were no external hemorrhoids. The colonoscope was introduced through the anal canal to the rectum and advanced to the cecum. The ileocecal valve and appendiceal orifice were identified. The scope was advanced a short distance into the ileum which appeared grossly normal. The scope was then withdrawn into the colon. The cecum, ascending and transverse colon and mucosa were grossly normal. There were 3 colon polyps (transverse x1 (4 mm), descending x1 (13 mm) and sigmoid x1 (6 mm)) which were removed via cold snare polypectomy. There were scattered diverticuli throughout the descending and sigmoid colon (LEFT colon). There were pericolonic adhesions around the sigmoid colon from prior hysterectomy. The rectum itself was normal. Upon retroflexion within the rectum there were grade 1-2 internal hemorrhoids. The preparation was excellent throughout with [place] Preparation Score of 9. The cecal time was 14 minutes. Impression: 1. Colonic polyps x3 2. Left-sided diverticulosis with evidence of sigmoid pericolonic adhesions 3. Grade 1-2 internal hemorrhoids Plan: Based upon the size and prior number of adenomatous polyps and patient's family history, I would recommend repeat surveillance colonoscopy again in 3 years. I would encourage continuation of a fiber bowel regimen on a long-term daily maintenance basis. We will discuss additional dietary measures and treatment options.
[2020-11-08 14:34] VITALS: BP 159/81; PULSE 75; RESP 18; TEMP 36.1; O2SAT 94
[2020-11-08 14:44] VITALS: BP 155/84; PULSE 84; RESP 18; O2SAT 100
[2020-11-08 14:58] VITALS: BP 160/93; PULSE 63; RESP 18; O2SAT 98
[2020-11-08 15:12] VITALS: BP 143/87; PULSE 81; RESP 18; O2SAT 97
== END 2020-11-08 15:13 | disposition home or self-care (01) ==
LOC: OUTP 11:01
PROVIDERS: PCP Internal Medicine Adolescent Medicine; Visit Provider Internal Medicine Gastroenterology
PROC: 0DJ08ZZ Inspection of Upper Intestinal Tract, Via Natural or Artificial Opening Endoscopic (ICD-10-PCS; CPT 43235; principal; 2020-11-08 13:30)
DX: K63.5 Polyp of colon (principal); K57.30 Diverticulosis of large intestine without perforation or abscess without bleeding; K66.0 Peritoneal adhesions (postprocedural) (postinfection); K64.0 First degree hemorrhoids; K21.9 Gastro-esophageal reflux disease without esophagitis; K22.4 Dyskinesia of esophagus; K44.9 Diaphragmatic hernia without obstruction or gangrene; K31.9 Disease of stomach and duodenum, unspecified; Z86.010 Personal history of colon polyps; Z80.0 Family history of malignant neoplasm of digestive organs; Z80.8 Family history of malignant neoplasm of other organs or systems; Z98.890 Other specified postprocedural states; Z87.19 Personal history of other diseases of the digestive system
CPT/HCPCS: 43239; 45385; 88305; U0003

== ENCOUNTER → 2020-11-16 08:35 | Outpatient (CLI) | payer MEDICARE, OTHER, SELFPAY ==
--- NOTE | 2020-11-16 08:36 | US_ITS ---
APPROVED REPORT Exam Type: Ankle to Brachial Index Jd Edwards Developer: Isabel Varghese CRT Indications Claudication: Bilaterally Rest Pain: Bilaterally History of Smoking CAD Risk Factors Hypertension Hyperlipidemia TIA/CVA History Pressures/Indices Right Indices Left Indices Brachial 112.00 mmHg Brachial 118.00 mmHg Low Thigh 123.00 mmHg 1.04 Low Thigh 119.00 mmHg 1.01 Calf 129.00 mmHg 1.09 Calf 129.00 mmHg 1.09 Ankle(PT) 143.00 mmHg 1.21 Ankle(PT) 143.00 mmHg 1.21 Ankle(DP) 139.00 mmHg 1.18 Ankle(DP) 129.00 mmHg 1.09 Digit 65.00 mmHg 0.55 Digit 78.00 mmHg 0.66 Findings R KIRAN 1.2 L KIRAN 1.2 R TBI 0.6 L TBI 0.7 Normal waveforms Normal pulses Conclusion R KIRAN 1.2 L KIRAN 1.2 R TBI 0.6 L TBI 0.7 Normal waveforms Normal pulses Normal appearing resting noninvasive lower extremity arterial study. Electronically signed by : Albino Rider MD 11/16/2020 17:20:42
== END ==
PROVIDERS: PCP Internal Medicine Adolescent Medicine; Visit Provider Urology
DX: I70.213 Atherosclerosis of native arteries of extremities with intermittent claudication, bilateral legs (principal)
CPT/HCPCS: 93923

== ENCOUNTER → 2020-12-29 18:18 | Outpatient (CLI) | payer MEDICARE, OTHER, SELFPAY ==
[2020-12-29 19:07] LABS: Chloride 95 mmol/L (98-107); Sodium 138 mmol/L (136-145)
[2020-12-29 19:10] LABS: Alanine Aminotransferase 25 U/L (12-78); Albumin Level 3.8 g/dl (3.5-5.0); Albumin/Globulin Ratio 1.3 (1.1-1.8); Alkaline Phosphatase 90 U/L (38-126); Anion Gap 16.8 mEq/L (5-15); Aspartate Amino Transferase 80 U/L (14-36); Basophils # 0.1 K/mm3 (0-0.2); Basophils % 0.4 % (0.1-2.0); Bilirubin,Total 1.6 mg/dl (0.2-1.3); Blood Urea Nitrogen 9 mg/dl (7-17); Calcium 7.6 mg/dl (8.4-10.2); Carbon Dioxide 29 mmol/L (22.0-30.0); Eosinophils # 0.1 K/mm3 (0.0-0.4); Eosinophils % 0.8 % (0.1-12.0); Estimated Glomerular Filt Rate 49 ml/min (>60); GFR (African American) 59 ML/MIN (>60); Globulin 2.9 g/dL (1.3-3.2); Glucose 153 mg/dl (74-100); Hematocrit 41.1 % (37.0-47.0); Lymphocytes # 2.4 K/mm3 (0.7-4.5); Lymphocytes % 17.7 % (10-50); Mean Corpuscular Hemoglobin 35.5 pg (27.0-31.2); Mean Corpuscular Volume 104.3 fl (81-99); Mean Platelet Volume 9.3 fl (7.4-10.4); Monocytes # 0.4 K/mm3 (0.1-1.0); Monocytes % 2.7 % (1.7-9.3); Neutrophils # 10.5 K/mm3 (1.8-7.8); Neutrophils % 78.4 % (37.0-80.0); Platelet Count 301 K/mm3 (142-424); Red Blood Count 3.94 M/mm3 (4.20-5.40); Red Cell Distribution Width 15.1 % (11.5-17.5); Total Protein,Serum 6.7 g/dl (6.3-8.2); White Blood Count 13.3 K/mm3 (4.8-10.8)
[2020-12-29 20:47] LABS: Thyroid Stimulating Hormone 1.93 uIU/mL (0.465-4.68)
[2020-12-29 21:05] LABS: Vitamin B12 272 pg/mL (239-931)
[2020-12-29 22:14] LABS: Magnesium 0.6 mg/dl (1.6-2.3); Potassium 2.8 mmoL/L (3.5-5.1)
== END ==
PROVIDERS: Visit Provider Nurse Practitioner Family
DX: I95.1 Orthostatic hypotension (principal); Z79.899 Other long term (current) drug therapy
CPT/HCPCS: 80053; 82607; 83735; 84443; 85025

== ENCOUNTER → 2021-01-06 11:39 | Outpatient (CLI) | payer MEDICARE, OTHER, SELFPAY ==
--- NOTE | 2021-01-06 11:49 | XR_ITS ---
PROCEDURE: XR CHEST 2V CLINICAL HISTORY: SOB, LEUKOCYTOSIS, UNSPECIFIED TYPE COMPARISON: CT CHESTW CT chest w con from 05/17/2017 CR XR CHEST 2V from 03/31/2019 CR XR CHEST PORTABLE from 06/21/2020 CR XR CHEST PORTABLE from 09/19/2020 FINDINGS: Normal heart size. No evidence of CHF. Loop recorder device once again noted. Epidural stimulator device is once again noted in the upper and midthoracic spine. The lungs are clear without infiltrates, suspicious nodules, or pleural effusions. No acute bony abnormalities. IMPRESSION: No change with no acute finding Dictated by: Albino Rider MD 01/06/2021 13:40 Albino Rider MD in [place] 01/06/2021 13:40
[2021-01-06 12:37] LABS: Basophils # 0.1 K/mm3 (0-0.2); Basophils % 1.3 % (0.1-2.0); Eosinophils # 0.2 K/mm3 (0.0-0.4); Eosinophils % 3.4 % (0.1-12.0); Hemoglobin 12.3 g/dL (12.2-16.2); Lymphocytes # 1.7 K/mm3 (0.7-4.5); Lymphocytes % 32.5 % (10-50); Mean Corpuscular HGB Conc 32.5 g/dL (31.8-35.4); Mean Corpuscular Hemoglobin 35.4 pg (27.0-31.2); Mean Corpuscular Volume 109.1 fl (81-99); Mean Platelet Volume 7.5 fl (7.4-10.4); Monocytes # 0.2 K/mm3 (0.1-1.0); Monocytes % 4.2 % (1.7-9.3); Neutrophils # 3.1 K/mm3 (1.8-7.8); Neutrophils % 58.5 % (37.0-80.0); Platelet Count 236 K/mm3 (142-424); Red Blood Count 3.48 M/mm3 (4.20-5.40); White Blood Count 5.2 K/mm3 (4.8-10.8)
[2021-01-06 14:00] LABS: Chloride 101 mmol/L (98-107)
[2021-01-06 14:01] LABS: Potassium 5.3 mmoL/L (3.5-5.1); Sodium 137 mmol/L (136-145)
[2021-01-06 14:03] LABS: Alanine Aminotransferase 23 U/L (12-78); Alkaline Phosphatase 68 U/L (38-126); Anion Gap 16.3 mEq/L (5-15); Aspartate Amino Transferase 47 U/L (14-36); Bilirubin,Total 0.2 mg/dl (0.2-1.3); Blood Urea Nitrogen 9 mg/dl (7-17); Carbon Dioxide 25 mmol/L (22.0-30.0); Estimated Glomerular Filt Rate 62 ml/min (>60); GFR (African American) 75 ML/MIN (>60)
[2021-01-06 14:04] LABS: Albumin Level 3.4 g/dl (3.5-5.0); Albumin/Globulin Ratio 1.4 (1.1-1.8); Calcium 8.5 mg/dl (8.4-10.2); Globulin 2.5 g/dL (1.3-3.2); Glucose 111 mg/dl (74-100); Magnesium 1.1 mg/dl (1.6-2.3); Total Protein,Serum 5.9 g/dl (6.3-8.2)
== END ==
PROVIDERS: Visit Provider Nurse Practitioner Family
DX: Z20.822 Contact with and (suspected) exposure to COVID-19 (principal); R06.02 Shortness of breath; E87.6 Hypokalemia; E83.42 Hypomagnesemia; D72.829 Elevated white blood cell count, unspecified
CPT/HCPCS: 36415; 71046; 80053; 83735; 85025; C9803; U0003; U0005

== ENCOUNTER 2021-01-10 11:49 | Emergency (ER) | payer MEDICARE, OTHER, SELFPAY ==
[2021-01-10 12:10] VITALS: BP 146/97; PULSE 110; RESP 16; TEMP 37.1; O2SAT 97; BMI 26.2
--- NOTE | 2021-01-10 12:19 | XR_ITS ---
PROCEDURE: XR RIBS RT MIN 3V W CXR1V CLINICAL INDICATION: fall Injury with pain COMPARISON: CT CHESTW CT chest w con from 05/17/2017 CR XR CHEST PORTABLE from 06/21/2020 CR XR CHEST PORTABLE from 09/19/2020 CR XR CHEST 2V from 01/06/2021 FINDINGS: There are multiple old right rib fractures. Chronic changes are present in both lung apices. There are 2 epidural stimulator device is present 1 terminating in the upper thoracic spine and 1 in the midthoracic spine. Loop recorder device is also present. Atelectatic or fibrotic changes are present in the right lung base. There is lumbar scoliosis convex right IMPRESSION: Multiple old right rib fractures. No acute fracture evident. Atelectatic or fibrotic change in the right lung base. Dictated by: Albino Rider MD 01/10/2021 12:51 Albino Rider MD in [facility] 01/10/2021 12:51
--- NOTE | 2021-01-10 12:19 | XR_ITS ---
PROCEDURE: XR HIP RT 2-3V W/PELVIS CLINICAL INDICATION: fall COMPARISON: CR XR HIP LT 2-3V W/PELVIS from 12/15/2019 FINDINGS: Mild osteoarthritic changes are present in the hips. No fracture or dislocation. No lytic or blastic change. IMPRESSION: No acute findings. Dictated by: Albino Rider MD 01/10/2021 12:53 Albino Rider MD in [place] 01/10/2021 12:53
--- NOTE | 2021-01-10 12:25 | PC.NURSE ---
Called and spoke with Vicki about pt's stimulator and Vicki advised to have the patient come see them Jan 13 at 12pm. Pt agreeable
--- NOTE | 2021-01-10 13:35 | HMH.EDUTC ---
[facility] Disposition Clinical Impression: Rib pain on right side, Acute right hip pain Fall Qualifiers: Encounter type: initial encounter Qualified Code(s): W19.XXXA - Unspecified fall, initial encounter Thoracic back pain Qualifiers: Chronicity: acute Back pain laterality: bilateral Qualified Code(s): M54.6 - Pain in thoracic spine Disposition: Home, Self-Care Condition on Discharge: Good Instructions: DI for Rib Contusion, DI for Hip Pain Additional Instructions: Rest, apply ice for 15 minutes as tolerated three or four times per day to your bruised area on your back. Take tylenol for pain if that is what you usually take. Follow up with Dr. Hong (orthopedics) if you continue to have hip pain. I put in a referral but you need to call his office and schedule an appointment. Follow up with your regular doctor. GO TO THE ER FOR ANY WORSENING SYMPTOMS Referrals: Abdiel Angulo MD [Primary Care Provider] - Time of Disposition: 13:41 Medical Decision Making - Medical Records Medical records reviewed: No: I reviewed the patient's medical records. - Tanner Inquiry Pt receiving controlled substance: No Vital Signs: 01/10/21 12:10 01/10/21 13:57 Temperature 98.7 F 98.3 F Temperature Source Oral Oral Pulse Rate 98 H Pulse Rate [Right] 110 H Respiratory Rate 16 16 Blood Pressure 132/70 Blood Pressure [Right Arm] 146/97 H Blood Pressure Mean [Right Arm] 113 Blood Pressure Source Automatic Cuff Blood Pressure Source [Right Arm] Automatic Cuff Blood Pressure Position Sitting Blood Pressure Position [Right Arm] Sitting 02 Sat by Pulse Oximetry 97 Oxygen Delivery Method Room Air Room Air [facility] HPI - General Stated complaint: fell 01-08-21. Back and rib pain Time Seen by Provider: 01/10/21 13:35 Mode of Arrival: Ambulatory Source of Information: Patient Limitations: No Limitations Description of Symptoms (Recalled from Triage Doc. by RN): Pt fell Sunday night and is having pain in her right side. HEENT Symptoms (Recalled from RN notes): No Resp Symptoms (Recalled from RN notes): No Skin Symptoms (Recalled from RN notes): No MS Symptoms (Recalled from RN notes): Yes (fall with pain) Functional Status (Recalled from RN notes): na - History of Present Illness Provider Complaint: She states that she fell 2 days ago at her home. Her legs went out and caused her to fall. She has did this several times over the past 2 months. Her pcp is in the process of working up her falling, but she came here to get x-rays to make sure she does not have broke ribs. - Related Data Home Medications Medication Instructions Recorded Confirmed omega-3 fatty acids 1,000 mg 1,000 mg PO DAILY 05/16/17 11/24/20 capsule clopidogrel 75 mg tablet 75 mg PO DAILY tab 10/30/17 11/24/20 Multivit-Min/Folic Acid/Biotin 1 each PO DAILY 09/09/18 11/24/20 [Women Multivit W-Biotin Gummy] Aspirin [Aspirin 81mg chewable 81 mg PO DAILY 09/10/18 11/24/20 tab] Atorvastatin Calcium [Lipitor 80mg 80 mg PO HS 09/10/18 11/24/20 Tab] Sucralfate [Sucralfate 1gm 1 g PO ACHS 10/31/18 11/24/20 Tab] linaclotide 145 mcg capsule 145 mcg PO DAILY cap 11/14/19 11/24/20 Nitroglycerin 0.4 mg SUBLINGUAL Q5MINP PRN 06/21/20 11/24/20 Calcium Carbonate/Vitamin D3 1 each PO DAILY 06/22/20 11/24/20 [Calcium 600+D Softgel] Escitalopram Oxalate 20 mg PO DAILY 06/22/20 11/24/20 Pantoprazole Sodium [Protonix 40mg 40 mg PO BID 06/22/20 11/24/20 tablet] Ranolazine [Ranexa] 500 mg PO BID 06/22/20 11/24/20 potassium chloride 20 mEq 20 meq PO DAILY tab 11/01/20 11/24/20 tablet,extended release(part/cryst) Metoprolol Succinate [Metoprolol 12.5 mg PO DAILY 11/04/20 11/24/20 Succinate 25mg Tablet*] buspirone 10 mg tablet 10 mg PO BID tab 11/10/20 11/24/20 Allergies Allergy/AdvReac Type Severity Reaction Status Date / Time No Known Allergies Allergy Verified 11/24/20 13:55 - Worker's Comp Is this
[2021-01-10 13:57] VITALS: BP 132/70; PULSE 98; RESP 16; TEMP 36.8; O2SAT 98
== END 2021-01-10 13:58 | disposition home or self-care (01) ==
PROVIDERS: Emergency Provider Nurse Practitioner Family; PCP Internal Medicine Adolescent Medicine
DX: R07.89 Other chest pain (principal); M54.6 Pain in thoracic spine; M25.551 Pain in right hip; W01.0XXA Fall on same level from slipping, tripping and stumbling without subsequent striking against object, initial encounter; Y92.019 Unspecified place in single-family (private) house as the place of occurrence of the external cause; I25.2 Old myocardial infarction; I10 Essential (primary) hypertension; E78.5 Hyperlipidemia, unspecified; K21.9 Gastro-esophageal reflux disease without esophagitis; F41.9 Anxiety disorder, unspecified; Z87.891 Personal history of nicotine dependence; Z79.899 Other long term (current) drug therapy
CPT/HCPCS: G0463; 71101; 73502; 99202

== ENCOUNTER → 2021-01-13 11:15 | Outpatient (POV) | payer MEDICARE, OTHER, SELFPAY ==
[2021-01-13 11:27] VITALS: BP 115/75; PULSE 64; RESP 18; O2SAT 97; BMI 26.2
--- NOTE | 2021-01-13 11:41 | HMH.PAINSOAP ---
[facility] Pain Management SOAP Note Subjective:: Patient is a 70 year old female who presents today for follow up. Patient is here today for complaints of recent fall. She says since she fell, she is having worsening pain. She did undergo xray of spine which was negative for fracture. She has not reached out to her stimulator loss control representative for reprogramming in some time. Patient says that the pain is primarily over the stimulator site. She does have a [employer] spinal cord stimulator in place. She is rating her pain a 10 out of 10. Patient did cut her right hand and bruised her left ear. She also has bruising noted above her stimulator site. Review of Systems General: No recent weight changes, no fever, no sleep disturbances Respiratory: No cough, no shortness of air, no recurring pulmonary infections Cardiovascular/peripheral vascular: No chest pain, no palpitations, no edema, no shortness of breath Gastrointestinal: No new onset incontinence, normal bowel movements reported Genitourinary: No new onset incontinence Musculoskeletal: Right low back pain Psychiatric: [Normal mood/affect] Neurological: [Denies weakness in extremities], [denies balance issues] Objective:: Physical exam General: Alert and oriented x3, no acute distress, pleasant and cooperative, [on room air] Lungs: Respirations even and unlabored, symmetrical chest expansion Eyes: PERRL Musculoskeletal: Flexion and extension of lumbar[spine] somewhat guarded secondary to pain, strength in upper and lower extremities [5/5], [antalgic gait noted] Neurological: Speech clear, [assistant county engineer equal], no gross sensory deficit Assessment:: Physical exam General: Alert and oriented x3, no acute distress, pleasant and cooperative, [on room air] Lungs: Respirations even and unlabored, symmetrical chest expansion Eyes: PERRL Musculoskeletal: Flexion and extension of lumbar [spine] somewhat guarded secondary to pain, strength in upper and lower extremities [5/5], [antalgic gait noted] Neurological: Speech clear, [assistant county engineer equal], no gross sensory deficit Plan:: Patient reported to have [employer] stimulator. After further investigation, the patient has a new vector spinal cord stimulator. Unfortunately, the patient will not be able to undergo reprogramming due to the company no longer in business. The company did file bankruptcy. Patient was called, however, was not available to talk via telephone at this time. She was asked to contact the clinic. Due to malfunctioning of the patient's current new vector stimulator, she will need to undergo change out of the device. We did order the patient tramadol 50 mg 1 tablet p.o. twice daily for 2 weeks. We will see the patient back to get her scheduled for change out of her device. Patient has been instructed to contact the clinic with any concerns before the next appointment. Dr. Freed has reviewed this note and agrees with this plan of care. This note was dictated using voice recognition software and make contain errors or omissions. [facility] History I have reviewed the patient's past medical history: Yes Medical History: Reports:: Anxiety, Atherosclerotic Heart Disease, Congestive Heart Failure, Chronic Obstructive Pulmonary Disease (COPD), Coronary Artery Disease, Gastroesophageal Reflux Disease(GERD), Hyperlipidemia, Hypertension, Lung Disease, Myocardial Infarction, Transient Ischemic Attacks (TIA) Denies:: Cancer, Diabetes Mellitus Type 1, Diabetes Mellitus Type 2, Internal Pacemaker, MRSA, Seizures *Have you ever received a pneumonia vaccine?: Yes *Have you received a flu vaccine this season?: No Other Medical History: Reports: Arthritis, Cataracts, Hormone Therapy, Liver Disease, Other. Denies: Blood Transfusion Reaction Laterality Cases: Bilateral: Tonsillectomy Other Surgeries: Yes: Appendectomy, Cardiac Catheterization, Cholecystectomy, Colonoscopy, Coronary Stent, EGD, Hernia Repair (09/2017), Hysterectomy-Total, Tubal Lig
== END ==
PROVIDERS: PCP Internal Medicine Adolescent Medicine; Visit Provider Clinical Nurse Specialist Family Health
DX: T85.192D Other mechanical complication of implanted electronic neurostimulator of spinal cord electrode (lead), subsequent encounter (principal)
CPT/HCPCS: 99212; G0463

== ENCOUNTER → 2021-01-27 09:35 | Outpatient (POV) | payer MEDICARE, OTHER, SELFPAY ==
[2021-01-27 10:01] VITALS: BP 133/85; PULSE 92; RESP 18; O2SAT 98; BMI 26.2
--- NOTE | 2021-01-27 10:05 | HMH.PAINSOAP ---
[facility] Pain Management SOAP Note Subjective:: Patient is a pleasant 60-year-old white female who presents today for follow-up. The patient currently has a new Vectra spinal cord stimulator in place. Unfortunately, the patient is having difficulty charging the device and is having malfunctioning of the device. The company with new vector has filed bankruptcy and we are unable to reprogram or troubleshoot the device. She does have pain 6 out of 10 today. At last visit the patient had fallen. She was given tramadol which she says is relieving some of the pain, but feels the stimulator gave her the most significant relief. She has tried and failed conservative therapies of physical therapy in the past along with continued home stretching and anti-inflammatories. She is on Plavix therapy.. She would like to undergo change out of her device. Review of Systems General: No recent weight changes, no fever, no sleep disturbances Respiratory: No cough, no shortness of air, no recurring pulmonary infections Cardiovascular/peripheral vascular: No chest pain, no palpitations, no edema, no shortness of breath Gastrointestinal: No new onset incontinence, normal bowel movements reported Genitourinary: No new onset incontinence Musculoskeletal: Low back pain with radiation into bilateral lower extremities Psychiatric: [Normal mood/affect] Neurological: [Denies weakness in extremities], [denies balance issues] Objective:: Physical exam General: Alert and oriented x3, no acute distress, pleasant and cooperative, [on room air] Lungs: Respirations even and unlabored, symmetrical chest expansion Eyes: PERRL Musculoskeletal: Flexion and extension of lumbar [spine] somewhat guarded secondary to pain, strength in upper and lower extremities [5/5], [antalgic gait noted] Neurological: Speech clear, [wound/ostomy nurse equal], no gross sensory deficit Assessment:: Degenerative disc disease lumbar spine with lumbar radiculopathy symptoms Plan:: Patient is a 70-year-old white female who presents today for medication refills and for discussion of change of spinal cord stimulator device. She currently has a spinal cord stimulator?new Vectra which is no longer functioning and without a company for troubleshooting. We will continue the patient on tramadol 50 mg 1 tablet p.o. 3 times daily. This has helped with her pain significantly. She does feel, however, that the spinal cord stimulator did give her the most relief. We will schedule her for change out of device from new vector to [employer] spinal cord stimulator. The patient is on Plavix therapy. She does understand she will need to hold this medication prior to change of the device. We will plan to see the patient back after [employer] spinal cord stimulator implant. Risks and benefits of the medication have been explained in detail to the patient. If side effects do present with the medication, she has been advised to stop the medication immediately and call the clinic. The patient has been advised to consult with his/her primary care provider and pharmacist regarding drug-drug interaction of medications currently prescribed. Patient has been prescribed a controlled substance after being counseled on the medication, medication safety, and possible side effects. DAVID report has been obtained and reviewed prior to prescription and found to be appropriate. Opioid contract was reviewed and signed by the patient, and that they have agreed to all of the terms set forth by our compliance program.Patient has been instructed to contact the clinic with any concerns before the next appointment. Dr. Freed has reviewed this note and agrees with this plan of care. This note was dictated using voice recognition software and make contain errors or omissions. [facility] History I have reviewed the patient's past medical history: Yes Medical History: Reports:: Anxiety, Atherosclerotic Heart Disease, Congestive Heart F
== END ==
PROVIDERS: PCP Internal Medicine Adolescent Medicine; Visit Provider Clinical Nurse Specialist Family Health
DX: M51.16 Intervertebral disc disorders with radiculopathy, lumbar region (principal)
CPT/HCPCS: 99212; G0463

== ENCOUNTER → 2021-02-07 11:37 | Outpatient (CLI) | payer MEDICARE, OTHER, SELFPAY ==
[2021-02-07 11:59] LABS: Basophils % 0.4 % (0.1-2.0); Eosinophils # 0.1 K/mm3 (0.0-0.4); Eosinophils % 1.6 % (0.1-12.0); Hematocrit 38.2 % (37.0-47.0); Hemoglobin 12.4 g/dL (12.2-16.2); Lymphocytes # 1.3 K/mm3 (0.7-4.5); Mean Corpuscular HGB Conc 32.5 g/dL (31.8-35.4); Mean Corpuscular Hemoglobin 35.4 pg (27.0-31.2); Mean Corpuscular Volume 108.8 fl (81-99); Mean Platelet Volume 7.8 fl (7.4-10.4); Monocytes # 0.3 K/mm3 (0.1-1.0); Monocytes % 4.7 % (1.7-9.3); Neutrophils # 3.7 K/mm3 (1.8-7.8); Neutrophils % 69.3 % (37.0-80.0); Platelet Count 248 K/mm3 (142-424); Red Blood Count 3.51 M/mm3 (4.20-5.40); White Blood Count 5.3 K/mm3 (4.8-10.8)
[2021-02-07 12:50] LABS: Chloride 97 mmol/L (98-107); Potassium 3.6 mmoL/L (3.5-5.1); Sodium 138 mmol/L (136-145)
[2021-02-07 12:53] LABS: Anion Gap 10.6 mEq/L (5-15); Blood Urea Nitrogen 8 mg/dl (7-17); Carbon Dioxide 34 mmol/L (22.0-30.0); Estimated Glomerular Filt Rate 83 ml/min (>60); GFR (African American) 100 ML/MIN (>60)
[2021-02-07 12:54] LABS: Calcium 8.6 mg/dl (8.4-10.2); Glucose 112 mg/dl (74-100)
== END ==
PROVIDERS: Visit Provider Anesthesiology
DX: Z01.812 Encounter for preprocedural laboratory examination (principal); Z11.52 Encounter for screening for COVID-19; U07.1 COVID-19; M47.816 Spondylosis without myelopathy or radiculopathy, lumbar region
CPT/HCPCS: 36415; 80048; 85025; C9803; U0003; U0005

== ENCOUNTER 2021-03-16 05:28 | Day surgery (SDC) | payer MEDICARE, OTHER, SELFPAY ==
[2021-02-07 09:27] VITALS: BMI 26.2
[2021-03-08 12:43] VITALS: BMI 26.2
[2021-03-16 06:51] VITALS: BP 183/106; PULSE 81; RESP 18; TEMP 36.2; O2SAT 96
--- NOTE | 2021-03-16 08:39 | P.PN_ITS ---
[facility] Anesthesia Checklist - Patient Identification Patient Identification: Arm Band - Structural Data Admitted From: Home Planned Operative Procedure/s: Spinal Cord Stimulator Explant + Implant Consent for Planned Operative Procedure(s) Verified: Yes Verified Documents: Surgical Consent, History and Physical - NPO Status Verified Time NPO: 00:00 - Additional verifications Anesthesia Reactions: No Hx Blood Transfusions: No Blood Transfusion Reaction: No - Airway Assessment C-Spine Mobility Assessed: Yes (mp2) TMJ Mobility Assessed: Yes Dentition: Edentulous - Neurological Assessment Level of Consciousness: Awake, Alert - Anesthesia Plan Anesthesia Risk discussed: Yes Anesthesia Plan: Verified ASA Class: III Anesthesia Type: MAC [facility] History I have reviewed the patient's past medical history: Yes Medical History: Reports:: Anxiety, Atherosclerotic Heart Disease, Congestive Heart Failure, Chronic Obstructive Pulmonary Disease (COPD), Coronary Artery Disease, Gastroesophageal Reflux Disease(GERD), Hyperlipidemia, Hypertension, Lung Disease, Myocardial Infarction, Transient Ischemic Attacks (TIA) Denies:: Cancer, Diabetes Mellitus Type 1, Diabetes Mellitus Type 2, Internal Pacemaker, MRSA, Seizures *Have you ever received a pneumonia vaccine?: Yes *Have you received a flu vaccine this season?: Yes Other Medical History: Reports: Arthritis, Cataracts, Hormone Therapy, Liver Disease, Other. Denies: Blood Transfusion Reaction Anesthesia experience/problems:: nac Laterality Cases: Bilateral: Cataract, Tonsillectomy Other Surgeries: Yes: Appendectomy, Cardiac Catheterization, Cholecystectomy, Colonoscopy, Coronary Stent, EGD, Hernia Repair (09/2017), Hysterectomy-Total, Tubal Ligation, Other. No: Pacemaker Amputation: No Fractures: No - *Social History Last grade of school completed: 9th or 10th Smoking Status: Current every day smoker Tobacco Type: cigarettes # Packs/Day (cigarettes): 1 #Yrs smoked (if former smoker): 30 Alcohol Intake: never Alcohol Intake Frequency:: other Substance Use Type: denies use *Occupational Status:: retired Housing: house Household Members: spouse *Travel in the last 8 weeks: None - Psychiatric History Pschychiatric History:: Reports:: Anxiety Family Hx:: Cancer, Coronary Artery Disease, Hyperlipidemia, Hypertension
[2021-03-16 10:49] VITALS: BP 156/87; PULSE 93; RESP 16; TEMP 36.3; O2SAT 96
[2021-03-16 11:04] VITALS: BP 160/87; PULSE 89; RESP 16; O2SAT 97
[2021-03-16 11:19] VITALS: BP 167/85; PULSE 90; RESP 16; O2SAT 96
[2021-03-16 11:49] VITALS: BP 168/82; PULSE 89; RESP 16; O2SAT 96
--- NOTE | 2021-03-16 15:07 | HMH.OPNOTE ---
Date of procedure: 03/16/21 Pre-op Diagnosis:: Malfunctioning pain stimulator generator Post-op Diagnosis:: Same Procedure performed:: Removal and replacement of pain stimulator generator Surgeon:: Jimy Osorio MD ELIGIBILITY MANAGER:: Girish Bond, Maurilio Miner, Rodney Hagen, Kendrick Ray, César Moser, Denver Blum, Other Anesthesia: MAC Estimated blood loss (mL): 10 Operative findings:: Not applicable Operative note:: Once adequate IV sedation was obtained by anesthesia the patient was placed prone on the operating table and her back and flank regions were prepped and draped in sterile fashion. Local anesthesia utilizing 1% Xylocaine with epinephrine. An incision was made over the lead insertion site and carried down through skin and subcutaneous tissues. The 2 leads which which had been placed previously were malfunctioning as well as the fixation devices were removed without difficulty. Likewise the generator was removed without difficulty. At this point 2 new leads were placed in the epidural space by Dr. Freed. The leads were then fixed to the paraspinal fascia with fixation devices and 2-0 Prolene suture. Both pockets irrigated with antibiotic solution. Utilizing a tunneling device the leads were passed from the paraspinal incision to the pocket incision. Leads connected the generator and placed in the pocket noted to be functioning properly. The subcutaneous tissues closed with 2-0 Vicryl and skin closed arm stitches of 4-0 nylon. Wound VAC dressings and a binder applied to the wound. Patient taught procedure well stent recanalization. On recovery the patient be discharged home will follow-up 1 week for reassessment. Antibiotics x1 week per protocol. The patient tolerated procedure well. Condition: stable Disposition: PACU Complications:: None
--- NOTE | 2021-03-16 15:08 | HMH.OPNOTE ---
Date of procedure: 03/16/21 Pre-op Diagnosis:: Nonfunctioning spinal cord stimulator system for degenerative disc disease of lumbar spine with lumbar radiculopathy symptoms Post-op Diagnosis:: Same Procedure performed:: Replacement spinal cord stimulator leads epidural x2 for replacement of spinal cord stimulator system Surgeon:: Kvng Freed MD ENAMEL BURNER:: Muarilio Miner Anesthesia: MAC Estimated blood loss (mL): 5 Clinical Note:: The patient is a pleasant 60-year-old white female who currently has a [employer] spinal cord stimulator system in place. This company has filed bankruptcy and she is no longer getting a maintenance of the system. Her spinal cord stimulator battery is and it is a nonfunctioning system. When it was working she was getting good stimulation and good relief of her pain symptoms. She has increasing low back pain rating down both legs. We will replace her spinal cord stimulator system today with a [email or web address] system. Operative findings:: None Operative note:: Informed consent was obtained the risk and benefits of the procedure were explained to the patient. Patient was taken the procedure room. The back was prepped using ChloraPrep. The existing spinal cord stimulator system was explanted by Dr. Miriam darden. I placed a 17-gauge epidural needle and advanced into the L1-L2 interspace. After confirmation of needle placement in the epidural space a stimulating lead was inserted and advanced very easily to the T8-T9 vertebral bodies. A second needle was inserted and advanced again into the L1-L2 interspace. Again after confirmation of needle placement in the epidural space a second stimulating lead was inserted and advanced very easily to the T8-T9 vertebral bodies. The leads were checked in AP and lateral views. The stylets and needles were removed. The leads were secured to the fascia with anchoring devices and 2-0 Prolene. I tunneled the leads from the back to the generator pocket. I attached the leads to the new generator. Impedances were checked and found to be okay. Both incisions were irrigated with bacitracin solution. Both incisions were then closed with 2-0 Vicryl followed by 4-0 nylon. A wound VAC was placed over both incisions. The patient was placed in an abdominal binder and taken recovery stable condition. The patient tolerated the procedure well with no complications. Patient was programmed by the [email or web address] sales representative jewelry with good stimulation in all areas of pain. Patient was discharged home neurologically intact with good relief of pain symptoms. Plan and disposition: We will send the patient home with postop antibiotics. We will follow-up with this patient in 1 week for wound check and reprogramming. We will follow-up in 2 weeks for suture removal and further reprogramming if needed. She can resume her Plavix. If she has any problems or questions she is to call us back in the pain clinic. Condition: stable Disposition: PACU Complications:: None
== END 2021-03-16 12:01 | disposition home or self-care (01) ==
PROVIDERS: PCP Internal Medicine Adolescent Medicine; Visit Provider Anesthesiology
DX: F41.9 Anxiety disorder, unspecified; I25.10 Atherosclerotic heart disease of native coronary artery without angina pectoris; J44.9 Chronic obstructive pulmonary disease, unspecified; K21.9 Gastro-esophageal reflux disease without esophagitis; E78.5 Hyperlipidemia, unspecified; I11.0 Hypertensive heart disease with heart failure; I50.9 Heart failure, unspecified; I25.2 Old myocardial infarction; Z86.73 Personal history of transient ischemic attack (TIA), and cerebral infarction without residual deficits; M19.90 Unspecified osteoarthritis, unspecified site; Z72.0 Tobacco use; T85.113A Breakdown (mechanical) of implanted electronic neurostimulator, generator, initial encounter
CPT/HCPCS: 63663; 63688; 96374; C1778; C1820

== ENCOUNTER → 2021-03-22 08:55 | Outpatient (POV) | payer MEDICARE, OTHER, SELFPAY ==
[2021-03-22 09:03] VITALS: BP 184/107; PULSE 101; RESP 20; TEMP 36.3; O2SAT 97; BMI 24.7
--- NOTE | 2021-03-22 09:13 | HMH.PAINSOAP ---
[facility] Pain Management SOAP Note Subjective:: Patient is a 70-year-old white female who presents today for follow-up after change of a new vector spinal cord stimulator to [employer]. She is rating her pain a 0 out of 10. She is doing very well and reports to be getting great relief at this time. We do treat the patient for low back pain with bilateral lower extremity pain. She says that she is much more functional and able to move without pain. She is here today to have wound VAC removed and assessment of incision. Review of Systems General: No recent weight changes, no fever, no sleep disturbances Respiratory: No cough, no shortness of air, no recurring pulmonary infections Cardiovascular/peripheral vascular: No chest pain, no palpitations, no edema, no shortness of breath Gastrointestinal: No new onset incontinence, normal bowel movements reported Genitourinary: No new onset incontinence Musculoskeletal: Intermittent low back pain with radiation into lower extremities, no pain today Psychiatric: [Normal mood/affect] Neurological: [Denies weakness in extremities], [denies balance issues] Objective:: Physical exam General: Alert and oriented x3, no acute distress, pleasant and cooperative Lungs: Respirations even and unlabored, symmetrical chest expansion Eyes: PERRL Musculoskeletal: Flexion and extension of lumbar [spine] somewhat guarded secondary to pain, [antalgic gait noted] Neurological: Speech clear, no gross sensory deficit Assessment:: Degenerative disc disease lumbar spine with lumbar radiculopathy symptoms Plan:: Patient is following up after change out of device from new vector to [employer] spinal cord stimulation. She is doing excellent since the change of devices. She rates her pain a 0 out of 10 today. Wound VAC was removed today. Incision is well approximated, no redness, no drainage, no edema is noted to site. We will plan to follow-up with the patient in 2 weeks for suture removal. She has been advised to continue wearing her abdominal binder. She has been advised she can contact the clinic if she has any concerns before her next visit. Patient has been instructed to contact the clinic with any concerns before the next appointment. Dr. Freed has reviewed this note and agrees with this plan of care. This note was dictated using voice recognition software and make contain errors or omissions. [facility] History Medical History: Reports:: Anxiety, Atherosclerotic Heart Disease, Congestive Heart Failure, Chronic Obstructive Pulmonary Disease (COPD), Coronary Artery Disease, Gastroesophageal Reflux Disease(GERD), Hyperlipidemia, Hypertension, Lung Disease, Myocardial Infarction, Transient Ischemic Attacks (TIA) Denies:: Cancer, Diabetes Mellitus Type 1, Diabetes Mellitus Type 2, Internal Pacemaker, MRSA, Seizures *Have you ever received a pneumonia vaccine?: Yes *Have you received a flu vaccine this season?: Yes Other Medical History: Reports: Arthritis, Cataracts, Hormone Therapy, Liver Disease, Other. Denies: Blood Transfusion Reaction Laterality Cases: Bilateral: Tonsillectomy Other Surgeries: Yes: Appendectomy, Cardiac Catheterization, Cholecystectomy, Colonoscopy, Coronary Stent, EGD, Hernia Repair (09/2017), Hysterectomy-Total, Tubal Ligation, Other. No: Pacemaker Amputation: No Fractures: No - *Social History Smoking Status: Current every day smoker Tobacco Type: cigarettes # Packs/Day (cigarettes): 1 #Yrs smoked (if former smoker): 30 Alcohol Intake: never Alcohol Intake Frequency:: other Substance Use Type: denies use *Occupational Status:: retired Housing: house Household Members: spouse *Travel in the last 8 weeks: None - Psychiatric History Pschychiatric History:: Reports:: Anxiety Family Hx:: Cancer, Coronary Artery Disease, Hyperlipidemia, Hypertension
== END ==
PROVIDERS: Visit Provider Clinical Nurse Specialist Family Health
DX: M51.16 Intervertebral disc disorders with radiculopathy, lumbar region (principal)
CPT/HCPCS: 99212; G0463

== ENCOUNTER → 2021-04-05 08:16 | Outpatient (POV) | payer MEDICARE, OTHER, SELFPAY ==
[2021-04-05 08:35] VITALS: BP 185/90; PULSE 96; RESP 18; O2SAT 98; BMI 26.0
--- NOTE | 2021-04-05 08:44 | HMH.PAINSOAP ---
[facility] Pain Management SOAP Note Subjective:: Patient is a pleasant 70-year-old female who comes in here today for 3 week follow-up after a change of a [employer] spinal cord stimulator to [employer]. Patient is currently being treated for degenerative disc disease of the lumbar spine with lumbar radiculopathy symptoms. Currently, patient states that the change to a different stimulator is helping her tremendously. She rates her pain a 0 out of 10. Patient says she is more functional today. She is here today for a wound check and to get her sutures removed. Patient is also taking tramadol 50 mg 3 times a day that is prescribed by this clinic. Her Tanner number is [id number] with an active morphine equivalent of 15. Drug screens have been reviewed and appropriate. Review of Systems General: No recent weight changes, no fever, no sleep disturbances Respiratory: No cough, no shortness of air, no recurring pulmonary infections Cardiovascular/peripheral vascular: No chest pain, no palpitations, no edema, no shortness of breath Gastrointestinal: No new onset incontinence, normal bowel movements reported Genitourinary: No new onset incontinence Musculoskeletal: Low back pain Skin: Denies redness, pain, drainage at the surgical site Psychiatric: [Normal mood/affect] Neurological: [Denies weakness in extremities], [denies balance issues] Objective:: Physical exam General: Alert and oriented x3, no acute distress, pleasant and cooperative Lungs: Respirations even and unlabored, symmetrical chest expansion Eyes: PERRL Musculoskeletal: Flexion and extension of lumbar [spine] somewhat guarded secondary to pain, [antalgic gait noted] Skin: Surgical sites are healing well. There is no drainage, erythema, and swelling at the surgical sites. Neurological: Speech clear, no gross sensory deficit Assessment:: Degenerative disc disease of the lumbar spine with lumbar spine radiculopathy Plan:: Patient's surgical incisions are healing well. Today, we removed the sutures for both surgical sites then steri-strips have been applied to both surgical sites. I have advised the patient to continue wearing her abdominal binder. We will follow up with the patient in 2 weeks. Patient has been instructed to contact the clinic with any concerns before the next appointment. Dr. Freed has reviewed this note and agrees with this plan of care. This note was dictated using voice recognition software and make contain errors or omissions. [facility] History Medical History: Reports:: Anxiety, Atherosclerotic Heart Disease, Congestive Heart Failure, Chronic Obstructive Pulmonary Disease (COPD), Coronary Artery Disease, Gastroesophageal Reflux Disease(GERD), Hyperlipidemia, Hypertension, Lung Disease, Myocardial Infarction, Transient Ischemic Attacks (TIA) Denies:: Cancer, Diabetes Mellitus Type 1, Diabetes Mellitus Type 2, Internal Pacemaker, MRSA, Seizures *Have you ever received a pneumonia vaccine?: Yes *Have you received a flu vaccine this season?: Yes Other Medical History: Reports: Arthritis, Cataracts, Hormone Therapy, Liver Disease, Other. Denies: Blood Transfusion Reaction Laterality Cases: Bilateral: Tonsillectomy Other Surgeries: Yes: Appendectomy, Cardiac Catheterization, Cholecystectomy, Colonoscopy, Coronary Stent, EGD, Hernia Repair (09/2017), Hysterectomy-Total, Tubal Ligation, Other. No: Pacemaker Amputation: No Fractures: No - *Social History Smoking Status: Current every day smoker Tobacco Type: cigarettes # Packs/Day (cigarettes): 1 #Yrs smoked (if former smoker): 30 Alcohol Intake: never Alcohol Intake Frequency:: other Substance Use Type: denies use *Occupational Status:: unemployed Housing: house Household Members: spouse *Travel in the last 8 weeks: None - Psychiatric History Pschychiatric History:: Reports:: Anxiety Family Hx:: Cancer, Coronary Artery Disease, Hyperlipidemia, Hypertension
== END ==
PROVIDERS: Visit Provider Clinical Nurse Specialist Family Health
DX: M51.16 Intervertebral disc disorders with radiculopathy, lumbar region (principal)
CPT/HCPCS: 99212; G0463

== ENCOUNTER 2021-05-31 13:24 | Outpatient (CLI) | payer MEDICARE, OTHER, SELFPAY ==
[2021-05-31 13:38] VITALS: BMI 23.6
[2021-05-31 13:40] VITALS: BP 186/104; PULSE 83; RESP 16; TEMP 36.6; O2SAT 98
[2021-05-31 13:59] LABS: Basophils # 0.1 K/mm3 (0-0.2); Basophils % 1.1 % (0.1-2.0); Eosinophils # 0.1 K/mm3 (0.0-0.4); Eosinophils % 1.3 % (0.1-12.0); Hematocrit 42.3 % (37.0-47.0); Hemoglobin 13.6 g/dL (12.2-16.2); Lymphocytes # 2.1 K/mm3 (0.7-4.5); Lymphocytes % 27.3 % (10-50); Mean Corpuscular HGB Conc 32.2 g/dL (31.8-35.4); Mean Corpuscular Hemoglobin 35.4 pg (27.0-31.2); Mean Corpuscular Volume 109.9 fl (81-99); Monocytes # 0.3 K/mm3 (0.1-1.0); Monocytes % 3.9 % (1.7-9.3); Neutrophils % 66.4 % (37.0-80.0); Platelet Count 299 K/mm3 (142-424); Red Blood Count 3.85 M/mm3 (4.20-5.40); Red Cell Distribution Width 14.5 % (11.5-17.5); White Blood Count 7.5 K/mm3 (4.8-10.8)
[2021-05-31 14:26] LABS: Chloride 92 mmol/L (98-107); Sodium 134 mmol/L (136-145)
[2021-05-31 14:29] LABS: Alanine Aminotransferase 67 U/L (12-78); Albumin Level 3.4 g/dl (3.5-5.0); Albumin/Globulin Ratio 1.1 (1.1-1.8); Alkaline Phosphatase 72 U/L (38-126); Aspartate Amino Transferase 180 U/L (14-36); Bilirubin,Total 1.1 mg/dl (0.2-1.3); Blood Urea Nitrogen 5 mg/dl (7-17); Calcium 8.1 mg/dl (8.4-10.2); Carbon Dioxide 36 mmol/L (22.0-30.0); Creatinine Clearance Estimated 49 mL/min (50-200); Estimated Glomerular Filt Rate 82 ml/min (>60); GFR (African American) 100 ML/MIN (>60); Glucose 129 mg/dl (74-100); Lipase 63 U/L (23-300); Total Protein,Serum 6.4 g/dl (6.3-8.2)
--- NOTE | 2021-05-31 14:33 | PC.NURSE ---
FANY HURLEY CALLED RN AT 1434 TO REPORT POTASSIUM LEVEL 2.0. RN REPEATED AND VERIFIED PT NAME, , AND LAB VALUE. RESULTS TO POTASSIUM 40MEQ ORDERED.
[2021-05-31 14:35] LABS: Microscopic, Urine URINE MICROSCOPIC (MICROSCOPIC)
--- NOTE | 2021-05-31 14:36 | PC.NURSE ---
ORDER CHANGED PER TO POTASSIUM 60MEQ PO X1 AND 1L NORMAL SALINE WITH 20MEQ POTASSIUM.
[2021-05-31 14:39] LABS: Appearance,Urine SL CLOUDY (Clear); Blood, Urine TRACE-I (Negative); Color,Urine DK YELLOW (Yellow); Glucose,Urine (UA) Negative (Negative); Ketones,Urine Negative (Negative); Leukocyte Esterase,Urine TRACE (Negative); Nitrate,Urine Negative (Negative); PH,Urine 6.5 (5.0-8.5); Protein,Urine TRACE (Negative)
[2021-05-31 14:47] LABS: Bilirubin,Urine 1+ (Negative)
[2021-05-31 14:48] LABS: Bacteria,Urine 3+ /lpf; RBC,Urine Occasional #/hpf (0-3)
[2021-05-31 15:00] VITALS: BP 195/93; PULSE 76; RESP 16; O2SAT 98
--- NOTE | 2021-05-31 15:01 | PC.NURSE ---
PT PLACED ON CONTINUOUS EKG FOR INFUSION. PT RHYTHM SHOWING NSR.
--- NOTE | 2021-05-31 15:05 | PC.NURSE ---
1505-pt still on continuous cardiac monitoring for potassium infusion; rhythm still nsr.
[2021-05-31 15:20] VITALS: BP 164/97; PULSE 78; RESP 17
--- NOTE | 2021-05-31 15:20 | PC.NURSE ---
1520-pt still on continuous cardiac monitoring for potassium infusion; rhythm still nsr.
[2021-05-31 15:35] VITALS: BP 165/105; PULSE 79; RESP 17
--- NOTE | 2021-05-31 15:35 | PC.NURSE ---
1535-pt still on continuous cardiac monitoring for potassium infusion; rhythm still nsr.
[2021-05-31 15:50] VITALS: BP 178/90; PULSE 78; RESP 18
--- NOTE | 2021-05-31 15:50 | PC.NURSE ---
1550-pt infusion finished; pt ekg rhythm nsr.
--- NOTE | 2021-05-31 16:02 | CT_ITS ---
FINAL REPORT CLINICAL HISTORY: wt loss, abdomen pain COMPARISON: February 10, 2018 FINDINGS: CT OF THE ABDOMEN AND PELVIS WITH CONTRAST Axial CT images of the abdomen and pelvis were obtained after the administration of oral and iv contrast. Coronal reformatted images were also obtained and reviewed.This study was performed with techniques to keep radiation doses as low as reasonably achievable (ALARA). Individualized dose reduction techniques using automated exposure control or adjustment of mA and/or kV according to the patient's size were employed. Abdomen: The lung bases are clear. The heart is normal in size. The liver is fatty infiltrated. There is evidence of cholecystectomy. The spleen is unremarkable. No adrenal mass is present. The pancreas has an unremarkable appearance. The kidneys are normal, without evidence of mass or hydronephrosis. The aorta is normal in caliber. There is no free fluid or adenopathy. No mass or abnormal fluid collection is seen. Pelvis: The appendix is not well-visualized. The urinary bladder is unremarkable. No inflammatory process is seen. There is no evidence of mass or adenopathy. There is mild diffuse colon wall thickening of uncertain significance that may represent mild colitis. There has been hysterectomy. There are subacute right 10th and 11th posterior rib fractures. There are subacute fractures of the right L1 and L2 transverse processes. There is dextroscoliosis with diffuse degenerative change. IMPRESSION: Mild diffuse colon wall thickening of uncertain significance that may represent mild colitis. Appendix not identified. Fatty liver. Subacute fractures of the right 10th and 11th posterior ribs and right L1 and L2 transverse processes. Reviewed, Interpreted and Dictated by Joesph Harris III, MD Transcribed by Gurdeep Box Authenticated by Joesph Harris III, MD on 05/31/2021 04:41:[address] [facility]
--- NOTE | 2021-05-31 16:03 | CT_ITS ---
FINAL REPORT CLINICAL HISTORY: weight loss, dizziness COMPARISON: September 19, 2020 FINDINGS: Axial images of the head were obtained without contrast. Coronal reformatted images were also obtained. This study was performed with techniques to keep radiation doses as low as reasonably achievable (ALARA). Individualized dose reduction techniques using automated exposure control or adjustment of mA and/or kV according to the patient's size were employed. There is generalized age-appropriate atrophy. Periventricular low-attenuation areas are seen consistent with mild chronic ischemic changes. There is no evidence of intracranial hemorrhage or mass. There is no evidence of acute infarct. There is no evidence of shift of the midline structures. No skull abnormality is seen on the bone window images. There is mild mucosal thickening in the ethmoid air cells. IMPRESSION: Atrophy and mild periventricular chronic ischemic changes. No acute intracranial abnormality identified. Reviewed, Interpreted and Dictated by Joesph Harris III, MD Transcribed by Anna Morrow Authenticated by Joesph Harris III, MD on 05/31/2021 04:39:04 PM [facility]
[2021-05-31 16:10] LABS: Adenovirus F 40/41, stool Not Detected (NotDetected); Astrovirus Not Detected (NotDetected); Campylobacter Not Detected (NotDetected); Clostridium Difficile A/B, PCR Not Detected (NotDetected); Cryptosporidium Not Detected (NotDetected); Cyclospora Cayetanesis Not Detected (NotDetected); Entamoeba histolytica Not Detected (NotDetected); Enteroaggregative E coli Not Detected (NotDetected); Enteropathogenic E coli Not Detected (NotDetected); Enterotoxigenic E coli Not Detected (NotDetected); Giardia lamblia Not Detected (NotDetected); Norovirus Not Detected (NotDetected); Plesimonas Shigalloides, PCR Not Detected (NotDetected); Rotavirus A Not Detected (NotDetected); Salmonella, PCR Not Detected (NotDetected); Sapovirus Not Detected (NotDetected); Shiga-like toxin E coli Not Detected (NotDetected); Shigella Enterovasive E coli Not Detected (NotDetected); Vibrio Cholerae Not Detected (NotDetected); Vibrio, PCR Not Detected (NotDetected); Yersinia Entercolitica, PCR Not Detected (NotDetected)
== END 2021-05-31 15:50 | disposition home or self-care (01) ==
LOC: RAD 13:25
PROVIDERS: PCP Internal Medicine Adolescent Medicine; Visit Provider Internal Medicine Adolescent Medicine
DX: R19.7 Diarrhea, unspecified (principal); R63.4 Abnormal weight loss; E87.6 Hypokalemia; B96.1 Klebsiella pneumoniae [K. pneumoniae] as the cause of diseases classified elsewhere; B96.20 Unspecified Escherichia coli [E. coli] as the cause of diseases classified elsewhere; R82.90 Unspecified abnormal findings in urine
CPT/HCPCS: 70450; 74177; 80053; 81001; 83690; 85025; 87086; 87088; 87186; 87506; 96360; 96361; 96375; J2405; Q9967

== ENCOUNTER 2021-06-07 15:23 | Inpatient (IN) | payer MEDICARE, OTHER, SELFPAY ==
[2021-06-07 15:24] VITALS: BP 115/65; PULSE 89; RESP 16; TEMP 37.1; O2SAT 98; BMI 24.4
--- NOTE | 2021-06-07 15:25 | XR_ITS ---
FINAL REPORT CLINICAL HISTORY: syncopal COMPARISON: January 10, 2021 FINDINGS: The heart size is normal. The mediastinum is normal. Mild scarring is seen in the lung bases. There is biapical scarring, right greater than left. There are no pleural effusions. There is no pneumothorax. There are chronic bilateral rib fractures. There has been interval replacement of a stimulator. There is a presumed implantable loop recording device. IMPRESSION: No acute cardiopulmonary process Reviewed, Interpreted and Dictated by Joesph Harris III, MD Transcribed by Gurdeep Box Authenticated by Joesph Harris III, MD on 06/07/2021 04:11:[address] [facility]
--- NOTE | 2021-06-07 15:25 | CT_ITS ---
FINAL REPORT CLINICAL HISTORY: syncopal episode FINDINGS: Axial CT images of the cervical spine were obtained without contrast. Sagittal and coronal reformatted images were also obtained. This study was performed with techniques to keep radiation doses as low as reasonably achievable (ALARA). Individualized dose reduction techniques using automated exposure control or adjustment of mA and/or kV according to the patient's size were employed. There is no evidence of fracture or dislocation. The bony alignment is normal. There are mild and moderate degenerative changes. There is multilevel mild neural foraminal narrowing. No paraspinous soft tissue abnormality is seen. Limited images of the upper thorax are unremarkable. IMPRESSION: No fracture or acute bony abnormality identified. Reviewed, Interpreted and Dictated by Joesph Harris III, MD Transcribed by Gurdeep Box Authenticated by Joesph Harris III, MD on 06/07/2021 04:11:32 PM [facility]
--- NOTE | 2021-06-07 15:25 | CT_ITS ---
FINAL REPORT CLINICAL HISTORY: syncopal episode COMPARISON: September 19, 2020 FINDINGS: Axial images of the head were obtained without contrast. Coronal reformatted images were also obtained. This study was performed with techniques to keep radiation doses as low as reasonably achievable (ALARA). Individualized dose reduction techniques using automated exposure control or adjustment of mA and/or kV according to the patient''s size were employed. There is generalized age-appropriate atrophy. Periventricular low-attenuation areas are seen consistent with mild chronic ischemic changes. There is no evidence of intracranial hemorrhage or mass. There is no evidence of acute infarct. There is no evidence of shift of the midline structures. No skull abnormality is seen on the bone window images. IMPRESSION: Atrophy and mild periventricular chronic ischemic changes. No acute intracranial abnormality identified. Reviewed, Interpreted and Dictated by Joesph Harris III, MD Transcribed by Gurdeep Box Authenticated by Joesph Harris III, MD on 06/07/2021 04:11:40 PM [facility]
--- NOTE | 2021-06-07 15:27 | XR_ITS ---
FINAL REPORT CLINICAL HISTORY: fall, syncope FINDINGS: AP PELVIS: A single view of the pelvis was obtained. There is no acute fracture or dislocation. There are moderate degenerative changes involving both hips and the lower lumbar spine. Soft tissues are unremarkable. IMPRESSION: No acute process. Reviewed, Interpreted and Dictated by Joesph Harris III, MD Transcribed by Gurdeep Box Authenticated by Joesph Harris III, MD on 06/07/2021 04:11:52 PM [facility][1]
[2021-06-07 15:39] LABS: Coronavirus 19, PCR Not Detected (NotDetected); Influenza A, PCR Not Detected (NotDetected); Influenza B, PCR Not Detected (NotDetected)
--- NOTE | 2021-06-07 15:44 | PC.NURSE ---
Patient back from CT
[2021-06-07 15:46] LABS: Basophils % 0.5 % (0.1-2.0); Eosinophils # 0.1 K/mm3 (0.0-0.4); Eosinophils % 0.6 % (0.1-12.0); Hematocrit 44.6 % (37.0-47.0); Lymphocytes # 1.6 K/mm3 (0.7-4.5); Lymphocytes % 21.1 % (10-50); Mean Corpuscular HGB Conc 33.6 g/dL (31.8-35.4); Mean Corpuscular Volume 104.3 fl (81-99); Mean Platelet Volume 7.8 fl (7.4-10.4); Monocytes # 0.3 K/mm3 (0.1-1.0); Monocytes % 3.9 % (1.7-9.3); Neutrophils # 5.7 K/mm3 (1.8-7.8); Neutrophils % 73.9 % (37.0-80.0); Platelet Count 334 K/mm3 (142-424); Red Blood Count 4.28 M/mm3 (4.20-5.40); White Blood Count 7.7 K/mm3 (4.8-10.8)
[2021-06-07 15:48] LABS: Chloride 81 mmol/L (98-107); Sodium 132 mmol/L (136-145)
--- NOTE | 2021-06-07 15:49 | ECG_ITS ---
APPROVED REPORT Exam: Resting ECG HR:90 bpm ECG Measurements Heart Rate 90 AXES AR 120 P 33 QRSd 146 QRS 1 QT 467 T 19 QTc 515 Conclusion SINUS RHYTHM INDETERMINATE AXIS RIGHT BUNDLE BRANCH BLOCK [120+ ms QRS DURATION, UPRIGHT V1, 40+ ms S IN I/aVL/V4/V5/V6] ABNORMAL ECG UNCONFIRMED REPORT Electronically signed by : Abdiel Angulo MD 06/08/2021 21:01:24
[2021-06-07 15:50] LABS: Blood Urea Nitrogen 6 mg/dl (7-17); Creatinine Clearance Estimated 51 mL/min (50-200); Estimated Glomerular Filt Rate 71 ml/min (>60); GFR (African American) 86 ML/MIN (>60)
[2021-06-07 15:51] LABS: Alanine Aminotransferase 85 U/L (12-78); Albumin Level 3.7 g/dl (3.5-5.0); Albumin/Globulin Ratio 1.2 (1.1-1.8); Alkaline Phosphatase 70 U/L (38-126); Aspartate Amino Transferase 137 U/L (14-36); Calcium 7.4 mg/dl (8.4-10.2); Glucose 140 mg/dl (74-100); Total Protein,Serum 6.7 g/dl (6.3-8.2)
[2021-06-07 16:01] LABS: Potassium 1.6 mmoL/L (3.5-5.1)
[2021-06-07 16:03] LABS: Anion Gap 10.6 mEq/L (5-15); Carbon Dioxide 42 mmol/L (22.0-30.0); Troponin I 0.06 ng/ml (0.00-0.034)
--- NOTE | 2021-06-07 16:07 | PC.NURSE ---
potassium of 1.6 reported repeated and verified with lab notified MD
[2021-06-07 16:17] VITALS: BP 123/83; PULSE 89; O2SAT 97
--- NOTE | 2021-06-07 16:44 | HMH.EDGENADL ---
ED Disposition Clinical Impression: Hypokalemia, Hypomagnesemia, Syncope and collapse Disposition: Admitted as Observation Condition on Discharge: Fair Referrals: Abdiel Angulo MD [Primary Care Provider] - - Critical Care Critical Care Time: Yes Attestation: On 06/07/21, the high probability of a clinically significant, sudden or life threatening deterioration of the following system(s) required my full and direct attention, intervention and personal management. The time I documented below is in addition to time spent performing reported procedures but includes the following listed in this critical care notation. Total Critical Care Time: 30 Vital system(s) involved:: Metabolic Failure My critical care processes included: Assessment & monitoring of V/S, Initial and Re-exams, Data Review/Interpretation, Coordinating Care, Medication Orders and management, Documentation Medical Decision Making - Tanner Inquiry Pt receiving controlled substance: No Vital Signs: 06/07/21 15:24 06/07/21 16:17 06/07/21 17:17 Temperature 98.7 F Temperature Source Oral Pulse Rate 89 94 H Pulse Rate [Right] 89 Respiratory Rate 16 19 Blood Pressure 123/83 120/79 Blood Pressure [Right Arm] 115/65 Blood Pressure Mean [Right Arm] 81 Blood Pressure Source [Right Arm] Automatic Cuff Blood Pressure Position [Right Arm] Sitting 02 Sat by Pulse Oximetry 98 97 Oxygen Delivery Method Room Air Room Air - Lab Data Lab Results 06/07/21 15:15: WBC 7.7, RBC 4.28, Hgb 15.0, Hct 44.6, MCV 104.3 H, MCH 35.0 H, MCHC 33.6, RDW 14.0, Plt Count 334, MPV 7.8, Neut % (Auto) 73.9, Lymph % (Auto) 21.1, [place] % (Auto) 3.9, Eos % (Auto) 0.6, Baso % (Auto) 0.5, Neut # (Auto) 5.7, Lymph # (Auto) 1.6, [place] # (Auto) 0.3, Eos # (Auto) 0.1, Baso # (Auto) 0.0 06/07/21 15:15: Sodium 132 L, Potassium 1.6 L*, Chloride 81 L, Carbon Dioxide 42 H*, Anion Gap 10.6, BUN 6 L, Creatinine 0.80, Estimated Creat Clear 51, Estimated GFR 71, Est GFR ( Amer) 86, Glucose 140 H, Calcium 7.4 L, Total Bilirubin 1.0, AST 137 H, ALT 85 H, Alkaline Phosphatase 70, Troponin I 0.06 H, Total Protein 6.7, Albumin 3.7, Globulin 3.0, Albumin/Globulin Ratio 1.2 06/07/21 15:15: SARS-CoV-2 (PCR) Not detected, Influenza A Untype (PCR) Not detected, Influenza Type B (PCR) Not detected 06/07/21 15:15: Magnesium 1.1 L Result diagrams: 06/07/21 15:15 06/07/21 15:15 Orders (Tests/Meds): ED MEDICATIONS Generic Name Dose Route Start Last Admin Trade Name Freq PRN Reason Stop Dose Admin Potassium Chloride/Water 100 mls @ 50 mls/hr 06/07/21 16:45 06/07/21 17:11 Potassium Chloride 20meq/100ml Ivpb IV 06/07/21 18:44 50 mls/hr ONCE ONE Administration Magnesium Sulfate 2 gm/ Sodium 104 mls @ 100 mls/hr 06/07/21 17:19 Chloride IV 06/07/21 18:21 ONCE ONE Sodium Chloride 10 ml 06/07/21 15:25 Sodium Chloride 0.9% 10ml Flush Syringe IV 07/07/21 15:24 NEEDED PRN Maintain IV Site Discontinued Medications Generic Name Dose Route Start Last Admin Trade Name Freq PRN Reason Stop Dose Admin Potassium Chloride 40 meq 06/07/21 16:45 06/07/21 17:11 Potassium Chloride 20meq Tab PO 06/07/21 16:46 40 meq ONCE ONE Administration ORDERS Category Date Time Status Troponin I Q3H Lab 06/07/21 18:30 Ordered Troponin I Q3H Lab 06/07/21 21:30 Ordered - Radiology Data #1 Image(s): Chest, Pelvis Image Reviewed: Yes I have reviewed radiologist's interpretation Procedure(s): XR pelvis 1-2V Accession Number(s): [id number] cc: Abdiel Angulo MD; Joesph Harris MD~ FINAL REPORT CLINICAL HISTORY: fall, syncope FINDINGS: AP PELVIS: A single view of the pelvis was obtained. There is no acute fracture or dislocation. There are moderate degenerative changes involving both hips and the lower lumbar spine. Soft tissues are unremarkable. IMPRESSION: No acute process. Reviewed, Interpreted and Dictated b
[2021-06-07 16:59] LABS: Magnesium 1.1 mg/dl (1.6-2.3)
[2021-06-07 17:17] VITALS: BP 120/79; PULSE 94; RESP 19
[2021-06-07 18:23] VITALS: BP 140/89; PULSE 94; RESP 21; O2SAT 91
--- NOTE | 2021-06-07 18:57 | PC.NURSE ---
Called report to Nenita Lino
[2021-06-07 18:58] VITALS: BP 133/86; PULSE 89; RESP 16; TEMP 36.8; O2SAT 98
[2021-06-07 18:59] VITALS: BMI 23.8
--- NOTE | 2021-06-07 19:16 | PC.NURSE ---
patient up to floor via wheelchair @ this time.
[2021-06-07 19:32] LABS: Troponin I 0.07 ng/ml (0.00-0.034)
[2021-06-07 20:00] VITALS: BP 144/87; PULSE 90; PULSE 91; RESP 24; TEMP 37.2; O2SAT 94
[2021-06-08] VITALS (7 sets, daily range): BP systolic 99–141; BP diastolic 69–80; PULSE 70–94; RESP 14–18; TEMP 36.4–36.9; O2SAT 93–95; BMI 23.8
[2021-06-08 01:17] LABS: Blood Urea Nitrogen 7 mg/dl (7-17); Calcium 7.2 mg/dl (8.4-10.2); Chloride 89 mmol/L (98-107); Creatinine Clearance Estimated 50 mL/min (50-200); Estimated Glomerular Filt Rate 71 ml/min (>60); GFR (African American) 86 ML/MIN (>60); Glucose 107 mg/dl (74-100); Magnesium 1.1 mg/dl (1.6-2.3); Sodium 136 mmol/L (136-145)
[2021-06-08 01:53] LABS: Anion Gap 5.4 mEq/L (5-15); Carbon Dioxide 44 mmol/L (22.0-30.0)
[2021-06-08 01:54] LABS: Potassium 2.4 mmoL/L (3.5-5.1)
--- NOTE | 2021-06-08 06:18 | PC.NURSE ---
PATIENT RESTED WELL THRU THIS RN SHIFT. PATIENT UP TO RESTROOM 1X WITH COMPLAINTS OF LIGHTHEADEDNESS. NO OTHER CONCERNS NOTED.
--- NOTE | 2021-06-08 08:08 | P.CONPHA_ITS ---
[facility] Pharmacy VTE Monitoring - Patient Demographics Admission date: 06/08/21 Report Date: 06/08/21 Time: 08:08 Allergies/Adverse Reactions: Patient Allergies No Known Allergies Allergy (Verified 03/16/21 06:50) Height: 1.6 m Weight: 61.19 kg Patient Problems: Current Active Problems Syncope and collapse (Acute) Hypokalemia (Acute) Hypomagnesemia (Acute) - VTE Risk Labs: VTE Related Lab Results Hgb 15.0 g/dL (12.2-16.2) 06/07/21 15:15 Hct 44.6 % (37.0-47.0) 06/07/21 15:15 Plt Count 334 K/mm3 (142-424) 06/07/21 15:15 BUN 7 mg/dl (7-17) 06/08/21 01:00 Creatinine 0.80 mg/dl (0.52-1.04) 06/08/21 01:00 Estimated Creat Clear 50 mL/min (50-200) 06/08/21 01:00 Was VTE Risk Assessment Performed: Yes VTE Score: 5 VTE Risk Level: Low Risk Clinical Trial Participant: No - Prophylaxis VTE Prophylaxis Ordered?: Yes Types of VTE Prophylaxis: TEDS Knee High
--- NOTE | 2021-06-08 08:49 | HMH.HP ---
*Admission Date: 06/08/21 *Chief complaint: Syncope/hypokalemia/hypomagnesemia *History of present illness: 71-year-old white female with long history of hypokalemia, chronic/intermittent diarrhea and functional decline issues who saw me 1 week ago with diarrhea, dehydration and was worked up with IV fluids, p.o. potassium and CT scan of her abdomen that showed colitis with mild colon thickening and potassium of three-point 0.0 last week, this was replaced, and she was feeling better and was scheduled to come see me yesterday in the office but became very weak again, fell after a syncopal episode and hit her head. Came to the emergency department. Work-up revealed normal CT scan. Significant hypokalemia, hypocalcemia and hypomagnesemia. Patient notes that she had diarrhea over the past several months, her last episode was yesterday morning. She denies blood, mucus, fevers, vomiting. Notes that her p.o. intake has been very poor because of her generalized malaise and fatigue. [facility] History I have reviewed the patient's past medical history: Yes Medical History: Reports:: Anxiety, Atherosclerotic Heart Disease, Congestive Heart Failure, Chronic Obstructive Pulmonary Disease (COPD), Coronary Artery Disease, Gastroesophageal Reflux Disease(GERD), Hyperlipidemia, Hypertension, Lung Disease, Myocardial Infarction, Transient Ischemic Attacks (TIA) Denies:: Cancer, Diabetes Mellitus Type 1, Diabetes Mellitus Type 2, Internal Pacemaker, MRSA, Seizures *Have you ever received a pneumonia vaccine?: Yes *Have you received a flu vaccine this season?: Yes Other Medical History: Reports: Arthritis, Cataracts, Hormone Therapy, Liver Disease, Other. Denies: Blood Transfusion Reaction Laterality Cases: Bilateral: Tonsillectomy Other Surgeries: Yes: Appendectomy, Cardiac Catheterization, Cholecystectomy, Colonoscopy, Coronary Stent, EGD, Hernia Repair (09/2017), Hysterectomy-Total, Tubal Ligation, Other. No: Pacemaker Amputation: No Fractures: No - *Social History Smoking Status: Current every day smoker Tobacco Type: cigarettes # Packs/Day (cigarettes): 1 #Yrs smoked (if former smoker): 30 Alcohol Intake: never Alcohol Intake Frequency:: other Substance Use Type: denies use *Occupational Status:: retired Housing: house Household Members: spouse *Travel in the last 8 weeks: None - Psychiatric History Pschychiatric History:: Reports:: Anxiety Family Hx:: Cancer, Hypertension Review of Systems - Review of Systems Review of systems:: pertinent systems reviewed and negative unless documented below - *Neurologic Reports fainting, Denies headache(s) Meds Home Medications Medication Instructions Recorded Confirmed Type omega-3 fatty acids 1,000 mg 1,000 mg PO BID 05/16/17 06/07/21 History capsule clopidogrel 75 mg tablet 75 mg PO DAILY tab 10/30/17 06/07/21 History Multivit-Min/Folic Acid/Biotin 1 each PO DAILY 09/09/18 06/07/21 History [Women Multivit W-Biotin Gummy] Aspirin [Aspirin 81mg chewable 81 mg PO DAILY 09/10/18 06/07/21 History tab] Atorvastatin Calcium [Lipitor 80mg 80 mg PO HS 09/10/18 06/07/21 History Tab] Sucralfate [Sucralfate 1gm 1 g PO ACHS 10/31/18 06/07/21 History Tab] linaclotide 145 mcg capsule 145 mcg PO DAILY cap 11/14/19 06/07/21 History Nitroglycerin 0.4 mg SUBLINGUAL Q5MINP PRN 06/21/20 06/07/21 History Escitalopram Oxalate 20 mg PO DAILY 06/22/20 06/07/21 History Pantoprazole Sodium [Protonix 40mg 40 mg PO BID 06/22/20 06/07/21 History tablet] potassium chloride 20 mEq 40 meq PO BID tab 11/01/20 06/07/21 History tablet,extended release(part/cryst) Metoprolol Succinate [Metoprolol 12.5 mg PO DAILY 11/04/20 06/07/21 History Succinate 25mg Tablet*] buspirone 10 mg tablet 10 mg PO BID tab 11/10/20 06/07/21 History Tramadol HCl [Tramadol 50mg 50 mg PO TID 02/07/21 06/07/21 History Tab] Albuterol Sulfate [Proair 2 puffs IH Q6H 03/16/21 06/07/21 History Digihaler]
--- NOTE | 2021-06-08 09:14 | HMH.PHAINT ---
verified home medication list using lists from [facility] Internal Medicine office, [facility] Cardiology office, Clinic Pharmacy and pt interview
[2021-06-08 09:54] LABS: Vitamin B12 430 pg/mL (239-931)
[2021-06-08 09:58] LABS: Chloride 90 mmol/L (98-107)
[2021-06-08 09:59] LABS: Sodium 134 mmol/L (136-145)
[2021-06-08 10:01] LABS: Blood Urea Nitrogen 7 mg/dl (7-17); Creatinine Clearance Estimated 50 mL/min (50-200); Estimated Glomerular Filt Rate 71 ml/min (>60); GFR (African American) 86 ML/MIN (>60)
[2021-06-08 10:02] LABS: Calcium 6.8 mg/dl (8.4-10.2); Glucose 100 mg/dl (74-100); Magnesium 2.7 mg/dl (1.6-2.3)
[2021-06-08 10:03] LABS: Potassium 2.2 mmoL/L (3.5-5.1)
--- NOTE | 2021-06-08 10:11 | PC.NURSE ---
Spoke with ROSANNE from [facility] about critical 2.2 K value.
--- NOTE | 2021-06-08 10:17 | PC.NURSE ---
Dr. Angulo made aware of critical K, K runs ordered per mar.
[2021-06-08 10:19] LABS: Triiodothryronine (T3) Uptake 45 % (23.5-40.5)
[2021-06-08 10:20] LABS: Free Thyroxine Index 4.2 ug/dL (5.93-13.13); T4 (Thyroxine) 9.3 ug/dl (5.53-11.0)
[2021-06-08 10:33] LABS: Thyroid Stimulating Hormone 1.49 uIU/mL (0.465-4.68)
[2021-06-08 10:38] LABS: Anion Gap 6.2 mEq/L (5-15); Carbon Dioxide 40 mmol/L (22.0-30.0)
--- NOTE | 2021-06-08 18:41 | PC.NURSE ---
Pt has not had a bowel movement since diarrhea panel has been ordered.
--- NOTE | 2021-06-08 18:42 | PC.NURSE ---
Pt had a dizzy spell upon walking to the bathroom. Sat pt on the side of the bed. Took blood pressure from stand to sitting, and sitting to laying down. Blood pressure remained stable.
[2021-06-09] VITALS: BP 104/51; PULSE 70; PULSE 77; RESP 17; TEMP 36.9; O2SAT 90
[2021-06-09 04:00] VITALS: BP 158/86; PULSE 70; PULSE 73; RESP 17; TEMP 36.8; O2SAT 92
[2021-06-09 05:34] VITALS: BMI 25.4
[2021-06-09 06:17] LABS: Basophils % 0.1 % (0.1-2.0); Eosinophils % 0.1 % (0.1-12.0); Hematocrit 37.8 % (37.0-47.0); Hemoglobin 12.5 g/dL (12.2-16.2); Lymphocytes # 0.7 K/mm3 (0.7-4.5); Lymphocytes % 10.1 % (10-50); Mean Corpuscular HGB Conc 33.2 g/dL (31.8-35.4); Mean Corpuscular Hemoglobin 34.6 pg (27.0-31.2); Mean Corpuscular Volume 104.2 fl (81-99); Monocytes # 0.2 K/mm3 (0.1-1.0); Monocytes % 2.9 % (1.7-9.3); Neutrophils % 86.8 % (37.0-80.0); Platelet Count 266 K/mm3 (142-424); Red Blood Count 3.62 M/mm3 (4.20-5.40); Red Cell Distribution Width 13.6 % (11.5-17.5); White Blood Count 6.9 K/mm3 (4.8-10.8)
[2021-06-09 06:24] LABS: Chloride 90 mmol/L (98-107); Potassium 3.5 mmoL/L (3.5-5.1); Sodium 130 mmol/L (136-145)
[2021-06-09 06:27] LABS: Alanine Aminotransferase 65 U/L (12-78); Albumin Level 3.1 g/dl (3.5-5.0); Albumin/Globulin Ratio 1.1 (1.1-1.8); Alkaline Phosphatase 62 U/L (38-126); Anion Gap 6.5 mEq/L (5-15); Aspartate Amino Transferase 110 U/L (14-36); Bilirubin,Total 0.7 mg/dl (0.2-1.3); Blood Urea Nitrogen 12 mg/dl (7-17); Carbon Dioxide 37 mmol/L (22.0-30.0); Creatinine Clearance Estimated 53 mL/min (50-200); Estimated Glomerular Filt Rate 82 ml/min (>60); GFR (African American) 100 ML/MIN (>60); Globulin 2.7 g/dL (1.3-3.2); Total Protein,Serum 5.8 g/dl (6.3-8.2)
[2021-06-09 06:28] LABS: Calcium 7.6 mg/dl (8.4-10.2); Glucose 151 mg/dl (74-100)
--- NOTE | 2021-06-09 06:30 | PC.NURSE ---
Pt had no BM this shift. Pt voiced no dizzy spells t/o night.
[2021-06-09 06:48] LABS: MANUAL DIFFERENTIAL MANUAL DIFFERENTIAL (MANUAL DIFF)
[2021-06-09 08:00] VITALS: BP 123/72; PULSE 66; PULSE 95; RESP 18; TEMP 36.7; O2SAT 95
--- NOTE | 2021-06-09 08:54 | HMH.DCSUM ---
General - General Admission date:: 06/08/21 Discharge date: 06/09/21 HPI HPI: 71-year-old white female with long history of hypokalemia, chronic/intermittent diarrhea and functional decline issues who saw me 1 week ago with diarrhea, dehydration and was worked up with IV fluids, p.o. potassium and CT scan of her abdomen that showed colitis with mild colon thickening and potassium of three-point 0.0 last week, this was replaced, and she was feeling better and was scheduled to come see me yesterday in the office but became very weak again, fell after a syncopal episode and hit her head. Came to the emergency department. Work-up revealed normal CT scan. Significant hypokalemia, hypocalcemia and hypomagnesemia. Patient notes that she had diarrhea over the past several months, her last episode was yesterday morning. She denies blood, mucus, fevers, vomiting. Notes that her p.o. intake has been very poor because of her generalized malaise and fatigue. Hospital Course Hospital Course: Patient was admitted, potassium, magnesium and calcium were replaced intravenously. She responded well, her lactulose and Linzess were held-she knows she is not been taking these at home on a regular basis anyway. Because of her diarrhea PCR testing was ordered but patient did not have any further diarrheal stools after admission and so these were not obtained. CT scan of the abdomen did show evidence of colitis and Flagyl and a Solu-Medrol were started empirically which seemed to help her left lower quadrant symptoms and temporally at least were associated with resolution of the diarrhea. This morning she felt much better, active, energetic, doing all of her own activities of daily living in the hospital, going bathroom and transferring well without problems. Electrolytes were vastly improved with normal potassium, normal magnesium and only slightly low potassium. Her sodium is slightly below her baseline. Plan will be to discharge home today. I will finish up a empiric course of Flagyl and prednisone as an outpatient. I have asked her to stop her irbesartan given its propensity for hyponatremia, and we will check her blood pressure in the office, redo electrolytes and reassess her volume and fluid status at that point. Instructed to follow an aggressive hydration diet. Objective Vital signs: Temp Pulse Resp BP Pulse Ox 98.2 F 73 17 158/86 H 92 L 06/09/21 04:00 06/09/21 04:00 06/09/21 04:00 06/09/21 04:00 06/09/21 04:00 no acute distress - *Routine HEENT Exam Head: Present: normocephalic Eye: Present: EOMI, PERRL ENT: Present: mucous membranes moist - *Routine Neck Exam Present: supple - *Routine Respiratory Exam Present: CTA bilaterally - *Routine Cardiovascular Exam Present: RRR - *Routine Abdominal Exam Present: soft, normoactive bowel sounds. Absent: tenderness - *Routine Extremities Exam Absent: cyanosis, clubbing, edema - *Routine Skin Exam Present: warm. Absent: rash - Detailed Eye Exam Eyelids: Bilateral normal inspection Results Labs on day of discharge: Labs from last 24 hours 06/09/21 06/09/21 06/08/21 05:33 05:33 05:46 WBC 6.9 RBC 3.62 L Hgb 12.5 Hct 37.8 MCV 104.2 H MCH 34.6 H MCHC 33.2 RDW 13.6 Plt Count 266 MPV 8.0 Neut % (Auto) 86.8 H Lymph % (Auto) 10.1 [place] % (Auto) 2.9 Eos % (Auto) 0.1 Baso % (Auto) 0.1 Neut # (Auto) 6.0 Lymph # (Auto) 0.7 [place] # (Auto) 0.2 Eos # (Auto) 0.0 Baso # (Auto) 0.0 Sodium 130 L Potassium 3.5 D Chloride 90 L Carbon Dioxide 37 H Anion Gap 6.5 BUN 12 D Creatinine 0.70 Estimated Creat Clear 53 Estimated GFR 82 Est GFR ( Amer) 100 Glucose 151 H D Calcium 7.6 L Magnesium Total Bilirubin 0.7 AST 110 H ALT 65 Alkaline Phosphatase 62 Total Protein 5.8 L Albumin 3.1 L Globulin 2.7 Albumin/Globulin Ratio
[2021-06-09 09:03] LABS: Lymphocytes % 15 % (10-50); Macrocytosis 1+; Neutrophils % 85 % (42-76); Platelet Estimate Normal; Total Cells Counted 100
--- NOTE | 2021-06-09 09:20 | HMH.PHAINT ---
Discharge counseling complete. Informed pts of new meds, what they are for, how to take them, and potential side effects. Also informed pt about meds they need to stop taking. Pt understood and had no questions or concerns
== END 2021-06-09 10:10 | disposition home or self-care (01) | DRG 641 ==
LOC: ER 18:12 → 2ND 19:31
PROVIDERS: Admitting Provider Emergency Medicine; Emergency Provider Emergency Medicine; PCP Internal Medicine Adolescent Medicine; Visit Provider Internal Medicine Adolescent Medicine
DX: E87.6 Hypokalemia (principal); E83.42 Hypomagnesemia; I25.10 Atherosclerotic heart disease of native coronary artery without angina pectoris; E83.51 Hypocalcemia; K21.9 Gastro-esophageal reflux disease without esophagitis; E78.5 Hyperlipidemia, unspecified; I25.2 Old myocardial infarction; Z86.73 Personal history of transient ischemic attack (TIA), and cerebral infarction without residual deficits; F17.210 Nicotine dependence, cigarettes, uncomplicated; K52.9 Noninfective gastroenteritis and colitis, unspecified; I11.0 Hypertensive heart disease with heart failure; I50.9 Heart failure, unspecified; Z95.5 Presence of coronary angioplasty implant and graft; Z20.822 Contact with and (suspected) exposure to COVID-19
CPT/HCPCS: 70450; 71045; 72125; 72170; 80048; 80053; 82607; 83735; 84436; 84443; 84479; 84484; 85007; 85025; 93005; 96365; 99284; C9803; G0378; J2405; U0003; U0005

== ENCOUNTER → 2021-06-15 19:12 | Outpatient (CLI) | payer MEDICARE, OTHER, SELFPAY ==
[2021-06-15 19:36] LABS: Chloride 104 mmol/L (98-107); Potassium 4.8 mmoL/L (3.5-5.1); Sodium 136 mmol/L (136-145)
[2021-06-15 19:39] LABS: Anion Gap 13.8 mEq/L (5-15); Blood Urea Nitrogen 13 mg/dl (7-17); Carbon Dioxide 23 mmol/L (22.0-30.0); Estimated Glomerular Filt Rate 71 ml/min (>60); GFR (African American) 86 ML/MIN (>60); Glucose 90 mg/dl (74-100)
== END ==
PROVIDERS: PCP Internal Medicine Adolescent Medicine; Visit Provider Nurse Practitioner Family
DX: E87.6 Hypokalemia (principal)
CPT/HCPCS: 80048

== ENCOUNTER 2021-08-11 19:22 | Observation (INO) | payer MEDICARE, OTHER, SELFPAY ==
--- NOTE | 2021-08-11 19:20 | ECG_ITS ---
APPROVED REPORT Exam: Resting ECG HR:113 bpm ECG Measurements Heart Rate 113 AXES MT 145 P 63 QRSd 127 QRS -28 QT 340 T 2 QTc 407 Conclusion SINUS TACHYCARDIA INDETERMINATE AXIS RIGHT BUNDLE BRANCH BLOCK [120+ ms QRS DURATION, UPRIGHT V1, 40+ ms S IN I/aVL/V4/V5/V6] ABNORMAL ECG UNCONFIRMED REPORT Electronically signed by : Abdiel Angulo MD 08/13/2021 12:19:37
[2021-08-11 19:23] VITALS: BP 164/104; PULSE 106; RESP 18; TEMP 36.4; O2SAT 97; BMI 25.3
--- NOTE | 2021-08-11 19:26 | XR_ITS ---
PROCEDURE INFORMATION: Exam: XR Chest Exam date and time: 08/11/2021 7:31 PM Age: 71 years old Clinical indication: Pain; Chest pressure; Additional info: Cp TECHNIQUE: Imaging protocol: XR of the chest. Views: 1 view. COMPARISON: CR XR CHEST PORTABLE 06/07/2021 3:32 PM, 01/06/2021 11:54 a.m. FINDINGS: Tubes, catheters and devices: Intraspinal stimulator is again demonstrated. Lungs: There is a persistent although subtle region of increased density at the right lung apex. Similar findings demonstrated on the 01/06/2021 examination as well as the 06/07/2021 examination. Findings may reflect asymmetric pleural reactive change. Pleural spaces: See Lungs finding. Heart/Mediastinum: Unremarkable. No cardiomegaly. Bones/joints: Previously demonstrated bilateral chronic right 3 through 7 and chronic left 5th and 6th rib fractures are suboptimally visualized secondary to differences in technique. IMPRESSION: 1. No evidence of acute cardiopulmonary disease. 2. Persistent asymmetric region of parenchymal density at the right lung apex unchanged since 01/06/2021. Findings may reflect asymmetric pleural reactive changes. 3. Chronic bilateral rib fractures unchanged
--- NOTE | 2021-08-11 19:26 | HMH.EDGENADL ---
ED Disposition Condition on Discharge: Good - Critical Care Critical Care Time: No <nAil Fernandes - Last Filed: 08/11/21 19:26> Condition on Discharge: Good - Critical Care Critical Care Time: No <Dung Salgado - Last Filed: 08/12/21 04:53> Clinical Impression: Chest pain Qualifiers: Chest pain type: unspecified Qualified Code(s): R07.9 - Chest pain, unspecified Disposition: Admitted as Observation Attestation: On 08/11/21, the high probability of a clinically significant, sudden or life threatening deterioration of the following system(s) required my full and direct attention, intervention and personal management. The time I documented below is in addition to time spent performing reported procedures but includes the following listed in this critical care notation. Medical Decision Making - Medical Records Medical records reviewed: Yes: I reviewed the patient's medical records. - [place]anner Inquiry Pt receiving controlled substance: No - ECG Data Tracing #1 I reviewed this ECG and interpreted as documented below: <Anil Fernandes - Last Filed: 08/11/21 19:26> - Lab Data Result diagrams: 08/11/21 19:25 08/11/21 19:25 <Dung Salgado - Last Filed: 08/12/21 04:53> Vital Signs: 08/11/21 19:23 08/11/21 20:00 08/11/21 20:30 Temperature 97.5 F L Temperature Source Oral Pulse Rate 85 81 Pulse Rate [Apical] Pulse Rate [Right] 106 H Respiratory Rate 18 21 29 H Blood Pressure 140/94 H 158/98 H Blood Pressure [Right Arm] 164/104 H Blood Pressure Mean [Right Arm] 124 Blood Pressure Source [Right Arm] 02 Sat by Pulse Oximetry 97 97 97 Oxygen Delivery Method Room Air Room Air 08/11/21 21:00 08/12/21 00:00 08/12/21 00:26 Temperature 98.0 F 98.4 F Temperature Source Oral Oral Pulse Rate 77 67 Pulse Rate [Apical] 78 Pulse Rate [Right] Respiratory Rate 27 H 22 18 Blood Pressure 150/92 H 161/75 H Blood Pressure [Right Arm] 190/102 H Blood Pressure Mean [Right Arm] 131 Blood Pressure Source [Right Arm] Manual Cuff/ Auscultation 02 Sat by Pulse Oximetry 97 96 Oxygen Delivery Method Room Air Room Air - Lab Data Lab Results 08/11/21 19:25: WBC 7.8, RBC 3.76 L, Hgb 13.3, Hct 41.2, MCV 109.7 H, MCH 35.4 H, MCHC 32.3, RDW 15.1, Plt Count 255, MPV 8.3, Neut % (Auto) 79.4, Lymph % (Auto) 17.1, [place] % (Auto) 2.2, Eos % (Auto) 0.8, Baso % (Auto) 0.5, Neut # (Auto) 6.2, Lymph # (Auto) 1.3, [place] # (Auto) 0.2, Eos # (Auto) 0.1, Baso # (Auto) 0.0 08/11/21 19:25: Sodium 139, Potassium 3.8, Chloride 111 H, Carbon Dioxide 17 L, Anion Gap 14.8, BUN 17, Creatinine 1.50 H, Estimated Creat Clear 35, Estimated GFR 34 L, Est GFR ( Amer) 41 L, Glucose 176 H, Calcium 7.2 L, Total Bilirubin 0.5, AST 83 H, ALT 35, Alkaline Phosphatase 53, Troponin I < 0.01, Total Protein 6.5, Albumin 3.7, Globulin 2.8, Albumin/Globulin Ratio 1.3 08/11/21 22:00: Troponin I < 0.01 08/11/21 23:09: SARS-CoV-2 (PCR) Not detected, Influenza A Untype (PCR) Not detected, Influenza Type B (PCR) Not detected Orders (Tests/Meds): ED MEDICATIONS Generic Name Dose Route Start Last Admin Trade Name Annabella PRN Reason Stop Dose Admin Acetaminophen 650 mg 08/12/21 00:27 Acetaminophen 325mg Tab PO 09/11/21 00:26 Q4HP PRN Fever or Mild Pain Aspirin 81 mg 08/12/21 09:00 Aspirin 81mg Chewable Tablet PO 09/11/21 08:59 DAILY [facility] Buspirone HCl 10 mg 08/12/21 09:00 Buspirone Hcl 10 Mg Tablet PO 09/11/21 08:59 BID [facility] Clopidogrel Bisulfate 75 mg 08/12/21 09:00 Clopidogrel 75mg Tab PO 09/11/21 08:59 DAILY [facility] Docusate Sodium 100 mg 08/12/21 09:00 Docusate Sodium 100 Mg Capsule PO 09/11/21 08:59 DAILY [facility] Metoprolol Succinate 25 mg 08/12/21 09:00 Metoprolol Succinate Xl 25mg Tablet PO 09/11/21 08:59 DAILY [facility] Mirtazapine 15 mg 08/12/21 21:00 Mirtazapine 15 Mg Tablet PO 09/11/21 20:59 HS [facility] Miscellaneous 1
[2021-08-11 19:28] VITALS: BMI 25.3
[2021-08-11 19:41] LABS: Basophils % 0.5 % (0.1-2.0); Eosinophils # 0.1 K/mm3 (0.0-0.4); Eosinophils % 0.8 % (0.1-12.0); Hematocrit 41.2 % (37.0-47.0); Hemoglobin 13.3 g/dL (12.2-16.2); Lymphocytes # 1.3 K/mm3 (0.7-4.5); Lymphocytes % 17.1 % (10-50); Mean Corpuscular HGB Conc 32.3 g/dL (31.8-35.4); Mean Corpuscular Hemoglobin 35.4 pg (27.0-31.2); Mean Corpuscular Volume 109.7 fl (81-99); Mean Platelet Volume 8.3 fl (7.4-10.4); Monocytes # 0.2 K/mm3 (0.1-1.0); Monocytes % 2.2 % (1.7-9.3); Neutrophils # 6.2 K/mm3 (1.8-7.8); Neutrophils % 79.4 % (37.0-80.0); Platelet Count 255 K/mm3 (142-424); Red Blood Count 3.76 M/mm3 (4.20-5.40); Red Cell Distribution Width 15.1 % (11.5-17.5); White Blood Count 7.8 K/mm3 (4.8-10.8)
[2021-08-11 19:43] LABS: Chloride 111 mmol/L (98-107); Potassium 3.8 mmoL/L (3.5-5.1); Sodium 139 mmol/L (136-145)
[2021-08-11 19:45] LABS: Alanine Aminotransferase 35 U/L (12-78); Aspartate Amino Transferase 83 U/L (14-36); Blood Urea Nitrogen 17 mg/dl (7-17); Creatinine Clearance Estimated 35 mL/min (50-200); Estimated Glomerular Filt Rate 34 ml/min (>60); GFR (African American) 41 ML/MIN (>60)
[2021-08-11 19:46] LABS: Albumin Level 3.7 g/dl (3.5-5.0); Albumin/Globulin Ratio 1.3 (1.1-1.8); Alkaline Phosphatase 53 U/L (38-126); Anion Gap 14.8 mEq/L (5-15); Bilirubin,Total 0.5 mg/dl (0.2-1.3); Calcium 7.2 mg/dl (8.4-10.2); Carbon Dioxide 17 mmol/L (22.0-30.0); Globulin 2.8 g/dL (1.3-3.2); Glucose 176 mg/dl (74-100); Total Protein,Serum 6.5 g/dl (6.3-8.2)
[2021-08-11 19:59] LABS: Troponin I < 0.01 ng/ml (0.00-0.034)
[2021-08-11 20:00] VITALS: BP 140/94; PULSE 85; RESP 21; O2SAT 97
[2021-08-11 20:30] VITALS: BP 158/98; PULSE 81; RESP 29; O2SAT 97
[2021-08-11 21:00] VITALS: BP 150/92; PULSE 77; RESP 27; O2SAT 97
--- NOTE | 2021-08-11 21:13 | PC.NURSE ---
Pt resting comfortably, TV remote given. No new needs.
[2021-08-11 22:35] LABS: Troponin I < 0.01 ng/ml (0.00-0.034)
--- NOTE | 2021-08-11 23:05 | PC.NURSE ---
Dr. Austin paged
--- NOTE | 2021-08-11 23:08 | PC.NURSE ---
EVELINA SANCHEZ speaking to Dr. Austin
--- NOTE | 2021-08-11 23:12 | PC.NURSE ---
EVELINA SANCHEZ speaking with Dr. Tellez
--- NOTE | 2021-08-11 23:15 | PC.NURSE ---
Notified warehouse associate driver of pt admission and need for bed assignment
[2021-08-11 23:20] LABS: Coronavirus 19, PCR Not Detected (NotDetected); Influenza A, PCR Not Detected (NotDetected); Influenza B, PCR Not Detected (NotDetected)
[2021-08-11 23:38] VITALS: BMI 25.8
[2021-08-12] VITALS (8 sets, daily range): BP systolic 133–190; BP diastolic 62–102; PULSE 67–90; RESP 18–22; TEMP 36.5–36.9; O2SAT 96–98
--- NOTE | 2021-08-12 00:38 | PC.NURSE ---
Gave report to Paula Michaels RN
--- NOTE | 2021-08-12 00:41 | PC.NURSE ---
patient up to floor via wheelchair @ this time.
[2021-08-12 01:49] LABS: Troponin I < 0.01 ng/ml (0.00-0.034)
[2021-08-12 07:00] LABS: Chloride 111 mmol/L (98-107); Sodium 138 mmol/L (136-145)
[2021-08-12 07:01] LABS: Potassium 3.9 mmoL/L (3.5-5.1)
[2021-08-12 07:03] LABS: Blood Urea Nitrogen 17 mg/dl (7-17); Creatinine Clearance Estimated 41 mL/min (50-200); Estimated Glomerular Filt Rate 40 ml/min (>60); GFR (African American) 49 ML/MIN (>60)
[2021-08-12 07:04] LABS: Anion Gap 6.9 mEq/L (5-15); Calcium 6.4 mg/dl (8.4-10.2); Carbon Dioxide 24 mmol/L (22.0-30.0); Glucose 87 mg/dl (74-100)
[2021-08-12 07:30] LABS: Basophils % 0.6 % (0.1-2.0); Eosinophils % 0.4 % (0.1-12.0); Hematocrit 33.1 % (37.0-47.0); Lymphocytes # 1.9 K/mm3 (0.7-4.5); Lymphocytes % 30.6 % (10-50); Mean Corpuscular Hemoglobin 35.2 pg (27.0-31.2); Mean Corpuscular Volume 110.1 fl (81-99); Mean Platelet Volume 8.1 fl (7.4-10.4); Monocytes # 0.2 K/mm3 (0.1-1.0); Monocytes % 3.4 % (1.7-9.3); Neutrophils # 4.1 K/mm3 (1.8-7.8); Platelet Count 206 K/mm3 (142-424); Red Cell Distribution Width 15.1 % (11.5-17.5); White Blood Count 6.3 K/mm3 (4.8-10.8)
--- NOTE | 2021-08-12 07:57 | HMH.PHAVTE ---
[facility] Pharmacy VTE Monitoring - Patient Demographics Admission date: 08/12/21 Report Date: 08/12/21 Time: 07:57 Allergies/Adverse Reactions: Patient Allergies No Known Allergies Allergy (Verified 03/16/21 06:50) Height: 1.6 m Weight: 66.179 kg Patient Problems: Current Active Problems Chest pain (Acute) - VTE Risk Labs: VTE Related Lab Results Hgb 13.3 g/dL (12.2-16.2) 08/11/21 19:25 Hct 41.2 % (37.0-47.0) 08/11/21 19:25 Plt Count 255 K/mm3 (142-424) 08/11/21 19:25 BUN 17 mg/dl (7-17) 08/12/21 06:01 Creatinine 1.30 mg/dl (0.52-1.04) H 08/12/21 06:01 Estimated Creat Clear 41 mL/min (50-200) 08/12/21 06:01 Was VTE Risk Assessment Performed: Yes VTE Score: 4 VTE Risk Level: Low Risk Clinical Trial Participant: No - Prophylaxis VTE Prophylaxis Ordered?: Yes Types of VTE Prophylaxis: TEDS Knee High Location of Applied Device: Bilateral Lower Extremeties
[2021-08-12 08:40] LABS: Hemoglobin 10.6 g/dL (12.2-16.2)
--- NOTE | 2021-08-12 10:33 | HMH.HPDC ---
General - General Admission date:: 08/12/21 Discharge date: 08/12/21 *Admission Date: 08/12/21 *Chief complaint: chest pain *History of present illness: Pleasant 71-year-old female who presented to the ER because of persistent chest pain, dizziness, nausea all day. Denies gabrielle syncope. No diarrhea. No fever. Work-up in ER initiated including labs, imaging, and EKG. Stable EKG with chronic changes. Initial troponin within normal limits. Remainder of labs normal for patient. Blood pressure found to be significantly elevated. Patient admitted for monitoring of serial enzymes and observation. On evaluation this morning, she has no complaints. Is feeling much better. Dizziness is resolved. Blood pressure within a normal range. Overall feels well. No complaints. Asking to go home. [facility] History I have reviewed the patient's past medical history: Yes Medical History: Reports:: Anxiety, Atherosclerotic Heart Disease, Congestive Heart Failure, Chronic Obstructive Pulmonary Disease (COPD), Coronary Artery Disease, Gastroesophageal Reflux Disease(GERD), Hyperlipidemia, Hypertension, Lung Disease, Myocardial Infarction, Transient Ischemic Attacks (TIA) Denies:: Cancer, Diabetes Mellitus Type 1, Diabetes Mellitus Type 2, Internal Pacemaker, MRSA, Seizures *Have you ever received a pneumonia vaccine?: Yes *Have you received a flu vaccine this season?: Yes Other Medical History: Reports: Arthritis, Cataracts, Hormone Therapy, Liver Disease, Other. Denies: Blood Transfusion Reaction Laterality Cases: Bilateral: Cataract, Tonsillectomy Other Surgeries: Yes: Appendectomy, Cardiac Catheterization, Cholecystectomy, Colonoscopy, Coronary Stent, EGD, Hernia Repair, Hysterectomy-Total, Tubal Ligation, Other. No: Pacemaker Amputation: No Fractures: No - *Social History Last grade of school completed: 9th or 10th Smoking Status: Former smoker Tobacco Type: cigarettes # Packs/Day (cigarettes): 1 #Yrs smoked (if former smoker): 55 Smoking End Date: 1 month ago Alcohol Intake: never Alcohol Intake Frequency:: other Substance Use Type: denies use *Occupational Status:: retired Housing: house Household Members: spouse *Travel in the last 8 weeks: None - Psychiatric History Pschychiatric History:: Reports:: Anxiety Family Hx:: Cancer, Hypertension Review of Systems - Review of Systems Review of systems:: pertinent systems reviewed and negative unless documented below (14 point review of systems performed, pertinent positives and negatives as per HPI) Exam Vital signs and Labs for Last 24 Hours: Temp Pulse Resp BP Pulse Ox 97.7 F 75 20 142/62 H 96 08/12/21 08:00 08/12/21 08:00 08/12/21 08:00 08/12/21 08:00 08/12/21 08:00 Laboratory Results - last 24 hr 08/11/21 19:25: WBC 7.8, RBC 3.76 L, Hgb 13.3, Hct 41.2, MCV 109.7 H, MCH 35.4 H, MCHC 32.3, RDW 15.1, Plt Count 255, MPV 8.3, Neut % (Auto) 79.4, Lymph % (Auto) 17.1, [place] % (Auto) 2.2, Eos % (Auto) 0.8, Baso % (Auto) 0.5, Neut # (Auto) 6.2, Lymph # (Auto) 1.3, [place] # (Auto) 0.2, Eos # (Auto) 0.1, Baso # (Auto) 0.0 08/11/21 19:25: Sodium 139, Potassium 3.8, Chloride 111 H, Carbon Dioxide 17 L, Anion Gap 14.8, BUN 17, Creatinine 1.50 H, Estimated Creat Clear 35, Estimated GFR 34 L, Est GFR ( Amer) 41 L, Glucose 176 H, Calcium 7.2 L, Total Bilirubin 0.5, AST 83 H, ALT 35, Alkaline Phosphatase 53, Troponin I < 0.01, Total Protein 6.5, Albumin 3.7, Globulin 2.8, Albumin/Globulin Ratio 1.3 08/11/21 22:00: Troponin I < 0.01 08/11/21 23:09: SARS-CoV-2 (PCR) Not detected, Influenza A Untype (PCR) Not detected, Influenza Type B (PCR) Not detected 08/12/21 01:20: Troponin I < 0.01 08/12/21 06:01: WBC 6.3, RBC 3.00 L, Hgb 10.6 L D, Hct 33.1 L, MCV 110.1 H, MCH 35.2 H, MCHC 32.0, RDW 15.1, Plt Count 206, MPV 8.1, Neut % (Auto) 65.0, Lymph % (Auto) 30.6, [place] % (Auto) 3.4, Eos % (Auto) 0.4, Baso % (Auto) 0.6, Neut # (Auto) 4.1, Lymph # (Auto) 1.9, [place] # (Auto) 0.2, Eos # (Auto) 0.0, B
--- NOTE | 2021-08-12 11:29 | HMH.PHAINT ---
HOME MEDICATION LIST VERIFIED USING LIST FROM OUTPATIENT PHARMACY, [facility] OFFICE AND PT INTERVIEW
--- NOTE | 2021-08-15 15:19 | CARE MANAGER ---
Spoke with patient in post-discharge phone follow-up, she states that she got her medication and has a follow-up appointment with Dr. Burch on 08.26.21.
== END 2021-08-12 12:10 | disposition home or self-care (01) ==
LOC: ER 21:29 → 2ND 23:21
PROVIDERS: Emergency Medicine; Admitting Provider Family Medicine; Emergency Provider Student in an Organized Health Care Education/Training Program; PCP Internal Medicine Adolescent Medicine; Visit Provider Internal Medicine Adolescent Medicine
DX: R07.9 Chest pain, unspecified (principal); I11.0 Hypertensive heart disease with heart failure; I50.9 Heart failure, unspecified; I25.10 Atherosclerotic heart disease of native coronary artery without angina pectoris; J44.9 Chronic obstructive pulmonary disease, unspecified; I25.2 Old myocardial infarction; Z79.899 Other long term (current) drug therapy
CPT/HCPCS: G0378; 36415; 71045; 80048; 80053; 84484; 85025; 93005; 96375; 99285; C9803; J2405; U0003; U0005

== ENCOUNTER → 2021-08-26 09:50 | Outpatient (CLI) | payer MEDICARE, OTHER, SELFPAY ==
[2021-08-26 11:01] LABS: Chloride 106 mmol/L (98-107); Potassium 3.6 mmoL/L (3.5-5.1); Sodium 138 mmol/L (136-145)
[2021-08-26 11:04] LABS: Alanine Aminotransferase 17 U/L (12-78); Albumin Level 3.5 g/dl (3.5-5.0); Albumin/Globulin Ratio 1.5 (1.1-1.8); Alkaline Phosphatase 62 U/L (38-126); Anion Gap 11.6 mEq/L (5-15); Aspartate Amino Transferase 39 U/L (14-36); Bilirubin,Total 0.5 mg/dl (0.2-1.3); Blood Urea Nitrogen 12 mg/dl (7-17); Calcium 7.6 mg/dl (8.4-10.2); Carbon Dioxide 24 mmol/L (22.0-30.0); Estimated Glomerular Filt Rate 62 ml/min (>60); GFR (African American) 75 ML/MIN (>60); Globulin 2.4 g/dL (1.3-3.2); Glucose 122 mg/dl (74-100); Total Protein,Serum 5.9 g/dl (6.3-8.2)
[2021-08-27 14:13] LABS: Deamidated Gliadin Abs, IgA 2 units (0-19); Deamidated Gliadin Abs, IgG 1 units (0-19); Tissue Transglutaminase IgA Ab <2 U/mL (0-3); Tissue Transglutaminase IgG Ab <2 U/mL (0-5)
== END ==
PROVIDERS: Visit Provider Internal Medicine Adolescent Medicine
DX: R19.7 Diarrhea, unspecified (principal)
CPT/HCPCS: 36415; 80053; 83516

== ENCOUNTER → 2021-08-29 13:50 | Outpatient (CLI) | payer MEDICARE, OTHER, SELFPAY ==
[2021-08-29 13:57] LABS: Adenovirus F 40/41, stool Not Detected (NotDetected); Astrovirus Not Detected (NotDetected); Campylobacter Not Detected (NotDetected); Clostridium Difficile A/B, PCR Not Detected (NotDetected); Cryptosporidium Not Detected (NotDetected); Cyclospora Cayetanesis Not Detected (NotDetected); Entamoeba histolytica Not Detected (NotDetected); Enteroaggregative E coli Not Detected (NotDetected); Enteropathogenic E coli Not Detected (NotDetected); Enterotoxigenic E coli Not Detected (NotDetected); Giardia lamblia Not Detected (NotDetected); Norovirus Not Detected (NotDetected); Plesimonas Shigalloides, PCR Not Detected (NotDetected); Rotavirus A Not Detected (NotDetected); Salmonella, PCR Not Detected (NotDetected); Sapovirus Not Detected (NotDetected); Shiga-like toxin E coli Not Detected (NotDetected); Shigella Enterovasive E coli Not Detected (NotDetected); Vibrio Cholerae Not Detected (NotDetected); Vibrio, PCR Not Detected (NotDetected); Yersinia Entercolitica, PCR Not Detected (NotDetected)
[2021-09-01 22:08] LABS: Calprotectin, Fecal 27 ug/g (0-120)
[2021-09-02 17:15] LABS: Lactoferrin, Fecal, Quant. 2.67 ug/mL(g) (0.00-7.24)
== END ==
PROVIDERS: Visit Provider Internal Medicine Adolescent Medicine
DX: R19.7 Diarrhea, unspecified (principal)
CPT/HCPCS: 83630; 83993; 87506

== ENCOUNTER → 2021-09-12 10:35 | Outpatient (CLI) | payer MEDICARE, OTHER, SELFPAY ==
--- NOTE | 2021-09-12 10:48 | XR_ITS ---
FINAL REPORT CLINICAL HISTORY: rt hip pain COMPARISON: January 10, 2021 FINDINGS: An AP view of the pelvis and a frog leg views of the right hip were obtained. There is no prior exam for comparison. There is no acute fracture or dislocation. There is degenerative joint disease. Remaining osseous pelvis is within normal limits. Soft tissues are within normal limits. IMPRESSION: No acute osseous abnormality of the right hip. If pain persists, consider MR. Reviewed, Interpreted and Dictated by Luzmaria Cedeño MD Transcribed by Gurdeep Box Authenticated by Luzmaria Cedeño MD on 09/12/2021 12:10:46 PM [facility]
== END ==
PROVIDERS: PCP Internal Medicine Adolescent Medicine; Visit Provider Nurse Practitioner Family
DX: M25.551 Pain in right hip (principal)
CPT/HCPCS: 73502

== ENCOUNTER 2021-09-28 14:01 | Emergency (ER) | payer MEDICARE, OTHER, SELFPAY ==
[2021-09-28] VITALS (13 sets, daily range): BP systolic 138–191; BP diastolic 86–122; PULSE 97–105; RESP 16–17; TEMP 37; O2SAT 97–99; BMI 24.6
--- NOTE | 2021-09-28 14:04 | HMH.EDGENADL ---
ED Disposition Clinical Impression: High blood pressure Qualifiers: Hypertension type: primary hypertension Qualified Code(s): I10 - Essential (primary) hypertension Headache Qualifiers: Headache type: tension-type Headache chronicity pattern: acute headache Intractability: not intractable Qualified Code(s): G44.209 - Tension-type headache, unspecified, not intractable Disposition: Home, Self-Care Condition on Discharge: Fair Instructions: Treatments for High Blood Pressure: More Than Just Taking a Pill, Essential Hypertension Additional Instructions: Follow-up with your primary care physician in the next 2 to 3 days. I would recommend taking your blood pressure at home to see where it generally is, keeping a diary help determine what medications you should be gone to have her ideal blood pressure. Since he has been losing weight recommend to eat and drink healthy diet as you are able. Return to the emergency department for any new or concerning symptoms. Referrals: Abdiel Angulo MD [Primary Care Provider] - - Critical Care Critical Care Time: No Attestation: On , the high probability of a clinically significant, sudden or life threatening deterioration of the following system(s) required my full and direct attention, intervention and personal management. The time I documented below is in addition to time spent performing reported procedures but includes the following listed in this critical care notation. Medical Decision Making - Medical Records Medical records reviewed: Yes: I reviewed the patient's medical records. - Tanner Inquiry Pt receiving controlled substance: No Vital Signs: 09/28/21 14:10 09/28/21 14:30 09/28/21 15:00 Temperature 98.6 F Temperature Source Oral Pulse Rate 97 H 98 H Pulse Rate [Left Radial] 103 H Respiratory Rate 17 Blood Pressure 163/100 H 153/104 H Blood Pressure [Right Arm] 191/122 H Blood Pressure Mean 114 124 Blood Pressure Mean [Right Arm] 145 02 Sat by Pulse Oximetry 99 98 97 Oxygen Delivery Method Room Air 09/28/21 16:00 09/28/21 16:20 09/28/21 16:40 Temperature Temperature Source Pulse Rate 102 H 100 H 102 H Pulse Rate [Left Radial] Respiratory Rate Blood Pressure 163/104 H 152/95 H 163/112 H Blood Pressure [Right Arm] Blood Pressure Mean 127 114 117 Blood Pressure Mean [Right Arm] 02 Sat by Pulse Oximetry 97 99 98 Oxygen Delivery Method 09/28/21 17:01 09/28/21 17:20 09/28/21 17:40 Temperature Temperature Source Pulse Rate 100 H 102 H 98 H Pulse Rate [Left Radial] Respiratory Rate Blood Pressure 138/95 H 146/95 H 139/86 Blood Pressure [Right Arm] Blood Pressure Mean 109 112 109 Blood Pressure Mean [Right Arm] 02 Sat by Pulse Oximetry 99 98 98 Oxygen Delivery Method 09/28/21 18:20 09/28/21 18:40 09/28/21 19:00 Temperature Temperature Source Pulse Rate 100 H 105 H 103 H Pulse Rate [Left Radial] Respiratory Rate Blood Pressure 138/104 H 142/88 H 146/95 H Blood Pressure [Right Arm] Blood Pressure Mean 113 106 111 Blood Pressure Mean [Right Arm] 02 Sat by Pulse Oximetry 99 98 98 Oxygen Delivery Method 09/28/21 19:48 Temperature 98.6 F Temperature Source Oral Pulse Rate 103 H Pulse Rate [Left Radial] Respiratory Rate 16 Blood Pressure 146/95 H Blood Pressure [Right Arm] Blood Pressure Mean Blood Pressure Mean [Right Arm] 02 Sat by Pulse Oximetry Oxygen Delivery Method Room Air - Lab Data Lab results reviewed: Yes: I reviewed the patient's lab results. Lab Results 09/28/21 14:28: WBC 6.4, RBC 3.83 L, Hgb 13.7, Hct 41.5, MCV 108.4 H, MCH 35.7 H, MCHC 32.9, RDW 15.0, Plt Count 207, MPV 8.7, Neut % (Auto) 69.4, Lymph % (Auto) 25.2, [place] % (Auto) 3.6, Eos % (Auto) 0.8, Baso % (Auto) 0.9, Neut # (Auto) 4.4, Lymph # (Auto) 1.6, [place] # (Auto) 0.2, Eos # (Auto) 0.1, Baso # (Auto) 0.1 09/28/21 14:28: Sodium 139, Potassium 4.0, Chloride 105, Carbon Dioxide
--- NOTE | 2021-09-28 14:11 | ECG_ITS ---
APPROVED REPORT Exam: Resting ECG HR:102 bpm ECG Measurements Heart Rate 102 AXES [place] 142 P 56 QRSd 123 QRS 31 QT 375 T -18 QTc 433 Conclusion SINUS TACHYCARDIA RIGHT BUNDLE BRANCH BLOCK [120+ ms QRS DURATION, UPRIGHT V1, 40+ ms S IN I/aVL/V4/V5/V6] ABNORMAL ECG UNCONFIRMED REPORT Electronically signed by : Abdiel Angulo MD 09/28/2021 16:50:45
--- NOTE | 2021-09-28 14:18 | CT_ITS ---
FINAL REPORT CLINICAL HISTORY: htN, PRES VS CEREBELLER STROKE, PATIENT ALSO GETTING ANGIO HEAD AND NECK COMPARISON: June 07, 2021 CT FINDINGS: Axial images of the head were obtained without contrast. Coronal reformatted images were also obtained.This study was performed with techniques to keep radiation doses as low as reasonably achievable (ALARA). Individualized dose reduction techniques using automated exposure control or adjustment of mA and/or kV according to the patient''s size were employed. There are worsening areas of low attenuation in the cerebral white matter may represent worsening edema or possibly chronic ischemic changes. There is no evidence of intracranial hemorrhage or mass. The ventricular size is within normal limits. There is no evidence of shift of the midline structures. No abnormal extra axial fluid collection is identified. No skull abnormality is seen on the bone window images. IMPRESSION: Worsening white matter low attenuation may represent worsening edema or possibly chronic ischemic change. If indicated MRI brain may be helpful. No evidence of hemorrhage. Authenticated and [facility]
--- NOTE | 2021-09-28 14:18 | CT_ITS ---
FINAL REPORT TECHNIQUE: Thin section axial CT with IV contrast supplemented with multiplanar reconstruction under CT angiogram protocol. 3-D reconstructions were performed. This study was performed with techniques to keep radiation doses as low as reasonably achievable (ALARA). Individualized dose reduction techniques using automated exposure control or adjustment of mA and/or kV according to the patient''s size were employed. CLINICAL HISTORY: HTN, Pres vs cerebeller stroke CTA HEAD AND NECK FINDINGS: The distal vertebral, basilar and distal internal carotid arteries have an unremarkable appearance. No aneurysm is seen. Major intracranial vessels are patent without significant stenosis. IMPRESSION: No significant stenosis or major branch occlusion. Reviewed, Interpreted and Dictated by Joesph Harris III, MD Transcribed by Afua Garcia Authenticated and [facility]
--- NOTE | 2021-09-28 14:18 | CT_ITS ---
FINAL REPORT TECHNIQUE: Then section axial CT images of the chest were obtained with contrast. Three-D reformatted images were also obtained.This study was performed with techniques to keep radiation doses as low as reasonably achievable (ALARA). Individualized dose reduction techniques using automated exposure control or adjustment of mA and/or kV according to the patient''s size were employed. CLINICAL HISTORY: concern for pe FINDINGS: There is an 11 mm right thyroid lobe nodule which is nonspecific. There is no evidence of pulmonary embolism. There is no evidence of thoracic aortic aneurysm or dissection. There is no evidence of mediastinal or hilar mass or adenopathy. There is no evidence of pulmonary mass or suspicious nodule. No localized inflammatory process is seen within the lungs. There is mild biapical scarring. Mild emphysema is identified. There are multiple chronic right rib fractures. The patient is status post cholecystectomy. IMPRESSION: No evidence of pulmonary embolism. Right thyroid lobe nodule, nonspecific. Consider follow-up thyroid ultrasound in 6 months. Reviewed, Interpreted and Dictated by Joesph Harris III, MD Transcribed by Afua Garcia Authenticated and [facility]
--- NOTE | 2021-09-28 14:18 | CT_ITS ---
FINAL REPORT TECHNIQUE: Thin section axial CT with IV contrast supplemented with multiplanar reconstruction under CT angiogram protocol. This study was performed with techniques to keep radiation doses as low as reasonably achievable (ALARA). Individualized dose reduction techniques using automated exposure control or adjustment of mA and/or kV according to the patient''s size were employed. NASCET criteria was utilized during interpretation. CLINICAL HISTORY: HTN, PRES VS CEREBELLER STROKE CTA HEAD AND NECK FINDINGS: Aortic arch: Arch shows no significant narrowing. Great vessel origins are widely patent. Right carotid: No significant stenosis is seen of the cervical common or internal carotid artery. Left carotid: No significant stenosis is seen of the cervical common or internal carotid artery. Vertebral: Left vertebral artery is dominant. No significant stenosis is present. IMPRESSION: No significant stenosis identified or major branch occlusion. Reviewed, Interpreted and Dictated by Joesph Harris III, MD Transcribed by Afua Garcia Authenticated and [facility]
[2021-09-28 14:40] LABS: Basophils # 0.1 K/mm3 (0-0.2); Basophils % 0.9 % (0.1-2.0); Eosinophils # 0.1 K/mm3 (0.0-0.4); Eosinophils % 0.8 % (0.1-12.0); Hematocrit 41.5 % (37.0-47.0); Hemoglobin 13.7 g/dL (12.2-16.2); Lymphocytes # 1.6 K/mm3 (0.7-4.5); Lymphocytes % 25.2 % (10-50); Mean Corpuscular HGB Conc 32.9 g/dL (31.8-35.4); Mean Corpuscular Hemoglobin 35.7 pg (27.0-31.2); Mean Corpuscular Volume 108.4 fl (81-99); Mean Platelet Volume 8.7 fl (7.4-10.4); Monocytes # 0.2 K/mm3 (0.1-1.0); Monocytes % 3.6 % (1.7-9.3); Neutrophils # 4.4 K/mm3 (1.8-7.8); Neutrophils % 69.4 % (37.0-80.0); Platelet Count 207 K/mm3 (142-424); Red Blood Count 3.83 M/mm3 (4.20-5.40); White Blood Count 6.4 K/mm3 (4.8-10.8)
[2021-09-28 14:41] LABS: Chloride 105 mmol/L (98-107)
[2021-09-28 14:42] LABS: Sodium 139 mmol/L (136-145)
[2021-09-28 14:44] LABS: Alanine Aminotransferase 25 U/L (12-78); Alkaline Phosphatase 66 U/L (38-126); Aspartate Amino Transferase 66 U/L (14-36); Bilirubin,Total 0.7 mg/dl (0.2-1.3); Blood Urea Nitrogen 11 mg/dl (7-17); Estimated Glomerular Filt Rate 49 ml/min (>60); GFR (African American) 59 ML/MIN (>60)
[2021-09-28 14:45] LABS: Albumin Level 4.5 g/dl (3.5-5.0); Albumin/Globulin Ratio 1.5 (1.1-1.8); Calcium 8.8 mg/dl (8.4-10.2); Carbon Dioxide 23 mmol/L (22.0-30.0); Glucose 126 mg/dl (74-100); Total Protein,Serum 7.5 g/dl (6.3-8.2)
[2021-09-28 15:02] LABS: Troponin I < 0.01 ng/ml (0.00-0.034)
--- NOTE | 2021-09-28 15:09 | PC.NURSE ---
BRENNEN Shannon at BS
--- NOTE | 2021-09-28 15:12 | PC.NURSE ---
pt to CT with mail carrier technician by david
--- NOTE | 2021-09-28 17:14 | PC.NURSE ---
I gave patient an update regarding that we are still waiting on some scans to be read by the Radiologist and Dr. Weathers is wanting a repeat troponin. She reports she is feeling better than before and her headache has resolved. She was given another warm blanket and has no other needs at this time. Dr. Weathers notified of patient feeling better.
--- NOTE | 2021-09-28 17:31 | PC.NURSE ---
2nd troponin sent to lab; lab notified
[2021-09-28 18:16] LABS: Troponin I < 0.01 ng/ml (0.00-0.034)
--- NOTE | 2021-09-28 18:16 | PC.NURSE ---
swab sent to lab
[2021-09-28 18:22] LABS: Coronavirus 19, PCR Not Detected (NotDetected); Influenza A, PCR Not Detected (NotDetected); Influenza B, PCR Not Detected (NotDetected)
== END 2021-09-28 19:52 | disposition home or self-care (01) ==
PROVIDERS: Emergency Provider Emergency Medicine; PCP Internal Medicine Adolescent Medicine
DX: I10 Essential (primary) hypertension (principal); I25.10 Atherosclerotic heart disease of native coronary artery without angina pectoris; K21.9 Gastro-esophageal reflux disease without esophagitis; I25.2 Old myocardial infarction; Z86.73 Personal history of transient ischemic attack (TIA), and cerebral infarction without residual deficits
CPT/HCPCS: 70450; 70496; 70498; 71275; 80053; 84484; 85025; 93005; 96374; 96375; 99284; C9803; Q9967; U0003; U0005

== ENCOUNTER → 2021-09-30 10:25 | Outpatient (CLI) | payer MEDICARE, OTHER, SELFPAY ==
--- NOTE | 2021-09-30 10:27 | CT_ITS ---
FINAL REPORT CLINICAL HISTORY: RIGHT HIP PAIN, no injury FINDINGS: CT RIGHT HIP WITHOUT CONTRAST Technique: Axial images through the right hip were performed by computed tomography. Sagittal and coronal reconstruction images were performed. This study was performed with techniques to keep radiation doses as low as reasonably achievable (ALARA). Individualized dose reduction techniques using automated exposure control or adjustment of mA and/or kV according to the patient's size were employed. No acute fracture is identified. No dislocation identified. Severe degenerative changes identified. There are soft tissue calcifications. IMPRESSION: Severe degenerative change. Reviewed, Interpreted and Dictated by Joesph Harris III, MD Transcribed by Gurdeep Box Authenticated and [facility]
== END ==
PROVIDERS: PCP Internal Medicine Adolescent Medicine; Visit Provider Nurse Practitioner Family
DX: M25.551 Pain in right hip (principal)
CPT/HCPCS: 73700

== ENCOUNTER 2021-10-08 20:23 | Emergency (ER) | payer MEDICARE, OTHER, SELFPAY ==
[2021-10-08 20:24] VITALS: BP 136/88; PULSE 77; RESP 16; TEMP 36.9; O2SAT 95; BMI 24.7
[2021-10-08 20:36] LABS: Microscopic, Urine URINE MICROSCOPIC (MICROSCOPIC)
[2021-10-08 20:40] LABS: Appearance,Urine CLEAR (Clear); Bilirubin,Urine Negative (Negative); Blood, Urine 3+ (Negative); Color,Urine YELLOW (Yellow); Glucose,Urine (UA) Negative (Negative); Ketones,Urine Negative (Negative); Leukocyte Esterase,Urine 1+ (Negative); Nitrate,Urine Negative (Negative); PH,Urine 5.5 (5.0-8.5); Protein,Urine Negative (Negative); Urobilinogen,Urine 0.2 EU/dl (0.2)
[2021-10-08 20:43] LABS: RBC,Urine 20-50 #/hpf (0-3)
[2021-10-08 21:00] VITALS: BP 122/78; PULSE 75; O2SAT 97
[2021-10-08 21:06] LABS: Basophils # 0.1 K/mm3 (0-0.2); Basophils % 1.7 % (0.1-2.0); Eosinophils # 0.2 K/mm3 (0.0-0.4); Eosinophils % 2.9 % (0.1-12.0); Hematocrit 39.1 % (37.0-47.0); Hemoglobin 12.8 g/dL (12.2-16.2); Lymphocytes # 2.1 K/mm3 (0.7-4.5); Lymphocytes % 26.8 % (10-50); Mean Corpuscular HGB Conc 32.8 g/dL (31.8-35.4); Mean Corpuscular Hemoglobin 36.5 pg (27.0-31.2); Mean Platelet Volume 8.6 fl (7.4-10.4); Monocytes # 0.3 K/mm3 (0.1-1.0); Monocytes % 3.9 % (1.7-9.3); Neutrophils # 5.1 K/mm3 (1.8-7.8); Neutrophils % 64.7 % (37.0-80.0); Platelet Count 300 K/mm3 (142-424); Red Blood Count 3.52 M/mm3 (4.20-5.40); White Blood Count 7.9 K/mm3 (4.8-10.8)
[2021-10-08 21:17] LABS: Alanine Aminotransferase 33 U/L (12-78); Albumin Level 3.8 g/dl (3.5-5.0); Albumin/Globulin Ratio 1.4 (1.1-1.8); Alkaline Phosphatase 66 U/L (38-126); Aspartate Amino Transferase 63 U/L (14-36); Bilirubin,Total 0.1 mg/dl (0.2-1.3); Blood Urea Nitrogen 16 mg/dl (7-17); Calcium 9.4 mg/dl (8.4-10.2); Carbon Dioxide 24 mmol/L (22.0-30.0); Chloride 103 mmol/L (98-107); Creatinine Clearance Estimated 47 mL/min (50-200); Estimated Glomerular Filt Rate 49 ml/min (>60); GFR (African American) 59 ML/MIN (>60); Globulin 2.8 g/dL (1.3-3.2); Glucose 124 mg/dl (74-100); Sodium 137 mmol/L (136-145); Total Protein,Serum 6.6 g/dl (6.3-8.2)
[2021-10-08 21:22] LABS: C-Reactive Protein 2.9 mg/L (0-4)
[2021-10-08 21:31] VITALS: BP 144/88; O2SAT 97
[2021-10-08 21:33] LABS: Erythrocyte Sedimentation Rate 50 mm/hr (0-30)
[2021-10-08 21:36] LABS: Procalcitonin 0.097 ng/mL (0.0-2.0)
[2021-10-08 22:00] VITALS: BP 144/83; PULSE 75; O2SAT 97
--- NOTE | 2021-10-08 22:34 | CT_ITS ---
PROCEDURE INFORMATION: Exam: CT Abdomen And Pelvis Without Contrast Exam date and time: 10/08/2021 10:43 PM Age: 71 years old Clinical indication: Abdominal pain; Generalized; Prior surgery; Surgery date: 6+ months; Surgery type: Stomach surgery for ulcer, stimulator inserted for back pain; Additional info: Abd pain TECHNIQUE: Imaging protocol: Computed tomography of the abdomen and pelvis without contrast. Radiation optimization: All CT scans at this facility use at least one of these dose optimization techniques: automated exposure control; mA and/or kV adjustment per patient size (includes targeted exams where dose is matched to clinical indication); or iterative reconstruction. COMPARISON: CT ABDOMEN PELVIS W CON 05/31/2021 4:09 PM FINDINGS: Tubes, catheters and devices: A spinal cord stimulator is in place. The generator is within the low right lumbar region. Lungs: No mass/infiltrate at either lung base. No pleural effusion. Heart: There are calcifications identified within the right coronary artery. Liver: The liver is normal in size. Attenuation is normal. There are granulomatous calcifications within the liver. No intrahepatic biliary dilitation. Gallbladder and bile ducts: The gallbladder is surgically absent. No evidence of extrahepatic biliary dilatation. Pancreas: Normal. No ductal dilation. Spleen: Normal. No splenomegaly. Adrenal glands: Normal. No mass. Kidneys and ureters: There is moderate left hydronephrosis and left hydroureter. 2 mm obstructing calculi at the left vesicoureteral junction. The right kidney and right ureter are unremarkable. Stomach and bowel: Changes of prior gastric surgery. There are clips identified at the gastroesophageal junction which may be secondary to prior vagotomy. There is mild diverticulosis within portions of the left colon without evidence of diverticulitis. No obstruction. No mucosal thickening. Small bowel mesentery is normal. Appendix: The appendix is poorly visualized on this examination. There is no evidence of acute inflammatory process within the right lower quadrant. Intraperitoneal space: Unremarkable. No free air. No significant fluid collection. Vasculature: Arterial atheromatous calcifications are noted. No abdominal aortic aneurysm. Lymph nodes: Unremarkable. No enlarged lymph nodes. Urinary bladder: Unremarkable as visualized. Reproductive: Hysterectomy has been performed. Bones/joints: Prominent dextroconvex thoracolumbar scoliosis. Mild degenerative changes of the thoracic and lumbar spine are noted. No acute fracture. Soft tissues: Unremarkable. IMPRESSION: 1. There is a 2 mm obstructing nephrolith within the left vesicoureteral junction associated with moderate left hydronephrosis and left hydroureter. 2. Changes of prior gastric surgery. Clips at the gastroesophageal junction may be secondary to prior vagotomy. 3. Cholecystectomy and hysterectomy has been performed.
--- NOTE | 2021-10-08 22:34 | HMH.EDNVD ---
ED Disposition Clinical Impression: Renal colic on left side Disposition: Home, Self-Care Condition on Discharge: Good Instructions: DI for Kidney Stones Additional Instructions: fluids and call pcp for urine culture results and follow up Prescriptions: Tamsulosin HCl [Flomax 0.4mg capsule] 0.4 mg PO HS #10 cap Transmission Status: Pending to [id number] Referrals: Abdiel Angulo MD [Primary Care Provider] - - Critical Care Critical Care Time: No Attestation: On 10/08/21, the high probability of a clinically significant, sudden or life threatening deterioration of the following system(s) required my full and direct attention, intervention and personal management. The time I documented below is in addition to time spent performing reported procedures but includes the following listed in this critical care notation. Medical Decision Making - Medical Records Medical records reviewed: Yes: I reviewed the patient's medical records. - Tanner Inquiry Pt receiving controlled substance: No Vital Signs: 10/08/21 20:24 10/08/21 21:00 10/08/21 21:31 Temperature 98.5 F Temperature Source Oral Pulse Rate 75 Pulse Rate [Left Radial] 77 Respiratory Rate 16 Blood Pressure 122/78 144/88 H Blood Pressure [Right Arm] 136/88 Blood Pressure Mean [Right Arm] 104 Blood Pressure Source [Right Arm] Automatic Cuff Blood Pressure Position [Right Arm] Sitting 02 Sat by Pulse Oximetry 95 97 97 Oxygen Delivery Method Room Air Room Air Room Air 10/08/21 22:00 Temperature Temperature Source Pulse Rate 75 Pulse Rate [Left Radial] Respiratory Rate Blood Pressure 144/83 H Blood Pressure [Right Arm] Blood Pressure Mean [Right Arm] Blood Pressure Source [Right Arm] Blood Pressure Position [Right Arm] 02 Sat by Pulse Oximetry 97 Oxygen Delivery Method Room Air - Lab Data Lab results reviewed: Yes: I reviewed the patient's lab results. Lab Results 10/08/21 20:32: Urine Color Yellow, Urine Appearance Clear, Urine pH 5.5, Ur Specific [place] 1.010, Urine Protein Negative, Urine Glucose (UA) Negative, Urine Ketones Negative, Urine Blood 3+, Urine Nitrate Negative, Urine Bilirubin Negative, Urine Urobilinogen 0.2, Ur Leukocyte Esterase 1+ A, Urine RBC 20-50, Urine WBC 10-20 10/08/21 20:55: WBC 7.9, RBC 3.52 L, Hgb 12.8, Hct 39.1, MCV 111.0 H, MCH 36.5 H, MCHC 32.8, RDW 15.0, Plt Count 300, MPV 8.6, Neut % (Auto) 64.7, Lymph % (Auto) 26.8, Dale % (Auto) 3.9, Eos % (Auto) 2.9, Baso % (Auto) 1.7, Neut # (Auto) 5.1, Lymph # (Auto) 2.1, Dale # (Auto) 0.3, Eos # (Auto) 0.2, Baso # (Auto) 0.1, ESR 50 H 10/08/21 20:55: Sodium 137, Potassium 4.0, Chloride 103, Carbon Dioxide 24, Anion Gap 14.0, BUN 16, Creatinine 1.10 H, Estimated Creat Clear 47, Estimated GFR 49 L, Est GFR ( Amer) 59, Glucose 124 H, Calcium 9.4, Total Bilirubin 0.1 L, AST 63 H, ALT 33, Alkaline Phosphatase 66, C-Reactive Protein 2.9, Total Protein 6.6, Albumin 3.8, Globulin 2.8, Albumin/Globulin Ratio 1.4 10/08/21 20:55: Procalcitonin 0.097 Result diagrams: 10/08/21 20:55 10/08/21 20:55 Orders (Tests/Meds): ED MEDICATIONS Generic Name Dose Route Start Last Admin Trade Name Freq PRN Reason Stop Dose Admin Sodium Chloride 1,000 mls @ 999 mls/hr 10/08/21 21:15 10/08/21 21:02 Sod Chlor 0.9% 1000ml Bag IV 10/08/21 22:15 999 mls/hr .Q1H1M GABRIELA Administration Discontinued Medications Generic Name Dose Route Start Last Admin Trade Name Freq PRN Reason Stop Dose Admin Ketorolac Tromethamine 15 mg 10/08/21 21:01 10/08/21 21:02 Ketorolac 30mg/Ml Vial IV 10/08/21 21:02 15 mg ONCE ONE Administration ORDERS Category Date Time Status UDS [Drug Screen,Urine] Stat Lab 10/09/21 00:05 Ordered Urine Culture Stat Micro 10/08/21 20:32 Received - CT Data CT Scan: Abdomen, Pelvis Time Received: 00:[address] Reviewed: Yes: I have viewed the radiologist's interpretation Preliminary Findings: A
--- NOTE | 2021-10-08 22:44 | PC.NURSE ---
Pt gone to RAD
--- NOTE | 2021-10-08 22:51 | PC.NURSE ---
Pt back from RAD
[2021-10-09 00:24] LABS: Barbiturates Screen,Urine Negative ng/ml (<200)
[2021-10-09 00:25] LABS: Benzodiazepines Screen,Urine Negative ng/ml (<200)
[2021-10-09 00:26] LABS: Amphetamine/Metha Screen,Urine Negative ng/ml (<1000)
[2021-10-09 00:27] LABS: Cannabinoid Screen,Urine Negative ng/ml (<50); Methadone Screen,Urine Negative ng/ml (<300)
[2021-10-09 00:28] LABS: Cocaine Screen,Urine Negative ng/ml (<300); Opiate Screen,Urine Negative ng/ml (<300)
[2021-10-09 00:29] LABS: Phencyclidine Screen,Urine Negative ng/ml (<25)
[2021-10-09 00:32] VITALS: BP 114/73; PULSE 77; RESP 18; TEMP 36.6; O2SAT 97
== END 2021-10-09 00:33 | disposition home or self-care (01) ==
PROVIDERS: Emergency Provider Emergency Medicine; PCP Internal Medicine Adolescent Medicine
DX: N23 Unspecified renal colic (principal); R00.2 Palpitations; R00.0 Tachycardia, unspecified; R11.0 Nausea; I11.0 Hypertensive heart disease with heart failure; I50.30 Unspecified diastolic (congestive) heart failure; I25.10 Atherosclerotic heart disease of native coronary artery without angina pectoris; I25.2 Old myocardial infarction; K21.9 Gastro-esophageal reflux disease without esophagitis; E78.5 Hyperlipidemia, unspecified; M19.90 Unspecified osteoarthritis, unspecified site; R42 Dizziness and giddiness; K75.9 Inflammatory liver disease, unspecified; J98.4 Other disorders of lung; H26.9 Unspecified cataract; F41.9 Anxiety disorder, unspecified; Z79.02 Long term (current) use of antithrombotics/antiplatelets; Z79.1 Long term (current) use of non-steroidal anti-inflammatories (NSAID); Z79.51 Long term (current) use of inhaled steroids; Z79.82 Long term (current) use of aspirin; Z79.890 Hormone replacement therapy; Z79.899 Other long term (current) drug therapy; Z86.73 Personal history of transient ischemic attack (TIA), and cerebral infarction without residual deficits; Z87.891 Personal history of nicotine dependence; Z82.49 Family history of ischemic heart disease and other diseases of the circulatory system; Z80.9 Family history of malignant neoplasm, unspecified
CPT/HCPCS: 74176; 80053; 80305; 81001; 84145; 85025; 85651; 86140; 87086; 96361; 96374; 96375; 96376; 99285; J2405

== ENCOUNTER → 2021-10-28 14:41 | Outpatient (CLI) | payer MEDICARE, OTHER, SELFPAY ==
--- NOTE | 2021-10-28 14:44 | XR_ITS ---
FINAL REPORT CLINICAL HISTORY: kidney stone, left side FINDINGS: ABDOMEN SINGLE VIEW There is a nonspecific, nonobstructive bowel gas pattern. No bowel dilation is identified. There is a moderate moderate retained stool throughout the colon. No definite renal stone is identified. Presumed stimulator overlies the right kidney. IMPRESSION: No definite renal stone identified. Reviewed, Interpreted and Dictated by Joesph Harris III, MD Transcribed by Afua Gracia Authenticated and [facility]
== END ==
PROVIDERS: PCP Internal Medicine Adolescent Medicine; Visit Provider Urology
DX: N20.0 Calculus of kidney (principal); Z01.812 Encounter for preprocedural laboratory examination; Z20.822 Contact with and (suspected) exposure to COVID-19
CPT/HCPCS: 74018; C9803; U0003; U0005

== ENCOUNTER 2021-10-31 11:58 | Day surgery (SDC) | payer MEDICARE, OTHER, SELFPAY ==
[2021-10-31] VITALS (9 sets, daily range): BP systolic 163–177; BP diastolic 80–99; PULSE 74–84; RESP 18–24; TEMP 36.2–36.3; O2SAT 93–97; BMI 24.4
--- NOTE | 2021-10-31 | XR_ITS ---
FINAL REPORT CLINICAL HISTORY: URETEROSCOPY IN OR FINDINGS: FLUORO TIME PROCEDURE: Ureteroscopy in operating room. Fluoroscopy time was provided by the radiology department for the clinical service. One film was obtained. Fluoroscopy exposure time: 0:47 minute IMPRESSION: See above Reviewed, Interpreted and Dictated by Chilo De La Cruz MD Transcribed by Anna Morrow Authenticated and [facility]
--- NOTE | 2021-10-31 14:19 | P.PN_ITS ---
[facility] Anesthesia Checklist - Patient Identification Patient Identification: Arm Band - Structural Data Admitted From: Home Planned Operative Procedure/s: Ureteroscopy Consent for Planned Operative Procedure(s) Verified: Yes - NPO Status Verified Time NPO: 00:00 - Additional verifications Anesthesia Reactions: No Hx Blood Transfusions: No Blood Transfusion Reaction: No - Airway Assessment C-Spine Mobility Assessed: Yes TMJ Mobility Assessed: Yes Dentition: Edentulous - Neurological Assessment Level of Consciousness: Awake Hx Seizures: No Numbness or tingling in extremities: No - Anesthesia Plan Anesthesia Risk discussed: Yes Anesthesia Plan: Verified ASA Class: III Anesthesia Type: General [facility] History I have reviewed the patient's past medical history: Yes Medical History: Reports:: Anxiety, Atherosclerotic Heart Disease, Congestive Heart Failure, Chronic Obstructive Pulmonary Disease (COPD), Coronary Artery Disease, Gastroesophageal Reflux Disease(GERD), Hyperlipidemia, Hypertension, Lung Disease, Kidney Stones, Myocardial Infarction, Transient Ischemic Attacks (TIA) Denies:: Cancer, Diabetes Mellitus Type 1, Diabetes Mellitus Type 2, Internal Pacemaker, MRSA, Seizures *Have you ever received a pneumonia vaccine?: Yes *Have you received a flu vaccine this season?: Yes Other Medical History: Reports: Arthritis, Cataracts, Hormone Therapy, Liver Disease, Other. Denies: Blood Transfusion Reaction Anesthesia experience/problems:: None Laterality Cases: Bilateral: Tonsillectomy Other Surgeries: Yes: No Previous Surgery, Appendectomy, Cardiac Catheterization, Cholecystectomy, Colonoscopy, Coronary Stent, EGD, Hernia Repair, Hysterectomy-Total, Tubal Ligation, Other. No: Pacemaker Amputation: No Fractures: No - *Social History Last grade of school completed: 9th or 10th Smoking Status: Former smoker Tobacco Type: cigarettes # Packs/Day (cigarettes): 1 #Yrs smoked (if former smoker): 55 Smoking End Date: 6 months ago Alcohol Intake: never Alcohol Intake Frequency:: other Substance Use Type: denies use *Occupational Status:: retired Housing: house Household Members: spouse *Travel in the last 8 weeks: None - Psychiatric History Pschychiatric History:: Reports:: Anxiety Family Hx:: Cancer, Hypertension
--- NOTE | 2021-10-31 16:30 | HMH.OPNOTE ---
Date of procedure: 10/31/21 Pre-op Diagnosis:: 2 mm left distal ureteral stone Post-op Diagnosis:: Ureteral stenosis, no evidence of stone Procedure performed:: Left ureteroscopy with stent placement Surgeon:: Vernon Lopez MD LEAD MATERIAL HANDLER:: Other (chadd) Anesthesia: LMA Estimated blood loss (mL): 0 Clinical Note:: 71-year-old white female with history of left flank pain and intractable nausea vomiting presents for left ureteroscopy for a 2 mm distal ureteral stone with obstruction. Operative findings:: Ureteroscopy revealed no evidence of a stone in her ureter. There were very small crystals in the bladder consistent with uric acid crystals. Left ureteroscopy revealed 2 areas of narrowing 1 of which was dilated. The left stent was placed for passive dilation of the more proximal narrowing. Operative note:: Patient taken to the operating room after informed consent was obtained. She was placed on the operating table in the supine position and general anesthesia administered. Preoperative antibiotics and sequential compression devices placed. She was then placed into the dorsal lithotomy position and prepped and draped in the standard surgical fashion. The 22 Asa passed into the urethra and into the bladder. The bladder was examined in a systematic fashion. There is no evidence of mucosal normalities, diverticula or trabeculation. There were small crystals in the bladder consistent with uric acid crystals. The ureteral orifices in their normal anatomic position. There was clear efflux of urine from each orifice. A guidewire was passed into the left ureteral orifice and passed into the left renal pelvis without difficulty. The cystoscope removed and the semirigid ureteroscope then passed into the bladder but the left ureteral orifice was too narrow to allow the scope to pass so the ureteroscope was removed and our 4 x 15 mm UroMax balloon dilator was placed into the ureter over the wire and the distal ureteral orifice dilated to 12 roldan for 2 minutes. Balloon then deflated and removed. The ureteroscope was passed back into the ureter and about 3 cm more proximal another area of stenosis was noted. The scope was removed and the balloon dilator replaced over the guidewire and the stenosis dilated to 12 roldan for 2 minutes. The dilator then deflated and removed and the semirigid rigid ureteroscope then repassed up to a more narrowed area which could not be negotiated. At this point there is no evidence of the distal ureteral stone and I do not believe it migrated more proximally. The ureteroscope was removed and our cystoscope was backloaded over the guidewire and a 4.8 x 24 Sinhala stent passed under fluoroscopy. The wire removed with a good curl noted proximally and distally. Patient tolerated procedure well no complications. Condition: stable Disposition: PACU Specimens:: None Complications:: None
--- NOTE | 2021-10-31 17:09 | SUR.PHASEI ---
[id number] detailed report give to Mundo Cuba RN [id number] pt in post op with Mundo Cuba RN. Mundo Cuba RN at pt bedside [id number] family at pt's bedside
--- NOTE | 2021-10-31 17:17 | PC.NURSE ---
pt denies ice pack or pain meds to help relieve pain at this time
--- NOTE | 2021-10-31 17:20 | PC.NURSE ---
Pt refuses pain meds and ice at this time to help relieve pain.
--- NOTE | 2021-10-31 18:16 | PC.NURSE ---
pt described pain as burning and pressure refuses any pain medication. Instructed to pat with cold wet wash cloth in area
--- NOTE | 2021-11-01 07:34 | HMH.ANESI ---
[facility] Anesthesia Record Part I Intake, IV Amount: 300 Estimated blood loss (mL): 0 Urine output (mL): 0 Blood Pressure: 164/86 SaO2: 96 Pulse Rate: 84 Respiratory Rate: 20 Temperature: 97.4 F Patient is:: Awake Stable to PACU at:: 16:18
[2021-11-01 07:37] VITALS: BP 164/86; PULSE 84; RESP 20; TEMP 36.3; O2SAT 96
--- NOTE | 2021-11-01 07:37 | HMH.ANESII ---
[facility] Anesthesia Record Part II Discharge Time: 16:48 Destination: Surgical Day Care (OP Surgery) PACU nurse assessment reviewed?: Yes Patient Condition:: Good Anesthesia Complications:: None Swallowing reflex intact?: Yes Cyanosis?: No Blood Pressure: 175/95 Pulse Rate: 81 Temperature: 97.3 F Mental Status: Alert & Oriented Pain level:: 5 Nausea and/or vomitting:: None Intake, IV Amount: 0
[2021-11-01 07:39] VITALS: BP 175/95; PULSE 81; TEMP 36.3
== END 2021-10-31 17:45 | disposition home or self-care (01) ==
LOC: OR 12:05
PROVIDERS: PCP Internal Medicine Adolescent Medicine; Visit Provider Urology
PROC: 0TJ98ZZ Inspection of Ureter, Via Natural or Artificial Opening Endoscopic (ICD-10-PCS; CPT 52351; principal; 2021-10-31 14:00)
DX: Q62.10 Congenital occlusion of ureter, unspecified (principal); I11.0 Hypertensive heart disease with heart failure; I50.9 Heart failure, unspecified; J44.9 Chronic obstructive pulmonary disease, unspecified; I25.2 Old myocardial infarction; Z86.73 Personal history of transient ischemic attack (TIA), and cerebral infarction without residual deficits; Z87.442 Personal history of urinary calculi; I25.10 Atherosclerotic heart disease of native coronary artery without angina pectoris; E78.5 Hyperlipidemia, unspecified
CPT/HCPCS: 52332; 74018; 76000; 96374; C2617

== ENCOUNTER 2022-01-12 09:00 | Emergency (ER) | payer MEDICARE, OTHER, SELFPAY ==
[2022-01-12 09:13] VITALS: BP 161/65; PULSE 64; RESP 20; O2SAT 96; BMI 24.7
--- NOTE | 2022-01-12 09:16 | XR_ITS ---
FINAL REPORT CLINICAL HISTORY: fall yesterday morning out of bed FINDINGS: 3 views of the left ribs were obtained. There is healed fracture deformity of the right 3rd through 7th and left 3rd through 6th ribs. There are no acute rib fractures. There is no pleural fluid collection or pneumothorax. A single view of the chest demonstrates a loop recorder device. There is mild cardiomegaly. A spinal stimulator is present. IMPRESSION: No acute rib fracture or pneumothorax. Reviewed, Interpreted and Dictated by Chilo De La Cruz MD Transcribed by Gurdeep Box Authenticated and [facility]
--- NOTE | 2022-01-12 09:17 | EXP.UTC ---
Discharge Plan Disposition Patient Disposition: Home, Self-Care Condition: Good Prescriptions Prescriptions: No Action losartan 50 mg tablet 100 mg PO DAILY clopidogrel 75 mg tablet 75 mg PO DAILY [id number] acid-biotin 1 EACH tablet,chewable 1 each PO DAILY aspirin 81 MG tablet,chewable 81 mg PO DAILY atorvastatin 80 MG tablet 80 mg PO HS nitroglycerin 0.4 MG tablet, sublingual 0.4 mg SL Q5MINP PRN (Reason: Chest Pain) pantoprazole 40 MG tablet,delayed release (DR/EC) 40 mg PO BID escitalopram oxalate 20 MG tablet 20 mg PO DAILY tramadol 50 MG tablet 50 mg PO TIDP PRN (Reason: pain) magnesium oxide 400 MG tablet 400 mg PO BID L.acidoph, paracasei,B. lactis 1 EACH capsule 1 cap PO DAILY albuterol sulfate 90 MCG aero powdr breath act w/sensor 2 puffs IH Q6H (DME) inhalational spacing device 1 EACH spacer 1 each MC DAILYP sucralfate 1 GM tablet 1 g PO ACHS linaclotide 145 MCG capsule 145 mcg PO DAILY metoprolol succinate 100 MG tablet extended release 24 hr 100 mg PO DAILY tamsulosin 0.4 MG capsule 0.4 mg PO HS Referrals Follow up/Referrals: Abdiel Angulo MD [Primary Care Provider] - See instructions Activity Restrictions/Add. Instructions Additional Instructions/Restrictions: Ice packs to area may help with pain and bruising Over the counter Lidocaine patches may help with pain Make sure to call Family Doctor to make an appointment for further evaluation and imaging if warranted Return if needed Straight to ER if any life threatening symptoms Clinical Impressions Clinical Impression: Contusion of rib on left side Instructions Patient Instructions: Contusion, DI for Contusion Discharge ED Provider: Nenita Caro [facility] [place] H[place] General Stated complaint: AO [id number] fell from bed, rib pain Mode of Arrival: Ambulatory Limitations: No Limitations Time Seen by Provider: 01/12/22 09:17 Description of Symptoms (Recalled from Triage Doc. by RN): Stated yesterday she fell from bed yesterday and injured her left ribs, has bruise on her lower back, denies head injury. HEENT Symptoms (Recalled from RN notes): No Resp Symptoms (Recalled from RN notes): No Skin Symptoms (Recalled from RN notes): No MS Symptoms (Recalled from RN notes): Yes Functional Status (Recalled from RN notes): fall History of Present Illness Provider Complaint: Patient states that she fell from her bed yesterday and hit her ribs on the side table States that she thinks she may have some broken ribs States that she also has bruise on her lower back but denies pain there and her lower back isnt hurting States that she just wants to get her ribs checked Denies hematuria Related Data Home Medications Medication Instructions Recorded Confirmed clopidogrel 75 mg tablet 75 mg PO DAILY platelet inhibitor 10/30/17 11/08/21 multivit with minerals-folic acid 1 each PO DAILY Supplement 09/09/18 11/08/21 200 mcg-biotin 300 mcg chew tablet aspirin 81 mg chewable tablet 81 mg PO DAILY heart health 09/10/18 11/08/21 atorvastatin 80 mg tablet 80 mg PO HS Cholesterol 09/10/18 11/08/21 sucralfate 1 gram tablet 1 g PO ACHS stomach 10/31/18 11/08/21 nitroglycerin 0.4 mg sublingual 0.4 mg sublingual Q5MINP PRN Chest 06/21/20 11/08/21 tablet Pain escitalopram oxalate 20 mg tablet 20 mg PO DAILY Depression 06/22/20 11/08/21 pantoprazole 40 mg tablet,delayed 40 mg PO BID acid reflux 06/22/20 11/08/21 release tramadol 50 mg tablet 50 mg PO TIDP PRN pain 02/07/21 11/08/21 L.acidoph, paracasei,B. lactis 10 1 cap PO DAILY GI health 03/16/21 11/08/21 billion cell capsule albuterol sulfate 90 mcg/actuation 2 puffs inhalation Q6H COPD 03/16/21 11/08/21 breath activated powder inhaler,sensor inhalational spacing device 03/16/21 11/08/21 magnesium oxide 400 mg (241.3 mg 400 mg PO BID Supplement 03/16/21 11/08/21 magnesium) tablet li
--- NOTE | 2022-01-12 09:19 | XR_ITS ---
FINAL REPORT CLINICAL HISTORY: fall yesterday out of bed, hx of scoliosis and stimulator implant FINDINGS: 4 views were obtained. There is 27 degrees of thoracolumbar scoliosis convex to the right. There are mild compression deformities involving T12, L1, and L2 but most evident at T12. These are favored to be chronic. There is no malalignment. There is moderate vascular calcification in the abdominal aorta. IMPRESSION: Compression deformities of T12, L1, and L2 are favored to be chronic. Consider MRI to assess for marrow edema. Reviewed, Interpreted and Dictated by Chilo De La Cruz MD Transcribed by Gurdeep Box Authenticated and [facility]
[2022-01-12 10:42] VITALS: BP 161/65; PULSE 64; RESP 20; TEMP 36.8; O2SAT 96
== END 2022-01-12 10:45 | disposition home or self-care (01) ==
PROVIDERS: Emergency Provider Nurse Practitioner; PCP Internal Medicine Adolescent Medicine
DX: S20.211A Contusion of right front wall of thorax, initial encounter (principal); M54.50 Low back pain, unspecified; R07.9 Chest pain, unspecified; R42 Dizziness and giddiness; R00.0 Tachycardia, unspecified; I50.31 Acute diastolic (congestive) heart failure; Z79.02 Long term (current) use of antithrombotics/antiplatelets; Z79.51 Long term (current) use of inhaled steroids; Z79.82 Long term (current) use of aspirin; Z79.899 Other long term (current) drug therapy; Z87.891 Personal history of nicotine dependence; W06.XXXA Fall from bed, initial encounter; Y92.003 Bedroom of unspecified non-institutional (private) residence as the place of occurrence of the external cause
CPT/HCPCS: 71101; 72110; 99213; G0463

== ENCOUNTER 2022-04-04 02:01 | Emergency (ER) | payer MEDICARE, OTHER, SELFPAY ==
[2022-04-04 02:05] VITALS: BP 142/80; PULSE 83; RESP 18; TEMP 36.4; O2SAT 93; BMI 23.0
--- NOTE | 2022-04-04 02:13 | XR_ITS ---
PROCEDURE INFORMATION: Exam: XR Chest Exam date and time: 04/04/2022 2:32 AM Age: 71 years old Clinical indication: Injury or trauma; Fall; Blunt trauma (contusions or hematomas) TECHNIQUE: Imaging protocol: Radiologic exam of the chest. Views: 1 view. COMPARISON: CR XR RIBS LT MIN 3V W CXR1V 01/12/2022 9:25 AM FINDINGS: Lungs: Unremarkable. No consolidation. There is no focal mass. Pleural spaces: There is no pneumothorax. There is no pleural effusion. Heart/Mediastinum: Unremarkable. No cardiomegaly. Bones/joints: Old bilateral rib fractures. There is no fracture present. IMPRESSION: 1. Old bilateral rib fractures. 2. There is no significant traumatic injury to the chest. 3. No acute cardiac or pulmonary process.
--- NOTE | 2022-04-04 02:13 | CT_ITS ---
PROCEDURE INFORMATION: Exam: CT Thoracic Spine Without Contrast Exam date and time: 04/04/2022 2:31 AM Age: 71 years old Clinical indication: Injury or trauma; Fall TECHNIQUE: Imaging protocol: Computed tomography of the thoracic spine without contrast. Radiation optimization: All CT scans at this facility use at least one of these dose optimization techniques: automated exposure control; mA and/or kV adjustment per patient size (includes targeted exams where dose is matched to clinical indication); or iterative reconstruction. COMPARISON: CT CERVICAL SPINE WO CON 04/04/2022 2:28 AM FINDINGS: Tubes, catheters and devices: Spinal stimulator in place. Bones/joints: Acute compression fracture of the inferior endplate of T3 with a loss of height measuring 20%. There is retropulsion of the posterior cortex by 2 mm. Remaining vertebral bodies are normal height. There is no other fracture. Soft tissues: Unremarkable. IMPRESSION: 1. Acute compression fracture of the inferior endplate of T3 with a loss of height measuring 20%. There is retropulsion of the posterior cortex by 2 mm. There is no extension of the posterior elements. 2. No other significant traumatic injury of the thoracic spine. 3. Spinal stimulator in place.
--- NOTE | 2022-04-04 02:13 | CT_ITS ---
PROCEDURE INFORMATION: Exam: CT Head Without Contrast Exam date and time: 04/04/2022 2:28 AM Age: 71 years old Clinical indication: Injury or trauma; Fall TECHNIQUE: Imaging protocol: Computed tomography of the head without contrast. Total images: 224 Radiation optimization: All CT scans at this facility use at least one of these dose optimization techniques: automated exposure control; mA and/or kV adjustment per patient size (includes targeted exams where dose is matched to clinical indication); or iterative reconstruction. COMPARISON: CT HEAD/BRAIN WO CON 09/28/2021 3:15 PM FINDINGS: Brain: Global brain atrophy and chronic white matter ischemic changes are present. Cerebral ventricles: No ventriculomegaly. Paranasal sinuses: Mild mucosal thickening of the paranasal sinuses. Mastoid air cells: Visualized mastoid air cells are well aerated. Bones/joints: Unremarkable. No acute fracture. Soft tissues: Unremarkable. IMPRESSION: Global brain atrophy and chronic white matter ischemic changes are present. No acute intracranial abnormality. COMMENTS: Please see CT cervical spine regarding additional findings.
--- NOTE | 2022-04-04 02:13 | XR_ITS ---
PROCEDURE INFORMATION: Exam: XR Pelvis Exam date and time: 04/04/2022 2:30 AM Age: 71 years old Clinical indication: Injury or trauma; Fall; Blunt trauma (contusions or hematomas); Does not apply; Pelvic region TECHNIQUE: Imaging protocol: Radiologic exam of the pelvis. Views: 1 or 2 view. COMPARISON: CT ABDOMEN PELVIS WO CON 10/08/2021 10:43 PM FINDINGS: Bones/joints: Unremarkable. No acute fracture. The hips are well located. The symphysis pubis is unremarkable. The sacroiliac joints is unremarkable. Soft tissues: Unremarkable. IMPRESSION: No evidence for significant traumatic injury.
--- NOTE | 2022-04-04 02:13 | CT_ITS ---
PROCEDURE INFORMATION: Exam: CT Cervical Spine Without Contrast Exam date and time: 04/04/2022 2:28 AM Age: 71 years old Clinical indication: Injury or trauma; Fall TECHNIQUE: Imaging protocol: Computed tomography of the cervical spine without contrast. Total images: 2 Radiation optimization: All CT scans at this facility use at least one of these dose optimization techniques: automated exposure control; mA and/or kV adjustment per patient size (includes targeted exams where dose is matched to clinical indication); or iterative reconstruction. COMPARISON: CT CERVICAL SPINE WO CON 06/07/2021 3:35 PM FINDINGS: Bones/joints: Vertically oriented fracture line of C2 extending through the posterior aspect of each lateral mass, entering the spinal canal at the posterior margin of the vertebral body and extending through the bilateral pedicles. On the right, the fracture line is widened up to 3 mm. The coronal plane vertical fracture of C2 enters the bilateral transverse foramina, increasing risk of vertebral arterial injury. Traumatic widening of the right worse than left C2/C3 facet joints. Question tiny fracture of the posterior margin of the right sided superior articular facet of C3. C3 and C4 spinous process fractures. Mild scattered degenerative changes of the spine. Spinal epidural space: At the level of the fracture, right sided and posterior epidural high-density thickening up to 5 mm is new from prior and consistent with acute spinal epidural hematoma. Lungs: Lung apical scar. Thyroid: 11 mm right thyroid nodule. Vasculature: Atherosclerosis is evident. Soft tissues: Suspect small right sided upper thoracic paraspinal hematoma. IMPRESSION: 1. Vertically oriented fracture line of C2 extending through the posterior aspect of each lateral mass, entering the spinal canal at the posterior margin of the vertebral body and extending through the bilateral pedicles. On the right, the fracture line is widened up to 3 mm. 2. Traumatic widening of the right worse than left C2/C3 facet joints. 3. At the level of the C2 fracture, right sided and posterior epidural high-density thickening up to 5 mm is new from prior and consistent with acute spinal epidural hematoma. 4. The coronal plane vertical fracture of C2 enters the bilateral transverse foramina, increasing risk of vertebral arterial injury. 5. Question tiny fracture of the posterior margin of the right sided superior articular facet of C3. C3 and C4 spinous process fractures. 6. 11 mm right thyroid nodule. No followup recommended. 7. Suspect small right sided upper thoracic paraspinal hematoma. Please refer to pending CT thoracic spine. COMMENTS: Consistent with the [employer]'s Incidental Findings Committee white paper (J Am Chuck Radiol 2015): In patients aged 35 years and older with an incidental thyroid nodule equal to or greater than 1.[address], MRI or extrathyroidal US, further evaluation with dedicated thyroid US is recommended for patients with normal life expectancy and without comorbidities. For smaller nodules without suspicious features, no further evaluation or follow up is recommended.
--- NOTE | 2022-04-04 02:19 | HMH.EDFALL ---
Discharge Plan Disposition Patient Disposition: Xfer Short-Term Hosp Chief Complaint: Fall Prescriptions Prescriptions: No Action losartan 50 mg tablet 100 mg PO DAILY clopidogrel 75 mg tablet 75 mg PO DAILY [id number] acid-biotin 1 EACH tablet,chewable 1 each PO DAILY aspirin 81 MG tablet,chewable 81 mg PO DAILY atorvastatin 80 MG tablet 80 mg PO HS nitroglycerin 0.4 MG tablet, sublingual 0.4 mg SL Q5MINP PRN (Reason: Chest Pain) pantoprazole 40 MG tablet,delayed release (DR/EC) 40 mg PO BID escitalopram oxalate 20 MG tablet 10 mg PO DAILY tramadol 50 MG tablet 50 mg PO TIDP PRN (Reason: pain) magnesium oxide 400 MG tablet 400 mg PO BID L.acidoph, paracasei,B. lactis 1 EACH capsule 1 cap PO DAILY albuterol sulfate 90 MCG aero powdr breath act w/sensor 2 puffs IH Q6H (DME) inhalational spacing device 1 EACH spacer 1 each MC DAILYP sucralfate 1 GM tablet 1 g PO ACHS linaclotide 145 MCG capsule 145 mcg PO DAILY metoprolol succinate 100 MG tablet extended release 24 hr 100 mg PO DAILY tamsulosin 0.4 MG capsule 0.4 mg PO HS Referrals Follow up/Referrals: Provider,Referral, MD [Primary Care Provider] - See instructions Clinical Impressions Clinical Impression: Closed cervical spine fracture, RBBB, Fall, Spinal epidural hematoma, Compression fx, thoracic spine, Acute hypokalemia Discharge ED Provider: Denver Cook Fall HPI General Chief Complaint: Fall Stated Complaint: fall Time Seen by Provider: 04/04/22 02:19 Mode of Arrival: EMS Source of Information: Patient, EMS and Medical Record Limitations: No Limitations Description of Symptoms (Recalled from ER Triage Doc. by RN): Patient states that she was sitting on the toilet tonight and when she stood up she got dizzy and fell forward and hit her forehead on the bathroom floor. Now c/o a severe headache and neck pain. Pt states that she did lose consciousness but did not vomit. Pupils are equal and reactive. Patient is a&ox4 History of Present Illness HPI Narrative: while getting off toilet tonight about [id number] fell with acute head and neck injury - no loc and no focal changes complaint: fall Onset (ago): hour(s) Fall from: standing Fall witnessed: no Place fall occurred: home Loss of consciousness: none Prolonged down time: unclear Symptoms prior to fall: lightheadedness Location of injury: head and neck Severity: moderate Associated symptoms (after fall): headache and neck pain Related Data Home Medications Medication Instructions Recorded Confirmed clopidogrel 75 mg tablet 75 mg PO DAILY platelet inhibitor 10/30/17 04/04/22 multivit with minerals-folic acid 1 each PO DAILY Supplement 09/09/18 04/04/22 200 mcg-biotin 300 mcg chew tablet aspirin 81 mg chewable tablet 81 mg PO DAILY heart health 09/10/18 04/04/22 atorvastatin 80 mg tablet 80 mg PO HS Cholesterol 09/10/18 04/04/22 sucralfate 1 gram tablet 1 g PO ACHS stomach 10/31/18 04/04/22 nitroglycerin 0.4 mg sublingual 0.4 mg sublingual Q5MINP PRN Chest 06/21/20 04/04/22 tablet Pain escitalopram oxalate 20 mg tablet 10 mg PO DAILY Depression 06/22/20 04/04/22 pantoprazole 40 mg tablet,delayed 40 mg PO BID acid reflux 06/22/20 04/04/22 release tramadol 50 mg tablet 50 mg PO TIDP PRN pain 02/07/21 04/04/22 L.acidoph, paracasei,B. lactis 10 1 cap PO DAILY GI health 03/16/21 04/04/22 billion cell capsule albuterol sulfate 90 mcg/actuation 2 puffs inhalation Q6H COPD 03/16/21 04/04/22 breath activated powder inhaler,sensor inhalational spacing device 03/16/21 04/04/22 magnesium oxide 400 mg (241.3 mg 400 mg PO BID Supplement 03/16/21 04/04/22 magnesium) tablet linaclotide 145 mcg capsule 145 mcg PO DAILY IBS 08/12/21 04/04/22 losartan 50 mg tablet 100 mg PO DAILY High blood pressure 09/26/21 04/04/22 metoprolol succinate 100 mg 100 mg PO DAILY High blood pr
[2022-04-04 02:23] LABS: Basophils % 0.5 % (0.1-2.0); Eosinophils # 0.1 K/mm3 (0.0-0.4); Hematocrit 40.1 % (37.0-47.0); Hemoglobin 12.8 g/dL (12.2-16.2); Lymphocytes # 1.3 K/mm3 (0.7-4.5); Lymphocytes % 20.5 % (10-50); Mean Corpuscular Hemoglobin 34.5 pg (27.0-31.2); Mean Corpuscular Volume 107.9 fl (81-99); Mean Platelet Volume 8.8 fl (7.4-10.4); Monocytes # 0.3 K/mm3 (0.1-1.0); Monocytes % 4.8 % (1.7-9.3); Neutrophils # 4.6 K/mm3 (1.8-7.8); Neutrophils % 73.3 % (37.0-80.0); Platelet Count 272 K/mm3 (142-424); Red Blood Count 3.72 M/mm3 (4.20-5.40); Red Cell Distribution Width 15.6 % (11.5-17.5); White Blood Count 6.2 K/mm3 (4.8-10.8)
[2022-04-04 02:27] LABS: Alanine Aminotransferase 25 U/L (12-78); Albumin Level 2.8 g/dl (3.5-5.0); Alkaline Phosphatase 146 U/L (38-126); Anion Gap 11.4 mEq/L (5-15); Aspartate Amino Transferase 51 U/L (14-36); Bilirubin,Total 0.5 mg/dl (0.2-1.3); Blood Urea Nitrogen 9 mg/dl (7-17); Calcium 8.3 mg/dl (8.4-10.2); Carbon Dioxide 36 mmol/L (22.0-30.0); Chloride 87 mmol/L (98-107); Creatinine Clearance Estimated 48 mL/min (50-200); Estimated Glomerular Filt Rate 82 ml/min (>60); GFR (African American) 100 ML/MIN (>60); Globulin 2.7 g/dL (1.3-3.2); Glucose 128 mg/dl (74-100); Sodium 133 mmol/L (136-145); Total Protein,Serum 5.5 g/dl (6.3-8.2)
[2022-04-04 02:34] LABS: Potassium 1.4 mmoL/L (3.5-5.1)
--- NOTE | 2022-04-04 02:37 | PC.NURSE ---
Lab (Kerri) called critical potassium of 1.4. notified.
--- NOTE | 2022-04-04 02:50 | ECG_ITS ---
APPROVED REPORT Exam: Resting ECG HR:80 bpm ECG Measurements Heart Rate 80 AXES AZ 190 P 75 QRSd 161 QRS 18 QT 310 T 0 QTc 346 Conclusion SINUS RHYTHM INDETERMINATE AXIS RIGHT BUNDLE BRANCH BLOCK [120+ ms QRS DURATION, UPRIGHT V1, 40+ ms S IN I/aVL/V4/V5/V6] ABNORMAL ECG UNCONFIRMED REPORT Electronically signed by : Abdiel Angulo MD 04/04/2022 19:54:12
--- NOTE | 2022-04-04 03:00 | PC.NURSE ---
Dr. Cook s/w [facility]
--- NOTE | 2022-04-04 03:03 | PC.NURSE ---
[facility]
[2022-04-04 03:13] LABS: Coronavirus 19, PCR Not Detected (NotDetected); Influenza A, PCR Not Detected (NotDetected); Influenza B, PCR Not Detected (NotDetected)
--- NOTE | 2022-04-04 03:19 | PC.NURSE ---
Dr. Cook s/w family and pt regarding results and pending transfer
[2022-04-04 04:07] VITALS: BP 140/78; PULSE 78; RESP 18; TEMP 36.6; O2SAT 99
== END 2022-04-04 04:15 | disposition short-term general hospital (02) ==
PROVIDERS: Emergency Provider Emergency Medicine
DX: S12.9XXA Fracture of neck, unspecified, initial encounter (principal); I45.10 Unspecified right bundle-branch block; S22.000A Wedge compression fracture of unspecified thoracic vertebra, initial encounter for closed fracture; E87.6 Hypokalemia; W17.89XA Other fall from one level to another, initial encounter; Y92.002 Bathroom of unspecified non-institutional (private) residence as the place of occurrence of the external cause; Z79.82 Long term (current) use of aspirin; Z79.899 Other long term (current) drug therapy; F32.A Depression, unspecified; K21.9 Gastro-esophageal reflux disease without esophagitis; J44.9 Chronic obstructive pulmonary disease, unspecified; K58.9 Irritable bowel syndrome, unspecified
CPT/HCPCS: 70450; 71045; 72125; 72128; 72170; 80053; 85025; 93005; 99291; C9803; J2405; U0003; U0005

== ENCOUNTER → 2022-06-29 08:45 | Outpatient (CLI) | payer MEDICARE, OTHER, SELFPAY ==
--- NOTE | 2022-06-29 09:10 | CT_ITS ---
FINAL REPORT TECHNIQUE: The patient was injected with IV contrast. Axial images were obtained of the chest by computed tomography. Precontrast images were also obtained. This study was performed with techniques to keep radiation doses as low as reasonably achievable (ALARA). Individualized dose reduction techniques using automated exposure control or adjustment of mA and/or kV according to the patient's size were employed. CLINICAL HISTORY: WEIGHT LOSS x 3 mos (25lbs), Chronic cough. Hx COPD, nonsmoker. COMPARISON: 09/28/2021 FINDINGS: CT OF THE CHEST WITH AND WITHOUT CONTRAST: There is no axillary adenopathy. There is no mediastinal or hilar adenopathy or mass. Heart size is normal. There is no pericardial or pleural effusion identified. There is bilateral apical scarring which is visually stable. There is mild emphysema. There are no new masses or nodules. There are several chronic right rib fractures. There is a subacute left 11th posterior rib fracture. There is a contrast enhancing focus in the right hepatic lobe measuring 8 mm which may represent a small hemangioma. Postoperative changes from cholecystectomy. IMPRESSION: No acute cardiopulmonary process. Chronic and subacute rib fractures as above. Reviewed, Interpreted and Dictated by Joesph Harris III, MD Transcribed by Kindra Gallo Authenticated and [facility]
[2022-06-29 09:17] LABS: Basophils # 0.1 K/mm3 (0-0.2); Basophils % 0.8 % (0.1-2.0); Eosinophils # 0.2 K/mm3 (0.0-0.4); Eosinophils % 2.6 % (0.1-12.0); Hematocrit 35.5 % (37.0-47.0); Hemoglobin 11.4 g/dL (12.2-16.2); Lymphocytes # 1.4 K/mm3 (0.7-4.5); Lymphocytes % 23.6 % (10-50); Mean Corpuscular HGB Conc 32.2 g/dL (31.8-35.4); Mean Corpuscular Hemoglobin 30.7 pg (27.0-31.2); Mean Corpuscular Volume 95.2 fl (81-99); Mean Platelet Volume 7.8 fl (7.4-10.4); Monocytes # 0.2 K/mm3 (0.1-1.0); Monocytes % 3.8 % (1.7-9.3); Neutrophils # 4.2 K/mm3 (1.8-7.8); Neutrophils % 69.3 % (37.0-80.0); Platelet Count 261 K/mm3 (142-424); Red Blood Count 3.73 M/mm3 (4.20-5.40); Red Cell Distribution Width 13.8 % (11.5-17.5); White Blood Count 6.1 K/mm3 (4.8-10.8)
[2022-06-29 09:59] LABS: Chloride 104 mmol/L (98-107)
[2022-06-29 10:00] LABS: Potassium 4.2 mmoL/L (3.5-5.1); Sodium 135 mmol/L (136-145)
[2022-06-29 10:02] LABS: Alanine Aminotransferase 14 U/L (12-78); Albumin Level 3.4 g/dl (3.5-5.0); Alkaline Phosphatase 57 U/L (38-126); Anion Gap 7.2 mEq/L (5-15); Aspartate Amino Transferase 19 U/L (14-36); Bilirubin,Total 0.5 mg/dl (0.2-1.3); Blood Urea Nitrogen 13 mg/dl (7-17); Carbon Dioxide 28 mmol/L (22.0-30.0); Estimated Glomerular Filt Rate 82 ml/min (>60); GFR (African American) 100 ML/MIN (>60); Globulin 2.4 g/dL (1.3-3.2); Total Protein,Serum 5.8 g/dl (6.3-8.2)
[2022-06-29 10:03] LABS: Albumin/Globulin Ratio 1.4 (1.1-1.8); Calcium 8.7 mg/dl (8.4-10.2); Glucose 109 mg/dl (74-100)
[2022-06-29 10:18] LABS: T4 (Thyroxine) 8.4 ug/dl (5.53-11.0)
[2022-06-29 10:31] LABS: Thyroid Stimulating Hormone 3.32 uIU/mL (0.465-4.68)
[2022-06-29 11:40] LABS: Triiodothryronine (T3) Uptake 36 % (23.5-40.5)
== END ==
PROVIDERS: Visit Provider Internal Medicine Adolescent Medicine
DX: I25.10 Atherosclerotic heart disease of native coronary artery without angina pectoris (principal); E78.00 Pure hypercholesterolemia, unspecified; R63.4 Abnormal weight loss; R05.3 Chronic cough; Z86.73 Personal history of transient ischemic attack (TIA), and cerebral infarction without residual deficits
CPT/HCPCS: 36415; 71270; 80053; 84436; 84443; 84479; 85025; Q9967